=== PATIENT | female | born 2000 | race African-American/Black ===

== ENCOUNTER 2022-02-01 08:32 | Emergency (ER) | payer OTHER ==
--- OUTSIDE RECORDS SUMMARY | 2022-02-01 08:54 | XMS REPORT | Continuity of Care Document ---
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 09/02/21 at 1530, Until Discontinu ed, KENNY D5W 0.45% 2020-11 Yes 1000mL at 75 Unive rs NaCl 0-17 mL/hr, ity of (1/2NS) IV 20:30: 1,000 mL, [place] infusion 00 IV Medical 1,000 mL Infusion, Branch CONTINUOUS , Starting on 09/02/21 at 1530, Until Discontinu ed, KENNY magnesium 2020-11- No 2g/h 2 g/hr (50 U nivers sulfate in 0-17 10-18 mL/hr), at it y of 0.9 %NaCl 20:30: 08:29 50 mL/hr, [place] 10 gram/250 00 :00 IV Medical mL (40 Infusion, Branch mg/mL) IV CONTINUOUS SOLUTION , Starting on 09/02/21 at 1530, Until 09/03/21 at 0329, KENNY calcium 2020-11 Yes 1000mg 1,000 mg, Uni vers gluconate 0-17 Slow IV ity of 100 mg/mL 20:22: Push, PRN [place] (10%) 35 - SEE Medical injection INSTRUCTIO Bran ch 1,000 mg NS, Starting on 09/02/21 at 1522, Until Discontinu ed, Routine, magnesium toxicity magnesium 2020-11 Yes 4g 32.48 mEq Uni vers sulfate 4 0-17 (4 g), ity of mEq/mL (50 20:22: Slow [place] 35 [place], PRN Medical injection - SEE Branch 32.48 mEq INSTRUCTIO NS, Starting on 09/02/21 at 1522, Until Discontinu ed, Routine, For seizure activity (patient not on magnesium sulfate) magnesium 2020-11 Yes 2g 16.24 mEq Uni vers sulfate 4 0-17 (2 g), ity of mEq/mL (50 20:22: Slow [place] 35 Push, PRN Medical injection - SEE Branch 16.24 mEq INSTRUCTIO NS, 2 doses, Starting on 09/02/21 at 1522, Until Discontinu ed, Routine, For seizure activity (patient already on magnesium sulfate) calcium 2020-11 Yes 1000mg 1,000 mg, Uni vers gluconate 0-17 Slow IV ity of 100 mg/mL 20:22: Push, PRN [place] (10%) 35 - SEE Medical injection INSTRUCTIO Bran ch 1,000 mg NS, Starting on 09/02/21 at 1522, Until Discontinu ed, Routine, magnesium toxicity magnesium 2020-11 Yes 4g 32.48 mEq Uni vers sulfate 4 0-17 (4 g), ity of mEq/mL (50 20:22: Slow [place] 35 Push, PRN Medical injection - SEE Branch 32.48 mEq INSTRUCTIO NS, Starting on 09/02/21 at 1522, Until Discontinu ed, Routine, For seizure activity (patient not on magnesium sulfate) magnesium 2020-11 Yes 2g 16.24 mEq Uni vers sulfate 4 0-17 (2 g), ity of mEq/mL (50 20:22: Slow [place] 35 Push, PRN Medical injection - SEE Branch 16.24 mEq INSTRUCTIO NS, 2 doses, Starting on 09/02/21 at 1522, Until Discontinu ed, Routine, For seizure activity (patient already on magnesium sulfate) calcium 2020-11 Yes 1000mg 1,000 mg, Uni vers gluconate 0-17 Slow IV ity of 100 mg/mL 20:22: Push, PRN [place] (10%) 35 - SEE Medical injection INSTRUCTIO Bran ch 1,000 mg NS, Starting on 09/02/21 at 1522, Until Discontinu ed, Routine, magnesium toxicity magnesium 2020-11 Yes 4g 32.48 mEq Uni vers sulfate 4 0-17 (4 g), ity of mEq/mL (50 20:22: Slow [place] 35 Push, PRN Medical injection - SEE Branch 32.48 mEq INSTRUCTIO NS, Starting on 09/02/21 at 1522, Until Discontinu ed, Routine, For seizure activity (patient not on magnesium sulfate) magnesium 2020-11 Yes 2g 16.24 mEq Uni vers sulfate 4 0-17 (2 g), ity of mEq/mL (50 20:22: Slow [place] %) 35 Push, PRN Medical injection - [facility] 16.24 mEq INSTRUCTIO NS, 2 doses, Starting on [place] 09/02/21 at 1522, Until Discontinu ed, Routine, For seizure activity (patient already on magnesium sulfate) ibuprofen 2020-11- No 600mg 600 mg, Uni vers (IBU) 0-17 - Oral, ity of tablet 600 19:03: 14:45 Q6HPRN, [place] mg 00 :55 Starting Medical on Hemat[place] Branch 09/02/21 at 1403, Until 09/03/21 at 0945, Routine, Pain (scale 1-3) morpHINE 30 2020-11- No Unive rs mg/30 mL 0-17 10-18 ity of (fixed 18:30: 14:48 [place] dose) [employer]ACH[employer] 00 :05 Medical injection [place] bupivacaine 2020-11 Yes PRN, Univer s (preserv 0-17 Starting ity of free) 18:09: on [facility] (SENSORCAIN 00 09/02/21 Medi joanie E MPF) 0.25 at 1309, Bran ch % (2.5 Until mg/mL) Discontinu injection ed, Routine, Intra-op bupivacaine 2020-11 Yes PRN, Univer s (preserv 0-17 Starting ity of free) 18:09: on [facility] (SENSORCAIN 00 09/02/21 Medi joanie E MPF) 0.25 at 1309, Bran ch % (2.5 Until mg/mL) Discontinu injection ed, Routine, Intra-op bupivacaine 2020-11 Yes PRN, Univer s (preserv 0-17 Starting ity of free) 18:09: on [facility] (SENSORCAIN 00 09/02/21 Medi joanie E MPF) 0.25 at 1309, Bran ch % (2.5 Until mg/mL) Discontinu injection ed, Routine, Intra-op HYDROmorpho 2020-11 Yes .2mg 0.2 mg, Uni vers ne 0-17 Slow IV ity of (DILAUDID) 17:47: Push, [place] injection 42 Q5MIN PRN, Medi joanie 0.2 mg 10 doses, Branch Starting on 09/02/21 at 1247, Until Discontinu ed, Routine, Pain (scale 7-10), PACU
Us e approved by (Faculty): PACU USE -ANESTHESI A SERVICE-HY DROMORPHON E INJECTIONS FENTanyl PF 2020-11 Yes 25ug 25 mcg, Uni vers (SUBLIMAZE 0-17 Slow IV ity of (PF)) 17:47: Push, [place] injection 42 Q5MIN PRN, Medi joanie 25 mcg 4 doses, Branch Starting on 09/02/21 at 1247, Until Discontinu ed, Routine, Pain (scale 4-6), PACU ondansetron 2020-11 Yes 4mg 4 mg, Slow Univers (ZOFRAN 0-17 IV Push, ity of (PF)) 17:47: PRN, 1 [place] injection 4 42 dose, Medical mg Starting Branch on 09/02/21 at 1247, Until Discontinu ed, Routine, Nausea and Vomiting (N/V), PACU HYDROmorpho 2020-11 Yes .2mg 0.2 mg, Uni vers ne 0-17 Slow IV ity of (DILAUDID) 17:47: Push, [place] injection 42 Q5MIN PRN, Medi joanie 0.2 mg 10 doses, Branch Starting on 09/02/21 at 1247, Until Discontinu ed, Routine, Pain (scale 7-10), PACU
Us e approved by (Faculty): PACU USE -ANESTHESI A SERVICE-HY DROMORPHON E INJECTIONS FENTanyl PF 2020-11 Yes 25ug 25 mcg, Uni vers (SUBLIMAZE 0-17 Slow IV ity of (PF)) 17:47: Push, [place] injection 42 Q5MIN PRN, Medi joanie 25 mcg 4 doses, Branch Starting on 09/02/21 at 1247, Until Discontinu ed, Routine, Pain (scale 4-6), PACU ondansetron 2020-11 Yes 4mg 4 mg, Slow Univers (ZOFRAN 0-17 IV Push, ity of (PF)) 17:47: PRN, 1 [place] injection 4 42 dose, Medical mg Starting Branch on 09/02/21 at 1247, Until Discontinu ed, Routine, Nausea and Vomiting (N/V), PACU HYDROmorpho 2020-11 Yes .2mg 0.2 mg, Uni vers ne 0-17 Slow IV ity of (DILAUDID) 17:47: Push, [place] injection 42 Q5MIN PRN, Medi joanie 0.2 mg 10 doses, Branch Starting on 09/02/21 at 1247, Until Discontinu ed, Routine, Pain (scale 7-10), PACU
Us e approved by (Faculty): PACU USE -ANESTHESI A SERVICE-HY DROMORPHON E INJECTIONS FENTanyl PF 2020-11 Yes 25ug 25 mcg, Uni vers (SUBLIMAZE 0-17 Slow IV ity of (PF)) 17:47: Push, [place] injection 42 Q5MIN PRN, Medi joanie 25 mcg 4 doses, Branch Starting on 09/02/21 at 1247, Until Discontinu ed, Routine, Pain (scale 4-6), PACU ondansetron 2020-11 Yes 4mg 4 mg, Slow Univers (ZOFRAN 0-17 IV Push, ity of (PF)) 17:47: PRN, 1 [place] injection 4 42 dose, Medical mg Starting Branch on 09/02/21 at 1247, Until Discontinu ed, Routine, Nausea and Vomiting (N/V), PACU LORazepam 2020-11- No 1mg 1 mg, Slow U nivers (ATIVAN) 0-16 -16 IV Push, ity of injection 1 02:20: 02:25 ONCE NOW, [place] mg 00 :00 1 dose, On Medical Fri Branch 08/31/21 at 2130, KENNY nalbuphine 2020-11- No 10mg 10 mg, Univ ers (NUBAIN) 0-16 -16 Intravenou ity of injection 01:28: 02:25 s, ONCE, 1 [place] 10 mg 00 :00 dose, On Medical Fri Branch 08/31/21 at 2030, Routine proMETHazin 2020-11- No 25mg 25 mg, IV Univers e 0-16 -16 Piggyback, ity of (PHENERGAN) 01:28: 02:25 ONCE NOW, [place] 25 mg in 00 :00 1 dose, On Medic al NaCl 0.9% Fri Branch (NS) 50 mL 08/31/21 IV at 2030, piggyback KENNY nalbuphine 2020-11- No 10mg 10 mg, Univ ers (NUBAIN) 0-15 10-15 Intravenou ity of injection 17:00: 16:02 s, ONCE, 1 [place] 10 mg 00 :00 dose, On Medical Fri Branch 08/31/21 at 1200, Routine lactated 2020-11- No 500mL at 999 Unive rs ringers IV 0-15 10-15 mL/hr, 500 it y of infusion 04:15: 04:10 mL, IV [place] 500 mL 00 :00 Infusion, Medical ONCE, 1 Branch dose, On [place] 08/30/21 at 2315, Routine sodium 2020-11- No 30mL 30 mL, Univers citrate-cit 0-15 10-15 Oral, ity of demetrius acid 03:04: 04:15 PRE-PROCED [place] (BICITRA) 27 :00 URE ONCE, Medic al 500-334 1 dose, Branch mg/5 mL Starting solution 30 on [place] mL 08/30/21 at 2204, Until Discontinu ed, Routine, Surgery/Pr ocedure D5W-LR IV 2020-11- No 1000mL at 125 Uni vers infusion 0-15 10-18 mL/hr, IV ity o f 1,000 mL 02:15: 14:45 Infusion, [place] as 00 :39 CONTINUOUS Medical , Starting Branch on [place]laine 08/30/21 at 2115, Until 09/03/21 at 0945, Routine LR 1000 mL 2020-11- No 2mU/min at 6-120 Univers + oxytocin 0-15 10-18 mL/hr, IV ity of 20 units IV 02:07: 14:45 Infusion, [place] Solution 09 :39 TITRATE, Medical Starting Branch on [place] 08/30/21 at 2107, Until 09/03/21 at 0945, KENNY sulfamethox 2020- No [id number] 1{tbl} Take 1 Univers azole-trime 9-17 08-18 tablet by it y of thoprim 00:00: 04:59 mouth 2 [place] 800-160 mg 00 :00 (two) Medical per tablet times Branch daily for 14 days. sulfamethox 2020- No [id number] 1{tbl} Take 1 Univers azole-trime 08-03 10-02 tablet by it y of thoprim 00:00: 04:59 mouth 2 [place] 800-160 mg 00 :00 (two) Medical per tablet times Branch daily for 14 days. fluconazole 2020- No [id number] 150mg Take 1 Univers (DIFLUCAN) 08-03 tablet by ity of 150 mg 00:00: 04:59 mouth once [place] tablet 00 :00 now for 1 Medical dose. [place] fluconazole 2020- No [id number] 150mg Take 1 Univers (DIFLUCAN) 08-03 tablet by ity of 150 mg 00:00: 04:59 mouth once [place] tablet 00 :00 now for 1 Medical dose. [place] lactated Yes 1000mL at 125 Unive rs ringers IV 9-09 mL/hr, ity of infusion 22:15: 1,000 mL, [place] 1,000 mL 00 IV Medical Infusion, Branch CONTINUOUS , Starting [place] 07/26/21 at 1715, Until Discontinu ed, Routine clindamycin Yes 300mg 300 mg, Un aruna (CLEOCIN 07-26 Oral, Q6H, ity o f HCL) 21:15: First dose [place] capsule 300 00 on [place]laine Medica l mg 07/26/21 at Branch 1615, Until Discontinu ed, KENNY
Re ason for Anti-Infec tive: Documented Infection< br>Documen phyllis Infection Site: Urine
D uration of Therapy: 14 days
Re stricted use approved by: [employer]
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 tablet sulfamethox Yes [id number] 1{tbl} Take 1 Univers azole-trime -09 tablet by ity of thoprim 00:00: mouth 2 [place] (BACTRIM 00 (two) Medical DS) 800-160 times Branch mg per daily. tablet sulfamethox 2020-0 Yes [id number] 1{tbl} Take 1 Univers azole-trime 9-09 tablet by ity of thoprim 00:00: mouth 2 [place] (BACTRIM 00 (two) Medical DS) 800-160 times Branch mg per daily. tablet sulfamethox 0 Yes 1{tbl} Take 1 Univers azole-trime 9-09 tablet by ity of thoprim 00:00: mouth 2 [place] (BACTRIM 00 (two) Medical DS) 800-160 times Branch mg per daily. tablet sulfamethox 0 Yes 1{tbl} Take 1 Univers azole-trime 9-09 tablet by ity of thoprim 00:00: mouth 2 [place] (BACTRIM 00 (two) Medical DS) 800-160 times Branch mg per daily. tablet sulfamethox 0 Yes 1{tbl} Take 1 Univers azole-trime 9-09 tablet by ity of thoprim 00:00: mouth 2 [place] (BACTRIM 00 (two) Medical DS) 800-160 times Branch mg per daily. tablet sulfamethox 0 Yes 1{tbl} Take 1 Univers azole-trime 9-09 tablet by ity of thoprim 00:00: mouth 2 [place] (BACTRIM 00 (two) Medical DS) 800-160 times Branch mg per daily. tablet sulfamethox 0 Yes [id number] 1{tbl} Take 1 Univers azole-trime 9-09 tablet by ity of thoprim 00:00: mouth 2 [place] (BACTRIM 00 (two) Medical DS) 800-160 times Branch mg per daily. tablet sulfamethox 0 2020- No [id number] 1{tbl} Take 1 Univers azole-trime 9-09 10-19 tablet by it y of thoprim 00:00: 00:00 mouth 2 [place] (BACTRIM 00 :00 (two) Medical DS) 800-160 times Branch mg per daily. tablet metroNIDAZO 0 2020- No 500mg Take 1 Un aruna LE (FLAGYL) 8-25 07-19 tablet by it y of 500 mg 00:00: 04:59 mouth 2 [place] tablet 00 :00 (two) Medical times Branch daily for 7 days. metroNIDAZO 2020-2020- No 500mg Take 1 [facility] aruna LE (FLAGYL) 07-11- tablet by it y of 500 mg 00:00: 04:59 mouth 2 [place] tablet 00 :00 (two) Medical times Branch daily for 7 days. fluconazole 2020-2020- No 150mg Take 1 [place] 150 mg 07-11- tablet by ity of tablet 00:00: 04:59 mouth once [place] 00 :00 now for 1 Medical dose. Take Branch one tablet PO today, then repeat in 72 hours fluconazole 2020-2020- No 150mg Take 1 [place] 150 mg 07-11- tablet by ity of tablet 00:00: 04:59 mouth once [place] 00 :00 now for 1 Medical dose. Take Branch one tablet PO today, then repeat in 72 hours Nitrofurant 2020-2020- No [id number] 100mg Take 1 Univers oin&Nit. 8-30 capsule by ity of Macrocryst 00:00: 04:59 mouth 2 [place] 100 mg 00 :00 (two) Medical capsule times Branch daily for 5 days. Nitrofurant 2020- No [id number] 100mg Take 1 Univers oin&Nit. 8- 08-30 capsule by ity of Macrocryst 00:00: 04:59 mouth 2 [place] 100 mg 00 :00 (two) Medical capsule times Branch daily for 5 days. cephALEXin Yes 500mg 500 mg, Uni vers (KEFLEX) 6-08 Oral, Q6H, ity o f capsule 500 02:30: First dose [place] mg 00 on [facility] 04/23/21 at [place] 2130, Until Discontinu ed, KENNY
Re ason for Anti-Infec tive: Documented Infection< br>Documen phyllis Infection Site: Urine
D uration of Therapy: 7 days cephALEXin 2020- Yes [id number] 500mg Take 1 [facility] 500 mg 6-08 capsule by ity of capsule 00:00: mouth 4 [place] 00 (four) Medical times Branch daily. cephALEXin Yes [id number] 500mg Take 1 [facility] 500 mg 6-08 capsule by ity of capsule 00:00: mouth 4 [place] 00 (four) Medical times Branch daily. cephALEXin 2021-0 Yes [id number] 500mg Take 1 [facility] 500 mg 6-08 capsule by ity of capsule 00:00: mouth () Medical times Branch daily. cephALEXin 2021-0 Yes [id number] 500mg Take 1 Univers 500 mg 6-08 capsule by ity of capsule 00:00: mouth (four) Medical times Branch daily. cephALEXin 2021-0 Yes [id number] 500mg Take 1 Univers 500 mg 6-08 capsule by ity of capsule 00:00: mouth (four) Medical times Branch daily. cephALEXin 2021-0 Yes [id number] 500mg Take 1 [facility] 500 mg 6-08 capsule by ity of capsule 00:00: mouth () Medical times Branch daily. cephALEXin 2021-0 Yes [id number] 500mg Take 1 Univers 500 mg 6-08 capsule by ity of capsule 00:00: mouth ([facility]) Medical times Branch daily. cephALEXin 2021-0 Yes [id number] 500mg Take 1 Univers 500 mg 6-08 capsule by ity of capsule 00:00: mouth (four) Medical times Branch daily. cephALEXin 2021-0 Yes [id number] 500mg Take 1 Univers 500 mg 6-08 capsule by ity of capsule 00:00: mouth [place] ([facility]) Medical times Branch daily. cephALEXin 2021-0 Yes [id number] 500mg Take 1 Univers 500 mg 6-08 capsule by ity of capsule 00:00: mouth [place] () Medical times Branch daily. cephALEXin 2021-0 Yes [id number] 500mg Take 1 [facility] 500 mg 6-08 capsule by ity of capsule 00:00: mouth [place] (four) Medical times Branch daily. cephALEXin 2021-0 Yes [id number] 500mg Take 1 [facility] 500 mg 6-08 capsule by ity of capsule 00:00: mouth [place] ([facility]) Medical times Branch daily. cephALEXin 2021-0 Yes [id number] 500mg Take 1 Univers 500 mg 6-08 capsule by ity of capsule 00:00: mouth [address] [place] [address] (four) Medical times Branch daily. cephALEXin 2021-0 Yes [id number] 500mg Take 1 [facility] 500 mg 6-08 capsule by ity of capsule 00:00: mouth 4 [place] 00 (four) Medical times Branch daily. cephALEXin 2020-2020- No [id number] 500mg Take 1 Univers 500 mg 04-24 capsule by ity of capsule 00:00: 00:00 mouth 4 [place] 00 :00 (four) Medical times Branch daily. aspirin 81 2020-0 Yes [id number] 81mg Take 1 Univers mg EC 5-15 tablet by ity of tablet 00:00: mouth [place] 00 daily. Medical Branch aspirin 81 2020-0 Yes [id number] 81mg Take 1 Univers mg EC 5-15 tablet by ity of tablet 00:00: mouth [place] 00 daily. Medical Branch aspirin 81 2020-0 Yes [id number] 81mg Take 1 Univers mg EC 5-15 tablet by ity of tablet 00:00: mouth [place] 00 daily. Medical Branch aspirin 81 2020-0 Yes [id number] 81mg Take 1 Univers mg EC 5-15 tablet by ity of tablet 00:00: mouth [place] 00 daily. Medical Branch aspirin 81 2020-0 Yes [id number] 81mg Take 1 Univers mg EC 5-15 tablet by ity of tablet 00:00: mouth [place] 00 daily. Medical Branch aspirin 81 2020-0 Yes [id number] 81mg Take 1 Univers mg EC 5-15 tablet by ity of tablet 00:00: mouth [place] 00 daily. Medical Branch aspirin 81 2020-0 Yes [id number] 81mg Take 1 Univers mg EC 5-15 tablet by ity of tablet 00:00: mouth [place] 00 daily. Medical Branch aspirin 81 2020-0 Yes [id number] 81mg Take 1 Univers mg EC 5-15 tablet by ity of tablet 00:00: mouth [place] 00 daily. Medical Branch aspirin 81 2020-0 Yes [id number] 81mg Take 1 Univers mg EC 5-15 tablet by ity of tablet 00:00: mouth [place] 00 daily. Medical Branch aspirin 81 2020-0 Yes [id number] 81mg Take 1 Univers mg EC 5-15 tablet by ity of tablet 00:00: mouth [place] 00 daily. Medical Branch aspirin 81 2020-0 Yes [id number] 81mg Take 1 Univers mg EC 5-15 tablet by ity of tablet 00:00: mouth [place] 00 daily. Medical Branch aspirin 81 2020-0 Yes [id number] 81mg Take 1 Univers mg EC 5-15 tablet by ity of tablet 00:00: mouth [place] 00 daily. Medical Branch aspirin 81 Yes [id number] 81mg Take 1 Univers mg EC 5-15 tablet by ity of tablet 00:00: mouth [place] 00 daily. Medical Branch aspirin 81 Yes [id number] 81mg Take 1 Univers mg EC 5-15 tablet by ity of tablet 00:00: mouth [place] 00 daily. Medical Branch aspirin 81 Yes [id number] 81mg Take 1 Univers mg EC 5-15 tablet by ity of tablet 00:00: mouth [place] 00 daily. Medical Branch aspirin 81 Yes [id number] 81mg Take 1 Univers mg EC 5-15 tablet by ity of tablet 00:00: mouth [place] 00 daily. [facility] Branch aspirin 81 2020- No [id number] 81mg Take 1 Univers mg EC 5-15 10-19 tablet by ity of tablet 00:00: 00:00 mouth [place] 00 :00 daily. Medical Branch cephALEXin 2020- No [id number] 500mg Take 1 Univers (KEFLEX) 3-24 -04 capsule by ity of 500 mg 00:00: 04:59 mouth 4 [place] capsule 00 :00 (four) Medical times Branch daily for 10 days. cephALEXin 2020- No [id number] 500mg Take 1 Univers (KEFLEX) 3-24 -04 capsule by ity of 500 mg 00:00: 04:59 mouth 4 [place] capsule 00 :00 (four) Medical times Branch daily for 10 days. cephALEXin 2020- No [id number] 500mg Take 1 Univers (KEFLEX) 3-24 04-04 capsule by ity of 500 mg 00:00: 04:59 mouth 4 [place] capsule 00 :00 (four) Medical times Branch daily for 10 days. cephALEXin 2020- No [id number] 500mg Take 1 Univers (KEFLEX) 3-24 04-04 capsule by ity of 500 mg 00:00: 04:59 mouth 4 [place] capsule 00 :00 (four) Medical times Branch daily for 10 days. cephALEXin 2020- No [id number] 500mg Take 1 Univers (KEFLEX) 3-24 04-04 capsule by ity of 500 mg 00:00: 04:59 mouth 4 [place] capsule 00 :00 (four) Medical times Branch daily for 10 days. cephALEXin 2020- No [id number] 500mg Take 1 Univers (KEFLEX) 02-07 capsule by ity of 500 mg 00:00: 04:59 mouth 4 [place] capsule 00 :00 (four) Medical times [place] daily for 10 days. Iron Fum & 2020- No [id number] 1{capsu Take 1 Univers P-FA-Vit B 02-06-22 le} capsule by it y of & C No.9 00:00: 04:59 mouth [place] (INTEGRA 00 :00 daily for Medica l PLUS) 125 90 days. Branch mg iron- 1 mg Cap Iron Fum & 2020- No [id number] 1{capsu Take 1 Univers P-FA-Vit B 02-06-22 le} capsule by it y of & C No.9 00:00: 04:59 mouth [place] (INTEGRA 00 :00 daily for Medica l PLUS) 125 90 days. Branch mg iron- 1 mg Cap Iron Fum & 2020- No [id number] 1{capsu Take 1 Univers P-FA-Vit B 02-06-22 le} capsule by it y of & C No.9 00:00: 04:59 mouth [place] (INTEGRA 00 :00 daily for Medica l PLUS) 125 90 days. Branch mg iron- 1 mg Cap Iron Fum & 2020- No [id number] 1{capsu Take 1 Univers P-FA-Vit B 02-06-22 le} capsule by it y of & C No.9 00:00: 04:59 mouth [place] (INTEGRA 00 :00 daily for Medica l PLUS) 125 90 days. Branch mg iron- 1 mg Cap Iron Fum & 2020- No [id number] 1{capsu Take 1 Univers P-FA-Vit B 3-09 05-22 le} capsule by it y of & C No.9 00:00: 04:59 mouth [place] (INTEGRA 00 :00 daily for Medica l PLUS) 125 90 days. Branch mg iron- 1 mg Cap Iron Fum & 2020- No [id number] 1{capsu Take 1 Univers P-FA-Vit B 3-09 05-22 le} capsule by it y of & C No.9 00:00: 04:59 mouth [place] (INTEGRA 00 :00 daily for Medica l PLUS) 125 90 days. Branch mg iron- 1 mg Cap Iron Fum & 2020- No [id number] 1{capsu Take 1 Univers P-FA-Vit B 3- 06-22 le} capsule by it y of & C No.9 00:00: 04:59 mouth [place] (INTEGRA 00 :00 daily for Medica l PLUS) 125 90 days. Branch mg iron- 1 mg Cap Iron Fum & 2020- No [id number] 1{capsu Take 1 Univers P-FA-Vit B 3- 06-22 le} capsule by it y of & C No.9 00:00: 04:59 mouth [place] (INTEGRA 00 :00 daily for Medica l PLUS) 125 90 days. Branch mg iron- 1 mg Cap Iron Fum & 2020- No [id number] 1{capsu Take 1 Univers P-FA-Vit B 3-09 05-22 le} capsule by it y of & C No.9 00:00: 04:59 mouth [place] (INTEGRA 00 :00 daily for Medica l PLUS) 125 90 days. Branch mg iron- 1 mg Cap Iron Fum & 2020- No [id number] 1{capsu Take 1 Univers P-FA-Vit B 3- 06-22 le} capsule by it y of & C No.9 00:00: 04:59 mouth [place] (INTEGRA 00 :00 daily for Medica l PLUS) 125 90 days. Branch mg iron- 1 mg Cap Iron Fum & 2020- No [id number] 1{capsu Take 1 Univers P-FA-Vit B 3- 06-22 le} capsule by it y of & C No.9 00:00: 04:59 mouth [place] (INTEGRA 00 :00 daily for Medica l PLUS) 125 90 days. Branch mg iron- 1 mg Cap Iron Fum & 2020- No Anemia of 1{capsu Take 1 Univers P-FA-Vit B 3- 06-22 mother in le} capsule by ity of & C No.9 00:00: 04:59 , mouth [place] (INTEGRA 00 :00 antepartum daily for Medical PLUS) 125 90 days. Branch mg iron- 1 mg Cap Yes [id number] 1{packe Take 1 Univers vit 3-22 t} Packet by ity of 33-iron-fol 00:00: mouth [place] ic-dha 00 daily. Medical (SELECT-OB Branch + DHA) 29 mg iron-1 mg -250 mg combo pack Yes [id number] 1{packe Take 1 Univers vit 3-22 t} Packet by ity of 33-iron-fol 00:00: mouth [place] ic-dha 00 daily. Medical (SELECT-OB Branch + DHA) 29 mg iron-1 mg -250 mg combo pack Yes [id number] 1{packe Take 1 Univers vit 3-22 t} Packet by ity of 33-iron-fol 00:00: mouth [place] ic-dha 00 daily. Medical (SELECT-OB Branch + DHA) 29 mg iron-1 mg -250 mg combo pack Yes [id number] 1{packe Take 1 Univers vit 3-22 t} Packet by ity of 33-iron-fol 00:00: mouth [place] ic-dha 00 daily. Medical (SELECT-OB Branch + DHA) 29 mg iron-1 mg -250 mg combo pack Yes [id number] 1{packe Take 1 Univers vit 3-22 t} Packet by ity of 33-iron-fol 00:00: mouth [place] ic-dha 00 daily. Medical (SELECT-OB Branch + DHA) 29 mg iron-1 mg -250 mg combo pack Yes [id number] 1{packe Take 1 Univers vit 3-22 t} Packet by ity of 33-iron-fol 00:00: mouth [place] ic-dha 00 daily. Medical (SELECT-OB Branch + DHA) 29 mg iron-1 mg -250 mg combo pack Yes [id number] 1{packe Take 1 Univers vit 3-22 t} Packet by ity of 33-iron-fol 00:00: mouth [place] ic-dha 00 daily. Medical (SELECT-OB Branch + DHA) 29 mg iron-1 mg -250 mg combo pack Yes [id number] 1{packe Take 1 Univers vit 3-22 t} Packet by ity of 33-iron-fol 00:00: mouth [place] ic-dha 00 daily. Medical (SELECT-OB Branch + DHA) 29 mg iron-1 mg -250 mg combo pack Yes [id number] 1{packe Take 1 Univers vit 3-22 t} Packet by ity of 33-iron-fol 00:00: mouth [place] ic-dha 00 daily. Medical (SELECT-OB Branch + DHA) 29 mg iron-1 mg -250 mg combo pack Yes [id number] 1{packe Take 1 Univers vit 3-22 t} Packet by ity of 33-iron-fol 00:00: mouth [place] ic-dha 00 daily. Medical (SELECT-OB Branch + DHA) 29 mg iron-1 mg -250 mg combo pack Yes [id number] 1{packe Take 1 Univers vit 3-22 t} Packet by ity of 33-iron-fol 00:00: mouth [place] ic-dha 00 daily. Medical (SELECT-OB Branch + DHA) 29 mg iron-1 mg -250 mg combo pack Yes [id number] 1{packe Take 1 Univers vit 3-22 t} Packet by ity of 33-iron-fol 00:00: mouth [place] ic-dha 00 daily. Medical ([facility] Branch + DHA) 29 mg iron-1 mg -250 mg combo pack Yes [id number] 1{packe Take 1 [facility] vit 3-22 t} Packet by ity of 33-iron-fol 00:00: mouth [place] ic-dha 00 daily. Medical ([facility] + DHA) 29 mg iron-1 mg -250 mg combo pack Yes [id number] 1{packe Take 1 [facility] vit 3-22 t} Packet by ity of 33-iron-fol 00:00: mouth [place] ic-dha 00 daily. Medical ([facility] Branch + DHA) 29 mg iron-1 mg -250 mg combo pack Yes [id number] 1{packe Take 1 [facility] vit 3-22 t} Packet by ity of 33-iron-fol 00:00: mouth [place] ic-dha 00 daily. Medical ([facility] + DHA) 29 mg iron-1 mg -250 mg combo pack Yes [id number] 1{packe Take 1 [facility] vit 3-22 t} Packet by ity of 33-iron-fol 00:00: mouth [place] ic-dha 00 daily. Medical ([facility] + DHA) 29 mg iron-1 mg -250 mg combo pack Yes [id number] 1{packe Take 1 [facility] vit 3-22 t} Packet by ity of 33-iron-fol 00:00: mouth [place] ic-dha 00 daily. Medical ([facility] + DHA) 29 mg iron-1 mg -250 mg combo pack Yes [id number] 1{packe Take 1 [facility] vit 3-22 t} Packet by ity of 33-iron-fol 00:00: mouth [place] ic-dha 00 daily. Medical ([facility] + DHA) 29 mg iron-1 mg -250 mg combo pack Yes [id number] 1{packe Take 1 [facility] vit 3-22 t} Packet by ity of 33-iron-fol 00:00: mouth [place] ic-dha 00 daily. Medical ([facility] + DHA) 29 mg iron-1 mg -250 mg combo pack Yes [id number] 1{packe Take 1 [facility] vit 3-22 t} Packet by ity of 33-iron-fol 00:00: mouth [place] ic-dha 00 daily. Medical ([facility] + DHA) 29 mg iron-1 mg -250 mg combo pack Yes [id number] 1{packe Take 1 [facility] vit 3-22 t} Packet by ity of 33-iron-fol 00:00: mouth [place] ic-dha 00 daily. Medical ([facility] + DHA) 29 mg iron-1 mg -250 mg combo pack Yes [id number] 1{packe Take 1 [facility] vit 3-22 t} Packet by ity of 33-iron-fol 00:00: mouth [place] ic-dha 00 daily. Medical ([facility] + DHA) 29 mg iron-1 mg -250 mg combo pack Yes [id number] 1{packe Take 1 [facility] vit 3-22 t} Packet by ity of 33-iron-fol 00:00: mouth [place] ic-dha 00 daily. Medical ([facility] + DHA) 29 mg iron-1 mg -250 mg combo pack Yes [id number] 1{packe Take 1 [facility] vit 3-22 t} Packet by ity of 33-iron-fol 00:00: mouth [place] ic-dha 00 daily. Medical ([facility] + DHA) 29 mg iron-1 mg -250 mg combo pack Yes [id number] 1{packe Take 1 [facility] vit 3-22 t} Packet by ity of 33-iron-fol 00:00: mouth [place] ic-dha 00 daily. Medical ([facility] + DHA) 29 mg iron-1 mg -250 mg combo pack Yes High risk 1{packe Take 1 [facility] vit 3-22 teen t} Packet by ity of 33-iron-fol 00:00: mouth [place] ic-dha 00 in first daily. Medical (SELECT-OB trimester Bran ch + DHA) 29 mg iron-1 mg -250 mg combo pack 202- No [id number] 1{packe Take 1 [facility] vit 3-22 10-19 t} Packet by ity of 33-iron-fol 00:00: 00:00 [place] ic-dha 00 :00 daily. Medical ([facility] + DHA) 29 mg iron-1 mg -250 mg combo pack 2019-11 Yes [id number] 1{tbl} Take 1 [facility] vitamin 2-15 tablet by ity of w/FA tablet 00:00: mouth [place] 00 daily. Medical Branch docusate 2019-11 Yes [id number] 240mg Take 1 U nivers calcium 240 2-15 capsule by it y of mg capsule 00:00: mouth once [place] 00 daily as Medical needed for Branch Constipati on. ferrous 2019-11 Yes [id number] 325mg Take 1 [facility] sulfate 325 2-15 tablet by ity of mg (65 mg 00:00: mouth 2 [place] iron) 00 (two) Medical tablet times Branch daily. ibuprofen 2019-11 Yes [id number] 600mg Take 1 [facility] 600 mg 2-15 tablet by ity of tablet 00:00: mouth [place] 00 every 6 Medical (six) Branch hours as needed (Pain). Take with food or milk. 2019-11 Yes [id number] 1{tbl} Take 1 [facility] vitamin 2-15 tablet by ity of w/FA tablet 00:00: mouth [place] 00 daily. Medical Branch docusate 2019-11 Yes [id number] 240mg Take 1 U nivers calcium 240 2-15 capsule by it y of mg capsule 00:00: mouth once [place] 00 daily as Medical needed for Branch Constipati on. ferrous 2019-11 Yes [id number] 325mg Take 1 [facility] sulfate 325 2-15 tablet by ity of mg (65 mg 00:00: mouth 2 [place] iron) 00 (two) Medical tablet times Branch daily. ibuprofen 2019-11 Yes [id number] 600mg Take 1 [facility] 600 mg 2-15 tablet by ity of tablet 00:00: mouth [place] 00 every 6 Medical (six) Branch hours as needed (Pain). Take with food or milk. 2019-11 Yes [id number] 1{tbl} Take 1 [facility] vitamin 2-15 tablet by ity of w/FA tablet 00:00: mouth [place] 00 daily. Medical Branch docusate 2019-11 Yes [id number] 240mg Take 1 U nivers calcium 240 2-15 capsule by it y of mg capsule 00:00: mouth once [place] 00 daily as Medical needed for Branch Constipati on. ferrous 2019-11 Yes [id number] 325mg Take 1 [facility] sulfate 325 2-15 tablet by ity of mg (65 mg 00:00: mouth 2 [place] iron) 00 (two) Medical tablet times Branch daily. ibuprofen 2019-11 Yes [id number] 600mg Take 1 [facility] 600 mg 2-15 tablet by ity of tablet 00:00: mouth [place] 00 every 6 Medical (six) Branch hours as needed (Pain). Take with food or milk. 2019-11 Yes [id number] 1{tbl} Take 1 [facility] vitamin 2-15 tablet by ity of w/FA tablet 00:00: mouth [place] 00 daily. Medical Branch 2019-11 Yes [id number] 1{tbl} Take 1 [facility] vitamin 2-15 tablet by ity of w/FA tablet 00:00: mouth [place] 00 daily. Medical Branch 2019-11 Yes [id number] 1{tbl} Take 1 [facility] vitamin 2-15 tablet by ity of w/FA tablet 00:00: mouth [place] 00 daily. Medical Branch 2020- Yes [id number] 1{tbl} Take 1 [facility] vitamin 2-15 tablet by ity of w/FA tablet 00:00: mouth [place] 00 daily. Medical Branch 2020- Yes [id number] 1{tbl} Take 1 [facility] vitamin 2-15 tablet by ity of w/FA tablet 00:00: mouth [place] 00 daily. Medical Branch 2020 Yes [id number] 1{tbl} Take 1 [facility] vitamin 2-15 tablet by ity of w/FA tablet 00:00: mouth [place] 00 daily. Medical Branch 2020 Yes [id number] 1{tbl} Take 1 [facility] vitamin 2-15 tablet by ity of w/FA tablet 00:00: mouth [place] 00 daily. Medical Branch 2020 Yes [id number] 1{tbl} Take 1 [facility] vitamin 2-15 tablet by ity of w/FA tablet 00:00: mouth [place] 00 daily. Medical Branch 2020 Yes [id number] 1{tbl} Take 1 [facility] vitamin 2-15 tablet by ity of w/FA tablet 00:00: mouth [place] 00 daily. Medical Branch 2020 Yes [id number] 1{tbl} Take 1 [facility] vitamin 2-15 tablet by ity of w/FA tablet 00:00: mouth [place] 00 daily. Medical Branch 2020 Yes [id number] 1{tbl} Take 1 [facility] vitamin 2-15 tablet by ity of w/FA tablet 00:00: mouth [place] 00 daily. Medical Branch 2020- Yes [id number] 1{tbl} Take 1 [facility] vitamin 2-15 tablet by ity of w/FA tablet 00:00: mouth [place] 00 daily. Medical Branch 2020- Yes [id number] 1{tbl} Take 1 [facility] vitamin 2-15 tablet by ity of w/FA tablet 00:00: mouth [place] 00 daily. Medical Branch 2020- Yes [id number] 1{tbl} Take 1 [facility] vitamin 2-15 tablet by ity of w/FA tablet 00:00: mouth [place] 00 daily. Medical Branch 2020- Yes [id number] 1{tbl} Take 1 [facility] vitamin 2-15 tablet by ity of w/FA tablet 00:00: mouth [place] 00 daily. Medical Branch 2020- Yes [id number] 1{tbl} Take 1 [facility] vitamin 2-15 tablet by ity of w/FA tablet 00:00: mouth [place] 00 daily. Medical Branch 2020 Yes [id number] 1{tbl} Take 1 [facility] vitamin 2-15 tablet by ity of w/FA tablet 00:00: mouth [place] 00 daily. Medical Branch 2019-11 Yes [id number] 1{tbl} Take 1 [facility] vitamin 2-15 tablet by ity of w/FA tablet 00:00: mouth [place] 00 daily. Medical Branch 2020 Yes [id number] 1{tbl} Take 1 [facility] vitamin 2-15 tablet by ity of w/FA tablet 00:00: mouth [place] 00 daily. Medical Branch 2019-11 Yes [id number] 1{tbl} Take 1 [facility] vitamin 2-15 tablet by ity of w/FA tablet 00:00: mouth [place] 00 daily. Medical Branch 2019-11 Yes [id number] 1{tbl} Take 1 [facility] vitamin 2-15 tablet by ity of w/FA tablet 00:00: mouth [place] 00 daily. Medical Branch 2020 Yes [id number] 1{tbl} Take 1 [facility] vitamin 2-15 tablet by ity of w/FA tablet 00:00: mouth [place] 00 daily. Medical Branch 2019-11 Yes [id number] 1{tbl} Take 1 [facility] vitamin 2-15 tablet by ity of w/FA tablet 00:00: mouth [place] 00 daily. Medical Branch 2019-11 Yes [id number] 1{tbl} Take 1 [facility] vitamin 2-15 tablet by ity of w/FA tablet 00:00: mouth [place] 00 daily. Medical Branch 2020 Yes [id number] 1{tbl} Take 1 [facility] vitamin 2-15 tablet by ity of w/FA tablet 00:00: mouth [place] 00 daily. Medical Branch 2020 Yes 1{tbl} Take 1 Unive rs vitamin 2-15 (spontaneou tablet by ity of w/FA tablet 00:00: s vaginal mouth [place] 00 delivery) daily. Medical Branch 2019-2020- No [id number] 1{tbl} Take 1 [facility] vitamin 2-15 10-19 tablet by ity of w/FA tablet 00:00: 00:00 [place] 00 :00 daily. [facility] Branch docusate 20201- No [id number] 240mg Take 1 [facility] calcium 240 2-15 -22 capsule by i ty of mg capsule 00:00: 00:00 mouth once [place] 00 :00 daily as Medical needed for Branch Constipati on. ferrous 2019-11- No [id number] 325mg Take 1 U nivers sulfate 325 2-15 -22 tablet by it y of mg (65 mg 00:00: 00:00 mouth 2 [place] iron) 00 :00 (two) Medical tablet times Branch daily. ibuprofen 2019-11- No [id number] 600mg Take 1 [facility] 600 mg 2-15 -22 tablet by ity of tablet 00:00: 00:00 mouth [place] 00 :00 every 6 Medical (six) Branch hours as needed (Pain). Take with food or milk. 2019-11 Yes [id number] 1{tbl} Take 1 [facility] vitamin 2-14 tablet by ity of w/FA tablet 00:00: mouth [place] 00 daily. Medical Branch docusate 2019-11 Yes [id number] 240mg Take 1 U nivers calcium 240 2-14 capsule by it y of mg capsule 00:00: mouth once [place] 00 daily as Medical needed for Branch Constipati on. ferrous 2019-11 Yes [id number] 325mg Take 1 [facility] sulfate 325 2-14 tablet by ity of mg (65 mg 00:00: mouth 2 [place] iron) 00 (two) Medical tablet times Branch daily. ibuprofen 2019-11 Yes [id number] 600mg Take 1 [facility] 600 mg 2-14 tablet by ity of tablet 00:00: mouth [place] 00 every 6 Medical (six) Branch hours as needed (Pain). Take with food or milk. 2019-11 Yes [id number] 1{tbl} Take 1 [facility] vitamin 2-14 tablet by ity of w/FA tablet 00:00: mouth [place] 00 daily. Medical Branch docusate 2019-11 Yes [id number] 240mg Take 1 U nivers calcium 240 2-14 capsule by it y of mg capsule 00:00: mouth once [place] 00 daily as Medical needed for Branch Constipati on. ferrous 2019-11 Yes [id number] 325mg Take 1 [facility] sulfate 325 2-14 tablet by ity of mg (65 mg 00:00: mouth 2 [place] iron) 00 (two) Medical tablet times Branch daily. ibuprofen 2019-11 Yes [id number] 600mg Take 1 [facility] 600 mg 2-14 tablet by ity of tablet 00:00: mouth [place] 00 every 6 Medical (six) Branch hours as needed (Pain). Take with food or milk. morpHINE 2019-11 2020- No 4mg 4 mg, Slow [facility] injection 4 2-13 12-13 IV Push, ity of mg 19:30: 17:07 ONCE, 1 [place] 00 :00 dose, [place] Medical 10/29/20 Branch at 1330, Routine rho(D) 2019-11 Yes 300ug 300 mcg, Univer s immune 2-13 Intramuscu ity of globulin 19:26: lar, ONCE, [place] (RHOGAM) 42 For 1 Medical syringe 300 dose, Branch mcg Conditiona l, Routine ondansetron 2019-11 Yes 4mg 4 mg, Slow Univers (ZOFRAN 2-13 IV Push, ity of (PF)) 19:26: Q8HPRN, [place] injection 4 38 Starting Medi joanie mg Hematite Branch 10/29/20 at 1326, Until Discontinu ed, Routine, Nausea and Vomiting (N/V) simethicone 2019-11 Yes 160mg 160 mg, [facility] (GAS RELIEF 2-13 Oral, ity of (SIMETHICON 19:26: PC+HSPRN, [place] E)) 38 Starting Medical chewable [place] Branch tablet 160 10/29/20 mg at 1326, Until Discontinu ed, Routine, Gas magnesium 2019-11 Yes 30mL 30 mL, Univer s hydroxide 2-13 Oral, ity of (MILK OF 19:26: QDAILYPRN, [place] MAGNESIA) 38 Starting Medica l 400 mg/5 mL Sun Branch suspension 10/29/20 30 mL at 1326, Until Discontinu ed, Routine, Constipati on ibuprofen 2019-11 Yes 600mg 600 mg, Univ ers (IBU) 2-13 Oral, ity of tablet 600 19:26: Q6HPRN, [place] mg 37 Starting Medical Sun Branch 10/29/20 at 1326, Until Discontinu ed, Routine, Pain (scale 4-6) acetaminoph 2019-11 Yes 650mg 650 mg, [facility] en 2-13 Oral, ity of (TYLENOL) 19:26: Q6HPRN, [place] tablet 650 37 Starting Medic al mg [facility] 10/29/20 at 1326, Until Discontinu ed, Routine, Pain (scale 1-3) diphenhydrA 2019-11 Yes 25mg 25 mg, Univ ers MINE 2-13 Oral, ity of (BENADRYL) 19:26: Q6HPRN, [place] tablet 25 37 Starting Medica l mg [facility] 10/29/20 at 1326, Until Discontinu ed, Routine, Sleep, Itching diphenhydrA 2019-11 Yes 25mg 25 mg, IV U nivers MINE-0.9 % 2-13 Piggyback, ity of sod.chlr 19:26: Administer [place] (BENADRYL) 37 over 30 Medica l 25 mg/50 mL Minutes, Bran ch piggyback Q6HPRN, 25 mg Starting [place] 10/29/20 at 1326, Until Discontinu ed, Routine, Itching docusate 2019-11 Yes 240mg 240 mg, Unive rs calcium 2-13 Oral, ity of (SURFAK) 19:26: QDAILYPRN, [place] capsule 240 37 Starting Medi joanie mg [facility] 10/29/20 at 1326, Until Discontinu ed, Routine, Constipati on benzocaine- 2019-11 Yes Topical, [facility] menthol 2-13 PRN, ity of (DERMOPLAST 19:26: [place] ) 20-0.5 % 37 Hemat[place] Medical topical 10/29/20 Branch spray at 1326, Until Discontinu ed, Routine, Perineum discomfort LR 1000 mL 2019-11 2020- No at 125 Univ ers + oxytocin 2-13 12-13 mL/hr, IV ity of 20 units IV 17:15: 17:05 Infusion, [place] Solution 00 :00 ONCE, 1 Medical dose, [facility] 10/29/20 at 1115, Routine FENTanyl PF 2019-11 2020- No 50ug 50 mcg, Un aruna (SUBLIMAZE 2- 12-13 Slow IV ity o f (PF)) 17:15: 15:58 Push, [place] injection 00 :00 ONCE, 1 Medical 50 mcg dose, [facility] 10/29/20 at 1115, Routine acetaminoph 2019-11 2020- No 650mg 650 mg, U nivers en 2-13 12-13 Oral, ity of (TYLENOL) 17:11: 19:26 Q6HPRN, [place] tablet 650 32 :43 Starting Medic al mg Sun [place] 10/29/20 at 1111, Until Hematite 10/29/20 at 1326, Routine, Pain (scale 4-6) D5W-LR IV 2019-11 2020- No 1000mL at 125 Uni vers infusion 2 12-13 mL/hr, IV ity o f 1,000 mL 15:45: 19:26 Infusion, [place] 00 :43 CONTINUOUS Medical , Starting Branch Hematite 10/29/20 at 0945, Until Hematite 10/29/20 at 1326, Routine HYDROcodone 2019-11 2020- No 1{tbl} 1 tablet, Univers -acetaminop 12-24 Oral, ity of hen (NORCO) 03:09: 03:21 ONCE, 1 [place] 10-325 mg 00 :00 dose, Hematite Medic al tablet 1 10/22/20 at [facility] h tablet 211, Routine benzocaine- 2019-11 Yes 1{lozen 1 Lozenge, Univers menthoL 2 ge} Oral, ity of (CEPACOL 02:11: Q4HPRN, [place] SORE THROAT 57 Starting Medi joanie (NIDHI-MEN)) [facility] lozenge 1 10/22/20 at Lozenge 2010, Until Discontinu ed, KENNY, mouth pain chlorhexidi 2019-11 Yes 15mL 15 mL, Univ ers ne 12-24 Oral ity of (PERIDEX) 02:00: ([place] 0.12 % 00 Spit Out), Medical mouthwash BID, First Bran ch 15 mL dose on Hematite 10/22/20 at 2000, Until Discontinu ed, Routine cyclobenzap 2019-11 2020- No 10mg 10 mg, Uni vers rine 2- 12-07 Oral, ONCE ity of (FLEXERIL) 00:47: 05:59 NOW, 1 [place] tablet 10 00 :00 dose, Sun Medic al mg 10/22/20 at Branch 1900, Routine lidocaine 2019-11 Yes 15mL 15 mL, Univer s 2% viscous 2-07 Oral, ity of (LIDOCAINE 00:46: Q4HPRN, [place] VISCOUS) 2 27 Starting Medic al % solution [facility] 15 mL 10/22/20 at 1846, Until Discontinu ed, KENNY, Oral mucosal pain cephALEXin 2019-11 Yes [id number] 500mg Take 1 [facility] 500 mg 2-07 capsule by ity of capsule 00:00: mouth [place] 00 every Medical evening. Branch cephALEXin 2019-11 Yes [id number] 500mg Take 1 [facility] 500 mg 2-07 capsule by ity of capsule 00:00: mouth [place] 00 every Medical evening. Branch cephALEXin 2019-11 2020- No [id number] 500mg Take 1 [facility] 500 mg 2-07 12-20 capsule by ity of capsule 00:00: 05:59 mouth [place] 00 :00 every 6 Medical (six) Branch hours for 12 days. cephALEXin 2019-11 2020- No [id number] 500mg Take 1 [facility] 500 mg 2-07 12-20 capsule by ity of capsule 00:00: 05:59 mouth [place] 00 :00 every 6 Medical (six) Branch hours for 12 days. cephALEXin 2019- 2020- No [id number] 500mg Take 1 [facility] 500 mg 2-07 12-14 capsule by ity of capsule 00:00: 00:00 mouth [place] 00 :00 every 6 Medical (six) Branch hours for 12 days. cephALEXin 2019-11 2020- No [id number] 500mg Take 1 [facility] 500 mg 2-07 12-14 capsule by ity of capsule 00:00: 00:00 mouth [place] 00 :00 every Medical evening. Branch acetaminoph 2019-11- No 650mg 650 mg, U nivers en 2- 12-07 Oral, ity of (TYLENOL) 17:00: 00:14 ONCE, 1 [place] tablet 650 00 :00 dose, Sun Medi joanie mg 10/22/20 at Branch 1100, Routine proMETHazin 2019-11 Yes 25mg 25 mg, Univ ers e 2-06 Oral, ity of (PHENERGAN) 10:24: Q4HPRN, [place] tablet 25 00 Starting Medica l mg Sun Branch 10/22/20 at 0424, Until Discontinu ed, Routine, Nausea and Vomiting (N/V) 2019-11 Yes 1{tbl} 1 tablet, Un aruna vitamin 2-06 Oral, ity of w/FA 05:00: DAILY, [place] (PRENATABS 00 First dose Med ical RX) tablet on Sat Branch 1 tablet 10/21/20 at 2300, Until Discontinu ed, Routine alum-mag 2019-11 Yes 30mL 30 mL, Univers hydroxide-s 2-06 Oral, ity of imeth 04:46: Q6HPRN, [place] (MAALOX 39 Starting Medical PLUS / Sat Branch MAG-AL 10/21/20 at PLUS) 2246, 200-200-20 Until mg/5 mL Discontinu suspension ed, 30 mL Routine, Indigestio n docusate 2019-11 Yes 240mg 240 mg, Unive rs calcium 2-06 Oral, ity of (SURFAK) 04:46: [place], [place] capsule 240 39 Starting Medi joanie mg Sat Branch 10/21/20 at 2246, Until Discontinu ed, Routine, Constipati on magnesium 2019-11 Yes 30mL 30 mL, Univer s hydroxide 2-06 Oral, ity of (MILK OF 04:46: QDAILYPRN, [place] MAGNESIA) 39 Starting Medica l 400 mg/5 mL Sat [place] suspension 10/21/20 at 30 mL 2246, Until Discontinu ed, Routine, Constipati on cefTRIAXone 2019-11 Yes 2000mg 2,000 mg, Univers (ROCEPHIN) 2-06 IV ity of 2,000 mg in 04:09: [place], [place] NaCl 0.9% 00 Q24H ABX, Medic al (NS) 100 mL First dose Br anch MINI-BAG on 10/21/20 at 2215, Until Discontinu ed, 100 mL
Reas on for Anti-Infec tive: Empiric Therapy for Suspected Infection< br>Empiric Therapy Site: Urine
D uration of therapy: 72 hours fluconazole 2019-11- No 150mg 150 mg, U nivers (DIFLUCAN) 12-23 Oral, ONCE it y of tablet 150 02:03: 02:53 NOW, 1 [place] mg 00 :00 dose, [facility] Medical 10/21/20 at [place] 2014, KENNY
Re ason for Anti-Infec tive: Documented Infection< br>Documen phyllis Infection Site: Pelvic
Duration of Therapy: Other (see Comments) acetaminoph 2019-11- No 1000mg 1,000 mg, Univers en 12-23 12-05 Oral, ity of (TYLENOL) 00:00: 23:31 ONCE, 1 [place] tablet 00 :00 dose, Sat Medical 1,000 mg 10/21/20 at Branc h 1800, Routine D5W-LR IV 2019-11- No 1000mL at 125 Uni vers infusion - 12-06 mL/hr, IV ity o f 1,000 mL 21:30: 04:46 Infusion, [place] 00 :28 CONTINUOUS Medical , Starting Branch 10/21/20 at 1530, Until 10/21/20 at 2246, Routine lactated 2019-11- No 500mL at 999 Unive rs ringers IV 12-22 12-06 mL/hr, 500 it y of infusion 21:16: 04:46 mL, IV [place] 500 mL 43 :28 Infusion, Medical PRN - SEE Branch INSTRUCTIO NS, Starting 10/21/20 at 1516, Until 10/21/20 at 2246, Routine oxytocin Yes 40mU/mi 40 Univer s (PITOCIN) 2-09 n vero-unit ity of 40 Units in 01:15: s/min (60 [place] lactated 00 mL/hr), at Medic al ringers 60 mL/hr, Branch 1,000 mL IV IV infusion Infusion, CONTINUOUS , Starting 12/25/19 at 1915, Until Discontinu ed rho(D) 2019-0 Yes 300ug 300 mcg, Univer s immune 2-09 Intramuscu ity of globulin 00:25: lar, ONCE, [place] (RHOGAM) 31 For 1 Medical syringe 300 dose, Branch mcg Conditiona l, Routine HYDROcodone 0 Yes 1{tbl} 1 tablet, Univers -acetaminop 2- Oral, ity of hen (NORCO 00:25: Q6HPRN, [place] 5) 5-325 mg 27 Starting Medi joanie tablet 1 12/25/19 Bran h tablet at 1825, Until Discontinu ed, Routine, Pain (scale 7-10) human 2019-0 Yes .5mL 0.5 mL, Univers papillomav 2-09 Intramuscu ity of vac,9-oscar(P 00:25: lar, [place] F) 27 ONCE-PRIOR Medical (GARDASIL-9 TO Branch ) syringe DISCHARGE, 0.5 mL 1 dose, Starting 12/25/19 at 1825, Until Discontinu ed, Routine, Give vaccine prior to discharge ibuprofen 2020-0 Yes 600mg 600 mg, Univ ers (IBU) 2-09 Oral, ity of tablet 600 00:25: Q6HPRN, [place] mg 27 Starting Medical 12/25/19 Branch at 1825, Until Discontinu ed, Routine, Pain (scale 4-6) diphenhydrA 2020-0 Yes 25mg 25 mg, Univ ers MINE 2-09 Oral, ity of (BENADRYL) 00:25: Q6HPRN, [place] tablet 25 27 Starting Medica l mg 12/25/19 Branch at 1825, Until Discontinu ed, Routine, Sleep, Itching ondansetron 2020-0 Yes 4mg 4 mg, Slow Univers (ZOFRAN 2 IV Push, ity of (PF)) 00:25: Q8HPRN, [place] injection 4 27 Starting Medi joanie mg 12/25/19 Branch at 182, Until Discontinu ed, Routine, Nausea and Vomiting (N/V) simethicone 2020-0 Yes 160mg 160 mg, [facility] (GAS RELIEF 2- Oral, ity of (SIMETHICON 00:25: PC+HSPRN, [place] E)) 27 Starting Medical chewable 12/25/19 Branc h tablet 160 at 182, mg Until Discontinu ed, Routine, Gas docusate 2020-0 Yes 240mg 240 mg, Unive rs calcium 2- Oral, ity of (SURFAK) 00:25: QDAILYPRN, [place] capsule 240 27 Starting Medi joanie mg 12/25/19 Branch at 182, Until Discontinu ed, Routine, Constipati on magnesium 2020-0 Yes 30mL 30 mL, Univer s hydroxide 2-09 Oral, ity of (MILK OF 00:25: QDAILYPRN, [place] MAGNESIA) 27 Starting Medica l 400 mg/5 mL 12/25/19 Br anch suspension at 182, 30 mL Until Discontinu ed, Routine, Constipati on benzocaine- 2020-0 Yes Topical, [facility] menthol 2-09 PRN, ity of (DERMOPLAST 00:25: Starting [place] ) 20-0.5 % 27 12/25/19 Med ical topical at 1825, Branch spray Until Discontinu ed, Routine, Perineum discomfort acetaminoph 2020-0 Yes 650mg 650 mg, Un [facility] en 2-09 Oral, ity of (TYLENOL) 00:25: Q6HPRN, [place] tablet 650 26 Starting Medic al mg 12/25/19 Branch at 1825, Until Discontinu ed, Routine, Pain (scale 1-3) 2020-0 Yes [id number] 1{tbl} Take 1 [facility] vitamin 2-09 tablet by ity of w/FA tablet 00:00: mouth [place] 00 daily. Medical Branch docusate 2020-0 Yes [id number] 240mg Take 1 U nivers calcium 240 2-09 capsule by it y of mg capsule 00:00: mouth once [place] 00 daily as Medical needed for Branch Constipati on. ferrous 2020-0 Yes [id number] 325mg Take 1 [facility] sulfate 325 2-09 tablet by ity of mg (65 mg 00:00: mouth 3 [place] iron) 00 (three) Medical tablet times Branch daily with meals. ibuprofen 2020-0 Yes [id number] 600mg Take 1 [facility] 600 mg 2-09 tablet by ity of tablet 00:00: mouth [place] 00 every 6 Medical (six) Branch hours as needed (Pain). Take with food or milk. 2020-0 Yes [id number] 1{tbl} Take 1 [facility] vitamin 2-09 tablet by ity of w/FA tablet 00:00: mouth [place] 00 daily. Medical Branch docusate 2020-0 Yes [id number] 240mg Take 1 U nivers calcium 240 2-09 capsule by it y of mg capsule 00:00: mouth once [place] 00 daily as Medical needed for Branch Constipati on. ferrous 2020-0 Yes [id number] 325mg Take 1 [facility] sulfate 325 2-09 tablet by ity of mg (65 mg 00:00: mouth 3 [place] iron) 00 (three) Medical tablet times Branch daily with meals. ibuprofen 2020-0 Yes [id number] 600mg Take 1 [facility] 600 mg 2-09 tablet by ity of tablet 00:00: mouth [place] 00 every 6 Medical (six) Branch hours as needed (Pain). Take with food or milk. 2020-0 Yes [id number] 1{tbl} Take 1 [facility] vitamin 2-09 tablet by ity of w/FA tablet 00:00: mouth [place] 00 daily. Medical [place] docusate 2020-0 Yes [id number] 240mg Take 1 U nivers calcium 240 2-09 capsule by it y of mg capsule 00:00: mouth once [place] 00 daily as Medical needed for Branch Constipati on. ferrous 2020-0 Yes [id number] 325mg Take 1 [facility] sulfate 325 2-09 tablet by ity of mg (65 mg 00:00: mouth 3 [place] iron) 00 (three) Medical tablet times Branch daily with meals. ibuprofen 2020-0 Yes [id number] 600mg Take 1 [facility] 600 mg 2-09 tablet by ity of tablet 00:00: mouth [place] 00 every 6 Medical (six) Branch hours as needed (Pain). Take with food or milk. 2019-0 Yes [id number] 1{tbl} Take 1 [facility] vitamin 2-09 tablet by ity of w/FA tablet 00:00: mouth [place] 00 daily. Medical Branch docusate 0 Yes [id number] 240mg Take 1 U nivers calcium 240 2-09 capsule by it y of mg capsule 00:00: mouth once [place] 00 daily as Medical needed for Branch Constipati on. ferrous 2020-0 Yes [id number] 325mg Take 1 Un [facility] sulfate 325 2-09 tablet by ity of mg (65 mg 00:00: mouth 3 [place] iron) 00 (three) Medical tablet times Branch daily with meals. 2019-0 Yes [id number] 1{tbl} Take 1 [facility] vitamin 2-09 tablet by ity of w/FA tablet 00:00: mouth [place] 00 daily. Medical Branch docusate 2019-0 Yes [id number] 240mg Take 1 U nivers calcium 240 2-09 capsule by it y of mg capsule 00:00: mouth once [place] 00 daily as Medical needed for Branch Constipati on. ferrous 2020-0 Yes [id number] 325mg Take 1 Un aruna sulfate 325 2-09 tablet by ity of mg (65 mg 00:00: mouth 3 [place] iron) 00 (three) Medical tablet times Branch daily with meals. 0 2020- No [id number] 1{tbl} Take 1 [facility] vitamin 2-09 12-14 tablet by ity of w/FA tablet 00:00: [place] :[place] daily. [facility] docusate 0 2020- No [id number] 240mg Take 1 [facility] calcium 240 2-09 12-14 capsule by i ty of mg capsule 00:00: 00:00 mouth once [place] 00 :00 daily as Medical needed for Branch Constipati on. ferrous 2019- No [id number] 325mg Take 1 U nivers sulfate 325 12-26 tablet by it y of mg (65 mg 00:00: 00:00 [place] iron[place] 00 :00 (three) Medical tablet times Branch daily with meals. ibuprofen 2019- No [id number] 600mg Take 1 [facility] 600 mg 12-26 tablet by ity of tablet 00:00: 00:00 mouth [place] 00 :00 every 6 Medical (six) Branch hours as needed (Pain). Take with food or milk. ondansetron 2019- No 4mg 4 mg, Slow Univers (ZOFRAN 12-25 IV Push, ity of (PF)) 16:57: 17:01 ONCE, 1 [place] injection 4 00 :00 dose, Sat Med ical mg 12/25/19 at Branch 1100, Routine azithromyci 2019- No 1000mg 1,000 mg, Univers n 12-25 Oral, ity of (ZITHROMAX) 12:30: 12:39 ONCE, 1 [place] tablet 00 :00 dose, Sat Medical 1,000 mg 12/25/19 at Branch 0630, KENNY
Re ason for Anti-Infec tive: Documented Infection< br>Documen phyllis Infection Site: Pelvic
Duration of Therapy: Other (see Comments) LR 1000 mL 2019- No 2mU/min 2 Uni vers + oxytocin 12-25 vero-unit it y of 20 units IV 11:05: 02:29 s/min (6 [place] Solution 02 :23 mL/hr), at [facility] al 6 mL/hr, [place] IV Infusion, TITRATE, Starting 12/25/19 at 0505, Until 12/25/19 at 2029, KENNY, Oxytocin Induction / Augmentati on of Labor. nalbuphine 2019- No 10mg 10 mg, Univ ers (NUBAIN) 12-25 Intravenou ity of injection 02:30: 01:45 s, ONCE, 1 [place] 10 mg 00 :00 dose, Fri Medical 12/24/19 at Branch 2030, Routine azithromyci 2020-0 2020- No [id number] 1000mg Take 2 Univers n 500 mg 12-25-09 tablets by ity of tablet 00:00: 05:59 mouth [place] 00 :00 now for 1 Medical dose. [place] D5W-LR IV 2019-0 2019- No 1000mL at 125 Uni vers infusion 12-24- mL/hr, IV ity o f 1,000 mL 21:45: 02:29 Infusion, [place] 00 :23 CONTINUOUS Medical , Starting [place] Fri12/24/19 at 1545, Until 12/25/19 at 2028, Routine sodium 2019- 2020- No 30mL 30 mL, Univers citrate-cit 12-24- Oral, ity of demetrius acid 21:38: 15:41 PRE-PROCED [place] (BICITRA) 57 :00 URE ONCE, Medic al 500-334 1 dose, Branch mg/5 mL Starting solution 30 12/24/19 mL at 1538, Until Discontinu ed, Routine, Surgery/Pr ocedure lactated 2019-0 2020- No 500mL at 999 Unive rs ringers IV 12-24- mL/hr, 500 it y of infusion 21:38: 02:29 mL, IV [place] 500 mL 56 :23 Infusion, Medical PRN - SEE [place] INSTRUCTIO NS, Starting Fri12/24/19 at 1538, Until 12/25/19 at 2028, Routine fluconazole 2019- 2020- No [id number] 150mg Take 1 [facility] 150 mg -02 16-05 tablet by ity of tablet 00:00: 05:59 mouth [place] 00 :[place] now for 1 Medical dose. [place] fosfomycin 2019-0 2020- No [id number] 3g Take 3 g Univers 3 gram 2- 02-05 by mouth ity of packet 00:00: 05:59 once now [place] 00 :00 for 1 Medical dose. [place] azithromyci 2019-0 2020- No [id number] 1000mg Take 2 Univers n 500 mg 2- 02-05 tablets by ity of tablet 00:00: 05:59 mouth [place] 00 :[place] now for 1 Medical dose. [place] fosfomycin 2019-0 2020- No [id number] 3g Take 3 g [facility] 3 gram 12-14 by mouth ity of packet 00:00: 05:59 once now [place] 00 :00 for 1 Medical dose. Branch fluconazole 2019- No [id number] 150mg Take 1 [facility] 150 mg 12-14 tablet by ity of tablet 00:00: 05:59 mouth [place] 00 :00 now for 1 Medical dose. Branch fosfomycin 2019-2019- No [id number] 3g Take 3 g [facility] 3 gram 12-14 by mouth ity of packet 00:00: 05:59 once now [place] 00 :00 for 1 Medical dose. Branch fluconazole 2019-2019- No [id number] 150mg Take 1 [facility] 150 mg 12-14 tablet by ity of tablet 00:00: 05:59 mouth [place] 00 :00 now for 1 Medical dose. Branch azithromyci 2019-2019- No [id number] 1000mg Take 2 [facility] n 500 mg 12-10 tablets by ity of tablet 00:00: 05:59 mouth [place] 00 :00 now for 1 Medical dose. Branch azithromyci 2019- No [id number] 1000mg Take 2 [facility] n 500 mg 12-10 tablets by ity of tablet 00:00: 05:59 mouth [place] 00 :00 now for 1 Medical dose. Branch azithromyci 2019- No [id number] 1000mg Take 2 [facility] n 500 mg 12-10 tablets by ity of tablet 00:00: 05:59 mouth [place] 00 :00 now for 1 Medical dose. Branch PNV without 2018- Yes [id number] 1{tbl} Take 1 [facility] Ca-Iron 0-30 tablet by ity of PsCmplx-FA 00:00: mouth [place] (SELECT-OB, 00 daily. Medica l FOLIC Branch ACID,) 29 mg iron- 1 mg Chew PNV without 2018-11 Yes [id number] 1{tbl} Take 1 [facility] Ca-Iron 0-30 tablet by ity of PsCmplx-FA 00:00: mouth [place] (SELECT-OB, 00 daily. Medica l FOLIC Branch ACID,) 29 mg iron- 1 mg Chew PNV without 2018-11 Yes [id number] 1{tbl} Take 1 [facility] Ca-Iron 0-30 tablet by ity of PsCmplx-FA 00:00: mouth [place] (SELECT-OB, 00 daily. Medica l FOLIC Branch ACID,) 29 mg iron- 1 mg Chew PNV without 2019- Yes [id number] 1{tbl} Take 1 [facility] Ca-Iron 0-30 tablet by ity of PsCmplx-FA 00:00: mouth [place] (SELECT-OB, 00 daily. Medica l FOLIC Branch ACID,) 29 mg iron- 1 mg Chew PNV without 2019- Yes [id number] 1{tbl} Take 1 [facility] Ca-Iron 0-30 tablet by ity of PsCmplx-FA 00:00: mouth [place] (SELECT-OB, 00 daily. Medica l FOLIC Branch ACID,) 29 mg iron- 1 mg Chew PNV without 2019- Yes [id number] 1{tbl} Take 1 [facility] Ca-Iron 0-30 tablet by ity of PsCmplx-FA 00:00: mouth [place] (SELECT-OB, 00 daily. Medica l FOLIC Branch ACID,) 29 mg iron- 1 mg Chew PNV without 2019- Yes [id number] 1{tbl} Take 1 [facility] Ca-Iron 0-30 tablet by ity of PsCmplx-FA 00:00: mouth [place] (SELECT-OB, 00 daily. Medica l FOLIC Branch ACID,) 29 mg iron- 1 mg Chew PNV without 2019- Yes [id number] 1{tbl} Take 1 [facility] Ca-Iron 0-30 tablet by ity of PsCmplx-FA 00:00: mouth [place] (SELECT-OB, 00 daily. Medica l FOLIC Branch ACID,) 29 mg iron- 1 mg Chew PNV without 2019- Yes [id number] 1{tbl} Take 1 [facility] Ca-Iron 0-30 tablet by ity of PsCmplx-FA 00:00: mouth [place] (SELECT-OB, 00 daily. Medica l FOLIC Branch ACID,) 29 mg iron- 1 mg Chew PNV without 2019- Yes [id number] 1{tbl} Take 1 [facility] Ca-Iron 0-30 tablet by ity of PsCmplx-FA 00:00: mouth [place] (SELECT-OB, 00 daily. Medica l FOLIC Branch ACID,) 29 mg iron- 1 mg Chew PNV without 2019- Yes [id number] 1{tbl} Take 1 Univers Ca-Iron 0-30 tablet by ity of PsCmplx-FA 00:00: mouth [place] (SELECT-OB, 00 daily. Medica l FOLIC Branch ACID,) 29 mg iron- 1 mg Chew PNV without 2019- Yes [id number] 1{tbl} Take 1 [facility] Ca-Iron 0-30 tablet by ity of PsCmplx-FA 00:00: mouth [place] (SELECT-OB, 00 daily. Medica l FOLIC Branch ACID,) 29 mg iron- 1 mg Chew PNV without 2019- Yes [id number] 1{tbl} Take 1 Univers Ca-Iron 0-30 tablet by ity of PsCmplx-FA 00:00: mouth [place] (SELECT-OB, 00 daily. Medica l FOLIC Branch ACID,) 29 mg iron- 1 mg Chew PNV without 2018-11 2020- No [id number] 1{tbl} Take 1 Univers Ca-Iron 0-30 02-08 tablet by ity of PsCmplx-FA 00:00: 00:00 mouth [place] (SELECT-OB, 00 :00 daily. Medica l FOLIC Branch ACID,) 29 mg iron- 1 mg Chew azithromyci 2019-0 Yes [id number] 1000mg Take 2 Univers n 500 mg 9-20 tablets by ity o f tablet 00:00: mouth [place] 00 daily. Medical Branch azithromyci 2019- 2019- No [id number] 1000mg Take 2 Univers n 500 mg 9-20 09-21 tablets by ity of tablet 00:00: 04:59 mouth [place] 00 :00 now for 1 Medical dose. Branch PNV without 2019-0 Yes [id number] 1{tbl} Take 1 Univers Ca-Iron 8-29 tablet by ity of PsCmplx-FA 00:00: mouth [place] (SELECT-OB, 00 daily. Medica l FOLIC Branch ACID,) 29 mg iron- 1 mg Chew PNV without 2019-0 Yes [id number] 1{tbl} Take 1 Univers Ca-Iron 8-29 tablet by ity of PsCmplx-FA 00:00: mouth [place] (SELECT-OB, 00 daily. Medica l FOLIC Branch ACID,) 29 mg iron- 1 mg Chew PNV without 2019-0 Yes [id number] 1{tbl} Take 1 Univers Ca-Iron 8-29 tablet by ity of PsCmplx-FA 00:00: mouth [place] (SELECT-OB, 00 daily. Medica l FOLIC Branch ACID,) 29 mg iron- 1 mg Chew PNV without 2019-0 Yes [id number] 1{tbl} Take 1 Univers Ca-Iron 8-29 tablet by ity of PsCmplx-FA 00:00: mouth [place] (SELECT-OB, 00 daily. Medica l FOLIC Branch ACID,) 29 mg iron- 1 mg Chew PNV without 2019-0 Yes [id number] 1{tbl} Take 1 Univers Ca-Iron 8-29 tablet by ity of PsCmplx-FA 00:00: mouth [place] (SELECT-OB, 00 daily. Medica l FOLIC Branch ACID,) 29 mg iron- 1 mg Chew PNV without 2019-0 Yes [id number] 1{tbl} Take 1 Univers Ca-Iron 8-29 tablet by ity of PsCmplx-FA 00:00: mouth [place] (SELECT-OB, 00 daily. Medica l FOLIC Branch ACID,) 29 mg iron- 1 mg Chew PNV without 2019-0 Yes [id number] 1{tbl} Take 1 Univers Ca-Iron 8-29 tablet by ity of PsCmplx-FA 00:00: mouth [place] (SELECT-OB, 00 daily. Medica l FOLIC Branch ACID,) 29 mg iron- 1 mg Chew PNV without 2019-0 Yes [id number] 1{tbl} Take 1 Univers Ca-Iron 8-29 tablet by ity of PsCmplx-FA 00:00: mouth [place] (SELECT-OB, 00 daily. Medica l FOLIC Branch ACID,) 29 mg iron- 1 mg Chew PNV without 2019-0 Yes [id number] 1{tbl} Take 1 Univers Ca-Iron 8-29 tablet by ity of PsCmplx-FA 00:00: mouth [place] (SELECT-OB, 00 daily. Medica l FOLIC Branch ACID,) 29 mg iron- 1 mg Chew PNV without 2019-0 Yes [id number] 1{tbl} Take 1 Univers Ca-Iron 8-29 tablet by ity of PsCmplx-FA 00:00: mouth [place] (SELECT-OB, 00 daily. Medica l FOLIC Branch ACID,) 29 mg iron- 1 mg Chew PNV without 2019-0 Yes [id number] 1{tbl} Take 1 Univers Ca-Iron 8-29 tablet by ity of PsCmplx-FA 00:00: mouth [place] (SELECT-OB, 00 daily. Medica l FOLIC Branch ACID,) 29 mg iron- 1 mg Chew PNV without 2019-0 Yes [id number] 1{tbl} Take 1 Univers Ca-Iron 8-29 tablet by ity of PsCmplx-FA 00:00: mouth [place] (SELECT-OB, 00 daily. Medica l FOLIC Branch ACID,) 29 mg iron- 1 mg Chew PNV without 2019-0 Yes [id number] 1{tbl} Take 1 Univers Ca-Iron 8-29 tablet by ity of PsCmplx-FA 00:00: mouth [place] (SELECT-OB, 00 daily. Medica l FOLIC Branch ACID,) 29 mg iron- 1 mg Chew PNV without 2019-0 Yes [id number] 1{tbl} Take 1 Univers Ca-Iron 8-29 tablet by ity of PsCmplx-FA 00:00: mouth [place] (SELECT-OB, 00 daily. Medica l FOLIC Branch ACID,) 29 mg iron- 1 mg Chew PNV without 2019-0 Yes [id number] 1{tbl} Take 1 Univers Ca-Iron 8-29 tablet by ity of PsCmplx-FA 00:00: mouth [place] (SELECT-OB, 00 daily. Medica l FOLIC Branch ACID,) 29 mg iron- 1 mg Chew PNV without 2019-0 Yes [id number] 1{tbl} Take 1 [facility] Ca-Iron 8-29 tablet by ity of PsCmplx-FA 00:00: mouth [place] (SELECT-OB, 00 daily. Medica l FOLIC Branch ACID,) 29 mg iron- 1 mg Chew PNV without 2019-0 Yes [id number] 1{tbl} Take 1 Univers Ca-Iron 8-29 tablet by ity of PsCmplx-FA 00:00: mouth [place] (SELECT-OB, 00 daily. Medica l FOLIC Branch ACID,) 29 mg iron- 1 mg Chew PNV without 2019-0 2020- No [id number] 1{tbl} Take 1 [facility] Ca-Iron 07-15 tablet by ity of PsCmplx-FA 00:00: 00:00 mouth [place] (SELECT-OB, 00 :00 daily. Medica l FOLIC Branch ACID,) 29 mg iron- 1 mg Chew metroNIDAZO 2018- No [id number] 500mg Take 1 Univers LE 500 mg 07-15 tablet by ity of tablet 00:00: 04:59 mouth 2 [place] 00 :00 (two) Medical times Branch daily for 7 days. metroNIDAZO 2018- No [id number] 500mg Take 1 Univers LE 500 mg 07-15 tablet by ity of tablet 00:00: 04:59 mouth 2 [place] 00 :00 (two) Medical times Branch daily for 7 days. glucose 2018- No 50g Univers tolerance 07-14- ity of test 50 19:30: 07:29 [place] g/296 mL 00 :00 Medical (LIMEONDEX Branch 50) liquid 50 g glucose 2018- No 50g Univers tolerance 07-14- ity of test 50 19:30: 07:29 [place] g/296 mL 00 :00 Medical (LIMEONDEX Branch 50) liquid 50 g glucose 2019- No 50g Univers tolerance 07-14- ity of test 50 19:30: 07:29 [place] g/296 mL 00 :00 Medical (LIMEONDEX Branch 50) liquid 50 g glucose 2018- No 50g Univers tolerance 07-14- ity of test 50 19:30: 07:29 [place] g/296 mL 00 :00 Medical (LIMEONDEX Branch 50) liquid 50 g 2018- No [id number] 1{tbl} Take 1 Univers [id number]- 07-14- tablet by it y of folic acid 00:00: 00:00 mouth [place] 29 mg iron- 00 :00 daily. Medica l 1 mg per Branch tablet 2018- No [id number] 1{tbl} Take 1 Univers [id number]-bskx- 07-14- tablet by it y of folic acid 00:00: 00:00 mouth [place] 29 mg iron- 00 :00 daily. Medica l 1 mg per Branch tablet 2019- No [id number] 1{tbl} Take 1 Univers [id number]-yrug- 07-14 tablet by it y of folic acid 00:00: 00:00 mouth [place] 29 mg iron- 00 :00 daily. Medica l 1 mg per Branch tablet 2019- No [id number] 1{tbl} Take 1 Univers [id number]- 07-14 tablet by it y of folic acid 00:00: 00:00 mouth [place] 29 mg iron- 00 :00 daily. Medica l 1 mg per Branch tablet 2019- No [id number] 1{tbl} Take 1 Univers ynj64-hwvx- 07-14 tablet by it y of folic acid 00:00: 00:00 mouth [place] 29 mg iron- 00 :00 daily. Medica l 1 mg per Branch tablet iohexol 2019- No 100mL 100 mL, Unive rs (OMNIPAQUE 07-10 Intravenou it y of 350 20:30: 20:43 s, ONCE, 1 [place] BULK-150 00 :00 dose, Sat Medica l mL) 07/10/19 at Branch injection 1530, 100 mL Routine NaCl 0.9% 2018- No 1000mL at 999 Uni vers (NS) bolus 07-10 mL/hr, ity of infusion 20:30: 21:29 1,000 mL, [place] 1,000 mL 00 :00 IV Medical Infusion, Branch ONCE, 1 dose, 07/10/19 at 1530, STAT No known No Univers medications ity of [facility] Immunizations Ordered Immunization Filled Immunization Date Status Commen ts Source Name Name Influenza Virus 2019-12-10 Completed Universit y of Vaccine [place] .5 mL 00:00:00 [place] [facility] IM 6+ MO Branch Influenza Virus 2019-12-10 Completed Universit y of Vaccine [place] .5 mL 00:00:00 [place] [facility] IM 6+ MO Branch Influenza Virus 2019-12-10 Completed Universit y of Vaccine [place] .5 mL 00:00:00 [place] [facility] IM 6+ MO Branch Influenza Virus 2019-12-10 Completed Universit y of Vaccine [place] .5 mL 00:00:00 [place] [facility] IM 6+ MO [place] Influenza Virus 2019-12-10 Completed Universit y of Vaccine Quad .5 mL 00:00:00 [place] [facility] IM 6+ MO Branch Influenza Virus 2019-12-10 Completed Universit y of Vaccine [place] .5 mL 00:00:00 [place] [facility] IM 6+ MO Branch Influenza Virus 2019-12-10 Completed Universit y of Vaccine [place] .5 mL 00:00:00 [place] [facility] IM 6+ MO Branch Influenza Virus 2019-12-10 Completed Universit y of Vaccine [place] .5 mL 00:00:00 [place] [facility] IM 6+ MO Branch Influenza Virus 2019-12-10 Completed Universit y of Vaccine [place] .5 mL 00:00:00 [place] [facility] IM 6+ MO Branch Influenza Virus 2019-12-10 Completed Universit y of Vaccine [place] .5 mL 00:00:00 [place] [facility] IM 6+ MO Branch Influenza Virus 2019-12-10 Completed Universit y of Vaccine [place] .5 mL 00:00:00 [place] [facility] 6+ MO Branch Influenza Virus 2019-12-10 Completed Universit y of Vaccine [place] .5 mL 00:00:00 [place] [facility] 6+ MO Branch Influenza Virus 2019-12-10 Completed Universit y of Vaccine [place] .5 mL 00:00:00 [place] [facility] 6+ MO Branch Influenza Virus 2019-12-10 Completed Universit y of Vaccine [place] .5 mL 00:00:00 [place] [facility] 6+ MO Branch Influenza Virus 2019-12-10 Completed Universit y of Vaccine [place] .5 mL 00:00:00 [place] [facility] 6+ MO Branch Influenza Virus 2019-12-10 Completed Universit y of Vaccine [place] .5 mL 00:00:00 [place] [facility] 6+ MO Branch Influenza Virus 2019-12-10 Completed Universit y of Vaccine [place] .5 mL 00:00:00 [place] [facility] IM 6+ MO Branch Influenza Virus 2019-12-10 Completed Universit y of Vaccine [place] .5 mL 00:00:00 [place] [facility] IM 6+ MO Branch Influenza Virus 2019-12-10 Completed Universit y of Vaccine [place] .5 mL 00:00:00 [place] [facility] IM 6+ MO Branch Influenza Virus 2019-12-10 Completed Universit y of Vaccine [place] .5 mL 00:00:00 [place] [facility] 6+ MO Branch Influenza Virus 2019-12-10 Completed Universit y of Vaccine [place] .5 mL 00:00:00 [place] [facility] IM 6+ MO Branch Influenza Virus 2019-12-10 Completed Universit y of Vaccine [place] .5 mL 00:00:00 [place] [facility] 6+ MO Branch Influenza Virus 2019-12-10 Completed Universit y of Vaccine [place] .5 mL 00:00:00 [place] [facility] IM 6+ MO Branch Influenza Virus 2019-12-10 Completed Universit y of Vaccine Quad .5 mL 00:00:00 [place] [facility] IM 6+ MO Branch Influenza Virus 2019-12-10 Completed Universit y of Vaccine [place] .5 mL 00:00:00 [place] [facility] IM 6+ MO Branch Influenza Virus 2019-12-10 Completed Universit y of Vaccine [place] .5 mL 00:00:00 [place] [facility] IM 6+ MO Branch Influenza Virus 2019-12-10 Completed Universit y of Vaccine [place] .5 mL 00:00:00 [place] [facility] IM 6+ MO Branch Influenza Virus 2019-12-10 Completed Universit y of Vaccine Quad .5 mL 00:00:00 [place] [facility] IM 6+ MO Branch Influenza Virus 2019-12-10 Completed Universit y of Vaccine Quad .5 mL 00:00:00 [place] [facility] IM 6+ MO Branch Influenza Virus 2019-12-10 Completed Universit y of Vaccine Quad .5 mL 00:00:00 [place] [facility] IM 6+ MO Branch Influenza Virus 2019-12-10 Completed Universit y of Vaccine Quad .5 mL 00:00:00 [place] [facility] IM 6+ MO Branch Influenza Virus 2019-12-10 Completed Universit y of Vaccine [place] .5 mL 00:00:00 [place] [facility] IM 6+ MO Branch Influenza Virus 2019-12-10 Completed Universit y of Vaccine Quad .5 mL 00:00:00 [place] [facility] IM 6+ MO Branch Influenza Virus 2019-12-10 Completed Universit y of Vaccine Quad .5 mL 00:00:00 [place] [facility] IM 6+ MO Branch Influenza Virus 2019-12-10 Completed Universit y of Vaccine Quad .5 mL 00:00:00 [place] [facility] IM 6+ MO Branch Influenza Virus 2019-12-10 Completed Universit y of Vaccine Quad .5 mL 00:00:00 [place] [facility] IM 6+ MO Branch Influenza Virus 2019-12-10 Completed Universit y of Vaccine [place] .5 mL 00:00:00 [place] [facility] IM 6+ MO Branch Influenza Virus 2019-12-10 Completed Universit y of Vaccine Quad .5 mL 00:00:00 [place] [facility] IM 6+ MO Branch Influenza Virus 2019-12-10 Completed Universit y of Vaccine Quad .5 mL 00:00:00 [place] [facility] IM 6+ MO Branch Influenza Virus 2019-12-10 Completed Universit y of Vaccine Quad .5 mL 00:00:00 [place] [facility] IM 6+ MO Branch Influenza Virus 2019-12-10 Completed Universit y of Vaccine Quad .5 mL 00:00:00 [place] [facility] IM 6+ MO Branch Influenza Virus 2019-12-10 Completed Universit y of Vaccine Quad .5 mL 00:00:00 [place] [facility] IM 6+ MO Branch Influenza Virus 2019-12-10 Completed Universit y of Vaccine Quad .5 mL 00:00:00 [place] [facility] IM 6+ MO Branch Influenza Virus 2019-12-10 Completed Universit y of Vaccine Quad .5 mL 00:00:00 [place] [facility] IM 6+ MO Branch Influenza Virus 2019-12-10 Completed Universit y of Vaccine Quad .5 mL 00:00:00 [place] [facility] IM 6+ MO Branch Influenza Virus 2019-12-10 Completed Universit y of Vaccine Quad .5 mL 00:00:00 [place] [facility] IM 6+ MO Branch Influenza Virus 2019-12-10 Completed Universit y of Vaccine Quad .5 mL 00:00:00 [place] [facility] IM 6+ MO Branch Influenza Virus 2019-12-10 Completed Universit y of Vaccine Quad .5 mL 00:00:00 [place] [facility] IM 6+ MO Branch Influenza Virus 2019-12-10 Completed Universit y of Vaccine Quad .5 mL 00:00:00 [place] [facility] IM 6+ MO Branch Influenza Virus 2019-12-10 Completed Universit y of Vaccine Quad .5 mL 00:00:00 [place] [facility] IM 6+ MO Branch Influenza Virus 2019-12-10 Completed Universit y of Vaccine Quad .5 mL 00:00:00 [place] [facility] IM 6+ MO Branch HPV 2014-03-23 Completed University of 00:00:00 [place] [facility] HPV 2014-03-23 Completed University of 00:00:00 [facility] Branch HPV 2014-03-23 Completed University of 00:00:00 [place] [facility] HPV 2014-03-23 Completed University of 00:00:00 [place] [facility] HPV 2014-03-23 Completed University of 00:00:00 [place] [facility] HPV 2014-03-23 Completed University of 00:00:00 [place] [facility] HPV 2014-03-23 Completed University of 00:00:00 [place] [facility] HPV 2014-03-23 Completed University of 00:00:00 [facility] Branch HPV 2014-03-23 Completed University of 00:00:00 [facility] Branch HPV 2014-03-23 Completed University of 00:00:00 [place] [facility] HPV 2014-03-23 Completed University of 00:00:00 [place] [facility] HPV 2014-03-23 Completed University of 00:00:00 [place] [facility] HPV 2014-03-23 Completed University of 00:00:00 [place] [facility] HPV 2014-03-23 Completed University of 00:00:00 [place] [facility] HPV 2014-03-23 Completed University of 00:00:00 [place] [facility] HPV 2014-03-23 Completed University of 00:00:00 [place] [facility] HPV 2014-03-23 Completed University of 00:00:00 [place] [facility] HPV 2014-03-23 Completed University of 00:00:00 [place] [facility] HPV 2014-03-23 Completed University of 00:00:00 [place] [facility] HPV 2014-03-23 Completed University of 00:00:00 [place] [facility] HPV 2014-03-23 Completed University of 00:00:00 [place] [facility] HPV 2014-03-23 Completed University of 00:00:00 [place] [facility] HPV 2014-03-23 Completed University of 00:00:00 [place] [facility] HPV 2014-03-23 Completed University of 00:00:00 [place] [facility] HPV 2014-03-23 Completed University of 00:00:00 [place] [facility] HPV 2014-03-23 Completed University of 00:00:00 [place] [facility] HPV 2014-03-23 Completed University of 00:00:00 [place] [facility] HPV 2014-03-23 Completed University of 00:00:00 [place] [facility] HPV 2014-03-23 Completed University of 00:00:00 [place] [facility] HPV 2014-03-23 Completed University of 00:00:00 [place] [facility] HPV 2014-03-23 Completed University of 00:00:00 [place] [facility] HPV 2014-03-23 Completed University of 00:00:00 [place] [facility] HPV 2014-03-23 Completed University of 00:00:00 [place] [facility] HPV 2014-03-23 Completed University of 00:00:00 [place] [facility] HPV 2014-03-23 Completed University of 00:00:00 [place] [facility] HPV 2014-03-23 Completed University of 00:00:00 [place] [facility] HPV 2014-03-23 Completed University of 00:00:00 [place] [facility] HPV 2014-03-23 Completed University of 00:00:00 [place] [facility] HPV 2014-03-23 Completed University of 00:00:00 [place] [facility] HPV 2014-03-23 Completed University of 00:00:00 [place] [facility] HPV 2014-03-23 Completed University of 00:00:00 [place] [facility] HPV 2014-03-23 Completed University of 00:00:00 [place] [facility] HPV 2014-03-23 Completed University of 00:00:00 [place] [facility] HPV 2014-03-23 Completed University of 00:00:00 [place] [facility] HPV 2014-03-23 Completed University of 00:00:00 [place] [facility] HPV 2014-03-23 Completed University of 00:00:00 [place] [facility] HPV 2014-03-23 Completed University of 00:00:00 [place] [facility] HPV 2014-03-23 Completed University of 00:00:00 [place] [facility] HPV 2014-03-23 Completed University of 00:00:00 [place] [facility] HPV 2014-03-23 Completed University of 00:00:00 [place] [facility] HPV 2014-03-23 Completed University of 00:00:00 [place] [facility] HPV 2014-03-23 Completed University of 00:00:00 [place] [facility] HPV 2014-03-23 Completed University of 00:00:00 [place] [facility] HPV 2014-03-23 Completed University of 00:00:00 [place] [facility] HPV 2014-03-23 Completed University of 00:00:00 [place] [facility] HPV 2014-03-23 Completed University of 00:00:00 [place] [facility] HPV 2014-03-23 Completed University of 00:00:00 [place] [facility] HPV 2014-03-23 Completed University of 00:00:00 [place] [facility] HPV 2014-03-23 Completed University of 00:00:00 [place] [facility] HPV 2014-03-23 Completed University of 00:00:00 [place] [facility] HPV 2014-03-23 Completed University of 00:00:00 [place] [facility] HPV 2014-03-23 Completed University of 00:00:00 [place] [facility] HPV 2013-11-23 Completed University of 00:00:00 [place] [facility] HPV 2013-11-23 Completed University of 00:00:00 [place] [facility] HPV 2013-11-23 Completed University of 00:00:00 [place] [facility] HPV 2013-11-23 Completed University of 00:00:00 [place] [facility] HPV 2013-11-23 Completed University of 00:00:00 [place] [facility] HPV 2013-11-23 Completed University of 00:00:00 [place] [facility] HPV 2013-11-23 Completed University of 00:00:00 [place] [facility] HPV 2013-11-23 Completed University of 00:00:00 [place] [facility] HPV 2013-11-23 Completed University of 00:00:00 [place] [facility] HPV 2013-11-23 Completed University of 00:00:00 [place] [facility] HPV 2013-11-23 Completed University of 00:00:00 [place] [facility] HPV 2013-11-23 Completed University of 00:00:00 [place] [facility] HPV 2013-11-23 Completed University of 00:00:00 [place] [facility] HPV 2013-11-23 Completed University of 00:00:00 [place] [facility] HPV 2013-11-23 Completed [facility] 00:00:00 [facility] HPV 2013-11-23 Completed [facility] 00[facility]00:00 [facility] HPV 2013-11-23 Completed [facility] 00:00:00 [facility] HPV 2013-11-23 Completed [facility] 00:00:00 [facility] HPV 2013-11-23 Completed [facility] 00:00:00 [facility] HPV 2013-11-23 Completed [facility] 00:00:00 [facility] HPV 2013-11-23 Completed [facility] 00:00:00 [facility] HPV 2013-11-23 Completed [facility] 00:00:00 [facility] HPV 2013-11-23 Completed [facility] 00:00:00 [facility] HPV 2013-11-23 Completed [facility] 00:00:00 [facility] HPV 2013-11-23 Completed [facility] 00:00:00 [facility] HPV 2013-11-23 Completed [facility] 00:00:00 [facility] HPV 2013-11-23 Completed [facility] 00:00:00 [facility] HPV 2013-11-23 Completed [facility] 00:00:00 [facility] HPV 2013-11-23 Completed [facility] 00:00:00 [facility] HPV 2013-11-23 Completed [facility] 00:00:00 [facility] HPV 2013-11-23 Completed [facility] 00:00:00 [facility] HPV 2013-11-23 Completed [facility] 00:00:00 [facility] HPV 2013-11-23 Completed [facility] 00:00:00 [facility] HPV 2013-11-23 Completed [facility] 00:00:00 [facility] HPV 2013-11-23 Completed [facility] 00:00:00 [facility] HPV 2013-11-23 Completed [facility] 00:00:00 [facility] HPV 2013-11-23 Completed [facility] 00:00:00 [facility] HPV 2013-11-23 Completed [facility] 00:00:00 [facility] HPV 2013-11-23 Completed [facility] 00:00:00 [facility] HPV 2013-11-23 Completed [facility] 00:00:00 [facility] HPV 2013-11-23 Completed [facility] 00:00:00 [facility] HPV 2013-11-23 Completed [facility] 00:00:00 [facility] HPV 2013-11-23 Completed [facility] 00:00:00 [facility] HPV 2013-11-23 Completed [facility] 00:00:00 [facility] HPV 2013-11-23 Completed [facility] 00:00:00 [facility] HPV 2013-11-23 Completed [facility] 00:00:00 [facility] HPV 2013-11-23 Completed [facility] 00:00:00 [facility] HPV 2013-11-23 Completed [facility] 00:00:00 [facility] HPV 2013-11-23 Completed [facility] 00:00:00 [facility] HPV 2013-11-23 Completed [facility] 00:00:00 [facility] HPV 2013-11-23 Completed [facility] 00:00:00 [facility] HPV 2013-11-23 Completed [facility] 00:00:00 [facility] HPV 2013-11-23 Completed [facility] 00:00:00 [facility] HPV 2013-11-23 Completed [facility] 00:00:00 [facility] HPV 2013-11-23 Completed [facility] 00:00:00 [facility] HPV 2013-11-23 Completed [facility] 00:00:00 [facility] HPV 2013-11-23 Completed [facility] 00:00:00 [facility] HPV 2013-11-23 Completed [facility] 00:00:00 [facility] HPV 2013-11-23 Completed [facility] 00:00:00 [facility] HPV 2013-11-23 Completed [facility] 00:00:00 [facility] HPV 2013-11-23 Completed [facility] 00:00:00 [facility] HPV 2013-11-23 Completed [facility] 00:00:00 [facility] HPV 2013-09-21 Completed [facility] 00:00:00 [facility] Meningococcal 2013-09-21 Completed [facility] Vaccine 00:00:00 [facility] Td 2013-09-21 Completed [facility] 00:00:00 [facility] HPV 2013-09-21 Completed [facility] 00:00:00 [facility] Meningococcal 2013-09-21 Completed [facility] Vaccine 00:00:00 [facility] Td 2013-09-21 Completed [facility] 00:00:00 [facility] HPV 2013-09-21 Completed [facility] 00:00:00 [facility] Meningococcal 2013-09-21 Completed [facility] Vaccine 00:00:00 [facility] Td 2013-09-21 Completed [facility] 00:00:00 [facility] HPV 2013-09-21 Completed [facility] 00:00:00 [facility] Meningococcal 2013-09-21 Completed [facility] Vaccine 00:00:00 [facility] Td 2013-09-21 Completed [facility] 00:00:00 [facility] HPV 2013-09-21 Completed [facility] 00:00:00 [facility] Meningococcal 2013-09-21 Completed [facility] Vaccine 00:00:00 [facility] Td 2013-09-21 Completed [facility] 00:00:00 [facility] HPV 2013-09-21 Completed [facility] 00:00:00 [facility] Meningococcal 2013-09-21 Completed [facility] Vaccine 00:00:00 [facility] Td 2013-09-21 Completed [facility] 00:00:00 [facility] HPV 2013-09-21 Completed [facility] 00:00:00 [facility] Meningococcal 2013-09-21 Completed [facility] Vaccine 00:00:00 [facility] Td 2013-09-21 Completed [facility] 00:00:00 [facility] HPV 2013-09-21 Completed [facility] 00:00:00 [facility] Meningococcal 2013-09-21 Completed [facility] Vaccine 00:00:00 [facility] Td 2013-09-21 Completed [facility] 00:00:00 [facility] HPV 2013-09-21 Completed [facility] 00:00:00 [facility] Meningococcal 2013-09-21 Completed [facility] Vaccine 00:00:00 [facility] Td 2013-09-21 Completed [facility] 00:00:00 [facility] HPV 2013-09-21 Completed [facility] 00:00:00 [facility] Meningococcal 2013-09-21 Completed [facility] Vaccine 00:00:00 [facility] Td 2013-09-21 Completed [facility] 00:00:00 [facility] HPV 2013-09-21 Completed [facility] 00:00:00 [facility] Meningococcal 2013-09-21 Completed [facility] Vaccine 00:00:00 [facility] Td 2013-09-21 Completed [facility] 00:00:00 [facility] HPV 2013-09-21 Completed [facility] 00:00:00 [facility] Meningococcal 2013-09-21 Completed [facility] Vaccine 00:00:00 [facility] Td 2013-09-21 Completed [facility] 00:00:00 [facility] HPV 2013-09-21 Completed [facility] 00:00:00 [facility] Meningococcal 2013-09-21 Completed [facility] Vaccine 00:00:00 [facility] Td 2013-09-21 Completed [facility] 00:00:00 [facility] HPV 2013-09-21 Completed [facility] 00:00:00 [facility] Meningococcal 2013-09-21 Completed [facility] Vaccine 00:00:00 [facility] Td 2013-09-21 Completed [facility] 00:00:00 [facility] HPV 2013-09-21 Completed [facility] 00:00:00 [facility] Meningococcal 2013-09-21 Completed [facility] Vaccine 00:00:00 [facility] Td 2013-09-21 Completed [facility] 00:00:00 [facility] HPV 2013-09-21 Completed [facility] 00:00:00 [facility] HPV 2013-09-21 Completed [facility] 00:00:00 [facility] Meningococcal 2013-09-21 Completed [facility] Vaccine 00:00:00 [facility] Td 2013-09-21 Completed [facility] 00:00:00 [facility] HPV 2013-09-21 Completed [facility] 00:00:00 [facility] Meningococcal 2013-09-21 Completed [facility] Vaccine 00:00:00 [facility] Td 2013-09-21 Completed [facility] 00:00:00 [facility] Meningococcal 2013-09-21 Completed [facility] Vaccine 00:00:00 [facility] Td 2013-09-21 Completed [facility] 00:00:00 [facility] HPV 2013-09-21 Completed [facility] 00:00:00 [facility] Meningococcal 2013-09-21 Completed [facility] Vaccine 00:00:00 [facility] Td 2013-09-21 Completed [facility] 00:00:00 [facility] HPV 2013-09-21 Completed [facility] 00:00:00 [facility] Meningococcal 2013-09-21 Completed [facility] Vaccine 00:00:00 [facility] Td 2013-09-21 Completed [facility] 00:00:00 [facility] HPV 2013-09-21 Completed [facility] 00:00:00 [facility] Meningococcal 2013-09-21 Completed [facility] Vaccine 00:00:00 [facility] Td 2013-09-21 Completed [facility] 00:00:00 [facility] HPV 2013-09-21 Completed [facility] 00:00:00 [facility] Meningococcal 2013-09-21 Completed [facility] Vaccine 00:00:00 [facility] Td 2013-09-21 Completed [facility] 00:00:00 [facility] HPV 2013-09-21 Completed [facility] 00:00:00 [facility] Meningococcal 2013-09-21 Completed [facility] Vaccine 00:00:00 [facility] Td 2013-09-21 Completed [facility] 00:00:00 [facility] HPV 2013-09-21 Completed [facility] 00:00:00 [facility] Meningococcal 2013-09-21 Completed [facility] Vaccine 00:00:00 [facility] Td 2013-09-21 Completed [facility] 00:00:00 [facility] HPV 2013-09-21 Completed [facility] 00:00:00 [facility] Meningococcal 2013-09-21 Completed [facility] Vaccine 00:00:00 [facility] Td 2013-09-21 Completed [facility] 00:00:00 [facility] HPV 2013-09-21 Completed [facility] 00:00:00 [facility] Meningococcal 2013-09-21 Completed [facility] Vaccine 00:00:00 [facility] Td 2013-09-21 Completed [facility] 00:00:00 [facility] HPV 2013-09-21 Completed [facility] 00:00:00 [facility] Meningococcal 2013-09-21 Completed [facility] Vaccine 00:00:00 [facility] Td 2013-09-21 Completed [facility] 00:00:00 [facility] HPV 2013-09-21 Completed [facility] 00:00:00 [facility] Meningococcal 2013-09-21 Completed [facility] Vaccine 00:00:00 [facility] Td 2013-09-21 Completed [facility] 00:00:00 [facility] HPV 2013-09-21 Completed [facility] 00:00:00 [facility] Meningococcal 2013-09-21 Completed [facility] Vaccine 00:00:00 [facility] Td 2013-09-21 Completed [facility] 00:00:00 [facility] HPV 2013-09-21 Completed [facility] 00:00:00 [facility] Meningococcal 2013-09-21 Completed [facility] Vaccine 00:00:00 [facility] Td 2013-09-21 Completed [facility] 00:00:00 [facility] HPV 2013-09-21 Completed [facility] 00:00:00 [facility] Meningococcal 2013-09-21 Completed [facility] Vaccine 00:00:00 [facility] Td 2013-09-21 Completed [facility] 00:00:00 [facility] HPV 2013-09-21 Completed [facility] 00:00:00 [facility] HPV 2013-09-21 Completed [facility] 00:00:00 [facility] Meningococcal 2013-09-21 Completed [facility] Vaccine 00:00:00 [facility] Td 2013-09-21 Completed [facility] 00:00:00 [facility] Meningococcal 2013-09-21 Completed [facility] Vaccine 00:00:00 [facility] Td 2013-09-21 Completed [facility] 00:00:00 [facility] HPV 2013-09-21 Completed [facility] 00:00:00 [facility] Meningococcal 2013-09-21 Completed [facility] Vaccine 00:00:00 [facility] Td 2013-09-21 Completed [facility] 00:00:00 [facility] HPV 2013-09-21 Completed [facility] 00:00:00 [facility] Meningococcal 2013-09-21 Completed [facility] Vaccine 00:00:00 [facility] Td 2013-09-21 Completed [facility] 00:00:00 [facility] HPV 2013-09-21 Completed [facility] 00:00:00 [facility] Meningococcal 2013-09-21 Completed [facility] Vaccine 00:00:00 [facility] Td 2013-09-21 Completed [facility] 00:00:00 [facility] HPV 2013-09-21 Completed [facility] 00:00:00 [facility] Meningococcal 2013-09-21 Completed [facility] Vaccine 00:00:00 [facility] Td 2013-09-21 Completed [facility] 00:00:00 [facility] HPV 2013-09-21 Completed [facility] 00:00:00 [facility] Meningococcal 2013-09-21 Completed [facility] Vaccine 00:00:00 [facility] Td 2013-09-21 Completed [facility] 00:00:00 [facility] HPV 2013-09-21 Completed [facility] 00:00:00 [facility] Meningococcal 2013-09-21 Completed [facility] Vaccine 00:00:00 [facility] Td 2013-09-21 Completed [facility] 00:00:00 [facility] HPV 2013-09-21 Completed [facility] 00:00:00 [facility] Meningococcal 2013-09-21 Completed [facility] Vaccine 00:00:00 [facility] Td 2013-09-21 Completed [facility] 00:00:00 [facility] HPV 2013-09-21 Completed [facility] 00:00:00 [facility] HPV 2013-09-21 Completed [facility] 00:00:00 [facility] Meningococcal 2013-09-21 Completed [facility] Vaccine 00:00:00 [facility] Td 2013-09-21 Completed [facility] 00:00:00 [facility] Meningococcal 2013-09-21 Completed [facility] Vaccine 00:00:00 [facility] Td 2013-09-21 Completed [facility] 00:00:00 [facility] HPV 2013-09-21 Completed [facility] 00:00:00 [facility] Meningococcal 2013-09-21 Completed [facility] Vaccine 00:00:00 [facility] Td 2013-09-21 Completed [facility] 00:00:00 [facility] HPV 2013-09-21 Completed [facility] 00:00:00 [facility] Meningococcal 2013-09-21 Completed [facility] Vaccine 00:00:00 [facility] Td 2013-09-21 Completed [facility] 00:00:00 [facility] HPV 2013-09-21 Completed [facility] 00:00:00 [facility] Meningococcal 2013-09-21 Completed [facility] Vaccine 00:00:00 [facility] Td 2013-09-21 Completed [facility] 00:00:00 [facility] HPV 2013-09-21 Completed [facility] 00:00:00 [facility] Meningococcal 2013-09-21 Completed [facility] Vaccine 00:00:00 [facility] Td 2013-09-21 Completed [facility] 00:00:00 [facility] HPV 2013-09-21 Completed [facility] 00:00:00 [facility] Meningococcal 2013-09-21 Completed [facility] Vaccine 00:00:00 [facility] Td 2013-09-21 Completed [facility] 00:00:00 [facility] HPV 2013-09-21 Completed [facility] 00:00:00 [facility] Meningococcal 2013-09-21 Completed [facility] Vaccine 00:00:00 [facility] Td 2013-09-21 Completed [facility] 00:00:00 [facility] HPV 2013-09-21 Completed [facility] 00:00:00 [facility] Meningococcal 2013-09-21 Completed [facility] Vaccine 00:00:00 [facility] Td 2013-09-21 Completed [facility] 00:00:00 [facility] HPV 2013-09-21 Completed [facility] 00:00:00 [facility] Meningococcal 2013-09-21 Completed [facility] Vaccine 00:00:00 [facility] Td 2013-09-21 Completed [facility] 00:00:00 [facility] HPV 2013-09-21 Completed [facility] 00:00:00 [facility] Meningococcal 2013-09-21 Completed [facility] Vaccine 00:00:00 [facility] Td 2013-09-21 Completed [facility] 00:00:00 [facility] HPV 2013-09-21 Completed [facility] 00:00:00 [facility] Meningococcal 2013-09-21 Completed [facility] Vaccine 00:00:00 [facility] Td 2013-09-21 Completed [facility] 00:00:00 [facility] HPV 2013-09-21 Completed [facility] 00:00:00 [facility] Meningococcal 2013-09-21 Completed [facility] Vaccine 00:00:00 [facility] Td 2013-09-21 Completed [facility] 00:00:00 [facility] HPV 2013-09-21 Completed [facility] 00:00:00 [facility] Meningococcal 2013-09-21 Completed [facility] Vaccine 00:00:00 [facility] Td 2013-09-21 Completed [facility] 00:00:00 [facility] HPV 2013-09-21 Completed [facility] 00:00:00 [facility] Meningococcal 2013-09-21 Completed [facility] Vaccine 00:00:00 [facility] Td 2013-09-21 Completed [facility] 00:00:00 [facility] HPV 2013-09-21 Completed [facility] 00:00:00 [facility] Meningococcal 2013-09-21 Completed [facility] Vaccine 00:00:00 [facility] Td 2013-09-21 Completed [facility] 00:00:00 [facility] HPV 2013-09-21 Completed [facility] 00:00:00 [facility] Meningococcal 2013-09-21 Completed [facility] Vaccine 00:00:00 [facility] Td 2013-09-21 Completed [facility] 00:00:00 [facility] HPV 2013-09-21 Completed [facility] 00:00:00 [facility] Meningococcal 2013-09-21 Completed [facility] Vaccine 00:00:00 [facility] Td 2013-09-21 Completed [facility] 00:00:00 [facility] HPV 2013-09-21 Completed [facility] 00:00:00 [facility] Meningococcal 2013-09-21 Completed [facility] Vaccine 00:00:00 [facility] Td 2013-09-21 Completed [facility] 00:00:00 [facility] HPV 2013-09-21 Completed [facility] 00:00:00 [facility] Meningococcal 2013-09-21 Completed [facility] Vaccine 00:00:00 [facility] Td 2013-09-21 Completed [facility] 00:00:00 [facility] HPV 2013-09-21 Completed [facility] 00:00:00 [facility] Meningococcal 2013-09-21 Completed [facility] Vaccine 00:00:00 [facility] Td 2013-09-21 Completed [facility] 00:00:00 [facility] HPV 2013-09-21 Completed [facility] 00:00:00 [facility] Meningococcal 2013-09-21 Completed [facility] Vaccine 00:00:00 [facility] Td 2013-09-21 Completed [facility] 00:00:00 [facility] HEPATITIS A 2007-07-13 Completed [facility] 00:00:00 [facility] HIB 4 Dose Schedule 2007-07-13 Completed Unive rsity of 00:00:00 [facility] Varicella 2007-07-13 Completed [facility] of (varivax)(chicken 00:00:00 [facility] edical pox) [place] HEPATITIS A 2007-07-13 Completed [facility] 00:00:00 [facility] HIB 4 Dose Schedule 2007-07-13 Completed [facility]ive rs[facility] 00:00:00 [facility] Varicella 2007-07-13 Completed [facility] (varivax)(chicken 00:00:00 [place] [facility] HEPATITIS A 2007-07-13 Completed [facility] 00:00:00 [facility] HIB 4 Dose Schedule 2007-07-13 Completed [facility]ive rs[facility] 00:00:00 [facility] Varicella 2007-07-13 Completed [facility] (varivax)(chicken 00:00:00 [facility] edical pox) [place] HEPATITIS A 2007-07-13 Completed [facility] 00:00:00 [facility] HIB 4 Dose Schedule 2007-07-13 Completed [facility]ive rs[facility] 00:00:00 [facility] Varicella 2007-07-13 Completed [facility] (varivax)(chicken 00[facility]00:00 [place] [facility] HEPATITIS A 2007-07-13 Completed [facility] 00:00:00 [facility] HIB 4 Dose Schedule 2007-07-13 Completed [facility]ive rs[facility] 00:00:00 [facility] Varicella 2007-07-13 Completed [facility] (varivax)(chicken 00:00:00 [place] [facility] HEPATITIS A 2007-07-13 Completed [facility] 00:00:00 [facility] HIB 4 Dose Schedule 2007-07-13 Completed [facility] 00:00:00 [facility] Varicella 2007-07-13 Completed [facility] (varivax)(chicken 00:00:00 [place] [facility]ox[facility] HEPATITIS A 2007-07-13 Completed [facility] 00:00:00 [facility] HIB 4 Dose Schedule 2007-07-13 Completed Unive rs[facility] 00:00:00 [facility] Varicella 2007-07-13 Completed [facility] (varivax)(chicken 00:00:00 [place] [facility]ox[facility] HEPATITIS A 2007-07-13 Completed [facility] 00:00:00 [facility] HIB 4 Dose Schedule 2007-07-13 Completed [facility] 00:00:00 [facility] Varicella 2007-07-13 Completed [facility] (varivax)(chicken 00:00:00 [place] [facility]ox[facility] HEPATITIS A 2007-07-13 Completed [facility] 00:00:00 [facility] HIB 4 Dose Schedule 2007-07-13 Completed [facility] 00:00:00 [facility] Varicella 2007-07-13 Completed [facility] (varivax)(chicken 00:00:00 [place] [facility] HEPATITIS A 2007-07-13 Completed [facility] 00:00:00 [facility] HIB 4 Dose Schedule 2007-07-13 Completed [facility] rs[facility] 00:00:00 [facility] Varicella 2007-07-13 Completed [facility] (varivax)(chicken 00:00:00 [place] [facility]ox[facility] HEPATITIS A 2007-07-13 Completed [facility] 00:00:00 [facility] HIB 4 Dose Schedule 2007-07-13 Completed [facility] 00:00:00 [facility] Varicella 2007-07-13 Completed [facility] (varivax)(chicken 00:00:00 [place] [facility]ox[facility] HEPATITIS A 2007-07-13 Completed [facility] 00:00:00 [facility] HIB 4 Dose Schedule 2007-07-13 Completed [facility] 00:00:00 [facility] Varicella 2007-07-13 Completed [facility] (varivax)(chicken 00:00:00 [place] [facility]ox[facility] HEPATITIS A 2007-07-13 Completed [facility] 00:00:00 [facility] HIB 4 Dose Schedule 2007-07-13 Completed [facility] 00:00:00 [facility] Varicella 2007-07-13 Completed [facility] (varivax)(chicken 00:00:00 [place] [facility] HEPATITIS A 2007-07-13 Completed [facility] 00:00:00 [facility] HIB 4 Dose Schedule 2007-07-13 Completed [facility] 00:00:00 [facility] Varicella 2007-07-13 Completed [facility] (varivax)(chicken 00:00:00 [place] [facility] HEPATITIS A 2007-07-13 Completed [facility] 00:00:00 [facility] HIB 4 Dose Schedule 2007-07-13 Completed [facility] 00:00:00 [facility] Varicella 2007-07-13 Completed [facility] (varivax)(chicken 00:00:00 [place] [facility] HEPATITIS A 2007-07-13 Completed [facility] 00:00:00 [facility] HIB 4 Dose Schedule 2007-07-13 Completed [facility] 00:00:00 [facility] Varicella 2007-07-13 Completed [facility] (varivax)(chicken 00:00:00 [place] [facility] HEPATITIS A 2007-07-13 Completed [facility] 00:00:00 [facility] HIB 4 Dose Schedule 2007-07-13 Completed [facility] 00:00:00 [facility] HEPATITIS A 2007-07-13 Completed [facility] 00:00:00 [facility] HIB 4 Dose Schedule 2007-07-13 Completed [facility] 00:00:00 [facility] Varicella 2007-07-13 Completed [facility] (varivax)(chicken 00:00:00 [place] [facility] Varicella 2007-07-13 Completed [facility] (varivax)(chicken 00:00:00 [place] [facility] HEPATITIS A 2007-07-13 Completed [facility] 00:00:00 [facility] HIB 4 Dose Schedule 2007-07-13 Completed [facility] rs[facility] 00:00:00 [facility] Varicella 2007-07-13 Completed [facility] (varivax)(chicken 00:00:00 [place] [facility] HEPATITIS A 2007-07-13 Completed [facility] 00:00:00 [facility] HIB 4 Dose Schedule 2007-07-13 Completed [facility]ive rs[facility] 00:00:00 [facility] Varicella 2007-07-13 Completed University of (varivax)(chicken 00:00:00 [place] [facility] HEPATITIS A 2007-07-13 Completed [facility] 00:00:00 [facility] HIB 4 Dose Schedule 2007-07-13 Completed Unive rsity of 00:00:00 [facility] Varicella 2007-07-13 Completed [facility] (varivax)(chicken 00:00:00 [place] [facility] HEPATITIS A 2007-07-13 Completed [facility] 00:00:00 [facility] HIB 4 Dose Schedule 2007-07-13 Completed [facility] rs[facility] 00:00:00 [facility] Varicella 2007-07-13 Completed [facility] (varivax)(chicken 00:00:00 [place] [facility] HEPATITIS A 2007-07-13 Completed [facility] 00:00:00 [facility] HIB 4 Dose Schedule 2007-07-13 Completed [facility] rs[facility] 00:00:00 [facility] Varicella 2007-07-13 Completed [facility] (varivax)(chicken 00:00:00 [place] [facility] HEPATITIS A 2007-07-13 Completed [facility] 00:00:00 [facility] HIB 4 Dose Schedule 2007-07-13 Completed [facility]ive rs[facility] 00:00:00 [facility] Varicella 2007-07-13 Completed [facility] (varivax)(chicken 00:00:00 [place] [facility] HEPATITIS A 2007-07-13 Completed [facility] 00:00:00 [facility] HIB 4 Dose Schedule 2007-07-13 Completed [facility] rs[facility] 00:00:00 [facility] Varicella 2007-07-13 Completed [facility] (varivax)(chicken 00:00:00 [place] [facility] HEPATITIS A 2007-07-13 Completed [facility] 00:00:00 [facility] HIB 4 Dose Schedule 2007-07-13 Completed [facility]ive rs[facility] of 00:00:00 [facility] Varicella 2007-07-13 Completed [facility] (varivax)(chicken 00:00:00 [place] [facility] HEPATITIS A 2007-07-13 Completed [facility] 00:00:00 [facility] HIB 4 Dose Schedule 2007-07-13 Completed [facility]ive rs[facility] of 00:00:00 [facility] Varicella 2007-07-13 Completed [facility] (varivax)(chicken 00:00:00 [place] [facility] HEPATITIS A 2007-07-13 Completed [facility] 00:00:00 [facility] HIB 4 Dose Schedule 2007-07-13 Completed [facility]ive rs[facility] 00:00:00 [facility] Varicella 2007-07-13 Completed [facility] (varivax)(chicken 00:00:00 [place] [facility] HEPATITIS A 2007-07-13 Completed [facility] 00:00:00 [facility] HIB 4 Dose Schedule 2007-07-13 Completed [facility] rs[facility] of 00:00:00 [facility] Varicella 2007-07-13 Completed [facility] (varivax)(chicken 00:00:00 [place] [facility] HEPATITIS A 2007-07-13 Completed [facility] 00:00:00 [facility] HIB 4 Dose Schedule 2007-07-13 Completed [facility] rs[facility] of 00:00:00 [facility] Varicella 2007-07-13 Completed [facility] (varivax)(chicken 00:00:00 [place] [facility] HEPATITIS A 2007-07-13 Completed [facility] 00:00:00 [facility] HIB 4 Dose Schedule 2007-07-13 Completed [facility] rs[facility] 00:00:00 [facility] Varicella 2007-07-13 Completed [facility] (varivax)(chicken 00:00:00 [place] [facility] HEPATITIS A 2007-07-13 Completed [facility] 00:00:00 [facility] HEPATITIS A 2007-07-13 Completed [facility] 00:00:00 [facility] HIB 4 Dose Schedule 2007-07-13 Completed [facility]ive rs[facility] 00:00:00 [facility] Varicella 2007-07-13 Completed [facility] (varivax)(chicken 00:00:00 [place] [facility] HIB 4 Dose Schedule 2007-07-13 Completed [facility] 00:00:00 [facility] Varicella 2007-07-13 Completed [facility] (varivax)(chicken 00:00:00 [place] [facility] HEPATITIS A 2007-07-13 Completed [facility] 00:00:00 [facility] HIB 4 Dose Schedule 2007-07-13 Completed [facility] 00:00:00 [facility] Varicella 2007-07-13 Completed [facility] (varivax)(chicken 00:00:00 [place] [facility] HEPATITIS A 2007-07-13 Completed [facility] 00:00:00 [facility] HIB 4 Dose Schedule 2007-07-13 Completed [facility]ive rsity of 00:00:00 [facility] Varicella 2007-07-13 Completed [facility] (varivax)(chicken 00:00:00 [place] [facility] HEPATITIS A 2007-07-13 Completed [facility] 00:00:00 [facility] HIB 4 Dose Schedule 2007-07-13 Completed [facility]ive rs[facility] of 00:00:00 [facility] Varicella 2007-07-13 Completed [facility] (varivax)(chicken 00:00:00 [place] [facility] HEPATITIS A 2007-07-13 Completed [facility] 00:00:00 [facility] HIB 4 Dose Schedule 2007-07-13 Completed [facility] rs[facility] 00:00:00 [facility] Varicella 2007-07-13 Completed [facility] (varivax)(chicken 00:00:00 [place] [facility] HEPATITIS A 2007-07-13 Completed [facility] 00:00:00 [facility] HIB 4 Dose Schedule 2007-07-13 Completed [facility]ive rs[facility] of 00:00:00 [facility] Varicella 2007-07-13 Completed [facility] (varivax)(chicken 00:00:00 [place] [facility] HEPATITIS A 2007-07-13 Completed [facility] 00:00:00 [facility] HIB 4 Dose Schedule 2007-07-13 Completed [facility]ive rs[facility] of 00:00:00 [facility] Varicella 2007-07-13 Completed [facility] (varivax)(chicken 00:00:00 [place] [facility] HEPATITIS A 2007-07-13 Completed [facility] 00:00:00 [facility] HIB 4 Dose Schedule 2007-07-13 Completed [facility] 00:00:00 [facility] Varicella 2007-07-13 Completed [facility] (varivax)(chicken 00:00:00 [place] [facility] HEPATITIS A 2007-07-13 Completed [facility] 00:00:00 [facility] HIB 4 Dose Schedule 2007-07-13 Completed [facility]ive rsity of 00:00:00 [facility] HEPATITIS A 2007-07-13 Completed [facility] 00:00:00 [facility] HIB 4 Dose Schedule 2007-07-13 Completed [facility] of 00:00:00 [facility] Varicella 2007-07-13 Completed [facility] (varivax)(chicken 00:00:00 [place] [facility] Varicella 2007-07-13 Completed [facility] (varivax)(chicken 00:00:00 [place] [facility] HEPATITIS A 2007-07-13 Completed [facility] 00:00:00 [facility] HIB 4 Dose Schedule 2007-07-13 Completed [facility] rs[facility] of 00:00:00 [facility] Varicella 2007-07-13 Completed [facility] (varivax)(chicken 00:00:00 [place] [facility] HEPATITIS A 2007-07-13 Completed [facility] 00:00:00 [facility] HIB 4 Dose Schedule 2007-07-13 Completed [facility] 00:00:00 [facility] Varicella 2007-07-13 Completed [facility] (varivax)(chicken 00:00:00 [place] [facility] HEPATITIS A 2007-07-13 Completed [facility] 00:00:00 [facility] HIB 4 Dose Schedule 2007-07-13 Completed [facility] rs[facility] of 00:00:00 [facility] Varicella 2007-07-13 Completed [facility] (varivax)(chicken 00:00:00 [place] [facility] HEPATITIS A 2007-07-13 Completed [facility] 00:00:00 [facility] HIB 4 Dose Schedule 2007-07-13 Completed [facility] 00:00:00 [facility] Varicella 2007-07-13 Completed [facility] (varivax)(chicken 00:00:00 [place] [facility] HEPATITIS A 2007-07-13 Completed [facility] 00:00:00 [facility] HIB 4 Dose Schedule 2007-07-13 Completed [facility] 00:00:00 [facility] Varicella 2007-07-13 Completed [facility] (varivax)(chicken 00:00:00 [place] [facility] HEPATITIS A 2007-07-13 Completed [facility] 00:00:00 [facility] HIB 4 Dose Schedule 2007-07-13 Completed [facility] rs[facility] 00:00:00 [facility] Varicella 2007-07-13 Completed [facility] (varivax)(chicken 00:00:00 [place] [facility] HEPATITIS A 2007-07-13 Completed [facility] 00:00:00 [facility] HIB 4 Dose Schedule 2007-07-13 Completed [facility] rs[facility] 00:00:00 [facility] Varicella 2007-07-13 Completed [facility] (varivax)(chicken 00:00:00 [place] [facility] HEPATITIS A 2007-07-13 Completed [facility] 00:00:00 [facility] HIB 4 Dose Schedule 2007-07-13 Completed [facility] 00:00:00 [facility] Varicella 2007-07-13 Completed [facility] (varivax)(chicken 00:00:00 [place] [facility] HEPATITIS A 2007-07-13 Completed [facility] 00:00:00 [facility] HIB 4 Dose Schedule 2007-07-13 Completed [facility] 00:00:00 [facility] Varicella 2007-07-13 Completed [facility] (varivax)(chicken 00:00:00 [place] [facility] HEPATITIS A 2007-07-13 Completed [facility] 00:00:00 [facility] HIB 4 Dose Schedule 2007-07-13 Completed [facility] 00:00:00 [facility] Varicella 2007-07-13 Completed [facility] (varivax)(chicken 00:00:00 [place] [facility] HEPATITIS A 2007-07-13 Completed [facility] 00:00:00 [facility] HIB 4 Dose Schedule 2007-07-13 Completed [facility] 00:00:00 [facility] Varicella 2007-07-13 Completed [facility] (varivax)(chicken 00:00:00 [place] [facility] HEPATITIS A 2007-07-13 Completed [facility] 00:00:00 [facility] HIB 4 Dose Schedule 2007-07-13 Completed [facility] 00:00:00 [facility] Varicella 2007-07-13 Completed [facility] (varivax)(chicken 00:00:00 [place] [facility] HEPATITIS A 2007-07-13 Completed [facility] 00:00:00 [facility] HIB 4 Dose Schedule 2007-07-13 Completed [facility] 00:00:00 [facility] Varicella 2007-07-13 Completed [facility] (varivax)(chicken 00:00:00 [place] [facility] HEPATITIS A 2007-07-13 Completed [facility] 00:00:00 [facility] HIB 4 Dose Schedule 2007-07-13 Completed [facility] 00:00:00 [facility] Varicella 2007-07-13 Completed [facility] (varivax)(chicken 00:00:00 [place] [facility] HEPATITIS A 2007-07-13 Completed [facility] 00:00:00 [facility] HIB 4 Dose Schedule 2007-07-13 Completed [facility] 00:00:00 [facility] Varicella 2007-07-13 Completed [facility] (varivax)(chicken 00:00:00 [place] [facility] HEPATITIS A 2007-07-13 Completed [facility] 00:00:00 [facility] HIB 4 Dose Schedule 2007-07-13 Completed [facility] 00:00:00 [facility] Varicella 2007-07-13 Completed [facility] (varivax)(chicken 00:00:00 [place] [facility] HEPATITIS A 2007-07-13 Completed [facility] 00:00:00 [facility] HIB 4 Dose Schedule 2007-07-13 Completed [facility] 00:00:00 [facility] Varicella 2007-07-13 Completed [facility] (varivax)(chicken 00:00:00 [place] [facility] HEPATITIS A 2007-07-13 Completed [facility] 00:00:00 [facility] HIB 4 Dose Schedule 2007-07-13 Completed [facility] 00:00:00 [facility] Varicella 2007-07-13 Completed [facility] (varivax)(chicken 00:00:00 [place] [facility] HEPATITIS A 2007-07-13 Completed [facility] 00:00:00 [facility] HIB 4 Dose Schedule 2007-07-13 Completed [facility] 00:00:00 [facility] Varicella 2007-07-13 Completed [facility] (varivax)(chicken 00:00:00 [place] [facility] HEPATITIS A 2007-07-13 Completed [facility] 00:00:00 [facility] HIB 4 Dose Schedule 2007-07-13 Completed [facility] 00:00:00 [facility] Varicella 2007-07-13 Completed [facility] (varivax)(chicken 00:00:00 [facility] edical pox) Branch DTAP 2005-07-10 Completed [facility] 00:00:00 [facility] MMR 2005-07-10 Completed [facility] 00:00:00 [facility] Polio (IPV/OPV) 2005-07-10 Completed Universit y [facility] 00:00:00 [facility] DTAP 2005-07-10 Completed [facility] 00:00:00 [facility] MMR 2005-07-10 Completed [facility] 00:00:00 [facility] Polio (IPV/OPV) 2005-07-10 Completed [facility] 00:00:00 [facility] DTAP 2005-07-10 Completed [facility] 00:00:00 [facility] MMR 2005-07-10 Completed [facility] 00:00:00 [facility] Polio (IPV/OPV) 2005-07-10 Completed [facility] 00:00:00 [facility] DTAP 2005-07-10 Completed [facility] 00:00:00 [facility] MMR 2005-07-10 Completed [facility] 00:00:00 [facility] Polio (IPV/OPV) 2005-07-10 Completed [facility] 00:00:00 [facility] DTAP 2005-07-10 Completed [facility] 00:00:00 [facility] MMR 2005-07-10 Completed [facility] 00:00:00 [facility] Polio (IPV/OPV) 2005-07-10 Completed [facility] 00:00:00 [facility] DTAP 2005-07-10 Completed [facility] 00:00:00 [facility] MMR 2005-07-10 Completed [facility] 00:00:00 [facility] Polio (IPV/OPV) 2005-07-10 Completed [facility] 00:00:00 [facility] DTAP 2005-07-10 Completed [facility] 00:00:00 [facility] MMR 2005-07-10 Completed [facility] 00:00:00 [facility] Polio (IPV/OPV) 2005-07-10 Completed [facility] 00:00:00 [facility] DTAP 2005-07-10 Completed [facility] 00:00:00 [facility] MMR 2005-07-10 Completed [facility] 00:00:00 [facility] Polio (IPV/OPV) 2005-07-10 Completed [facility] 00:00:00 [facility] DTAP 2005-07-10 Completed [facility] 00:00:00 [facility] MMR 2005-07-10 Completed [facility] 00:00:00 [facility] Polio (IPV/OPV) 2005-07-10 Completed Univers[facility] y [facility] 00:00:00 [facility] DTAP 2005-07-10 Completed [facility] 00:00:00 [facility] MMR 2005-07-10 Completed [facility] 00:00:00 [facility] Polio (IPV/OPV) 2005-07-10 Completed [facility] 00:00:00 [facility] DTAP 2005-07-10 Completed [facility] 00:00:00 [facility] MMR 2005-07-10 Completed [facility] 00:00:00 [facility] Polio (IPV/OPV) 2005-07-10 Completed [facility] 00:00:00 [facility] DTAP 2005-07-10 Completed [facility] 00:00:00 [facility] MMR 2005-07-10 Completed [facility] 00:00:00 [facility] Polio (IPV/OPV) 2005-07-10 Completed [facility] 00:00:00 [facility] DTAP 2005-07-10 Completed [facility] 00:00:00 [facility] MMR 2005-07-10 Completed [facility] 00:00:00 [facility] Polio (IPV/OPV) 2005-07-10 Completed [facility] 00:00:00 [facility] DTAP 2005-07-10 Completed [facility] 00:00:00 [facility] MMR 2005-07-10 Completed [facility] 00:00:00 [facility] Polio (IPV/OPV) 2005-07-10 Completed [facility] 00:00:00 [facility] DTAP 2005-07-10 Completed [facility] 00:00:00 [facility] MMR 2005-07-10 Completed [facility] 00:00:00 [facility] Polio (IPV/OPV) 2005-07-10 Completed [facility] 00:00:00 [facility] DTAP 2005-07-10 Completed [facility] 00:00:00 [facility] MMR 2005-07-10 Completed [facility] 00:00:00 [facility] Polio (IPV/OPV) 2005-07-10 Completed [facility] 00:00:00 [facility] DTAP 2005-07-10 Completed [facility] 00:00:00 [facility] MMR 2005-07-10 Completed [facility] 00:00:00 [facility] Polio (IPV/OPV) 2005-07-10 Completed [facility] 00:00:00 [facility] DTAP 2005-07-10 Completed [facility] 00:00:00 [facility] MMR 2005-07-10 Completed [facility] 00:00:00 [facility] Polio (IPV/OPV) 2005-07-10 Completed [facility] 00:00:00 [facility] DTAP 2005-07-10 Completed [facility] 00:00:00 [facility] MMR 2005-07-10 Completed [facility] 00:00:00 [facility] Polio (IPV/OPV) 2005-07-10 Completed [facility] 00:00:00 [facility] DTAP 2005-07-10 Completed [facility] 00:00:00 [facility] MMR 2005-07-10 Completed [facility] 00:00:00 [facility] Polio (IPV/OPV) 2005-07-10 Completed [facility] 00:00:00 [facility] DTAP 2005-07-10 Completed [facility] 00:00:00 [facility] MMR 2005-07-10 Completed [facility] 00:00:00 [facility] Polio (IPV/OPV) 2005-07-10 Completed [facility] 00:00:00 [facility] DTAP 2005-07-10 Completed [facility] 00:00:00 [facility] MMR 2005-07-10 Completed [facility] 00:00:00 [facility] Polio (IPV/OPV) 2005-07-10 Completed [facility] 00:00:00 [facility] DTAP 2005-07-10 Completed [facility] 00:00:00 [facility] MMR 2005-07-10 Completed [facility] 00:00:00 [facility] Polio (IPV/OPV) 2005-07-10 Completed [facility] 00:00:00 [facility] DTAP 2005-07-10 Completed [facility] 00:00:00 [facility] MMR 2005-07-10 Completed [facility] 00:00:00 [facility] Polio (IPV/OPV) 2005-07-10 Completed [facility] 00:00:00 [facility] DTAP 2005-07-10 Completed [facility] 00:00:00 [facility] MMR 2005-07-10 Completed [facility] 00:00:00 [facility] Polio (IPV/OPV) 2005-07-10 Completed [facility] 00:00:00 [facility] DTAP 2005-07-10 Completed [facility] 00:00:00 [facility] MMR 2005-07-10 Completed [facility] 00:00:00 [facility] Polio (IPV/OPV) 2005-07-10 Completed [facility] 00:00:00 [facility] DTAP 2005-07-10 Completed [facility] 00:00:00 [facility] MMR 2005-07-10 Completed [facility] 00:00:00 [facility] Polio (IPV/OPV) 2005-07-10 Completed [facility] 00:00:00 [facility] DTAP 2005-07-10 Completed [facility] 00:00:00 [facility] MMR 2005-07-10 Completed [facility] 00:00:00 [facility] Polio (IPV/OPV) 2005-07-10 Completed [facility] 00:00:00 [facility] DTAP 2005-07-10 Completed [facility] 00:00:00 [facility] MMR 2005-07-10 Completed [facility] 00:00:00 [facility] Polio (IPV/OPV) 2005-07-10 Completed [facility] 00:00:00 [facility] DTAP 2005-07-10 Completed [facility] 00:00:00 [facility] MMR 2005-07-10 Completed [facility] 00:00:00 [facility] Polio (IPV/OPV) 2005-07-10 Completed [facility] 00:00:00 [facility] DTAP 2005-07-10 Completed [facility] 00:00:00 [facility] MMR 2005-07-10 Completed [facility] 00:00:00 [facility] DTAP 2005-07-10 Completed [facility] 00:00:00 [facility] MMR 2005-07-10 Completed [facility] 00:00:00 [facility] Polio (IPV/OPV) 2005-07-10 Completed [facility] 00:00:00 [facility] Polio (IPV/OPV) 2005-07-10 Completed [facility] 00:00:00 [facility] DTAP 2005-07-10 Completed [facility] 00:00:00 [facility] MMR 2005-07-10 Completed [facility] 00:00:00 [facility] Polio (IPV/OPV) 2005-07-10 Completed [facility] 00:00:00 [facility] DTAP 2005-07-10 Completed [facility] 00:00:00 [facility] MMR 2005-07-10 Completed [facility] 00:00:00 [facility] Polio (IPV/OPV) 2005-07-10 Completed [facility] 00:00:00 [facility] DTAP 2005-07-10 Completed [facility] 00:00:00 [facility] MMR 2005-07-10 Completed [facility] 00:00:00 [facility] Polio (IPV/OPV) 2005-07-10 Completed [facility] 00:00:00 [facility] DTAP 2005-07-10 Completed [facility] 00:00:00 [facility] MMR 2005-07-10 Completed [facility] 00:00:00 [facility] Polio (IPV/OPV) 2005-07-10 Completed [facility] 00:00:00 [facility] DTAP 2005-07-10 Completed [facility] 00:00:00 [facility] MMR 2005-07-10 Completed [facility] 00:00:00 [facility] Polio (IPV/OPV) 2005-07-10 Completed [facility] 00:00:00 [facility] DTAP 2005-07-10 Completed [facility] 00:00:00 [facility] MMR 2005-07-10 Completed [facility] 00:00:00 [facility] Polio (IPV/OPV) 2005-07-10 Completed [facility] 00:00:00 [facility] DTAP 2005-07-10 Completed [facility] 00:00:00 [facility] MMR 2005-07-10 Completed [facility] 00:00:00 [facility] Polio (IPV/OPV) 2005-07-10 Completed [facility] 00:00:00 [facility] DTAP 2005-07-10 Completed [facility] 00:00:00 [facility] MMR 2005-07-10 Completed [facility] 00:00:00 [facility] Polio (IPV/OPV) 2005-07-10 Completed [facility] 00:00:00 [facility] DTAP 2005-07-10 Completed [facility] 00:00:00 [facility] MMR 2005-07-10 Completed [facility] 00:00:00 [facility] Polio (IPV/OPV) 2005-07-10 Completed [facility] 00:00:00 [facility] DTAP 2005-07-10 Completed [facility] 00:00:00 [facility] MMR 2005-07-10 Completed [facility] 00:00:00 [facility] Polio (IPV/OPV) 2005-07-10 Completed [facility] 00:00:00 [facility] DTAP 2005-07-10 Completed [facility] 00:00:00 [facility] MMR 2005-07-10 Completed [facility] 00:00:00 [facility] Polio (IPV/OPV) 2005-07-10 Completed [facility] 00:00:00 [facility] DTAP 2005-07-10 Completed [facility] 00:00:00 [facility] MMR 2005-07-10 Completed [facility] 00:00:00 [facility] Polio (IPV/OPV) 2005-07-10 Completed [facility] 00:00:00 [facility] DTAP 2005-07-10 Completed [facility] 00:00:00 [facility] MMR 2005-07-10 Completed [facility] 00:00:00 [facility] Polio (IPV/OPV) 2005-07-10 Completed [facility] 00:00:00 [facility] DTAP 2005-07-10 Completed [facility] 00:00:00 [facility] MMR 2005-07-10 Completed [facility] 00:00:00 [facility] Polio (IPV/OPV) 2005-07-10 Completed [facility] 00:00:00 [facility] DTAP 2005-07-10 Completed [facility] 00:00:00 [facility] MMR 2005-07-10 Completed [facility] 00[facility]00:00 [facility] Polio (IPV/OPV) 2005-07-10 Completed [facility] 00:00:00 [facility] DTAP 2005-07-10 Completed [facility] 00:00:00 [facility] MMR 2005-07-10 Completed [facility] 00:00:00 [facility] Polio (IPV/OPV) 2005-07-10 Completed [facility] 00:00:00 [facility] DTAP 2005-07-10 Completed [facility] 00:00:00 [facility] MMR 2005-07-10 Completed [facility] 00:00:00 [facility] Polio (IPV/OPV) 2005-07-10 Completed [facility] 00:00:00 [facility] DTAP 2005-07-10 Completed [facility] 00:00:00 [facility] MMR 2005-07-10 Completed [facility] 00:00:00 [facility] Polio (IPV/OPV) 2005-07-10 Completed [facility] 00:00:00 [facility] DTAP 2005-07-10 Completed [facility] 00:00:00 [facility] MMR 2005-07-10 Completed [facility] 00:00:00 [facility] Polio (IPV/OPV) 2005-07-10 Completed [facility] 00:00:00 [facility] DTAP 2005-07-10 Completed [facility] 00:00:00 [facility] MMR 2005-07-10 Completed [facility] 00:00:00 [facility] Polio (IPV/OPV) 2005-07-10 Completed [facility] 00:00:00 [facility] DTAP 2005-07-10 Completed [facility] 00:00:00 [facility] MMR 2005-07-10 Completed [facility] 00:00:00 [facility] Polio (IPV/OPV) 2005-07-10 Completed [facility] 00:00:00 [facility] DTAP 2005-07-10 Completed [facility] 00:00:00 [facility] MMR 2005-07-10 Completed [facility] 00:00:00 [facility] Polio (IPV/OPV) 2005-07-10 Completed [facility] 00:00:00 [facility] DTAP 2005-07-10 Completed [facility] 00:00:00 [facility] MMR 2005-07-10 Completed [facility] 00:00:00 [facility] Polio (IPV/OPV) 2005-07-10 Completed [facility] 00:00:00 [facility] DTAP 2005-07-10 Completed [facility] 00:00:00 [facility] MMR 2005-07-10 Completed [facility] 00:00:00 [facility] Polio (IPV/OPV) 2005-07-10 Completed [facility] 00:00:00 [facility] DTAP 2005-07-10 Completed [facility] 00:00:00 [facility] MMR 2005-07-10 Completed [facility] 00:00:00 [facility] Polio (IPV/OPV) 2005-07-10 Completed [facility] 00:00:00 [facility] DTAP 2005-07-10 Completed [facility] 00:00:00 [facility] MMR 2005-07-10 Completed [facility] 00:00:00 [facility] Polio (IPV/OPV) 2005-07-10 Completed [facility] 00:00:00 [facility] DTAP 2005-07-10 Completed [facility] 00:00:00 [facility] MMR 2005-07-10 Completed [facility] 00:00:00 [facility] Polio (IPV/OPV) 2005-07-10 Completed [facility] 00:00:00 [facility] DTAP 2005-07-10 Completed [facility] 00:00:00 [facility] MMR 2005-07-10 Completed [facility] 00:00:00 [facility] Polio (IPV/OPV) 2005-07-10 Completed [facility] 00:00:00 [facility] DTAP 2005-07-10 Completed [facility] 00:00:00 [facility] MMR 2005-07-10 Completed [facility] 00:00:00 [facility] Polio (IPV/OPV) 2005-07-10 Completed [facility] 00:00:00 [facility] DTAP 2005-07-10 Completed [facility] 00:00:00 [facility] MMR 2005-07-10 Completed [facility] 00:00:00 [facility] Polio (IPV/OPV) 2005-07-10 Completed [facility] 00:00:00 [facility] DTAP 2003-11-28 Completed [facility] 00:00:00 [facility] HIB 4 Dose Schedule 2003-11-28 Completed [facility]ive rs[facility] 00:00:00 [facility] HEPATITIS A 2003-11-28 Completed [facility] 00:00:00 [facility] MMR 2003-11-28 Completed [facility] 00:00:00 [facility] Varicella 2003-11-28 Completed [facility] of (varivax)(chicken 00:00:00 [facility] edical pox) Branch DTAP 2003-11-28 Completed [facility] 00:00:00 [facility] HIB 4 Dose Schedule 2003-11-28 Completed [facility]ive rsity of 00:00:00 [facility] HEPATITIS A 2003-11-28 Completed [facility] 00:00:00 [facility] MMR 2003-11-28 Completed [facility] 00:00:00 [facility] Varicella 2003-11-28 Completed [facility] of (varivax)(chicken 00:00:00 [facility] edical pox) Branch DTAP 2003-11-28 Completed [facility] 00:00:00 [facility] HIB 4 Dose Schedule 2003-11-28 Completed [facility]ive rsity of 00:00:00 [facility] HEPATITIS A 2003-11-28 Completed [facility] 00:00:00 [facility] MMR 2003-11-28 Completed [facility] 00:00:00 [facility] Varicella 2003-11-28 Completed [facility] (varivax)(chicken 00:00:00 [place] [facility] DTAP 2003-11-28 Completed [facility] 00:00:00 [facility] HIB 4 Dose Schedule 2003-11-28 Completed [facility]ive rsity of 00:00:00 [facility] HEPATITIS A 2003-11-28 Completed [facility] 00:00:00 [facility] MMR 2003-11-28 Completed [facility] 00:00:00 [facility] Varicella 2003-11-28 Completed [facility] (varivax)(chicken 00:00:00 [place] [facility] DTAP 2003-11-28 Completed [facility] 00:00:00 [facility] HIB 4 Dose Schedule 2003-11-28 Completed [facility]ive rsity of 00:00:00 [facility] HEPATITIS A 2003-11-28 Completed [facility] 00:00:00 [facility] MMR 2003-11-28 Completed [facility] 00:00:00 [facility] Varicella 2003-11-28 Completed [facility] (varivax)(chicken 00:00:00 [place] [facility] pox) [facility] DTAP 2003-11-28 Completed [facility] 00:00:00 [facility] HIB 4 Dose Schedule 2003-11-28 Completed [facility]ive rsity of 00:00:00 [facility] HEPATITIS A 2003-11-28 Completed [facility] 00:00:00 [facility] MMR 2003-11-28 Completed [facility] 00:00:00 [facility] Varicella 2003-11-28 Completed [facility] (varivax)(chicken 00:00:00 [place] [facility] pox[facility] DTAP 2003-11-28 Completed [facility] 00:00:00 [facility] HIB 4 Dose Schedule 2003-11-28 Completed Unive rsity of 00:00:00 [facility] HEPATITIS A 2003-11-28 Completed [facility] 00:00:00 [facility] MMR 2003-11-28 Completed [facility] 00:00:00 [facility] Varicella 2003-11-28 Completed [facility] (varivax)(chicken 00:00:00 [place] [facility] pox[facility] DTAP 2003-11-28 Completed [facility] 00:00:00 [facility] HIB 4 Dose Schedule 2003-11-28 Completed Unive rsity of 00:00:00 [facility] HEPATITIS A 2003-11-28 Completed [facility] 00:00:00 [facility] MMR 2003-11-28 Completed [facility] 00:00:00 [facility] Varicella 2003-11-28 Completed [facility] (varivax)(chicken 00:00:00 [place] [facility] pox) [facility] DTAP 2003-11-28 Completed [facility] 00:00:00 [facility] HIB 4 Dose Schedule 2003-11-28 Completed Unive rsity of 00:00:00 [facility] HEPATITIS A 2003-11-28 Completed [facility] 00:00:00 [facility] MMR 2003-11-28 Completed [facility] 00:00:00 [facility] Varicella 2003-11-28 Completed [facility] (varivax)(chicken 00:00:00 [place] [facility] pox) [facility] DTAP 2003-11-28 Completed [facility] 00:00:00 [facility] HIB 4 Dose Schedule 2003-11-28 Completed Unive rsity of 00:00:00 [facility] HEPATITIS A 2003-11-28 Completed [facility] 00:00:00 [facility] MMR 2003-11-28 Completed [facility] 00:00:00 [facility] Varicella 2003-11-28 Completed [facility] (varivax)(chicken 00:00:00 [place] [facility] pox) [facility] DTAP 2003-11-28 Completed [facility] 00:00:00 [facility] HIB 4 Dose Schedule 2003-11-28 Completed Unive rsity of 00:00:00 [facility] HEPATITIS A 2003-11-28 Completed [facility] 00:00:00 [facility] MMR 2003-11-28 Completed [facility] 00:00:00 [facility] Varicella 2003-11-28 Completed [facility] (varivax)(chicken 00:00:00 [place] [facility]ox[facility] DTAP 2003-11-28 Completed [facility] 00:00:00 [facility] HIB 4 Dose Schedule 2003-11-28 Completed Unive rsity of 00:00:00 [facility] HEPATITIS A 2003-11-28 Completed [facility] 00:00:00 [facility] MMR 2003-11-28 Completed [facility] 00:00:00 [facility] Varicella 2003-11-28 Completed [facility] (varivax)(chicken 00:00:00 [place] [facility] pox) [facility] DTAP 2003-11-28 Completed [facility] 00:00:00 [facility] HIB 4 Dose Schedule 2003-11-28 Completed Unive rsity of 00:00:00 [facility] HEPATITIS A 2003-11-28 Completed [facility] 00:00:00 [facility] MMR 2003-11-28 Completed [facility] 00:00:00 [facility] Varicella 2003-11-28 Completed [facility] (varivax)(chicken 00:00:00 [place] [facility] pox[facility] DTAP 2003-11-28 Completed [facility] 00:00:00 [facility] HIB 4 Dose Schedule 2003-11-28 Completed Unive rsity of 00:00:00 [facility] HEPATITIS A 2003-11-28 Completed [facility] 00:00:00 [facility] MMR 2003-11-28 Completed [facility] 00:00:00 [facility] Varicella 2003-11-28 Completed [facility] (varivax)(chicken 00:00:00 [place] [facility] pox) [facility] DTAP 2003-11-28 Completed [facility] 00:00:00 [facility] HIB 4 Dose Schedule 2003-11-28 Completed Unive rsity of 00:00:00 [facility] HEPATITIS A 2003-11-28 Completed [facility] 00:00:00 [facility] DTAP 2003-11-28 Completed [facility] 00:00:00 [facility] HIB 4 Dose Schedule 2003-11-28 Completed Unive rsity of 00:00:00 [facility] HEPATITIS A 2003-11-28 Completed [facility] 00:00:00 [facility] MMR 2003-11-28 Completed [facility] 00:00:00 [facility] MMR 2003-11-28 Completed [facility] 00:00:00 [facility] Varicella 2003-11-28 Completed [facility] (varivax)(chicken 00:00:00 [place] [facility] Varicella 2003-11-28 Completed [facility] (varivax)(chicken 00:00:00 [place] [facility] pox) [facility] DTAP 2003-11-28 Completed [facility] 00:00:00 [facility] HIB 4 Dose Schedule 2003-11-28 Completed Unive rsity of 00:00:00 [facility] HEPATITIS A 2003-11-28 Completed [facility] 00:00:00 [facility] MMR 2003-11-28 Completed [facility] 00:00:00 [facility] Varicella 2003-11-28 Completed [facility] (varivax)(chicken 00:00:00 [place] [facility] pox) [facility] DTAP 2003-11-28 Completed [facility] 00:00:00 [facility] HIB 4 Dose Schedule 2003-11-28 Completed Unive rsity of 00:00:00 [facility] HEPATITIS A 2003-11-28 Completed [facility] 00:00:00 [facility] MMR 2003-11-28 Completed [facility] 00:00:00 [facility] Varicella 2003-11-28 Completed [facility] (varivax)(chicken 00:00:00 [place] [facility] pox) [facility] DTAP 2003-11-28 Completed [facility] 00:00:00 [facility] HIB 4 Dose Schedule 2003-11-28 Completed Unive rsity of 00:00:00 [facility] HEPATITIS A 2003-11-28 Completed [facility] 00:00:00 [facility] MMR 2003-11-28 Completed [facility] 00:00:00 [facility] Varicella 2003-11-28 Completed [facility] (varivax)(chicken 00:00:00 [place] [facility] pox[facility] DTAP 2003-11-28 Completed [facility] 00:00:00 [facility] HIB 4 Dose Schedule 2003-11-28 Completed Unive rsity of 00:00:00 [facility] HEPATITIS A 2003-11-28 Completed [facility] 00:00:00 [facility] MMR 2003-11-28 Completed [facility] 00:00:00 [facility] Varicella 2003-11-28 Completed [facility] (varivax)(chicken 00:00:00 [place] [facility] pox) [facility] DTAP 2003-11-28 Completed [facility] 00:00:00 [facility] HIB 4 Dose Schedule 2003-11-28 Completed Unive rsity of 00:00:00 [facility] HEPATITIS A 2003-11-28 Completed [facility] 00:00:00 [facility] MMR 2003-11-28 Completed [facility] 00:00:00 [facility] Varicella 2003-11-28 Completed [facility] (varivax)(chicken 00:00:00 [place] [facility]ox) [facility] DTAP 2003-11-28 Completed [facility] 00:00:00 [facility] HIB 4 Dose Schedule 2003-11-28 Completed Unive rsity of 00:00:00 [facility] HEPATITIS A 2003-11-28 Completed [facility] 00:00:00 [facility] MMR 2003-11-28 Completed [facility] 00:00:00 [facility] Varicella 2003-11-28 Completed [facility] (varivax)(chicken 00:00:00 [place] [facility]ox[facility] DTAP 2003-11-28 Completed [facility] 00:00:00 [facility] HIB 4 Dose Schedule 2003-11-28 Completed [facility] rsity of 00:00:00 [facility] HEPATITIS A 2003-11-28 Completed [facility] 00:00:00 [facility] MMR 2003-11-28 Completed [facility] 00:00:00 [facility] Varicella 2003-11-28 Completed [facility] (varivax)(chicken 00:00:00 [place] [facility]ox[facility] DTAP 2003-11-28 Completed [facility] 00:00:00 [facility] HIB 4 Dose Schedule 2003-11-28 Completed [facility] rsity of 00:00:00 [facility] HEPATITIS A 2003-11-28 Completed [facility] 00:00:00 [facility] MMR 2003-11-28 Completed [facility] 00:00:00 [facility] Varicella 2003-11-28 Completed [facility] (varivax)(chicken 00:00:00 [place] [facility] pox[facility] DTAP 2003-11-28 Completed [facility] 00:00:00 [facility] HIB 4 Dose Schedule 2003-11-28 Completed [facility] rsity of 00:00:00 [facility] HEPATITIS A 2003-11-28 Completed [facility] 00:00:00 [facility] MMR 2003-11-28 Completed [facility] 00:00:00 [facility] Varicella 2003-11-28 Completed [facility] (varivax)(chicken 00:00:00 [place] [facility] DTAP 2003-11-28 Completed [facility] 00:00:00 [facility] HIB 4 Dose Schedule 2003-11-28 Completed [facility] rsity [facility] 00:00:00 [facility] HEPATITIS A 2003-11-28 Completed [facility] 00:00:00 [facility] MMR 2003-11-28 Completed [facility] 00:00:00 [facility] Varicella 2003-11-28 Completed [facility] (varivax)(chicken 00:00:00 [place] [facility] pox) [facility] DTAP 2003-11-28 Completed [facility] 00:00:00 [facility] HIB 4 Dose Schedule 2003-11-28 Completed [facility] rsity [facility] 00:00:00 [facility] HEPATITIS A 2003-11-28 Completed [facility] 00:00:00 [facility] MMR 2003-11-28 Completed [facility] 00:00:00 [facility] Varicella 2003-11-28 Completed [facility] (varivax)(chicken 00:00:00 [place] [facility] DTAP 2003-11-28 Completed [facility] 00:00:00 [facility] HIB 4 Dose Schedule 2003-11-28 Completed Unive rsity of 00:00:00 [facility] HEPATITIS A 2003-11-28 Completed [facility] 00:00:00 [facility] MMR 2003-11-28 Completed [facility] 00:00:00 [facility] Varicella 2003-11-28 Completed [facility] (varivax)(chicken 00:00:00 [place] [facility] pox) [facility] DTAP 2003-11-28 Completed [facility] 00:00:00 [facility] HIB 4 Dose Schedule 2003-11-28 Completed [facility] rsity [facility] 00:00:00 [facility] HEPATITIS A 2003-11-28 Completed [facility] 00:00:00 [facility] MMR 2003-11-28 Completed [facility] 00:00:00 [facility] Varicella 2003-11-28 Completed [facility] (varivax)(chicken 00:00:00 [place] [facility] DTAP 2003-11-28 Completed [facility] 00:00:00 [facility] HIB 4 Dose Schedule 2003-11-28 Completed [facility] rs[facility] 00:00:00 [facility] DTAP 2003-11-28 Completed [facility] 00:00:00 [facility] HIB 4 Dose Schedule 2003-11-28 Completed [facility] rs[facility] 00:00:00 [facility] HEPATITIS A 2003-11-28 Completed [facility] 00:00:00 [facility] MMR 2003-11-28 Completed [facility] 00:00:00 [facility] Varicella 2003-11-28 Completed [facility] (varivax)(chicken 00:00:00 [place] [facility] HEPATITIS A 2003-11-28 Completed [facility] 00:00:00 [facility] MMR 2003-11-28 Completed [facility] 00:00:00 [facility] Varicella 2003-11-28 Completed [facility] (varivax)(chicken 00:00:00 [place] [facility] DTAP 2003-11-28 Completed [facility] 00:00:00 [facility] HIB 4 Dose Schedule 2003-11-28 Completed Unive rsity [facility] 00:00:00 [facility] HEPATITIS A 2003-11-28 Completed [facility] 00:00:00 [facility] MMR 2003-11-28 Completed [facility] 00:00:00 [facility] Varicella 2003-11-28 Completed [facility] (varivax)(chicken 00:00:00 [place] [facility] pox) [facility] DTAP 2003-11-28 Completed [facility] 00:00:00 [facility] HIB 4 Dose Schedule 2003-11-28 Completed Un[facility] rsity [facility] 00:00:00 [facility] HEPATITIS A 2003-11-28 Completed [facility] 00:00:00 [facility] MMR 2003-11-28 Completed [facility] 00:00:00 [facility] Varicella 2003-11-28 Completed [facility] (varivax)(chicken 00:00:00 [place] [facility]ox[facility] DTAP 2003-11-28 Completed [facility] 00:00:00 [facility] HIB 4 Dose Schedule 2003-11-28 Completed Unive rsity of 00:00:00 [facility] HEPATITIS A 2003-11-28 Completed [facility] 00:00:00 [facility] MMR 2003-11-28 Completed [facility] 00:00:00 [facility] Varicella 2003-11-28 Completed [facility] (varivax)(chicken 00:00:00 [place] [facility] pox[facility] DTAP 2003-11-28 Completed [facility] 00:00:00 [facility] HIB 4 Dose Schedule 2003-11-28 Completed [facility] rs[facility] 00:00:00 [facility] HEPATITIS A 2003-11-28 Completed [facility] 00:00:00 [facility] MMR 2003-11-28 Completed [facility] 00:00:00 [facility] Varicella 2003-11-28 Completed [facility] (varivax)(chicken 00:00:00 [place] [facility] DTAP 2003-11-28 Completed [facility] 00:00:00 [facility] HIB 4 Dose Schedule 2003-11-28 Completed [facility] rs[facility] 00:00:00 [facility] HEPATITIS A 2003-11-28 Completed [facility] 00:00:00 [facility] MMR 2003-11-28 Completed [facility] 00:00:00 [facility] Varicella 2003-11-28 Completed [facility] (varivax)(chicken 00:00:00 [place] [facility] DTAP 2003-11-28 Completed [facility] 00:00:00 [facility] HIB 4 Dose Schedule 2003-11-28 Completed [facility] rs[facility] 00:00:00 [facility] HEPATITIS A 2003-11-28 Completed [facility] 00:00:00 [facility] MMR 2003-11-28 Completed [facility] 00:00:00 [facility] Varicella 2003-11-28 Completed [facility] (varivax)(chicken 00:00:00 [place] [facility] DTAP 2003-11-28 Completed [facility] 00:00:00 [facility] HIB 4 Dose Schedule 2003-11-28 Completed Unive rsity of 00:00:00 [facility] HEPATITIS A 2003-11-28 Completed [facility] 00:00:00 [facility] MMR 2003-11-28 Completed [facility] 00:00:00 [facility] Varicella 2003-11-28 Completed [facility] (varivax)(chicken 00:00:00 [place] [facility] DTAP 2003-11-28 Completed [facility] 00:00:00 [facility] HIB 4 Dose Schedule 2003-11-28 Completed [facility] rsity [facility] 00:00:00 [facility] HEPATITIS A 2003-11-28 Completed [facility] 00:00:00 [facility] MMR 2003-11-28 Completed [facility] 00:00:00 [facility] Varicella 2003-11-28 Completed [facility] (varivax)(chicken 00:00:00 [place] [facility] DTAP 2003-11-28 Completed [facility] 00:00:00 [facility] HIB 4 Dose Schedule 2003-11-28 Completed Unive rsity of 00:00:00 [facility] HEPATITIS A 2003-11-28 Completed [facility] 00:00:00 [facility] MMR 2003-11-28 Completed [facility] 00:00:00 [facility] Varicella 2003-11-28 Completed [facility] (varivax)(chicken 00:00:00 [place] [facility] DTAP 2003-11-28 Completed [facility] 00:00:00 [facility] HIB 4 Dose Schedule 2003-11-28 Completed Unive rsity of 00:00:00 [facility] HEPATITIS A 2003-11-28 Completed [facility] 00:00:00 [facility] MMR 2003-11-28 Completed [facility] 00:00:00 [facility] Varicella 2003-11-28 Completed [facility] (varivax)(chicken 00:00:00 [place] [facility] DTAP 2003-11-28 Completed [facility] 00:00:00 [facility] HIB 4 Dose Schedule 2003-11-28 Completed Unive rsity of 00:00:00 [facility] HEPATITIS A 2003-11-28 Completed [facility] 00:00:00 [facility] MMR 2003-11-28 Completed [facility] 00:00:00 [facility] Varicella 2003-11-28 Completed [facility] (varivax)(chicken 00:00:00 [place] [facility] DTAP 2003-11-28 Completed [facility] 00:00:00 [facility] HIB 4 Dose Schedule 2003-11-28 Completed [facility] rs[facility] 00:00:00 [facility] HEPATITIS A 2003-11-28 Completed [facility] 00:00:00 [facility] MMR 2003-11-28 Completed [facility] 00:00:00 [facility] Varicella 2003-11-28 Completed [facility] (varivax)(chicken 00:00:00 [place] [facility] DTAP 2003-11-28 Completed [facility] 00:00:00 [facility] HIB 4 Dose Schedule 2003-11-28 Completed Unive rsity [facility] 00:00:00 [facility] HEPATITIS A 2003-11-28 Completed University of 00:00:00 [facility] MMR 2003-11-28 Completed [facility] of 00:00:00 [facility] Varicella 2003-11-28 Completed University of (varivax)(chicken 00:00:00 [place] [facility] pox) [facility] DTAP 2003-11-28 Completed [facility] of 00:00:00 [facility] HIB 4 Dose Schedule 2003-11-28 Completed Unive rsity of 00:00:00 [facility] HEPATITIS A 2003-11-28 Completed University of 00:00:00 [facility] MMR 2003-11-28 Completed University of 00:00:00 [facility] Varicella 2003-11-28 Completed [facility] of (varivax)(chicken 00:00:00 [place] [facility] pox) [facility] DTAP 2003-11-28 Completed [facility] of 00:00:00 [facility] HIB 4 Dose Schedule 2003-11-28 Completed Unive rsity of 00:00:00 [facility] HEPATITIS A 2003-11-28 Completed University of 00:00:00 [facility] MMR 2003-11-28 Completed [facility] of 00:00:00 [facility] Varicella 2003-11-28 Completed [facility] of (varivax)(chicken 00:00:00 [place] [facility] pox) [facility] DTAP 2003-11-28 Completed [facility] of 00:00:00 [facility] HIB 4 Dose Schedule 2003-11-28 Completed Unive rsity of 00:00:00 [facility] HEPATITIS A 2003-11-28 Completed [facility] of 00:00:00 [facility] MMR 2003-11-28 Completed [facility] of 00:00:00 [facility] Varicella 2003-11-28 Completed [facility] (varivax)(chicken 00:00:00 [place] [facility] pox) [facility] DTAP 2003-11-28 Completed [facility] of 00:00:00 [facility] HIB 4 Dose Schedule 2003-11-28 Completed Unive rsity of 00:00:00 [facility] HEPATITIS A 2003-11-28 Completed [facility] of 00:00:00 [facility] MMR 2003-11-28 Completed [facility] of 00:00:00 [facility] Varicella 2003-11-28 Completed [facility] of (varivax)(chicken 00:00:00 [place] [facility] pox) [facility] DTAP 2003-11-28 Completed [facility] of 00:00:00 [facility] HIB 4 Dose Schedule 2003-11-28 Completed Unive rsity of 00:00:00 [facility] HEPATITIS A 2003-11-28 Completed [facility] of 00:00:00 [facility] MMR 2003-11-28 Completed [facility] of 00:00:00 [facility] Varicella 2003-11-28 Completed [facility] (varivax)(chicken 00:00:00 [place] [facility] pox) [facility] DTAP 2003-11-28 Completed [facility] of 00:00:00 [facility] HIB 4 Dose Schedule 2003-11-28 Completed Unive rsity of 00:00:00 [facility] HEPATITIS A 2003-11-28 Completed [facility] of 00:00:00 [facility] MMR 2003-11-28 Completed [facility] of 00:00:00 [facility] Varicella 2003-11-28 Completed [facility] (varivax)(chicken 00:00:00 [place] [facility] pox) [facility] DTAP 2003-11-28 Completed [facility] of 00:00:00 [facility] HIB 4 Dose Schedule 2003-11-28 Completed Unive rsity of 00:00:00 [facility] HEPATITIS A 2003-11-28 Completed University of 00:00:00 [facility] MMR 2003-11-28 Completed [facility] of 00:00:00 [facility] Varicella 2003-11-28 Completed [facility] (varivax)(chicken 00:00:00 [place] [facility] pox) [facility] DTAP 2003-11-28 Completed [facility] of 00:00:00 [facility] HIB 4 Dose Schedule 2003-11-28 Completed Unive rsity of 00:00:00 [facility] HEPATITIS A 2003-11-28 Completed [facility] of 00:00:00 [facility] MMR 2003-11-28 Completed [facility] of 00:00:00 [facility] Varicella 2003-11-28 Completed [facility] (varivax)(chicken 00:00:00 [place] [facility] pox) [facility] DTAP 2003-11-28 Completed [facility] of 00:00:00 [facility] HIB 4 Dose Schedule 2003-11-28 Completed Unive rsity of 00:00:00 [facility] HEPATITIS A 2003-11-28 Completed [facility] of 00:00:00 [facility] MMR 2003-11-28 Completed [facility] of 00:00:00 [facility] Varicella 2003-11-28 Completed [facility] (varivax)(chicken 00:00:00 [place] [facility] pox) [facility] DTAP 2003-11-28 Completed [facility] of 00:00:00 [facility] HIB 4 Dose Schedule 2003-11-28 Completed Unive rsity of 00:00:00 [facility] HEPATITIS A 2003-11-28 Completed [facility] of 00:00:00 [facility] MMR 2003-11-28 Completed [facility] of 00:00:00 [facility] Varicella 2003-11-28 Completed [facility] (varivax)(chicken 00:00:00 [place] [facility] pox) [facility] DTAP 2003-11-28 Completed [facility] of 00:00:00 [facility] HIB 4 Dose Schedule 2003-11-28 Completed Unive rsity of 00:00:00 [facility] HEPATITIS A 2003-11-28 Completed University of 00:00:00 [facility] MMR 2003-11-28 Completed [facility] of 00:00:00 [facility] Varicella 2003-11-28 Completed [facility] of (varivax)(chicken 00:00:00 [place] [facility] pox) [facility] DTAP 2003-11-28 Completed [facility] of 00:00:00 [facility] HIB 4 Dose Schedule 2003-11-28 Completed Unive rsity of 00:00:00 [facility] HEPATITIS A 2003-11-28 Completed [facility] of 00:00:00 [facility] MMR 2003-11-28 Completed [facility] of 00:00:00 [facility] Varicella 2003-11-28 Completed [facility] (varivax)(chicken 00:00:00 [place] [facility] pox) [facility] DTAP 2003-11-28 Completed [facility] of 00:00:00 [facility] HIB 4 Dose Schedule 2003-11-28 Completed Unive rsity of 00:00:00 [facility] HEPATITIS A 2003-11-28 Completed [facility] of 00:00:00 [facility] MMR 2003-11-28 Completed [facility] of 00:00:00 [facility] Varicella 2003-11-28 Completed [facility] (varivax)(chicken 00:00:00 [place] [facility] pox) [facility] DTAP 2003-11-28 Completed [facility] of 00:00:00 [facility] HIB 4 Dose Schedule 2003-11-28 Completed Unive rsity of 00:00:00 [facility] HEPATITIS A 2003-11-28 Completed [facility] of 00:00:00 [facility] MMR 2003-11-28 Completed [facility] of 00:00:00 [facility] Varicella 2003-11-28 Completed [facility] (varivax)(chicken 00:00:00 [place] [facility] pox) [facility] DTAP 2003-11-28 Completed [facility] of 00:00:00 [facility] HIB 4 Dose Schedule 2003-11-28 Completed Unive rsity of 00:00:00 [facility] HEPATITIS A 2003-11-28 Completed [facility] of 00:00:00 [facility] MMR 2003-11-28 Completed [facility] of 00:00:00 [facility] Varicella 2003-11-28 Completed [facility] (varivax)(chicken 00:00:00 [place] [facility] pox) [facility] DTAP 2003-11-28 Completed [facility] of 00:00:00 [facility] HIB 4 Dose Schedule 2003-11-28 Completed Unive rsity of 00:00:00 [facility] HEPATITIS A 2003-11-28 Completed [facility] of 00:00:00 [facility] MMR 2003-11-28 Completed [facility] of 00:00:00 [facility] Varicella 2003-11-28 Completed [facility] (varivax)(chicken 00:00:00 [place] [facility] pox) [facility] DTAP 2003-11-28 Completed [facility] of 00:00:00 [facility] HIB 4 Dose Schedule 2003-11-28 Completed Unive rsity of 00:00:00 [facility] HEPATITIS A 2003-11-28 Completed University of 00:00:00 [facility] MMR 2003-11-28 Completed [facility] of 00:00:00 [facility] Varicella 2003-11-28 Completed [facility] (varivax)(chicken 00:00:00 [place] [facility] pox) [facility] DTAP 2003-11-28 Completed [facility] of 00:00:00 [facility] HIB 4 Dose Schedule 2003-11-28 Completed Unive rsity of 00:00:00 [facility] HEPATITIS A 2003-11-28 Completed [facility] of 00:00:00 [facility] MMR 2003-11-28 Completed [facility] of 00:00:00 [facility] Varicella 2003-11-28 Completed [facility] (varivax)(chicken 00:00:00 [place] [facility] pox[facility] Polio (IPV/OPV) 2002-04-07 Completed Universit y of 00:00:00 [facility] Polio (IPV/OPV) 2002-04-07 Completed Universit y of 00:00:00 [facility] Polio (IPV/OPV) 2002-04-07 Completed Universit y of 00:00:00 [facility] Polio (IPV/OPV) 2002-04-07 Completed [facility]it y of 00:00:00 [facility] Polio (IPV/OPV) 2002-04-07 Completed Universit y of 00:00:00 [facility] Polio (IPV/OPV) 2002-04-07 Completed [facility]it y of 00:00:00 [facility] Polio (IPV/OPV) 2002-04-07 Completed [facility]it y of 00:00:00 [facility] Polio (IPV/OPV) 2002-04-07 Completed [facility]it y of 00:00:00 [facility] Polio (IPV/OPV) 2002-04-07 Completed [facility]it y of 00:00:00 [facility] Polio (IPV/OPV) 2002-04-07 Completed [facility] 00:00:00 [facility] Polio (IPV/OPV) 2002-04-07 Completed [facility]it y of 00:00:00 [facility] Polio (IPV/OPV) 2002-04-07 Completed [facility]it y of 00:00:00 [facility] Polio (IPV/OPV) 2002-04-07 Completed [facility]it y of 00:00:00 [facility] Polio (IPV/OPV) 2002-04-07 Completed [facility] of 00:00:00 [facility] Polio (IPV/OPV) 2002-04-07 Completed [facility]it [facility] of 00:00:00 [facility] Polio (IPV/OPV) 2002-04-07 Completed [facility] of 00:00:00 [facility] Polio (IPV/OPV) 2002-04-07 Completed [facility] y of 00:00:00 [facility] Polio (IPV/OPV) 2002-04-07 Completed [facility]it y of 00:00:00 [facility] Polio (IPV/OPV) 2002-04-07 Completed [facility] of 00:00:00 [facility] Polio (IPV/OPV) 2002-04-07 Completed [facility] of 00:00:00 [facility] Polio (IPV/OPV) 2002-04-07 Completed [facility] of 00:00:00 [facility] Polio (IPV/OPV) 2002-04-07 Completed [facility] of 00:00:00 [facility] Polio (IPV/OPV) 2002-04-07 Completed [facility] of 00:00:00 [facility] Polio (IPV/OPV) 2002-04-07 Completed [facility]it [facility] of 00:00:00 [facility] Polio (IPV/OPV) 2002-04-07 Completed [facility] of 00:00:00 [facility] Polio (IPV/OPV) 2002-04-07 Completed [facility] of 00:00:00 [facility] Polio (IPV/OPV) 2002-04-07 Completed [facility] of 00:00:00 [facility] Polio (IPV/OPV) 2002-04-07 Completed [facility] of 00:00:00 [facility] Polio (IPV/OPV) 2002-04-07 Completed [facility] of 00:00:00 [facility] Polio (IPV/OPV) 2002-04-07 Completed [facility] of 00:00:00 [facility] Polio (IPV/OPV) 2002-04-07 Completed [facility] of 00:00:00 [facility] Polio (IPV/OPV) 2002-04-07 Completed [facility] of 00:00:00 [facility] Polio (IPV/OPV) 2002-04-07 Completed [facility] of 00:00:00 [facility] Polio (IPV/OPV) 2002-04-07 Completed [facility] 00:00:00 [facility] Polio (IPV/OPV) 2002-04-07 Completed [facility] of 00:00:00 [facility] Polio (IPV/OPV) 2002-04-07 Completed [facility] of 00:00:00 [facility] Polio (IPV/OPV) 2002-04-07 Completed [facility] of 00:00:00 [facility] Polio (IPV/OPV) 2002-04-07 Completed [facility] of 00:00:00 [facility] Polio (IPV/OPV) 2002-04-07 Completed [facility]it [facility] of 00:00:00 [facility] Polio (IPV/OPV) 2002-04-07 Completed Univers[facility] of 00:00:00 [facility] Polio (IPV/OPV) 2002-04-07 Completed [facility] of 00:00:00 [facility] Polio (IPV/OPV) 2002-04-07 Completed [facility]it [facility] of 00:00:00 [facility] Polio (IPV/OPV) 2002-04-07 Completed [facility] of 00:00:00 [facility] Polio (IPV/OPV) 2002-04-07 Completed [facility] of 00:00:00 [facility] Polio (IPV/OPV) 2002-04-07 Completed [facility] of 00:00:00 [facility] Polio (IPV/OPV) 2002-04-07 Completed [facility] of 00:00:00 [facility] Polio (IPV/OPV) 2002-04-07 Completed [facility] of 00:00:00 [facility] Polio (IPV/OPV) 2002-04-07 Completed [facility] of 00:00:00 [facility] Polio (IPV/OPV) 2002-04-07 Completed [facility] of 00:00:00 [facility] Polio (IPV/OPV) 2002-04-07 Completed Universit y of 00:00:00 [facility] Polio (IPV/OPV) 2002-04-07 Completed [facility]it y of 00:00:00 [facility] Polio (IPV/OPV) 2002-04-07 Completed [facility] of 00:00:00 [facility] Polio (IPV/OPV) 2002-04-07 Completed [facility] of 00:00:00 [facility] Polio (IPV/OPV) 2002-04-07 Completed [facility] of 00:00:00 [facility] Polio (IPV/OPV) 2002-04-07 Completed [facility] of 00:00:00 [facility] Polio (IPV/OPV) 2002-04-07 Completed [facility] of 00:00:00 [facility] Polio (IPV/OPV) 2002-04-07 Completed [facility] of 00:00:00 [facility] Polio (IPV/OPV) 2002-04-07 Completed [facility] of 00:00:00 [facility] Polio (IPV/OPV) 2002-04-07 Completed [facility] of 00:00:00 [facility] Polio (IPV/OPV) 2002-04-07 Completed [facility] of 00:00:00 [facility] Polio (IPV/OPV) 2002-04-07 Completed [facility] of 00:00:00 [facility] Polio (IPV/OPV) 2002-04-07 Completed [facility] of 00:00:00 [facility] DTAP 2002-01-14 Completed [facility] of 00:00:00 [facility] HIB 4 Dose Schedule 2002-01-14 Completed Unive rsity of 00:00:00 [facility] Hep B, Adol or Pedi 2002-01-14 Completed Unive rsity of Dosage 00:00:00 [facility] Pneumococcal 7 2002-01-14 Completed University of Conjugate, PCV7 00:00:00 [place] [facility] (Prevnar7) [facility] DTAP 2002-01-14 Completed [facility] of 00:00:00 [facility] HIB 4 Dose Schedule 2002-01-14 Completed Unive rsity of 00:00:00 [facility] Hep B, Adol or Pedi 2002-01-14 Completed Unive rsity of Dosage 00:00:00 [facility] Pneumococcal 7 2002-01-14 Completed University of Conjugate, PCV7 00:00:00 [place] [facility] (Prevnar7) [facility] DTAP 2002-01-14 Completed [facility] of 00:00:00 [facility] HIB 4 Dose Schedule 2002-01-14 Completed Unive rsity of 00:00:00 [facility] Hep B, Adol or Pedi 2002-01-14 Completed Unive rsity of Dosage 00:00:00 [facility] Pneumococcal 7 2002-01-14 Completed [facility] of Conjugate, PCV7 00:00:00 [place] [facility] (Prevnar7) [facility] DTAP 2002-01-14 Completed [facility] of 00:00:00 [facility] HIB 4 Dose Schedule 2002-01-14 Completed Unive rsity of 00:00:00 [facility] Hep B, Adol or Pedi 2002-01-14 Completed Unive rsity of Dosage 00:00:00 [facility] Pneumococcal 7 2002-01-14 Completed University of Conjugate, PCV7 00:00:00 [place] [facility] (Prevnar7) [facility] DTAP 2002-01-14 Completed [facility] of 00:00:00 [facility] HIB 4 Dose Schedule 2002-01-14 Completed Unive rsity of 00:00:00 [facility] Hep B, Adol or Pedi 2002-01-14 Completed Unive rsity of Dosage 00:00:00 [facility] Pneumococcal 7 2002-01-14 Completed [facility] of Conjugate, PCV7 00:00:00 [place] [facility] (Prevnar7) [facility] DTAP 2002-01-14 Completed [facility] of 00:00:00 [facility] HIB 4 Dose Schedule 2002-01-14 Completed Unive rsity of 00:00:00 [facility] Hep B, Adol or Pedi 2002-01-14 Completed Unive rsity of Dosage 00:00:00 [facility] Pneumococcal 7 2002-01-14 Completed University of Conjugate, PCV7 00:00:00 [place] [facility] (Prevnar7) [facility] DTAP 2002-01-14 Completed [facility] of 00:00:00 [facility] HIB 4 Dose Schedule 2002-01-14 Completed Unive rsity of 00:00:00 [facility] Hep B, Adol or Pedi 2002-01-14 Completed Unive rsity of Dosage 00:00:00 [facility] Pneumococcal 7 2002-01-14 Completed [facility] of Conjugate, PCV7 00:00:00 [place] [facility] (Prevnar7) [facility] DTAP 2002-01-14 Completed [facility] of 00:00:00 [facility] HIB 4 Dose Schedule 2002-01-14 Completed Unive rsity of 00:00:00 [facility] Hep B, Adol or Pedi 2002-01-14 Completed Unive rsity of Dosage 00:00:00 [facility] Pneumococcal 7 2002-01-14 Completed [facility] of Conjugate, PCV7 00:00:00 [place] [facility] (Prevnar7) [facility] DTAP 2002-01-14 Completed [facility] of 00:00:00 [facility] HIB 4 Dose Schedule 2002-01-14 Completed Unive rsity of 00:00:00 [facility] Hep B, Adol or Pedi 2002-01-14 Completed Unive rsity of Dosage 00:00:00 [facility] Pneumococcal 7 2002-01-14 Completed [facility] of Conjugate, PCV7 00:00:00 [place] [facility] (Prevnar7) [facility] DTAP 2002-01-14 Completed [facility] of 00:00:00 [facility] HIB 4 Dose Schedule 2002-01-14 Completed Unive rsity of 00:00:00 [facility] Hep B, Adol or Pedi 2002-01-14 Completed Unive rsity of Dosage 00:00:00 [facility] Pneumococcal 7 2002-01-14 Completed University of Conjugate, PCV7 00:00:00 [place] [facility] (Prevnar7) [facility] DTAP 2002-01-14 Completed [facility] of 00:00:00 [facility] HIB 4 Dose Schedule 2002-01-14 Completed Unive rsity of 00:00:00 [facility] Hep B, Adol or Pedi 2002-01-14 Completed Unive rsity of Dosage 00:00:00 [facility] Pneumococcal 7 2002-01-14 Completed [facility] of Conjugate, PCV7 00:00:00 [place] [facility] (Prevnar7) [facility] DTAP 2002-01-14 Completed [facility] of 00:00:00 [facility] HIB 4 Dose Schedule 2002-01-14 Completed Unive rsity of 00:00:00 [facility] Hep B, Adol or Pedi 2002-01-14 Completed Unive rsity of Dosage 00:00:00 [facility] Pneumococcal 7 2002-01-14 Completed [facility] Conjugate, PCV7 00:00:00 [place] [facility] (Prevnar7) [facility] DTAP 2002-01-14 Completed [facility] of 00:00:00 [facility] HIB 4 Dose Schedule 2002-01-14 Completed Unive rsity of 00:00:00 [facility] Hep B, Adol or Pedi 2002-01-14 Completed Unive rsity of Dosage 00:00:00 [facility] Pneumococcal 7 2002-01-14 Completed [facility] of Conjugate, PCV7 00:00:00 [place] [facility] (Prevnar7) [facility] DTAP 2002-01-14 Completed [facility] of 00:00:00 [facility] HIB 4 Dose Schedule 2002-01-14 Completed Unive rsity of 00:00:00 [facility] Hep B, Adol or Pedi 2002-01-14 Completed Unive rsity of Dosage 00:00:00 [facility] Pneumococcal 7 2002-01-14 Completed University of Conjugate, PCV7 00:00:00 [place] [facility] (Prevnar7) [facility] DTAP 2002-01-14 Completed [facility] of 00:00:00 [facility] HIB 4 Dose Schedule 2002-01-14 Completed Unive rsity of 00:00:00 [facility] Hep B, Adol or Pedi 2002-01-14 Completed Unive rsity of Dosage 00:00:00 [facility] Pneumococcal 7 2002-01-14 Completed [facility] of Conjugate, PCV7 00:00:00 [place] [facility] (Prevnar7) [facility] DTAP 2002-01-14 Completed [facility] of 00:00:00 [facility] HIB 4 Dose Schedule 2002-01-14 Completed Unive rsity of 00:00:00 [facility] Hep B, Adol or Pedi 2002-01-14 Completed Unive rsity of Dosage 00:00:00 [facility] Pneumococcal 7 2002-01-14 Completed [facility] Conjugate, PCV7 00:00:00 [place] [facility] (Prevnar7) [facility] DTAP 2002-01-14 Completed [facility] of 00:00:00 [facility] HIB 4 Dose Schedule 2002-01-14 Completed Unive rsity of 00:00:00 [facility] Hep B, Adol or Pedi 2002-01-14 Completed Unive rsity of Dosage 00:00:00 [facility] Pneumococcal 7 2002-01-14 Completed University of Conjugate, PCV7 00:00:00 [place] [facility] (Prevnar7) [facility] DTAP 2002-01-14 Completed [facility] of 00:00:00 [facility] HIB 4 Dose Schedule 2002-01-14 Completed Unive rsity of 00:00:00 [facility] Hep B, Adol or Pedi 2002-01-14 Completed Unive rsity of Dosage 00:00:00 [facility] Pneumococcal 7 2002-01-14 Completed [facility] of Conjugate, PCV7 00:00:00 [place] [facility] (Prevnar7) [facility] DTAP 2002-01-14 Completed [facility] of 00:00:00 [facility] HIB 4 Dose Schedule 2002-01-14 Completed Unive rsity of 00:00:00 [facility] Hep B, Adol or Pedi 2002-01-14 Completed Unive rsity of Dosage 00:00:00 [facility] Pneumococcal 7 2002-01-14 Completed [facility] of Conjugate, PCV7 00:00:00 [place] [facility] (Prevnar7) [facility] DTAP 2002-01-14 Completed [facility] of 00:00:00 [facility] HIB 4 Dose Schedule 2002-01-14 Completed Unive rsity of 00:00:00 [facility] Hep B, Adol or Pedi 2002-01-14 Completed Unive rsity of Dosage 00:00:00 [facility] Pneumococcal 7 2002-01-14 Completed [facility] of Conjugate, PCV7 00:00:00 [place] [facility] (Prevnar7) [facility] DTAP 2002-01-14 Completed [facility] of 00:00:00 [facility] HIB 4 Dose Schedule 2002-01-14 Completed Unive rsity of 00:00:00 [facility] Hep B, Adol or Pedi 2002-01-14 Completed Unive rsity of Dosage 00:00:00 [facility] Pneumococcal 7 2002-01-14 Completed [facility] of Conjugate, PCV7 00:00:00 [place] [facility] (Prevnar7) [facility] DTAP 2002-01-14 Completed [facility] of 00:00:00 [facility] HIB 4 Dose Schedule 2002-01-14 Completed Unive rsity of 00:00:00 [facility] Hep B, Adol or Pedi 2002-01-14 Completed Unive rsity of Dosage 00:00:00 [facility] Pneumococcal 7 2002-01-14 Completed [facility] of Conjugate, PCV7 00:00:00 [place] [facility] (Prevnar7) [facility] DTAP 2002-01-14 Completed [facility] of 00:00:00 [facility] HIB 4 Dose Schedule 2002-01-14 Completed [facility]ity of 00:00:00 [facility] Hep B, Adol or Pedi 2002-01-14 Completed [facility]ive [facility] of Dosage 00:00:00 [facility] Pneumococcal 7 2002-01-14 Completed [facility] Conjugate, PCV7 00:00:00 [place] [facility] (Prevnar7) [facility] DTAP 2002-01-14 Completed [facility] of 00:00:00 [facility] HIB 4 Dose Schedule 2002-01-14 Completed Unive rsity of 00:00:00 [facility] Hep B, Adol or Pedi 2002-01-14 Completed [facility]ive [facility]ity of Dosage 00:00:00 [facility] Pneumococcal 7 2002-01-14 Completed [facility] Conjugate, PCV7 00:00:00 [place] [facility] (Prevnar7) [facility] DTAP 2002-01-14 Completed [facility] of 00:00:00 [facility] HIB 4 Dose Schedule 2002-01-14 Completed [facility] of 00:00:00 [facility] Hep B, Adol or Pedi 2002-01-14 Completed [facility]ive [facility] of Dosage 00:00:00 [facility] Pneumococcal 7 2002-01-14 Completed [facility] Conjugate, PCV7 00:00:00 [place] [facility] (Prevnar7) [facility] DTAP 2002-01-14 Completed [facility] 00:00:00 [facility] HIB 4 Dose Schedule 2002-01-14 Completed [facility] 00:00:00 [facility] Hep B, Adol or Pedi 2002-01-14 Completed [facility] Dosage 00:00:00 [facility] Pneumococcal 7 2002-01-14 Completed [facility] Conjugate, PCV7 00:00:00 [facility] DTAP 2002-01-14 Completed [facility] 00:00:00 [facility] HIB 4 Dose Schedule 2002-01-14 Completed [facility] 00:00:00 [facility] Hep B, Adol or Pedi 2002-01-14 Completed [facility] Dosage 00:00:00 [facility] Pneumococcal 7 2002-01-14 Completed [facility] Conjugate, PCV7 00:00:00 [facility] (Pre[facility]ar[facility] DTAP 2002-01-14 Completed [facility] 00:00:00 [facility] HIB 4 Dose Schedule 2002-01-14 Completed [facility] 00:00:00 [facility] Hep B, Adol or Pedi 2002-01-14 Completed [facility] Dosage 00:00:00 [facility] Pneumococcal 7 2002-01-14 Completed [facility] Conjugate, PCV7 00:00:00 [facility] (Prevnar[facility] DTAP 2002-01-14 Completed [facility] 00:00:00 [facility] HIB 4 Dose Schedule 2002-01-14 Completed [facility] 00:00:00 [facility] DTAP 2002-01-14 Completed [facility] 00:00:00 [facility] HIB 4 Dose Schedule 2002-01-14 Completed [facility] 00:00:00 [facility] Hep B, Adol or Pedi 2002-01-14 Completed [facility] Dosage 00:00:00 [facility] Pneumococcal 7 2002-01-14 Completed [facility] Conjugate, PCV7 00:00:00 [facility] ([facility]ar[facility] Hep B, Adol or Pedi 2002-01-14 Completed [facility] Dosage 00:00:00 [facility] Pneumococcal 7 2002-01-14 Completed [facility] Conjugate, PCV7 00:00:00 [facility] (Prevnar7[facility] DTAP 2002-01-14 Completed [facility] 00:00:00 [facility] HIB 4 Dose Schedule 2002-01-14 Completed [facility] 00:00:00 [facility] Hep B, Adol or Pedi 2002-01-14 Completed [facility] Dosage 00:00:00 [facility] Pneumococcal 7 2002-01-14 Completed [facility] Conjugate, PCV7 00:00:00 [facility] (Prevnar7[facility] DTAP 2002-01-14 Completed [facility] 00:00:00 [facility] HIB 4 Dose Schedule 2002-01-14 Completed [facility] 00:00:00 [facility] Hep B, Adol or Pedi 2002-01-14 Completed [facility] Dosage 00:00:00 [facility] Pneumococcal 7 2002-01-14 Completed [facility] Conjugate, PCV7 00:00:00 [facility] (Prevnar7[facility] DTAP 2002-01-14 Completed [facility] 00:00:00 [facility] HIB 4 Dose Schedule 2002-01-14 Completed [facility] 00:00:00 [facility] Hep B, Adol or Pedi 2002-01-14 Completed [facility] Dosage 00:00:00 [facility] Pneumococcal 7 2002-01-14 Completed [facility] Conjugate, PCV7 00:00:00 [facility] (Prevnar7[facility] DTAP 2002-01-14 Completed [facility] 00:00:00 [facility] HIB 4 Dose Schedule 2002-01-14 Completed [facility] 00:00:00 [facility] Hep B, Adol or Pedi 2002-01-14 Completed [facility] Dosage 00:00:00 [facility] Pneumococcal 7 2002-01-14 Completed [facility] Conjugate, PCV7 00:00:00 [facility] (Prevnar7[facility] DTAP 2002-01-14 Completed [facility] 00:00:00 [facility] HIB 4 Dose Schedule 2002-01-14 Completed [facility] 00:00:00 [facility] Hep B, Adol or Pedi 2002-01-14 Completed [facility] Dosage 00:00:00 [facility] Pneumococcal 7 2002-01-14 Completed [facility] Conjugate, PCV7 00:00:00 [facility] (Prevnar7[facility] DTAP 2002-01-14 Completed [facility] 00:00:00 [facility] HIB 4 Dose Schedule 2002-01-14 Completed [facility] 00:00:00 [facility] Hep B, Adol or Pedi 2002-01-14 Completed [facility] Dosage 00:00:00 [facility] Pneumococcal 7 2002-01-14 Completed [facility] Conjugate, PCV7 00:00:00 [facility] (Prevnar7[facility] DTAP 2002-01-14 Completed [facility] 00:00:00 [facility] HIB 4 Dose Schedule 2002-01-14 Completed [facility] 00:00:00 [facility] Hep B, Adol or Pedi 2002-01-14 Completed [facility] Dosage 00:00:00 [facility] Pneumococcal 7 2002-01-14 Completed [facility] Conjugate, PCV7 00:00:00 [facility] (Prevnar7[facility] DTAP 2002-01-14 Completed [facility] 00:00:00 [facility] HIB 4 Dose Schedule 2002-01-14 Completed [facility] 00:00:00 [facility] Hep B, Adol or Pedi 2002-01-14 Completed [facility] Dosage 00:00:00 [facility] Pneumococcal 7 2002-01-14 Completed [facility] Conjugate, PCV7 00:00:00 [facility] (Prevnar7[facility] DTAP 2002-01-14 Completed [facility] 00:00:00 [facility] HIB 4 Dose Schedule 2002-01-14 Completed [facility] 00:00:00 [facility] Hep B, Adol or Pedi 2002-01-14 Completed [facility] Dosage 00:00:00 [facility] Pneumococcal 7 2002-01-14 Completed [facility] Conjugate, PCV7 00:00:00 [facility] (Prevnar7[facility] DTAP 2002-01-14 Completed [facility] 00:00:00 [facility] HIB 4 Dose Schedule 2002-01-14 Completed [facility] 00:00:00 [facility] DTAP 2002-01-14 Completed [facility] of 00:00:00 [facility] HIB 4 Dose Schedule 2002-01-14 Completed [facility] 00:00:00 [facility] Hep B, Adol or Pedi 2002-01-14 Completed [facility] Dosage 00:00:00 [facility] Hep B, Adol or Pedi 2002-01-14 Completed [facility] Dosage 00:00:00 [facility] Pneumococcal 7 2002-01-14 Completed [facility] Conjugate, PCV7 00:00:00 [facility]ar[facility] Pneumococcal 7 2002-01-14 Completed [facility] Conjugate, PCV7 00:00:00 [facility] (Prevnar7[facility] DTAP 2002-01-14 Completed [facility] 00:00:00 [facility] HIB 4 Dose Schedule 2002-01-14 Completed [facility] 00:00:00 [facility] Hep B, Adol or Pedi 2002-01-14 Completed [facility] Dosage 00:00:00 [facility] Pneumococcal 7 2002-01-14 Completed [facility] Conjugate, PCV7 00:00:00 [facility] (Prevnar7[facility] DTAP 2002-01-14 Completed [facility] 00:00:00 [facility] HIB 4 Dose Schedule 2002-01-14 Completed [facility] 00:00:00 [facility] Hep B, Adol or Pedi 2002-01-14 Completed [facility] Dosage 00:00:00 [facility] Pneumococcal 7 2002-01-14 Completed [facility] Conjugate, PCV7 00:00:00 [facility] (Prevnar7[facility] DTAP 2002-01-14 Completed [facility] 00:00:00 [facility] HIB 4 Dose Schedule 2002-01-14 Completed [facility] 00:00:00 [facility] Hep B, Adol or Pedi 2002-01-14 Completed [facility] Dosage 00:00:00 [facility] Pneumococcal 7 2002-01-14 Completed [facility] Conjugate, PCV7 00:00:00 [facility] (Prevnar7[facility] DTAP 2002-01-14 Completed [facility] 00:00:00 [facility] HIB 4 Dose Schedule 2002-01-14 Completed [facility] 00:00:00 [facility] Hep B, Adol or Pedi 2002-01-14 Completed [facility] Dosage 00:00:00 [facility] Pneumococcal 7 2002-01-14 Completed [facility] Conjugate, PCV7 00:00:00 [facility] (Prevnar7[facility] DTAP 2002-01-14 Completed [facility] 00:00:00 [facility] HIB 4 Dose Schedule 2002-01-14 Completed [facility] 00:00:00 [facility] Hep B, Adol or Pedi 2002-01-14 Completed [facility] Dosage 00:00:00 [facility] DTAP 2002-01-14 Completed [facility] 00:00:00 [facility] HIB 4 Dose Schedule 2002-01-14 Completed [facility] 00:00:00 [facility] Hep B, Adol or Pedi 2002-01-14 Completed [facility] Dosage 00:00:00 [facility] Pneumococcal 7 2002-01-14 Completed [facility] Conjugate, PCV7 00:00:00 [place] [facility] Pneumococcal 7 2002-01-14 Completed [facility] Conjugate, PCV7 00:00:00 [facility] (Prevnar7[facility] DTAP 2002-01-14 Completed [facility] 00:00:00 [facility] HIB 4 Dose Schedule 2002-01-14 Completed [facility] 00:00:00 [facility] Hep B, Adol or Pedi 2002-01-14 Completed [facility] Dosage 00:00:00 [facility] Pneumococcal 7 2002-01-14 Completed [facility] Conjugate, PCV7 00:00:00 [facility] (Prevnar7) [facility] DTAP 2002-01-14 Completed [facility] 00:00:00 [facility] HIB 4 Dose Schedule 2002-01-14 Completed [facility] 00:00:00 [facility] Hep B, Adol or Pedi 2002-01-14 Completed [facility] Dosage 00:00:00 [facility] Pneumococcal 7 2002-01-14 Completed [facility] Conjugate, PCV7 00:00:00 [place] [facility] (Prevnar7[facility] DTAP 2002-01-14 Completed [facility] 00:00:00 [facility] HIB 4 Dose Schedule 2002-01-14 Completed [facility] 00:00:00 [facility] Hep B, Adol or Pedi 2002-01-14 Completed [facility] Dosage 00:00:00 [facility] Pneumococcal 7 2002-01-14 Completed [facility] Conjugate, PCV7 00:00:00 [place] [facility] (Prevnar7) [facility] DTAP 2002-01-14 Completed [facility] 00:00:00 [facility] HIB 4 Dose Schedule 2002-01-14 Completed [facility] 00:00:00 [facility] Hep B, Adol or Pedi 2002-01-14 Completed [facility] Dosage 00:00:00 [facility] Pneumococcal 7 2002-01-14 Completed [facility] Conjugate, PCV7 00:00:00 [place] [facility] (Pre[facility]ar[facility] DTAP 2002-01-14 Completed [facility] 00:00:00 [facility] HIB 4 Dose Schedule 2002-01-14 Completed [facility] 00:00:00 [facility] Hep B, Adol or Pedi 2002-01-14 Completed [facility] Dosage 00:00:00 [facility] Pneumococcal 7 2002-01-14 Completed [facility] Conjugate, PCV7 00:00:00 [facility] (Prevnar7[facility] DTAP 2002-01-14 Completed [facility] 00:00:00 [facility] HIB 4 Dose Schedule 2002-01-14 Completed [facility] 00:00:00 [facility] Hep B, Adol or Pedi 2002-01-14 Completed [facility] Dosage 00:00:00 [facility] Pneumococcal 7 2002-01-14 Completed [facility] Conjugate, PCV7 00:00:00 [facility] (Prevnar7[facility] DTAP 2002-01-14 Completed [facility] 00:00:00 [facility] HIB 4 Dose Schedule 2002-01-14 Completed [facility] 00:00:00 [facility] Hep B, Adol or Pedi 2002-01-14 Completed [facility] Dosage 00:00:00 [facility] Pneumococcal 7 2002-01-14 Completed [facility] Conjugate, PCV7 00:00:00 [place] [facility] (Prevnar7[facility] DTAP 2002-01-14 Completed [facility] 00:00:00 [facility] HIB 4 Dose Schedule 2002-01-14 Completed [facility] 00:00:00 [facility] Hep B, Adol or Pedi 2002-01-14 Completed [facility] Dosage 00:00:00 [facility] Pneumococcal 7 2002-01-14 Completed [facility] Conjugate, PCV7 00:00:00 [facility] (Prevnar7[facility] DTAP 2002-01-14 Completed [facility] 00:00:00 [facility] HIB 4 Dose Schedule 2002-01-14 Completed [facility] 00:00:00 [facility] Hep B, Adol or Pedi 2002-01-14 Completed [facility] Dosage 00:00:00 [facility] Pneumococcal 7 2002-01-14 Completed [facility] Conjugate, PCV7 00:00:00 [facility] (Prevnar7[facility] DTAP 2002-01-14 Completed [facility] 00:00:00 [facility] HIB 4 Dose Schedule 2002-01-14 Completed [facility] 00:00:00 [facility] Hep B, Adol or Pedi 2002-01-14 Completed [facility] Dosage 00:00:00 [facility] Pneumococcal 7 2002-01-14 Completed [facility] Conjugate, PCV7 00:00:00 [place] [facility] (Prevnar7) [facility] DTAP 2002-01-14 Completed [facility] 00:00:00 [facility] HIB 4 Dose Schedule 2002-01-14 Completed [facility] 00:00:00 [facility] Hep B, Adol or Pedi 2002-01-14 Completed [facility] Dosage 00:00:00 [facility] Pneumococcal 7 2002-01-14 Completed [facility] Conjugate, PCV7 00:00:00 [place] [facility] (Prevnar7) [facility] DTAP 2002-01-14 Completed [facility] 00:00:00 [facility] HIB 4 Dose Schedule 2002-01-14 Completed [facility] 00:00:00 [facility] Hep B, Adol or Pedi 2002-01-14 Completed [facility] Dosage 00:00:00 [facility] Pneumococcal 7 2002-01-14 Completed [facility] Conjugate, PCV7 00:00:00 [place] [facility] (Prevnar7) [facility] DTAP 2002-01-14 Completed [facility] 00:00:00 [facility] HIB 4 Dose Schedule 2002-01-14 Completed [facility] 00:00:00 [facility] Hep B, Adol or Pedi 2002-01-14 Completed [facility] Dosage 00:00:00 [facility] Pneumococcal 7 2002-01-14 Completed [facility] Conjugate, PCV7 00:00:00 [place] [facility] (Prevnar7) [facility] DTAP 2002-01-14 Completed [facility] 00:00:00 [facility] HIB 4 Dose Schedule 2002-01-14 Completed [facility] 00:00:00 [facility] Hep B, Adol or Pedi 2002-01-14 Completed [facility] Dosage 00:00:00 [facility] Pneumococcal 7 2002-01-14 Completed [facility] Conjugate, PCV7 00:00:00 [place] [facility] (Prevnar7) [facility] DTAP 2002-01-14 Completed [facility] 00:00:00 [facility] HIB 4 Dose Schedule 2002-01-14 Completed [facility] 00:00:00 [facility] Hep B, Adol or Pedi 2002-01-14 Completed [facility] Dosage 00:00:00 [facility] Pneumococcal 7 2002-01-14 Completed [facility] Conjugate, PCV7 00:00:00 [place] [facility] (Pre[facility]ar[facility] Polio (IPV/OPV) 2001 Completed [facility] 00:00:00 [facility] Pneumococcal 7 2001 Completed [facility] Conjugate, PCV7 00:00:00 [place] [facility] (Prevnar7) [facility] DTAP 2001 Completed [facility] 00:00:00 [facility] HIB 4 Dose Schedule 2001 Completed [facility] 00:00:00 [facility] Polio (IPV/OPV) 2001 Completed [facility] 00:00:00 [facility] Pneumococcal 7 2001 Completed [facility] Conjugate, PCV7 00:00:00 [place] [facility] (Prevnar7) [facility] DTAP 2001 Completed [facility] 00:00:00 [facility] HIB 4 Dose Schedule 2001 Completed [facility] 00:00:00 [facility] Polio (IPV/OPV) 2001 Completed [facility] 00:00:00 [facility] Pneumococcal 7 2001 Completed [facility] Conjugate, PCV7 00:00:00 [place] [facility] (Prevnar7) [facility] DTAP 2001 Completed [facility] 00:00:00 [facility] HIB 4 Dose Schedule 2001 Completed [facility] 00:00:00 [facility] Polio (IPV/OPV) 2001 Completed [facility] 00:00:00 [facility] Pneumococcal 7 2001 Completed [facility] Conjugate, PCV7 00:00:00 [place] [facility] (Prevnar7) [facility] DTAP 2001 Completed [facility] 00:00:00 [facility] HIB 4 Dose Schedule 2001 Completed [facility] 00:00:00 [facility] Polio (IPV/OPV) 2001 Completed [facility] 00:00:00 [facility] Pneumococcal 7 2001 Completed [facility] Conjugate, PCV7 00:00:00 [place] [facility] (Prevnar7[facility] DTAP 2001 Completed [facility] 00:00:00 [facility] HIB 4 Dose Schedule 2001 Completed [facility] 00:00:00 [facility] Polio (IPV/OPV) 2001 Completed [facility] 00:00:00 [facility] Pneumococcal 7 2001 Completed [facility] Conjugate, PCV7 00:00:00 [place] [facility] (Prevnar7) [facility] DTAP 2001 Completed [facility] 00:00:00 [facility] HIB 4 Dose Schedule 2001 Completed [facility] 00:00:00 [facility] Polio (IPV/OPV) 2001 Completed [facility] 00:00:00 [facility] Pneumococcal 7 2001 Completed [facility] Conjugate, PCV7 00:00:00 [place] [facility] (Prevnar7[facility] DTAP 2001 Completed [facility] 00:00:00 [facility] HIB 4 Dose Schedule 2001 Completed [facility] 00:00:00 [facility] Polio (IPV/OPV) 2001 Completed [facility] 00:00:00 [facility] Pneumococcal 7 2001 Completed [facility] Conjugate, PCV7 00:00:00 [place] [facility] (Prevnar7[facility] DTAP 2001 Completed [facility] 00:00:00 [facility] HIB 4 Dose Schedule 2001 Completed [facility] 00:00:00 [facility] Polio (IPV/OPV) 2001 Completed [facility] 00:00:00 [facility] Pneumococcal 7 2001 Completed [facility] Conjugate, PCV7 00:00:00 [place] [facility] (Prevnar7) [facility] DTAP 2001 Completed [facility] 00:00:00 [facility] HIB 4 Dose Schedule 2001 Completed [facility] 00:00:00 [facility] Polio (IPV/OPV) 2001 Completed [facility] 00:00:00 [facility] Pneumococcal 7 2001 Completed [facility] Conjugate, PCV7 00:00:00 [place] [facility] (Prevnar7[facility] DTAP 2001 Completed [facility] 00:00:00 [facility] HIB 4 Dose Schedule 2001 Completed [facility] 00:00:00 [facility] Polio (IPV/OPV) 2001 Completed [facility] 00:00:00 [facility] Pneumococcal 7 2001 Completed [facility] Conjugate, PCV7 00:00:00 [place] [facility] (Prevnar7) [facility] DTAP 2001 Completed [facility] 00:00:00 [facility] HIB 4 Dose Schedule 2001 Completed [facility] 00:00:00 [facility] Polio (IPV/OPV) 2001 Completed [facility] 00:00:00 [facility] Pneumococcal 7 2001 Completed [facility] Conjugate, PCV7 00:00:00 [place] [facility] (Prevnar7[facility] DTAP 2001 Completed [facility] 00:00:00 [facility] HIB 4 Dose Schedule 2001 Completed [facility] 00:00:00 [facility] Pneumococcal 7 2001 Completed [facility] Conjugate, PCV7 00:00:00 [place] [facility] (Prevnar7) [facility] DTAP 2001 Completed [facility] 00:00:00 [facility] HIB 4 Dose Schedule 2001 Completed [facility] 00:00:00 [facility] Polio (IPV/OPV) 2001 Completed [facility] 00:00:00 [facility] Polio (IPV/OPV) 2001 Completed [facility] 00:00:00 [facility] Pneumococcal 7 2001 Completed [facility] Conjugate, PCV7 00:00:00 [place] [facility] (Prevnar7[facility] DTAP 2001 Completed [facility] 00:00:00 [facility] HIB 4 Dose Schedule 2001 Completed [facility] 00:00:00 [facility] Polio (IPV/OPV) 2001 Completed [facility] 00:00:00 [facility] Pneumococcal 7 2001 Completed [facility] Conjugate, PCV7 00:00:00 [place] [facility] (Prevnar7[facility] DTAP 2001 Completed [facility] 00:00:00 [facility] HIB 4 Dose Schedule 2001 Completed [facility] 00:00:00 [facility] Polio (IPV/OPV) 2001 Completed [facility] 00:00:00 [facility] Pneumococcal 7 2001 Completed [facility] Conjugate, PCV7 00:00:00 [place] [facility] (Prevnar7[facility] DTAP 2001 Completed [facility] 00:00:00 [facility] HIB 4 Dose Schedule 2001 Completed [facility] 00:00:00 [facility] Polio (IPV/OPV) 2001 Completed [facility] 00:00:00 [facility] Pneumococcal 7 2001 Completed [facility] Conjugate, PCV7 00:00:00 [place] [facility] (Prevnar7[facility] DTAP 2001 Completed [facility] 00:00:00 [facility] HIB 4 Dose Schedule 2001 Completed [facility] 00:00:00 [facility] Polio (IPV/OPV) 2001 Completed [facility] 00:00:00 [facility] Pneumococcal 7 2001 Completed [facility] Conjugate, PCV7 00:00:00 [place] [facility] (Prevnar7[facility] DTAP 2001 Completed [facility] 00:00:00 [facility] HIB 4 Dose Schedule 2001 Completed [facility] 00:00:00 [facility] Polio (IPV/OPV) 2001 Completed [facility] 00:00:00 [facility] Pneumococcal 7 2001 Completed [facility] Conjugate, PCV7 00:00:00 [place] [facility] (Prevnar7[facility] DTAP 2001 Completed [facility] 00:00:00 [facility] HIB 4 Dose Schedule 2001 Completed [facility] 00:00:00 [facility] Polio (IPV/OPV) 2001 Completed [facility] 00:00:00 [facility] Pneumococcal 7 2001 Completed [facility] Conjugate, PCV7 00:00:00 [place] [facility] (Prevnar7[facility] DT 2001 Completed [facility] 00:00:00 [facility] HIB 4 Dose Schedule 2001 Completed [facility] 00:00:00 [facility] Polio (IPV/OPV) 2001 Completed [facility] 00:00:00 [facility] Pneumococcal 7 2001 Completed [facility] Conjugate, PCV7 00:00:00 [place] [facility] (Prevnar7[facility] DTAP 2001 Completed [facility] 00:00:00 [facility] HIB 4 Dose Schedule 2001 Completed [facility] 00:00:00 [facility] Polio (IPV/OPV) 2001 Completed [facility] 00:00:00 [facility] Pneumococcal 7 2001 Completed [facility] Conjugate, PCV7 00:00:00 [place] [facility] (Prevnar7[facility] DTAP 2001 Completed [facility] 00:00:00 [facility] HIB 4 Dose Schedule 2001 Completed [facility] 00:00:00 [facility] Polio (IPV/OPV) 2001 Completed [facility] 00:00:00 [facility] Pneumococcal 7 2001 Completed [facility] Conjugate, PCV7 00:00:00 [place] [facility] (Prevnar7[facility] DTAP 2001 Completed [facility] 00:00:00 [facility] HIB 4 Dose Schedule 2001 Completed [facility] 00:00:00 [facility] Polio (IPV/OPV) 2001 Completed [facility] 00:00:00 [facility] Pneumococcal 7 2001 Completed [facility] Conjugate, PCV7 00:00:00 [place] [facility] (Prevnar7[facility] DTAP 2001 Completed [facility] 00:00:00 [facility] HIB 4 Dose Schedule 2001 Completed [facility] 00:00:00 [facility] Polio (IPV/OPV) 2001 Completed [facility] 00:00:00 [facility] Pneumococcal 7 2001 Completed [facility] Conjugate, PCV7 00:00:00 [place] [facility] (Prevnar7[facility] DTAP 2001 Completed [facility] 00:00:00 [facility] HIB 4 Dose Schedule 2001 Completed [facility] 00:00:00 [facility] Polio (IPV/OPV) 2001 Completed [facility] 00:00:00 [facility] Pneumococcal 7 2001 Completed [facility] Conjugate, PCV7 00:00:00 [place] [facility] ([facility] DTAP 2001 Completed [facility] 00:00:00 [facility] HIB 4 Dose Schedule 2001 Completed [facility] 00:00:00 [facility] Polio (IPV/OPV) 2001 Completed [facility] 00:00:00 [facility] Pneumococcal 7 2001 Completed [facility] Conjugate, PCV7 00:00:00 [facility] (Prevnar7[facility] DTAP 2001 Completed [facility] 00:00:00 [facility] HIB 4 Dose Schedule 2001 Completed [facility] 00:00:00 [facility] Pneumococcal 7 2001 Completed [facility] Conjugate, PCV7 00:00:00 [facility] (Pre[facility] DTAP 2001 Completed [facility] 00:00:00 [facility] HIB 4 Dose Schedule 2001 Completed [facility] 00:00:00 [facility] Polio (IPV/OPV) 2001 Completed [facility] 00:00:00 [facility] Polio (IPV/OPV) 2001 Completed [facility] 00:00:00 [facility] Pneumococcal 7 2001 Completed [facility] Conjugate, PCV7 00:00:00 [facility] (Prevnar[facility] DTAP 2001 Completed [facility] 00:00:00 [facility] HIB 4 Dose Schedule 2001 Completed [facility] 00:00:00 [facility] Polio (IPV/OPV) 2001 Completed [facility] 00:00:00 [facility] Pneumococcal 7 2001 Completed [facility] Conjugate, PCV7 00:00:00 [facility] (Prevnar7[facility] DTAP 2001 Completed [facility] 00:00:00 [facility] HIB 4 Dose Schedule 2001 Completed [facility] 00:00:00 [facility] Polio (IPV/OPV) 2001 Completed [facility] 00:00:00 [facility] Pneumococcal 7 2001 Completed [facility] Conjugate, PCV7 00:00:00 [facility] (Pre[facility]ar[facility] DTAP 2001 Completed [facility] 00:00:00 [facility] HIB 4 Dose Schedule 2001 Completed [facility] 00:00:00 [facility] Polio (IPV/OPV) 2001 Completed [facility] 00:00:00 [facility] Pneumococcal 7 2001 Completed [facility] Conjugate, PCV7 00:00:00 [facility] (Prevnar7) [facility] DTAP 2001 Completed [facility] 00:00:00 [facility] HIB 4 Dose Schedule 2001 Completed [facility] 00:00:00 [facility] Polio (IPV/OPV) 2001 Completed [facility] 00:00:00 [facility] Pneumococcal 7 2001 Completed [facility] Conjugate, PCV7 00:00:00 [facility] (Prevnar7[facility] DTAP 2001 Completed [facility] 00:00:00 [facility] HIB 4 Dose Schedule 2001 Completed [facility] 00:00:00 [facility] Polio (IPV/OPV) 2001 Completed [facility] 00:00:00 [facility] Pneumococcal 7 2001 Completed [facility] Conjugate, PCV7 00:00:00 [facility] (Prevnar7[facility] DTAP 2001 Completed [facility] 00:00:00 [facility] HIB 4 Dose Schedule 2001 Completed [facility] 00:00:00 [facility] Polio (IPV/OPV) 2001 Completed [facility] 00:00:00 [facility] Pneumococcal 7 2001 Completed [facility] Conjugate, PCV7 00:00:00 [facility] (Prevnar7[facility] DTAP 2001 Completed [facility] 00:00:00 [facility] HIB 4 Dose Schedule 2001 Completed [facility] 00:00:00 [facility] Polio (IPV/OPV) 2001 Completed [facility] 00:00:00 [facility] Pneumococcal 7 2001 Completed [facility] Conjugate, PCV7 00:00:00 [facility] (Prevnar[facility] DTAP 2001 Completed [facility] 00:00:00 [facility] HIB 4 Dose Schedule 2001 Completed [facility] 00:00:00 [facility] Polio (IPV/OPV) 2001 Completed [facility] 00:00:00 [facility] Pneumococcal 7 2001 Completed [facility] Conjugate, PCV7 00:00:00 [facility] (Prevnar7[facility] DTAP 2001 Completed [facility] 00:00:00 [facility] HIB 4 Dose Schedule 2001 Completed [facility] 00:00:00 [facility] Polio (IPV/OPV) 2001 Completed [facility] 00:00:00 [facility] Pneumococcal 7 2001 Completed [facility] Conjugate, PCV7 00:00:00 [place] [facility] (Prevnar[facility] DTAP 2001 Completed [facility] 00:00:00 [facility] HIB 4 Dose Schedule 2001 Completed [facility] 00:00:00 [facility] Polio (IPV/OPV) 2001 Completed [facility] 00:00:00 [facility] Pneumococcal 7 2001 Completed [facility] Conjugate, PCV7 00:00:00 [facility] (Prevnar7[facility] DTAP 2001 Completed [facility] 00:00:00 [facility] HIB 4 Dose Schedule 2001 Completed [facility] 00:00:00 [facility] Polio (IPV/OPV) 2001 Completed [facility] 00:00:00 [facility] Pneumococcal 7 2001 Completed [facility] Conjugate, PCV7 00:00:00 [facility] (Prevnar7[facility] DTAP 2001 Completed [facility] 00:00:00 [facility] HIB 4 Dose Schedule 2001 Completed [facility] 00:00:00 [facility] Polio (IPV/OPV) 2001 Completed [facility] 00:00:00 [facility] Pneumococcal 7 2001 Completed [facility] Conjugate, PCV7 00:00:00 [facility] (Prevnar7[facility] DTAP 2001 Completed [facility] 00:00:00 [facility] HIB 4 Dose Schedule 2001 Completed [facility] 00:00:00 [facility] Polio (IPV/OPV) 2001 Completed [facility] 00:00:00 [facility] Pneumococcal 7 2001 Completed [facility] Conjugate, PCV7 00:00:00 [place] [facility] (Prevnar[facility] DTAP 2001 Completed [facility] 00:00:00 [facility] HIB 4 Dose Schedule 2001 Completed [facility] 00:00:00 [facility] Polio (IPV/OPV) 2001 Completed [facility] 00:00:00 [facility] Pneumococcal 7 2001 Completed [facility] Conjugate, PCV7 00:00:00 [place] [facility] (Prevnar7[facility] DTAP 2001 Completed [facility] 00:00:00 [facility] Pneumococcal 7 2001 Completed [facility] Conjugate, PCV7 00:00:00 [facility] (Prevnar7[facility] DTAP 2001 Completed [facility] 00:00:00 [facility] HIB 4 Dose Schedule 2001 Completed [facility] 00:00:00 [facility] Polio (IPV/OPV) 2001 Completed [facility] 00:00:00 [facility] HIB 4 Dose Schedule 2001 Completed [facility] 00:00:00 [facility] Pneumococcal 7 2001 Completed [facility] Conjugate, PCV7 00:00:00 [facility] (Prevnar7[facility] DTAP 2001 Completed [facility] 00:00:00 [facility] HIB 4 Dose Schedule 2001 Completed [facility] 00:00:00 [facility] Polio (IPV/OPV) 2001 Completed [facility] 00:00:00 [facility] Polio (IPV/OPV) 2001 Completed [facility] 00:00:00 [facility] Pneumococcal 7 2001 Completed [facility] Conjugate, PCV7 00:00:00 [facility] (Prevnar7[facility] DTAP 2001 Completed [facility] 00:00:00 [facility] HIB 4 Dose Schedule 2001 Completed [facility] 00:00:00 [facility] Polio (IPV/OPV) 2001 Completed [facility] 00:00:00 [facility] Pneumococcal 7 2001 Completed [facility] Conjugate, PCV7 00:00:00 [place] [facility] (Prevnar[facility] DTAP 2001 Completed [facility] 00:00:00 [facility] HIB 4 Dose Schedule 2001 Completed [facility] 00:00:00 [facility] Polio (IPV/OPV) 2001 Completed [facility] 00:00:00 [facility] Pneumococcal 7 2001 Completed [facility] Conjugate, PCV7 00:00:00 [facility] (Prevnar7[facility] DTAP 2001 Completed [facility] 00:00:00 [facility] HIB 4 Dose Schedule 2001 Completed [facility] 00:00:00 [facility] Polio (IPV/OPV) 2001 Completed [facility] 00:00:00 [facility] Pneumococcal 7 2001 Completed [facility] Conjugate, PCV7 00:00:00 [place] [facility] (Prevnar7[facility] DTAP 2001 Completed [facility] 00:00:00 [facility] HIB 4 Dose Schedule 2001 Completed [facility] 00:00:00 [facility] Polio (IPV/OPV) 2001 Completed [facility] 00:00:00 [facility] Pneumococcal 7 2001 Completed [facility] Conjugate, PCV7 00:00:00 [facility] (Prevnar7) [facility] DTAP 2001 Completed [facility] 00:00:00 [facility] HIB 4 Dose Schedule 2001 Completed [facility] 00:00:00 [facility] Polio (IPV/OPV) 2001 Completed [facility] 00:00:00 [facility] Pneumococcal 7 2001 Completed [facility] Conjugate, PCV7 00:00:00 [facility] (Prevnar7[facility] DTAP 2001 Completed [facility] 00:00:00 [facility] HIB 4 Dose Schedule 2001 Completed [facility] 00:00:00 [facility] Polio (IPV/OPV) 2001 Completed [facility] 00:00:00 [facility] Pneumococcal 7 2001 Completed [facility] Conjugate, PCV7 00:00:00 [facility] (Prevnar7) [facility] DTAP 2001 Completed [facility] 00:00:00 [facility] HIB 4 Dose Schedule 2001 Completed [facility] 00:00:00 [facility] Polio (IPV/OPV) 2001 Completed [facility] 00:00:00 [facility] Pneumococcal 7 2001 Completed [facility] Conjugate, PCV7 00:00:00 [place] [facility] (Prevnar7[facility] DTAP 2001 Completed [facility] 00:00:00 [facility] HIB 4 Dose Schedule 2001 Completed [facility] 00:00:00 [facility] Polio (IPV/OPV) 2001 Completed [facility] 00:00:00 [facility] Pneumococcal 7 2001 Completed [facility] Conjugate, PCV7 00:00:00 [place] [facility] (Prevnar7) [facility] DTAP 2001 Completed [facility] 00:00:00 [facility] HIB 4 Dose Schedule 2001 Completed [facility] 00:00:00 [facility] Polio (IPV/OPV) 2001 Completed [facility] 00:00:00 [facility] Pneumococcal 7 2001 Completed [facility] Conjugate, PCV7 00:00:00 [facility] (Prevnar7) [facility] DTAP 2001 Completed [facility] 00:00:00 [facility] HIB 4 Dose Schedule 2001 Completed [facility] 00:00:00 [facility] Polio (IPV/OPV) 2001 Completed [facility] 00:00:00 [facility] Pneumococcal 7 2001 Completed [facility] Conjugate, PCV7 00:00:00 [facility] (Prevnar7) [facility] DTAP 2001 Completed [facility] 00:00:00 [facility] HIB 4 Dose Schedule 2001 Completed [facility] 00:00:00 [facility] Polio (IPV/OPV) 2001 Completed [facility] 00:00:00 [facility] Pneumococcal 7 2001 Completed [facility] Conjugate, PCV7 00:00:00 [place] [facility] (Prevnar7[facility] DTAP 2001 Completed [facility] 00:00:00 [facility] HIB 4 Dose Schedule 2001 Completed [facility] 00:00:00 [facility] Polio (IPV/OPV) 2001 Completed [facility] 00:00:00 [facility] Pneumococcal 7 2001 Completed [facility] Conjugate, PCV7 00:00:00 [place] [facility] (Prevnar7[facility] DTAP 2001 Completed [facility] 00:00:00 [facility] HIB 4 Dose Schedule 2001 Completed [facility] 00:00:00 [facility] Polio (IPV/OPV) 2001 Completed [facility] 00:00:00 [facility] Pneumococcal 7 2001 Completed [facility] Conjugate, PCV7 00:00:00 [facility] (Prevnar7) [facility] DTAP 2001 Completed [facility] 00:00:00 [facility] HIB 4 Dose Schedule 2001 Completed [facility] 00:00:00 [facility] Polio (IPV/OPV) 2001 Completed [facility] 00:00:00 [facility] Pneumococcal 7 2001 Completed [facility] Conjugate, PCV7 00:00:00 [place] [facility] (Prevnar7) [facility] DTAP 2001 Completed [facility] 00:00:00 [facility] HIB 4 Dose Schedule 2001 Completed [facility] 00:00:00 [facility] Polio (IPV/OPV) 2001 Completed [facility] 00:00:00 [facility] Pneumococcal 7 2001 Completed [facility] Conjugate, PCV7 00:00:00 [facility] (Prevnar7) [facility] DTAP 2001 Completed [facility] 00:00:00 [facility] HIB 4 Dose Schedule 2001 Completed [facility] 00:00:00 [facility] Pneumococcal 7 2001 Completed [facility] Conjugate, PCV7 00:00:00 [facility] (Prevnar7) [facility] DTAP 2001 Completed [facility] 00:00:00 [facility] HIB 4 Dose Schedule 2001 Completed [facility] 00:00:00 [facility] Polio (IPV/OPV) 2001 Completed [facility] 00:00:00 [facility] Polio (IPV/OPV) 2001 Completed [facility] 00:00:00 [facility] Hep B, Adol or Pedi 2001 Completed [facility] Dosage 00:00:00 [facility] Pneumococcal 7 2001 Completed [facility] Conjugate, PCV7 00:00:00 [facility] (Prevnar7) [facility] DTAP 2001 Completed [facility] 00:00:00 [facility] HIB 4 Dose Schedule 2001 Completed [facility] 00:00:00 [facility] Polio (IPV/OPV) 2001 Completed [facility] 00:00:00 [facility] Hep B, Adol or Pedi 2001 Completed [facility] Dosage 00:00:00 [facility] Pneumococcal 7 2001 Completed [facility] Conjugate, PCV7 00:00:00 [place] [facility] (Prevnar7[facility] DTAP 2001 Completed [facility] 00:00:00 [facility] HIB 4 Dose Schedule 2001 Completed [facility] 00:00:00 [facility] Polio (IPV/OPV) 2001 Completed [facility] 00:00:00 [facility] Hep B, Adol or Pedi 2001 Completed [facility] Dosage 00:00:00 [facility] Pneumococcal 7 2001 Completed [facility] Conjugate, PCV7 00:00:00 [facility] (Prevnar7) [facility] DTAP 2001 Completed [facility] 00:00:00 [facility] HIB 4 Dose Schedule 2001 Completed [facility] 00:00:00 [facility] Polio (IPV/OPV) 2001 Completed [facility] 00:00:00 [facility] Hep B, Adol or Pedi 2001 Completed [facility] Dosage 00:00:00 [facility] Pneumococcal 7 2001 Completed [facility] Conjugate, PCV7 00:00:00 [facility] (Prevnar7) [facility] DTAP 2001 Completed [facility] 00:00:00 [facility] HIB 4 Dose Schedule 2001 Completed [facility] 00:00:00 [facility] Polio (IPV/OPV) 2001 Completed [facility] 00:00:00 [facility] Hep B, Adol or Pedi 2001 Completed [facility] Dosage 00:00:00 [facility] Pneumococcal 7 2001 Completed [facility] Conjugate, PCV7 00:00:00 [place] [facility] (Prevnar7) [facility] DTAP 2001 Completed [facility] 00:00:00 [facility] HIB 4 Dose Schedule 2001 Completed [facility] 00:00:00 [facility] Polio (IPV/OPV) 2001 Completed [facility] 00:00:00 [facility] Hep B, Adol or Pedi 2001 Completed [facility] Dosage 00:00:00 [facility] Pneumococcal 7 2001 Completed [facility] Conjugate, PCV7 00:00:00 [place] [facility] (Prevnar7) [facility] DTAP 2001 Completed [facility] 00:00:00 [facility] HIB 4 Dose Schedule 2001 Completed [facility] 00:00:00 [facility] Polio (IPV/OPV) 2001 Completed [facility] 00:00:00 [facility] Hep B, Adol or Pedi 2001 Completed [facility] Dosage 00:00:00 [facility] Pneumococcal 7 2001 Completed [facility] Conjugate, PCV7 00:00:00 [place] [facility] (Prevnar7) [facility] DTAP 2001 Completed [facility] 00:00:00 [facility] HIB 4 Dose Schedule 2001 Completed [facility] 00:00:00 [facility] Polio (IPV/OPV) 2001 Completed [facility] 00:00:00 [facility] Hep B, Adol or Pedi 2001 Completed [facility] Dosage 00:00:00 [facility] Pneumococcal 7 2001 Completed [facility] Conjugate, PCV7 00:00:00 [place] [facility] (Prevnar7) [facility] DTAP 2001 Completed [facility] 00:00:00 [facility] HIB 4 Dose Schedule 2001 Completed [facility] 00:00:00 [facility] Polio (IPV/OPV) 2001 Completed [facility] 00:00:00 [facility] Hep B, Adol or Pedi 2001 Completed [facility] Dosage 00:00:00 [facility] Pneumococcal 7 2001 Completed [facility] Conjugate, PCV7 00:00:00 [place] [facility] (Prevnar7) [facility] DTAP 2001 Completed [facility] 00:00:00 [facility] HIB 4 Dose Schedule 2001 Completed [facility] 00:00:00 [facility] Polio (IPV/OPV) 2001 Completed [facility] 00:00:00 [facility] Hep B, Adol or Pedi 2001 Completed [facility] Dosage 00:00:00 [facility] Pneumococcal 7 2001 Completed [facility] Conjugate, PCV7 00:00:00 [place] [facility] (Prevnar7[facility] DTAP 2001 Completed [facility] 00:00:00 [facility] HIB 4 Dose Schedule 2001 Completed [facility] 00:00:00 [facility] Polio (IPV/OPV) 2001 Completed [facility] 00:00:00 [facility] Hep B, Adol or Pedi 2001 Completed [facility] Dosage 00:00:00 [facility] Pneumococcal 7 2001 Completed [facility] Conjugate, PCV7 00:00:00 [place] [facility] (Prevnar7) [facility] DTAP 2001 Completed [facility] 00:00:00 [facility] HIB 4 Dose Schedule 2001 Completed [facility] 00:00:00 [facility] Polio (IPV/OPV) 2001 Completed [facility] 00:00:00 [facility] Hep B, Adol or Pedi 2001 Completed [facility] Dosage 00:00:00 [facility] Pneumococcal 7 2001 Completed [facility] Conjugate, PCV7 00:00:00 [place] [facility] (Prevnar7) [facility] DTAP 2001 Completed [facility] 00:00:00 [facility] HIB 4 Dose Schedule 2001 Completed [facility] 00:00:00 [facility] Hep B, Adol or Pedi 2001 Completed [facility] Dosage 00:00:00 [facility] Pneumococcal 7 2001 Completed [facility] Conjugate, PCV7 00:00:00 [place] [facility] (Prevnar7[facility] DTAP 2001 Completed [facility] 00:00:00 [facility] HIB 4 Dose Schedule 2001 Completed [facility] 00:00:00 [facility] Polio (IPV/OPV) 2001 Completed [facility] 00:00:00 [facility] Polio (IPV/OPV) 2001 Completed [facility] 00:00:00 [facility] Hep B, Adol or Pedi 2001 Completed [facility] Dosage 00:00:00 [facility] Pneumococcal 7 2001 Completed [facility] Conjugate, PCV7 00:00:00 [place] [facility] (Prevnar7[facility] DTAP 2001 Completed [facility] 00:00:00 [facility] HIB 4 Dose Schedule 2001 Completed [facility] 00:00:00 [facility] Polio (IPV/OPV) 2001 Completed [facility] 00:00:00 [facility] Hep B, Adol or Pedi 2001 Completed [facility] Dosage 00:00:00 [facility] Pneumococcal 7 2001 Completed [facility] Conjugate, PCV7 00:00:00 [place] [facility] (Prevnar7[facility] DTAP 2001 Completed [facility] 00:00:00 [facility] HIB 4 Dose Schedule 2001 Completed [facility] 00:00:00 [facility] Polio (IPV/OPV) 2001 Completed [facility] 00:00:00 [facility] Hep B, Adol or Pedi 2001 Completed [facility] Dosage 00:00:00 [facility] Pneumococcal 7 2001 Completed [facility] Conjugate, PCV7 00:00:00 [facility] (Prevnar7[facility] DTAP 2001 Completed [facility] 00:00:00 [facility] HIB 4 Dose Schedule 2001 Completed [facility] 00:00:00 [facility] Polio (IPV/OPV) 2001 Completed [facility] 00:00:00 [facility] Hep B, Adol or Pedi 2001 Completed [facility] Dosage 00:00:00 [facility] Pneumococcal 7 2001 Completed [facility] Conjugate, PCV7 00:00:00 [facility] (Prevnar7[facility] DTAP 2001 Completed [facility] 00:00:00 [facility] HIB 4 Dose Schedule 2001 Completed [facility] 00:00:00 [facility] Polio (IPV/OPV) 2001 Completed [facility] 00:00:00 [facility] Hep B, Adol or Pedi 2001 Completed [facility] Dosage 00:00:00 [facility] Pneumococcal 7 2001 Completed [facility] Conjugate, PCV7 00:00:00 [facility] (Prevnar7[facility] DTAP 2001 Completed [facility] 00:00:00 [facility] HIB 4 Dose Schedule 2001 Completed [facility] 00:00:00 [facility] Polio (IPV/OPV) 2001 Completed [facility] 00:00:00 [facility] Hep B, Adol or Pedi 2001 Completed [facility] Dosage 00:00:00 [facility] Pneumococcal 7 2001 Completed [facility] Conjugate, PCV7 00:00:00 [facility] (Prevnar7[facility] DTAP 2001 Completed [facility] 00:00:00 [facility] HIB 4 Dose Schedule 2001 Completed [facility] 00:00:00 [facility] Polio (IPV/OPV) 2001 Completed [facility] 00:00:00 [facility] Hep B, Adol or Pedi 2001 Completed [facility] Dosage 00:00:00 [facility] Pneumococcal 7 2001 Completed [facility] Conjugate, PCV7 00:00:00 [facility] (Prevnar7[facility] DTAP 2001 Completed [facility] 00:00:00 [facility] HIB 4 Dose Schedule 2001 Completed [facility] 00:00:00 [facility] Polio (IPV/OPV) 2001 Completed [facility] 00:00:00 [facility] Hep B, Adol or Pedi 2001 Completed [facility] Dosage 00:00:00 [facility] Pneumococcal 7 2001 Completed [facility] Conjugate, PCV7 00:00:00 [facility] (Prevnar7[facility] DTAP 2001 Completed [facility] 00:00:00 [facility] HIB 4 Dose Schedule 2001 Completed [facility] 00:00:00 [facility] Polio (IPV/OPV) 2001 Completed [facility] 00:00:00 [facility] Hep B, Adol or Pedi 2001 Completed [facility] Dosage 00:00:00 [facility] Pneumococcal 7 2001 Completed [facility] Conjugate, PCV7 00:00:00 [facility] (Prevnar7[facility] DTAP 2001 Completed [facility] 00:00:00 [facility] HIB 4 Dose Schedule 2001 Completed [facility] 00:00:00 [facility] Polio (IPV/OPV) 2001 Completed [facility] 00:00:00 [facility] Hep B, Adol or Pedi 2001 Completed [facility] Dosage 00:00:00 [facility] Pneumococcal 7 2001 Completed [facility] Conjugate, PCV7 00:00:00 [facility] (Prevnar7[facility] DTAP 2001 Completed [facility] 00:00:00 [facility] HIB 4 Dose Schedule 2001 Completed [facility] 00:00:00 [facility] Polio (IPV/OPV) 2001 Completed [facility]00 [facility] Hep B, Adol or Pedi 2001 Completed [facility] Dosage 00:00:00 [facility] Pneumococcal 7 2001 Completed [facility] Conjugate, PCV7 00:00:00 [facility] DTAP 2001 Completed [facility] 00:00:00 [facility] HIB 4 Dose Schedule 2001 Completed [facility] 00:00:00 [facility] Polio (IPV/OPV) 2001 Completed [facility] 00:00:00 [facility] Hep B, Adol or Pedi 2001 Completed [facility] Dosage 00:00:00 [facility] Pneumococcal 7 2001 Completed [facility] Conjugate, PCV7 00:00:00 [facility] DTAP 2001 Completed [facility] 00:00:00 [facility] HIB 4 Dose Schedule 2001 Completed [facility] 00:00:00 [facility] Polio (IPV/OPV) 2001 Completed [facility] 00:00:00 [facility] Hep B, Adol or Pedi 2001 Completed [facility] Dosage 00:00:00 [facility] Hep B, Adol or Pedi 2001 Completed [facility] Dosage 00:00:00 [facility] Pneumococcal 7 2001 Completed [facility] Conjugate, PCV7 00:00:00 [facility] DTAP 2001 Completed [facility] 00:00:00 [facility] HIB 4 Dose Schedule 2001 Completed [facility] 00:00:00 [facility] Pneumococcal 7 2001 Completed [facility] Conjugate, PCV7 00:00:00 [facility] Polio (IPV/OPV) 2001 Completed [facility] 00:00:00 [facility] DTAP 2001 Completed [facility] 00:00:00 [facility] HIB 4 Dose Schedule 2001 Completed [facility] 00:00:00 [facility] Hep B, Adol or Pedi 2001 Completed [facility] Dosage 00:00:00 [facility] Pneumococcal 7 2001 Completed [facility] Conjugate, PCV7 00:00:00 [facility] DTAP 2001 Completed [facility] 00:00:00 [facility] HIB 4 Dose Schedule 2001 Completed [facility] 00:00:00 [facility] Polio (IPV/OPV) 2001 Completed [facility] 00:00:00 [facility] Polio (IPV/OPV) 2001 Completed [facility] 00:00:00 [facility] Hep B, Adol or Pedi 2001 Completed [facility] Dosage 00:00:00 [facility] Pneumococcal 7 2001 Completed [facility] Conjugate, PCV7 00:00:00 [facility] DTAP 2001 Completed [facility] 00:00:00 [facility] HIB 4 Dose Schedule 2001 Completed [facility] 00:00:00 [facility] Polio (IPV/OPV) 2001 Completed [facility] 00:00:00 [facility] Hep B, Adol or Pedi 2001 Completed [facility] Dosage 00:00:00 [facility] Pneumococcal 7 2001 Completed [facility] Conjugate, PCV7 00:00:00 [facility] DTAP 2001 Completed [facility] 00:00:00 [facility] HIB 4 Dose Schedule 2001 Completed [facility] 00:00:00 [facility] Polio (IPV/OPV) 2001 Completed [facility] 00:00:00 [facility] Hep B, Adol or Pedi 2001 Completed [facility] Dosage 00:00:00 [facility] Pneumococcal 7 2001 Completed [facility] Conjugate, PCV7 00:00:00 [facility]ar[facility] DTAP 2001 Completed [facility] 00:00:00 [facility] HIB 4 Dose Schedule 2001 Completed [facility] 00:00:00 [facility] Polio (IPV/OPV) 2001 Completed [facility] 00:00:00 [facility] Hep B, Adol or Pedi 2001 Completed [facility] Dosage 00:00:00 [facility] Pneumococcal 7 2001 Completed [facility] Conjugate, PCV7 00:00:00 [facility] DTAP 2001 Completed [facility] 00:00:00 [facility] HIB 4 Dose Schedule 2001 Completed [facility] 00:00:00 [facility] Polio (IPV/OPV) 2001 Completed [facility] 00:00:00 [facility] Hep B, Adol or Pedi 2001 Completed [facility] Dosage 00:00:00 [facility] Pneumococcal 7 2001 Completed [facility] Conjugate, PCV7 00:00:00 [facility]ar[facility] DTAP 2001 Completed [facility] 00:00:00 [facility] HIB 4 Dose Schedule 2001 Completed [facility] 00:00:00 [facility] Polio (IPV/OPV) 2001 Completed [facility] 00:00:00 [facility] Hep B, Adol or Pedi 2001 Completed [facility] Dosage 00:00:00 [facility] Pneumococcal 7 2001 Completed [facility] Conjugate, PCV7 00:00:00 [facility]ar[facility] DTAP 2001 Completed [facility] 00:00:00 [facility] HIB 4 Dose Schedule 2001 Completed [facility] 00:00:00 [facility] Polio (IPV/OPV) 2001 Completed [facility] 00:00:00 [facility] Hep B, Adol or Pedi 2001 Completed [facility] Dosage 00:00:00 [facility] Pneumococcal 7 2001 Completed [facility] Conjugate, PCV7 00:00:00 [facility]vnar[facility] DTAP 2001 Completed [facility] 00:00:00 [facility] HIB 4 Dose Schedule 2001 Completed [facility] 00:00:00 [facility] Polio (IPV/OPV) 2001 Completed [facility] 00:00:00 [facility] Hep B, Adol or Pedi 2001 Completed [facility] Dosage 00:00:00 [facility] Pneumococcal 7 2001 Completed [facility] Conjugate, PCV7 00:00:00 [facility]ar[facility] DTAP 2001 Completed [facility] 00:00:00 [facility] HIB 4 Dose Schedule 2001 Completed [facility] 00:00:00 [facility] Polio (IPV/OPV) 2001 Completed [facility] 00:00:00 [facility] Hep B, Adol or Pedi 2001 Completed [facility] Dosage 00:00:00 [facility] Pneumococcal 7 2001 Completed [facility] Conjugate, PCV7 00:00:00 [facility]Prevnar[facility] DTAP 2001 Completed [facility] 00:00:00 [facility] HIB 4 Dose Schedule 2001 Completed [facility] 00:00:00 [facility] Polio (IPV/OPV) 2001 Completed [facility] 00:00:00 [facility] Hep B, Adol or Pedi 2001 Completed [facility] Dosage 00:00:00 [facility] Hep B, Adol or Pedi 2001 Completed [facility] Dosage 00:00:00 [facility] Pneumococcal 7 2001 Completed [facility] Conjugate, PCV7 00:00:00 [facility]ar[facility] DTAP 2001 Completed [facility] 00:00:00 [facility] HIB 4 Dose Schedule 2001 Completed [facility] 00:00:00 [facility] Pneumococcal 7 2001 Completed [facility] Conjugate, PCV7 00:00:00 [facility]ar[facility] Polio (IPV/OPV) 2001 Completed [facility] 00:00:00 [facility] DTAP 2001 Completed [facility] 00:00:00 [facility] HIB 4 Dose Schedule 2001 Completed [facility] 00:00:00 [facility] Polio (IPV/OPV) 2001 Completed [facility] 00:00:00 [facility] Hep B, Adol or Pedi 2001 Completed [facility] Dosage 00:00:00 [facility] Pneumococcal 7 2001 Completed [facility] Conjugate, PCV7 00:00:00 [facility]Pre[facility]ar[facility] DTAP 2001 Completed [facility] 00:00:00 [facility] HIB 4 Dose Schedule 2001 Completed [facility] 00:00:00 [facility] Polio (IPV/OPV) 2001 Completed [facility] 00:00:00 [facility] Hep B, Adol or Pedi 2001 Completed [facility] Dosage 00:00:00 [facility] Pneumococcal 7 2001 Completed [facility] Conjugate, PCV7 00:00:00 [facility]Pre[facility]ar[facility] DTAP 2001 Completed [facility] 00:00:00 [facility] HIB 4 Dose Schedule 2001 Completed [facility] 00:00:00 [facility] Polio (IPV/OPV) 2001 Completed [facility] 00:00:00 [facility] Hep B, Adol or Pedi 2001 Completed [facility] Dosage 00:00:00 [facility] Pneumococcal 7 2001 Completed [facility] Conjugate, PCV7 00:00:00 [facility]Pre[facility] DTAP 2001 Completed [facility] 00:00:00 [facility] HIB 4 Dose Schedule 2001 Completed [facility] 00:00:00 [facility] Polio (IPV/OPV) 2001 Completed [facility] 00:00:00 [facility] Hep B, Adol or Pedi 2001 Completed [facility] Dosage 00:00:00 [facility] Pneumococcal 7 2001 Completed [facility] Conjugate, PCV7 00:00:00 [facility]Prevnar[facility] DTAP 2001 Completed [facility] 00:00:00 [facility] Hep B, Adol or Pedi 2001 Completed [facility] Dosage 00:00:00 [facility] Pneumococcal 7 2001 Completed [facility] Conjugate, PCV7 00:00:00 [facility]Prevnar[facility] DTAP 2001 Completed [facility] 00:00:00 [facility] HIB 4 Dose Schedule 2001 Completed [facility] 00:00:00 [facility] Polio (IPV/OPV) 2001 Completed [facility] 00:00:00 [facility] HIB 4 Dose Schedule 2001 Completed [facility] 00:00:00 [facility] Polio (IPV/OPV) 2001 Completed [facility] 00:00:00 [facility] Hep B, Adol or Pedi 2001 Completed [facility] Dosage 00:00:00 [facility] Pneumococcal 7 2001 Completed [facility] Conjugate, PCV7 00:00:00 [facility] DTAP 2001 Completed [facility] 00:00:00 [facility] HIB 4 Dose Schedule 2001 Completed [facility] 00:00:00 [facility] Polio (IPV/OPV) 2001 Completed [facility] 00:00:00 [facility] Hep B, Adol or Pedi 2001 Completed [facility] Dosage 00:00:00 [facility] Pneumococcal 7 2001 Completed [facility] Conjugate, PCV7 00:00:00 [facility]Pre[facility]ar[facility] DTAP 2001 Completed [facility] 00:00:00 [facility] HIB 4 Dose Schedule 2001 Completed [facility] 00:00:00 [facility] Polio (IPV/OPV) 2001 Completed [facility] 00:00:00 [facility] Hep B, Adol or Pedi 2001 Completed [facility] Dosage 00:00:00 [facility] Pneumococcal 7 2001 Completed [facility] Conjugate, PCV7 00:00:00 [facility]Prevnar[facility] DTAP 2001 Completed [facility] 00:00:00 [facility] HIB 4 Dose Schedule 2001 Completed [facility] 00:00:00 [facility] Polio (IPV/OPV) 2001 Completed [facility] 00:00:00 [facility] Hep B, Adol or Pedi 2001 Completed [facility] Dosage 00:00:00 [facility] Pneumococcal 7 2001 Completed [facility] Conjugate, PCV7 00:00:00 [facility]Prevnar[facility] DTAP 2001 Completed [facility] 00:00:00 [facility] HIB 4 Dose Schedule 2001 Completed [facility] 00:00:00 [facility] Polio (IPV/OPV) 2001 Completed [facility] 00:00:00 [facility] Hep B, Adol or Pedi 2001 Completed [facility] Dosage 00:00:00 [facility] Pneumococcal 7 2001 Completed [facility] Conjugate, PCV7 00:00:00 [facility]Prevnar[facility] DTAP 2001 Completed [facility] 00:00:00 [facility] HIB 4 Dose Schedule 2001 Completed [facility] 00:00:00 [facility] Polio (IPV/OPV) 2001 Completed [facility] 00:00:00 [facility] Hep B, Adol or Pedi 2001 Completed [facility] Dosage 00:00:00 [facility] Pneumococcal 7 2001 Completed [facility] Conjugate, PCV7 00:00:00 [facility]Prevnar[facility] DTAP 2001 Completed [facility] 00:00:00 [facility] HIB 4 Dose Schedule 2001 Completed [facility] 00:00:00 [facility] Polio (IPV/OPV) 2001 Completed [facility] 00:00:00 [facility] Hep B, Adol or Pedi 2001 Completed [facility] Dosage 00:00:00 [facility] Pneumococcal 7 2001 Completed [facility] Conjugate, PCV7 00:00:00 [facility] (Prevnar[facility] DTAP 2001 Completed [facility] 00:00:00 [facility] HIB 4 Dose Schedule 2001 Completed [facility] 00:00:00 [facility] Polio (IPV/OPV) 2001 Completed [facility] 00:00:00 [facility] Hep B, Adol or Pedi 2001 Completed [facility] Dosage 00:00:00 [facility] Pneumococcal 7 2001 Completed [facility] Conjugate, PCV7 00:00:00 [facility] (Prevnar[facility] DTAP 2001 Completed [facility] 00:00:00 [facility] HIB 4 Dose Schedule 2001 Completed [facility] 00:00:00 [facility] Polio (IPV/OPV) 2001 Completed [facility] 00:00:00 [facility] Hep B, Adol or Pedi 2001 Completed [facility] Dosage 00:00:00 [facility] Pneumococcal 7 2001 Completed [facility] Conjugate, PCV7 00:00:00 [facility] (Prevnar[facility] DTAP 2001 Completed [facility] 00:00:00 [facility] HIB 4 Dose Schedule 2001 Completed [facility] 00:00:00 [facility] Polio (IPV/OPV) 2001 Completed [facility] 00:00:00 [facility] Hep B, Adol or Pedi 2001 Completed [facility] Dosage 00:00:00 [facility] Pneumococcal 7 2001 Completed [facility] Conjugate, PCV7 00:00:00 [facility] (Prevnar[facility] DTAP 2001 Completed [facility] 00:00:00 [facility] HIB 4 Dose Schedule 2001 Completed [facility] 00:00:00 [facility] Polio (IPV/OPV) 2001 Completed [facility] 00:00:00 [facility] Hep B, Adol or Pedi 2001 Completed [facility] Dosage 00:00:00 [facility] Pneumococcal 7 2001 Completed [facility] Conjugate, PCV7 00:00:00 [facility] (Prevnar[facility] DTAP 2001 Completed [facility] 00:00:00 [facility] HIB 4 Dose Schedule 2001 Completed [facility] 00:00:00 [facility] Polio (IPV/OPV) 2001 Completed [facility] 00:00:00 [facility] Hep B, Adol or Pedi 2001 Completed [facility] Dosage 00:00:00 [facility] Pneumococcal 7 2001 Completed [facility] Conjugate, PCV7 00:00:00 [facility] (Prevnar[facility] DTAP 2001 Completed [facility] 00:00:00 [facility] HIB 4 Dose Schedule 2001 Completed [facility] 00:00:00 [facility] Polio (IPV/OPV) 2001 Completed [facility] 00:00:00 [facility] Hep B, Adol or Pedi 2001 Completed [facility] Dosage 00:00:00 [facility] Pneumococcal 7 2001 Completed [facility] Conjugate, PCV7 00:00:00 [facility] (Prevnar7[facility] DTAP 2001 Completed [facility] 00:00:00 [facility] HIB 4 Dose Schedule 2001 Completed [facility] 00:00:00 [facility] Polio (IPV/OPV) 2001 Completed [facility] 00:00:00 [facility] Hep B, Adol or Pedi 2001 Completed [facility] Dosage 00:00:00 [facility] Pneumococcal 7 2001 Completed [facility] Conjugate, PCV7 00:00:00 [facility] (Prevnar[facility] DTAP 2001 Completed [facility] 00:00:00 [facility] HIB 4 Dose Schedule 2001 Completed [facility] 00:00:00 [facility] Polio (IPV/OPV) 2001 Completed [facility] 00:00:00 [facility] Hep B, Adol or Pedi 2001 Completed [facility] Dosage 00:00:00 [facility] Pneumococcal 7 2001 Completed [facility] Conjugate, PCV7 00:00:00 [facility] (Prevnar[facility] DTAP 2001 Completed [facility] 00:00:00 [facility] HIB 4 Dose Schedule 2001 Completed [facility] 00:00:00 [facility] Polio (IPV/OPV) 2001 Completed [facility] 00:00:00 [facility] Hep B, Adol or Pedi 2001 Completed [facility] Dosage 00:00:00 [facility] Pneumococcal 7 2001 Completed [facility] Conjugate, PCV7 00:00:00 [facility] (Prevnar[facility] DTAP 2001 Completed [facility] 00:00:00 [facility] HIB 4 Dose Schedule 2001 Completed [facility] 00:00:00 [facility] Polio (IPV/OPV) 2001 Completed [facility] 00:00:00 [facility] Hep B, Adol or Pedi 2001 Completed [facility] Dosage 00:00:00 [facility] Pneumococcal 7 2001 Completed [facility] Conjugate, PCV7 00:00:00 [facility] (Prevnar[facility] DTAP 2001 Completed [facility] 00:00:00 [facility] HIB 4 Dose Schedule 2001 Completed [facility] 00:00:00 [facility] Hep B, Adol or Pedi 2001 Completed [facility] Dosage 00:00:00 [facility] Pneumococcal 7 2001 Completed [facility] Conjugate, PCV7 00:00:00 [facility] DTAP 2001 Completed [facility] 00:00:00 [facility] HIB 4 Dose Schedule 2001 Completed [facility] 00:00:00 [facility] Polio (IPV/OPV) 2001 Completed [facility] 00:00:00 [facility] PPD (TB) 2001 Completed [facility] 00:00:00 [facility] PPD (TB) 2001 Completed [facility] 00:00:00 [facility] PPD (TB) 2001 Completed [facility] 00:00:00 [facility] PPD (TB) 2001 Completed [facility] 00:00:00 [facility] PPD (TB) 2001 Completed [facility] 00:00:00 [facility] PPD (TB) 2001 Completed [facility] 00:00:00 [facility] PPD (TB) 2001 Completed [facility] 00:00:00 [facility] PPD (TB) 2001 Completed [facility] 00:00:00 [facility] PPD (TB) 2001 Completed [facility] 00:00:00 [facility] PPD (TB) 2001 Completed [facility] 00:00:00 [facility] PPD (TB) 2001 Completed [facility] 00:00:00 [facility] PPD (TB) 2001 Completed [facility] 00:00:00 [facility] PPD (TB) 2001 Completed [facility] 00:00:00 [facility] PPD (TB) 2001 Completed [facility] 00:00:00 [facility] PPD (TB) 2001 Completed [facility] 00:00:00 [facility] PPD (TB) 2001 Completed [facility] 00:00:00 [facility] PPD (TB) 2001 Completed [facility] 00:00:00 [facility] PPD (TB) 2001 Completed [facility] 00:00:00 [facility] PPD (TB) 2001 Completed [facility] 00:00:00 [facility] PPD (TB) 2001 Completed [facility] 00[facility]00:00 [facility] PPD (TB) 2001 Completed [facility] 00[facility]00:00 [facility] PPD (TB) 2001 Completed [facility] 00:00:00 [facility] PPD (TB) 2001 Completed [facility] 00:00:00 [facility] PPD (TB) 2001 Completed [facility] 00:00:00 [facility] PPD (TB) 2001 Completed [facility] 00:00:00 [facility] PPD (TB) 2001 Completed [facility] 00:00:00 [facility] PPD (TB) 2001 Completed [facility] 00:00:00 [facility] PPD (TB) 2001 Completed [facility] 00:00:00 [facility] PPD (TB) 2001 Completed [facility] 00:00:00 [facility] PPD (TB) 2001 Completed [facility] 00:00:00 [facility] PPD (TB) 2001 Completed [facility] 00:00:00 [facility] PPD (TB) 2001 Completed [facility] 00:00:00 [facility] PPD (TB) 2001 Completed [facility] 00:00:00 [facility] PPD (TB) 2001 Completed [facility] 00:00:00 [facility] PPD (TB) 2001 Completed [facility] 00:00:00 [facility] PPD (TB) 2001 Completed [facility] 00:00:00 [facility] PPD (TB) 2001 Completed [facility] 00:00:00 [facility] PPD (TB) 2001 Completed [facility] 00:00:00 [facility] PPD (TB) 2001 Completed [facility] 00:00:00 [facility] PPD (TB) 2001 Completed [facility] 00:00:00 [facility] PPD (TB) 2001 Completed [facility] 00:00:00 [facility] PPD (TB) 2001 Completed [facility] 00:00:00 [facility] PPD (TB) 2001 Completed [facility] 00:00:00 [facility] PPD (TB) 2001 Completed [facility] 00:00:00 [facility] PPD (TB) 2001 Completed [facility] 00:00:00 [facility] PPD (TB) 2001 Completed [facility] 00:00:00 [facility] PPD (TB) 2001 Completed [facility] 00:00:00 [facility] PPD (TB) 2001 Completed [facility] 00:00:00 [facility] PPD (TB) 2001 Completed [facility] 00:00:00 [facility] PPD (TB) 2001 Completed [facility] 00:00:00 [facility] PPD (TB) 2001 Completed [facility] 00:00:00 [facility] PPD (TB) 2001 Completed [facility] 00:00:00 [facility] PPD (TB) 2001 Completed [facility] 00:00:00 [facility] PPD (TB) 2001 Completed [facility] 00:00:00 [facility] PPD (TB) 2001 Completed [facility] 00:00:00 [facility] PPD (TB) 2001 Completed [facility] 00:00:00 [facility] PPD (TB) 2001 Completed [facility] 00:00:00 [facility] PPD (TB) 2001 Completed [facility] 00:00:00 [facility] PPD (TB) 2001 Completed [facility] 00:00:00 [facility] PPD (TB) 2001 Completed [facility] 00:00:00 [facility] PPD (TB) 2001 Completed [facility] 00:00:00 [facility] PPD (TB) 2001 Completed [facility] 00:00:00 [facility] Hep B, Adol or Pedi 2001 Completed [facility] Dosage 00:00:00 [facility] Hep B, Adol or Pedi 2001 Completed [facility] Dosage 00:00:00 [facility] Hep B, Adol or Pedi 2001 Completed [facility] Dosage 00:00:00 [facility] Hep B, Adol or Pedi 2001 Completed [facility] Dosage 00:00:00 [facility] Hep B, Adol or Pedi 2001 Completed [facility] Dosage 00:00:00 [facility] Hep B, Adol or Pedi 2001 Completed [facility] Dosage 00:00:00 [facility] Hep B, Adol or Pedi 2001 Completed [facility] Dosage 00:00:00 [facility] Hep B, Adol or Pedi 2001 Completed [facility] Dosage 00:00:00 [facility] Hep B, Adol or Pedi 2001 Completed [facility] Dosage 00:00:00 [facility] Hep B, Adol or Pedi 2001 Completed [facility] Dosage 00:00:00 [facility] Hep B, Adol or Pedi 2001 Completed [facility] Dosage 00:00:00 [facility] Hep B, Adol or Pedi 2001 Completed [facility] Dosage 00:00:00 [facility] Hep B, Adol or Pedi 2001 Completed [facility] Dosage 00:00:00 [facility] Hep B, Adol or Pedi 2001 Completed [facility] Dosage 00:00:00 [facility] Hep B, Adol or Pedi 2001 Completed [facility] Dosage 00:00:00 [facility] Hep B, Adol or Pedi 2001 Completed [facility] Dosage 00:00:00 [facility] Hep B, Adol or Pedi 2001 Completed [facility] Dosage 00:00:00 [facility] Hep B, Adol or Pedi 2001 Completed [facility] Dosage 00:00:00 [facility] Hep B, Adol or Pedi 2001 Completed [facility] Dosage 00:00:00 [facility] Hep B, Adol or Pedi 2001 Completed [facility] Dosage 00:00:00 [facility] Hep B, Adol or Pedi 2001 Completed [facility] Dosage 00:00:00 [facility] Hep B, Adol or Pedi 2001 Completed [facility] Dosage 00:00:00 [facility] Hep B, Adol or Pedi 2001 Completed [facility] Dosage 00:00:00 [facility] Hep B, Adol or Pedi 2001 Completed [facility] Dosage 00:00:00 [facility] Hep B, Adol or Pedi 2001 Completed [facility] Dosage 00:00:00 [facility] Hep B, Adol or Pedi 2001 Completed [facility] Dosage 00:00:00 [facility] Hep B, Adol or Pedi 2001 Completed [facility] Dosage 00:00:00 [facility] Hep B, Adol or Pedi 2001 Completed [facility] Dosage 00:00:00 [facility] Hep B, Adol or Pedi 2001 Completed [facility] Dosage 00:00:00 [facility] Hep B, Adol or Pedi 2001 Completed [facility] Dosage 00:00:00 [facility] Hep B, Adol or Pedi 2001 Completed [facility] Dosage 00:00:00 [facility] Hep B, Adol or Pedi 2001 Completed [facility] Dosage 00:00:00 [facility] Hep B, Adol or Pedi 2001 Completed [facility] Dosage 00:00:00 [facility] Hep B, Adol or Pedi 2001 Completed [facility] Dosage 00:00:00 [facility] Hep B, Adol or Pedi 2001 Completed [facility] Dosage 00:00:00 [facility] Hep B, Adol or Pedi 2001 Completed [facility] Dosage 00:00:00 [facility] Hep B, Adol or Pedi 2001 Completed [facility] Dosage 00:00:00 [facility] Hep B, Adol or Pedi 2001 Completed [facility] Dosage 00:00:00 [facility] Hep B, Adol or Pedi 2001 Completed [facility] Dosage 00:00:00 [facility] Hep B, Adol or Pedi 2001 Completed [facility] Dosage 00:00:00 [facility] Hep B, Adol or Pedi 2001 Completed [facility] Dosage 00:00:00 [facility] Hep B, Adol or Pedi 2001 Completed [facility] Dosage 00:00:00 [facility] Hep B, Adol or Pedi 2001 Completed [facility] Dosage 00:00:00 [facility] Hep B, Adol or Pedi 2001 Completed [facility] Dosage 00:00:00 [facility] Hep B, Adol or Pedi 2001 Completed [facility] Dosage 00:00:00 [facility] Hep B, Adol or Pedi 2001 Completed [facility] Dosage 00:00:00 [facility] Hep B, Adol or Pedi 2001 Completed [facility] Dosage 00:00:00 [facility] Hep B, Adol or Pedi 2001 Completed [facility] Dosage 00:00:00 [facility] Hep B, Adol or Pedi 2001 Completed [facility] Dosage 00:00:00 [facility] Hep B, Adol or Pedi 2001 Completed [facility] Dosage 00:00:00 [facility] Hep B, Adol or Pedi 2001 Completed [facility] Dosage 00:00:00 [facility] Hep B, Adol or Pedi 2001 Completed [facility] Dosage 00:00:00 [facility] Hep B, Adol or Pedi 2001 Completed [facility] Dosage 00:00:00 [facility] Hep B, Adol or Pedi 2001 Completed [facility] Dosage 00:00:00 [facility] Hep B, Adol or Pedi 2001 Completed [facility] Dosage 00:00:00 [facility] Hep B, Adol or Pedi 2001 Completed [facility] Dosage 00:00:00 [facility] Hep B, Adol or Pedi 2001 Completed [facility] Dosage 00:00:00 [facility] Hep B, Adol or Pedi 2001 Completed [facility] Dosage 00:00:00 [facility] Hep B, Adol or Pedi 2001 Completed [facility] Dosage 00:00:00 [facility] Hep B, Adol or Pedi 2001 Completed [facility] Dosage 00:00:00 [facility] Hep B, Adol or Pedi 2001 Completed [facility] Dosage 00:00:00 [facility] Hep B, Adol or Pedi 2001 Completed [facility] Dosage 00:00:00 [facility] Vital Signs Vital Name Observation Time Observation Value Comments Source Systolic blood 2021-09-04 17:55:00 139 mm[Hg] [facility] pressure [facility] Diastolic blood 2021-09-04 17:55:00 87 mm[Hg] [facility] pressure [facility] Heart rate 2021-09-04 17:55:00 116 /min [facility] Respiratory rate 2021-09-04 17:55:00 18 /min [facility] Oxygen saturation in 2021-09-04 17:55:00 98 /min [facility] Arterial blood by [facility] Pulse oximetry Branch Body temperature 2021-09-04 17:45:00 36.78 Raquel [facility] Heart rate 2021-09-02 14:30:00 73 /min [facility] Oxygen saturation in 2021-09-02 14:30:00 100 /min [facility] Arterial blood by [facility] Pulse oximetry Branch Systolic blood 2021-09-02 07:00:00 143 mm[Hg] [facility] pressure [facility] Diastolic blood 2021-09-02 07:00:00 62 mm[Hg] [facility] pressure [facility] Respiratory rate 2021-09-02 04:00:00 17 /min [facility] Body temperature 2021-09-02 00:00:00 37.06 Raquel [facility] Heart rate 2021-09-01 09:50:00 94 /min [facility] Oxygen saturation in 2021-09-01 09:50:00 98 /min [facility] Arterial blood by [facility] Pulse oximetry Branch Systolic blood 2021-09-01 06:00:00 151 mm[Hg] [facility] of pressure [facility] Diastolic blood 2021-09-01 06:00:00 84 mm[Hg] [facility] pressure [facility] Respiratory rate 2021-09-01 06:00:00 17 /min [facility] Body temperature 2021-09-01 05:30:00 36.56 Raquel [facility] Systolic blood 2021-08-30 20:51:00 177 mm[Hg] [facility] of pressure [facility] Diastolic blood 2021-08-30 20:51:00 104 mm[Hg] [facility] pressure [facility] Heart rate 2021-08-30 20:51:00 128 /min [facility] Body temperature 2021-08-30 20:47:00 36.44 Raquel [facility] Respiratory rate 2021-08-30 20:47:00 18 /min [facility] Body height 2021-08-30 20:47:00 167.6 cm [facility] Body weight 2021-08-30 20:47:00 174.726 kg [facility] BMI 2021-08-30 20:47:00 62.17 kg/m2 [facility] Body weight 2021-08-19 21:26:00 164.656 kg [facility] Heart rate 2021-08-19 20:24:00 138 /min [facility] Oxygen saturation in 2021-08-19 20:24:00 100 /min [facility] blood by [facility] Pulse oximetry Branch Heart rate 2021-07-26 19:34:00 106 /min [facility] Oxygen saturation in 2021-07-26 19:34:00 100 /min [facility] blood by [facility] Pulse oximetry Branch Systolic blood 2021-07-26 19:05:00 123 mm[Hg] [facility] pressure [facility] Diastolic blood 2021-07-26 19:05:00 79 mm[Hg] [facility] pressure [facility] Respiratory rate 2021-07-26 19:05:00 22 /min [facility] Body temperature 2021-07-26 18:33:00 36.11 Raquel [facility] Body weight 2021-07-26 18:33:00 164.656 kg [facility] Body weight 2021-07-02 10:45:00 165.155 kg [facility] Systolic blood 2021-07-02 10:15:00 114 mm[Hg] [facility] pressure [facility] Diastolic blood 2021-07-02 10:15:00 57 mm[Hg] [facility] pressure [facility] Heart rate 2021-07-02 10:15:00 98 /min [facility] Respiratory rate 2021-07-02 10:15:00 18 /min [facility] Oxygen saturation in 2021-07-02 10:15:00 99 /min [facility] blood by [facility] joanie Pulse oximetry Branch Body temperature 2021-07-02 09:45:00 36.67 Raquel [facility] Systolic blood 2021-04-24 03:00:00 113 mm[Hg] [facility] pressure [facility] Diastolic blood 2021-04-24 03:00:00 70 mm[Hg] [facility] pressure [facility] Heart rate 2021-04-24 03:00:00 93 /min [facility] Respiratory rate 2021-04-24 03:00:00 20 /min [facility] Oxygen saturation in 2021-04-24 03:00:00 100 /min [facility] blood by [facility] joanie Pulse oximetry Branch Body temperature 2021-04-24 02:13:00 37 Raquel [facility] Body weight 2021-04-24 01:36:00 122.471 kg [facility] Systolic blood 2021-04-01 03:44:14 123 mm[Hg] [facility] pressure [facility] Diastolic blood 2021-04-01 03:44:14 88 mm[Hg] [facility] pressure [facility] Heart rate 2021-04-01 03:44:14 102 /min [facility] Respiratory rate 2021-04-01 03:44:14 18 /min [facility] Oxygen saturation in 2021-04-01 03:44:14 99 /min [facility] blood by [facility] joanie Pulse oximetry Branch Body temperature 2021-04-01 03:09:00 36.83 Raquel [facility] Body weight 2021-04-01 03:09:00 122.018 kg [facility] Systolic blood 2021-02-05 19:22:00 130 mm[Hg] [facility] pressure [facility] Diastolic blood 2021-02-05 19:22:00 72 mm[Hg] [facility] [place] Heart rate 2021-02-05 19:22:00 80 /min [facility] Body temperature 2021-02-05 19:22:00 36.89 Raquel [facility] of [facility] Respiratory rate 2021-02-05 19:22:00 21 /min [facility] Body height 2021-02-05 19:22:00 167.6 cm [facility] of [facility] Body weight 2021-02-05 19:22:00 158.033 kg [facility] BMI 2021-02-05 19:22:00 56.23 kg/m2 [facility] Systolic blood 2020-10-30 15:26:00 121 mm[Hg] [facility]ity of pressure [facility] Diastolic blood 2020-10-30 15:26:00 89 mm[Hg] [facility]ive rsity of pressure [facility] Heart rate 2020-10-30 15:26:00 95 /min [facility] of [facility] Body temperature 2020-10-30 15:26:00 36.44 Raquel [facility] Respiratory rate 2020-10-30 15:26:00 18 /min [facility] ersity of [facility] Oxygen saturation in 2020-10-30 15:26:00 96 /min [facility] Arterial blood by [facility] Pulse oximetry Branch Body weight 2020-10-29 15:00:00 131.5 kg [facility] of [facility] Systolic blood 2020-10-23 14:00:00 109 mm[Hg] [facility] of pressure [facility] Diastolic blood 2020-10-23 14:00:00 63 mm[Hg] [facility] of pressure [facility] Heart rate 2020-10-23 14:00:00 78 /min [facility] of [facility] Body temperature 2020-10-23 14:00:00 36.39 Raquel [facility] of [facility] Respiratory rate 2020-10-23 14:00:00 18 /min [facility] ers[facility] of [facility] Oxygen saturation in 2020-10-23 14:00:00 100 /min [facility] Arterial blood by [facility] joanie Pulse oximetry Branch Body height 2020-10-21 21:00:00 167.6 cm [facility] Body weight 2020-10-21 21:00:00 131.543 kg [facility] BMI 2020-10-21 21:00:00 46.81 kg/m2 [facility] Systolic blood 2019-12-27 22:00:00 120 mm[Hg] [facility] of pressure [facility] Diastolic blood 2019-12-27 22:00:00 64 mm[Hg] [facility] rs[facility] of pressure [facility] Heart rate 2019-12-27 22:00:00 82 /min [facility] Body temperature 2019-12-27 22:00:00 36.72 Raquel [facility] Respiratory rate 2019-12-27 22:00:00 18 /min [facility] Oxygen saturation in 2019-12-27 22:00:00 99 /min [facility] Arterial blood by [facility] Pulse oximetry Branch Body height 2019-12-24 21:00:00 165.1 cm [facility] Body weight 2019-12-24 21:00:00 153.769 kg [facility] BMI 2019-12-24 21:00:00 56.41 kg/m2 [facility] Systolic blood 2019-12-10 17:02:00 133 mm[Hg] [facility] of pressure [facility] Diastolic blood 2019-12-10 17:02:00 98 mm[Hg] [facility] of pressure [facility] Heart rate 2019-12-10 17:00:00 118 /min [facility] Body temperature 2019-12-10 17:00:00 36.72 Raquel [facility] Respiratory rate 2019-12-10 17:00:00 18 /min [facility] Body height 2019-12-10 17:00:00 165.1 cm [facility] Body weight 2019-12-10 17:00:00 154.087 kg [facility] BMI 2019-12-10 17:00:00 56.53 kg/m2 [facility] Systolic blood 2019-12-08 22:26:00 149 mm[Hg] Univer [facility] of pressure [facility] Diastolic blood 2019-12-08 22:26:00 108 mm[Hg] [facility] of pressure [facility] Heart rate 2019-12-08 22:26:00 111 /min [facility] Body temperature 2019-12-08 22:26:00 37.17 Raquel [facility] Respiratory rate 2019-12-08 22:26:00 18 /min [facility] Body height 2019-12-08 22:26:00 165.1 cm [facility] Body weight 2019-12-08 22:26:00 153.452 kg [facility] BMI 2019-12-08 22:26:00 56.30 kg/m2 [facility] Oxygen saturation in 2019-12-08 22:26:00 99 /min [facility] Arterial blood by [facility] Pulse oximetry Branch Systolic blood 2019-07-14 19:40:00 128 mm[Hg] Univer [facility]ity of pressure [facility] Diastolic blood 2019-07-14 19:40:00 82 mm[Hg] [facility] of pressure [facility] Heart rate 2019-07-14 18:29:00 94 /min [facility] Body temperature 2019-07-14 18:29:00 36.11 Raquel [facility] Respiratory rate 2019-07-14 18:29:00 18 /min [facility] Body weight 2019-07-14 18:29:00 128.595 kg [facility] Systolic blood 2019-07-14 19:40:00 128 mm[Hg] Univer [facility]ity of pressure [facility] Diastolic blood 2019-07-14 19:40:00 82 mm[Hg] [facility] rs[facility] of pressure [facility] Heart rate 2019-07-14 18:29:00 94 /min [facility] Body temperature 2019-07-14 18:29:00 36.11 Raquel [facility] Respiratory rate 2019-07-14 18:29:00 18 /min [facility] Body weight 2019-07-14 18:29:00 128.595 kg [facility] Systolic blood 2019-07-10 21:26:03 139 mm[Hg] Univer sity of pressure [facility] Diastolic blood 2019-07-10 21:26:03 86 mm[Hg] Unive rsity of pressure [facility] Heart rate 2019-07-10 21:26:03 86 /min [facility] Body temperature 2019-07-10 21:26:03 37.22 Raquel [facility] 2019-07-10 21:26:03 18 /min [facility] Oxygen saturation in 2019-07-10 21:26:03 99 /min [facility] Arterial blood by [facility] Pulse oximetry [place] Body weight 2019-07-10 19:07:00 114.306 kg [facility] Procedures Procedure Date / Time Performing Clinician Source Performed CBC WITH DIFF 2021-09-04 06:01:00 Jose C [facility] SGOT (ASPARTATE AMINO 2021-09-02 23:00:00 Jose C Dulce Maria [facility]) Medical Branch CREATININE 2021-09-02 23:00:00 Jose C [facility] ALANINE AMINO 2021-09-02 23:00:00 Jose C [facility] TRANSFERASE([facility] Medical [place] URIC ACID 2021-09-02 23:00:00 Jose C [facility] CBC WITH DIFF 2021-09-02 23:00:00 Jose C [facility] URINALYSIS 2021-09-02 23:00:00 JoseC [facility] SGOT (ASPARTATE AMINO 2021-09-02 23:00:00 Jose C Dulce Maria [facility]) [facility] [place] CREATININE 2021-09-02 23:00:00 Jose C [facility] ALANINE AMINO 2021-09-02 23:00:00 Jose C [facility] TRANSFERASE([facility] [place] URIC ACID 2021-09-02 23:00:00 Jose C [facility] CBC WITH DIFF 2021-09-02 23:00:00 Jose C [facility] URINALYSIS 2021-09-02 23:00:00 Jose C [facility] SGOT (ASPARTATE AMINO 2021-09-02 23:00:00 Dulce Maria Woodall [facility]) Medical Branch CREATININE 2021-09-02 23:00:00 Jose C [facility] ALANINE AMINO 2021-09-02 23:00:00 Jose C [facility] TRANSFERASE(SGPT Medical Branch URIC ACID 2021-09-02 23:00:00 Jose C [facility] CBC WITH DIFF 2021-09-02 23:00:00 Jose C [facility] URINALYSIS 2021-09-02 23:00:00 Jose C [facility] LACTATE DEHYDROGENASE 2021-09-02 22:59:00 Jose C [facility] LACTATE DEHYDROGENASE 2021-09-02 22:59:00 Jose C [facility] LACTATE DEHYDROGENASE 2021-09-02 22:59:00 Jose C [facility] TRANSFUSE PACKED RBC 2021-09-02 17:35:00 Omar Wakefield [facility] TRANSFUSE PACKED RBC 2021-09-02 17:35[facility] 2021-09-02 17:35:00 Twyla [facility] TRANSFUSE PACKED RBC 2021-09-02 17:15:00 Omar Wakefield [facility] TRANSFUSE PACKED RBC 2021-09-02 17:15:[facility] 2021-09-02 17:15:00 Omar Wakefield [facility] VENOUS CORD GAS 2021-09-02 17:13[facility] 2021-09-02 17:13:00 Twyla [facility] VENOUS CORD GAS 2021-09-02 17:13:00 Kmiberleyteressa [facility] SECTION 2021-09-02 16:34:00 Abel [facility] SECTION 2021-09-02 16:34:00 Tania Palacios [facility] PREPARE PACKED RBC 2021-09-02 16:28:48 [facility] 2021-09-02 16:28:48 [facility] RBC 2021-09-02 16:28:48 Omar Wakefield [facility] EXAM UNDER ANESTHESIA 2021-09-01 09:04:00 Milton Gustafson [facility] EXAM UNDER ANESTHESIA 2021-09-01 09:04:00 Milton Gustafson [facility] URINALYSIS 2021-08-31 07:00:00 [facility] CREAT RATIO 2021-08-31 07:00:00 Omar Wakefield [facility] URINE RANDOM Medical Branch URINALYSIS 2021-08-31 07:00:00 [facility] 2021-08-31 07:00[facility] URINALYSIS 2021-08-31 07:00:00 [facility]OTE[facility]AT [facility]ATIO 2021-08-31 07:00:00 [facility]INE RANDOM [facility] URINE CULTURE 2021-08-31 06:59:00 Omar Wakefield [facility] URINE CULTURE 2021-08-31 06:59:00 [facility] 2021-08-31 06:59:00 [facility] C[facility]AL NEURAXIAL BLOCK 2021-08-31 04:50:37 Maik Cassidy [facility] SGOT (ASPARTATE AMINO 2021-08-31 04:09:00 Omar Wakefield [facility]) Medical Branch CREATININE 2021-08-31 04:09:00 [facility] ALANINE [facility] 2021-08-31 04:09:00 [facility] Medical Branch LACTATE DEHYDROGENASE 2021-08-31 04:09:00 Omar Wakefield [facility] URIC ACID 2021-08-31 04:09:00 [facility] WITH DIFF 2021-08-31 04:09[facility]00 [facility] SURFACE 2021-08-31 04:09:00 [facility] ANTIGEN [facility] [place] HIV 1/2 AG-AB WITH 2021-08-31 04:09:00 Omar Wakefield [facility] REFLEX [facility] [place] GALV ONLY - SYPHILIS 2021-08-31 04:09:00 Omar Wakefield [facility] IGG/IGM Medical Branch SGOT (ASPARTATE AMINO 2021-08-31 04:09:00 [facility] Branch CREATININE 2021-08-31 04:09:00 [facility] AL[facility]INE [facility] 2021-08-31 04:09:00 Twyla [facility] TRANSFERASE(SGPT Medical Branch LACTATE DEHYDROGENASE 2021-08-31 04:09:00 [facility] 2021-08-31 04:09[facility]00 [facility] CBC WITH DIFF 2021-08-31 04:09:00 [facility] HEPAT[facility] B SURFACE 2021-08-31 04:09:00 Omra Wakefield [facility] ANTIGEN [facility] Er HIV 1/2 AG-AB WITH 2021-08-31 04:09:00 Omar Wakefield [facility] REFLEX [facility] [place] GALV ONLY - SYPHILIS 2021-08-31 04:09:00 Omar Wakefield [facility] IGG/IGM Medical Branch SGOT (ASPARTATE AMINO 2021-08-31 04:09:00 [facility] Medical Branch CREATININE 2021-08-31 04:09:00 [facility] ALANINE AM[facility] 2021-08-31 04:09:00 Twyla [facility] TRANSFERASE(SGPT Medical Branch LACTATE DEHYDROGENASE 2021-08-31 04:09:00 Omar Wakefield [facility] URIC ACID 2021-08-31 04:09:00 [facility] CBC WITH DIFF 2021-08-31 04:09:00 [facility] HEPAT[facility] B SURFACE 2021-08-31 04:09:00 Omar Wakefield [facility] ANTIGEN [facility] HIV 1/2 AG-AB WITH 2021-08-31 04:09:00 Omar Wakefield [facility] REFLEX [facility] GALV ONLY - SYPHILIS 2021-08-31 04:09:00 Omar Wakefield [facility] IGG/IGM Medical Branch HB ABO GROUPING 2021-08-31 03:11:00 [facility] 2021-08-31 03:11:00 Twyla [facility] HB ABO GROUPING 2021-08-31 03:11:00 Kimberleyteressa [facility] RHO (D) IMMUNE GLOBULIN 2021-08-31 03:11:00 Dulce Maria Woodall [facility] [place] COVID-19 (ID NOW RAPID 2021-08-31 01:42[facility] 2021-08-31 [facility] COVID-19 (ID NOW RAPID 2021-08-31 01:42[facility] LAB ONLY COVID 2021-08-31 [facility]42[facility] (ID NOW RAPID 2021-08-31 01:42[facility] LAB ONLY COVID 2021-08-31 01:42[facility] 2021-08-30 05:01:00 Doctor Unassigned, No [facility] [place] Name [facility] COVID-19 (ID NOW RAPID 2021-08-19 20:26:00 Flory Hester [facility] TESTING) Medical Branch CONSENT/REFUSAL FOR 2021-08-19 05:01:00 Doctor Unassigned, No [facility] Name Medical Branch URINALYSIS 2021-07-26 21:25:00 Diane Reyes [facility] COVID-19 (ID NOW RAPID 2021-07-26 19:09:00 Lubna Boston [facility] TESTING) Medical Branch URINALYSIS 2021-07-02 09:39:00 Luz Marina [facility] HOSPITAL ADMISSION 2021-07-02 05:01:00 Doctor Unassigned, No [facility] SECOND AND THIRD 2021-04-24 18:59:00 Ash Painter [facility] TRIMESTER ULTRASOUND [facility] URINALYSIS 2021-04-24 02:15:00 Justine Chavarria [place] [facility] COVID-19 (ID NOW RAPID 2021-04-24 02:07:00 Ash Painter [facility] TESTING) [facility] CONSENT/REFUSAL FOR 2021-04-24 01:50:56 Doctor Unassigned, No [facility] Medical [place] L&D VISIT 2021-04-23 05:01:00 Doctor Unassigned, No [facility] (NON-DELIVERED) [facility] GLUCOSE 1 HOUR POST 2021-02-05 20:34:00 Jesusita Carrasco [facility] PRANDIAL Medical [place] CBC WITH DIFF 2021-02-05 20:34:00 Jesusita Carrasco [facility] GLYCOSYLATED HEMOGLOBIN 2021-02-05 20:34:00 Jesusita Carrasco [facility] (A1C) [facility] Er HEPATITIS B SURFACE 2021-02-05 20:34:00 Jesusita Carrasco [facility] ANTIGEN [facility] HIV 1/2 AG-AB WITH 2021-02-05 20:34:00 Jesusita Carrasco [facility] REFLEX [facility] GALV ONLY - SYPHILIS 2021-02-05 20:34:00 Jesusita Carrasco [facility] IGG/IGM [facility] HB ABO GROUPING 2021-02-05 20:20:00 Dominguez Carrascorielle [facility] ASSIGNMENT OF BENEFITS 2021-02-05 18:47:45 Doctor Unassigned, No [facility] Name [facility] VENOUS CORD GAS 2020-10-29 17:15:00 Jhony Dejesus [facility] VZV ANTIBODY SCREEN 2020-10-29 15:58:00 Aga Rosas February U [facility] GALV ONLY - SYPHILIS 2020-10-29 15:58:00 Jhony Dejesus [facility] IGG/IGM [facility] CBC WITH DIFF 2020-10-29 15:48:00 Jhony Dejesus [facility] HEPATITIS B SURFACE 2020-10-29 15:48:00 Jhony Dejesus [facility] ANTIGEN [facility] HB ABO GROUPING 2020-10-29 15:39:00 Oleg Jhony [facility] RHO (D) IMMUNE GLOBULIN 2020-10-29 15:39:00 Oleg [facility] COVID-19 (ID NOW RAPID 2020-10-29 14:28:00 Ananda Batista [facility] TESTING) [facility] NON-STRESS TEST 2020-10-22 20:14:24 Bird Millan [facility] Michelle [facility] URINE CULTURE 2020-10-22 00:49:00 [facility] GALV/CLC ONLY - URINE 2020-10-21 23:31:00 Aracelis Pal[facility] DRUG (IMMUNOASSAY) - Medical [facility] COMPREHENSIVE DRUG SCREEN URINALYSIS 2020-10-21 23:31:00 Diane Reyes [facility] GALV ONLY - INFLUENZA A 2020-10-21 21:57:00 Diane Reyes [facility] B RSV PCR Medical Branch COVID-19 (MOLECULAR 2020-10-21 21:57:00 Tania Palacios [facility] TESTING [facility] NUCLEIC ACID AMPLIFICATION) HB ABO GROUPING 2020-10-21 21:38:00 Aracelis Palencia [facility] AMYLASE 2020-10-21 21:34:00 Eric [facility] LIPASE 2020-10-21 21:34:00 Eric [facility] COMP. METABOLIC PANEL 2020-10-21 21:34:00 Eric [facility] ([id number]) Medical Branch CBC WITH DIFF 2020-10-21 21:34:00 Aracelis Palencia [facility] RUBELLA SCREEN IGG 2020-10-21 21:34:00 Aracelis Palencia [facility] HEPATITIS B SURFACE 2020-10-21 21:34:00 Aracelis Palencia [facility] ANTIGEN [facility] HIV 1/2 AG-AB WITH 2020-10-21 21:34:00 Aracelis Palencia [facility] REFLEX [facility] GALV ONLY - SYPHILIS 2020-10-21 21:34:00 Aracelis Palencia [facility] IGG/IGM [facility] COVID-19 (ID NOW RAPID 2020-10-21 21:00:00 Tania Palacios [facility] TESTING) [facility] CBC WITH DIFFERENTIAL 2019-12-26 09:40:00 Jojo Joseph [facility] VENOUS CORD GAS 2019-12-25 23:50:[facility] (ASPARTATE AMINO 2019-12-25 17:28:00 Jojo Joseph [facility] TRANSFER) Medical Branch CREATININE 2019-12-25 17:28:00 Jojo Joseph [facility] ALANINE AMINO 2019-12-25 17:28:00 Jojo Joseph [facility] TRANSFERASE(SGPT Medical Branch LACTATE DEHYDROGENASE 2019-12-25 17:28:00 Jojo Joseph [facility] URIC ACID 2019-12-25 17:28:00 Jojo Joseph [facility] CBC WITH DIFFERENTIAL 2019-12-25 17:28:00 Jojo Joseph [facility] URINALYSIS 2019-12-25 17:22:00 Jojo Joseph [facility] PROTEIN CREAT RATIO 2019-12-25 17:22:00 Jojo Joseph [facility] URINE RANDOM [facility] GC & CHLAMYDIA AMPLIFIED 2019-12-24 23:09:00 Moni Wilson [facility] ASSAY [facility] CBC WITH DIFFERENTIAL 2019-12-24 23:06:00 Benja [facility] HEPATITIS B SURFACE 2019-12-24 23:06:00 Benja [facility] ANTIGEN [facility] HIV 1/2 AG-AB WITH 2019-12-24 23:06:00 [facility] GALV ONLY - SYPHILIS 2019-12-24 23:06[facility] I[facility]IGM [facility] HB ABO GROUPING 2019-12-24 23:02:00 [facility] RHO (D) IMMUNE GLOBULIN 2019-12-24 23:02:00 Jojo Joseph [facility] FLU VACC ([id number]), 6+ 2019-12-10 17:46:41 Francis Harvey [facility] MONTHS, IM, QUAD Nonyelum [facility] POCT URINALYSIS 2019-12-10 00:00:00 Francis Harvey [place] [facility] CBC WITH DIFFERENTIAL 2019-07-14 20:06:00 Buddy Albert [facility] GALV ONLY - VAGINAL 2019-07-14 20:06:00 Buddy Albert [facility] PATHOGENS BY DNA PROBE Medical B ranch GALV ONLY - [place]IL[place] 2019-07-14 20:06:00 Buddy Albert [facility] IGG/IGM Medical Branch GC & CHLAMYDIA AMPLIFIED 2019-07-14 20:06:00 Buddy Albert [facility] ASSAY [facility] GLUCOSE 1 HOUR POST 2019-07-14 20:05:00 Buddy Albert [facility] PRANDIAL [facility] RUBELLA SCREEN IGG 2019-07-14 20:05:00 Buddy Albert [facility] VZV ANTIBODY SCREEN 2019-07-14 20:05:00 Buddy Albert [facility] HEPATITIS B SURFACE 2019-07-14 20:05:00 Buddy Albert [facility] ANTIGEN [facility] HIV 1/2 AG-AB WITH 2019-07-14 20:05:00 Jon Albertemy [facility] REFLEX [facility] WORKUP, BLOOD 2019-07-14 19:36:00 Buddy Albert [facility] BANK [facility] POCT URINALYSIS 2019-07-14 00:00:00 Buddy Albert [facility] CT CHEST PULMONARY 2019-07-10 20:43:08 Lobito Trujillo [facility] ANGIOGRAM [facility] TROPONIN I 2019-07-10 19:37:00 Ronnie [facility] THYROID STIMULATING 2019-07-10 19:37:00 [facility] HORMONE [facility] BASIC METABOLIC PANEL 2019-07-10 19:37:00 Ronnie[facility] (NA, K, CL, CO2, Medical Branch GLUCOSE, BUN, CREATININE, CA) TOTAL BETA HCG ASSAY 2019-07-10 19:37:00 Ronnie [facility] CBC WITH DIFFERENTIAL 2019-07-10 19:37:00 [facility]-TERMINAL PRO-BNP 2019-07-10 19:37:00 [facility] Plan of Care Planned Activity Planned Date Details Comments Source Future Scheduled 2022-02-05 Screening for [facility] Test 00:00:00 Chlamydia trachomatis Medica l Branch (procedure) [code = 694973848] Future Scheduled 2021-07-18 INFLUENZA VACCINE [facility] [place] Test 00:00:00 (Season Ended) [code = Medic al Branch INFLUENZA VACCINE (Season Ended)] Future Scheduled 2019 Hepatitis C screening [facility] [place] Test 00:00:00 (procedure) [code = Medical Branch [id number]] Future Scheduled 2017 SARS-CoV-2 (COVID-19) [facility] [place] Test 00:00:00 Vaccine (1) [code = Medical Branch SARS-CoV-2 (COVID-19) Vaccine (1)] Future Scheduled 2013 Depression screening [facility] [place] Test 00:00:00 (procedure) [code = Medical Branch [id number]] Future Scheduled 2013 Well child visit [facility] [place] Test 00:00:00 (procedure) [code = Medical Branch [id number]] Future Scheduled 2012 DTaP,Tdap,and Td [facility] [place] Test 00:00:00 Vaccines (6 - Tdap) Medical Branch [code = DTaP,Tdap,and Td Vaccines (6 - Tdap)] Future Scheduled 2011 MENINGOCOCCAL B [facility] [place] Test 00:00:00 VACCINES (1 of 2 - Medical B ranch Risk Bexsero 2-dose series) [code = MENINGOCOCCAL B VACCINES (1 of 2 - Risk Bexsero 2-dose series)] Encounters Start End Encounter Admission Attending Care Care Encounter Source Date/Time Date/Time Type Type Clinicians Facility Department ID 2021-09-18 Outpatient P [facility] KAMARI [id number] Univers 03:26:03 ity [facility] 2021-09-17 [id number] Univers 21:33:14 ity of [facility] 2021-09-17 Outpatient P [facility] KAMARI [id number] Univers 17:34:53 ity of [facility] 2021-09-17 Outpatient [facility] [id number] Univers 17:33:49 ity of [facility] 2021-09-17 Outpatient P [facility] KAMARI [id number] Univers 15:41:15 ity of [facility] 2021-09-16 Outpatient P [facility] KAMARI [id number] Univers 23:43:43 ity of [facility] 2021-09-16 Emergency [facility] [id number] Univers 23:43:25 ity of [facility] 2021-09-16 Emergency [facility] [id number] Univers 19:18:55 ity of [facility] 2021-09-15 Outpatient P [facility] KAMARI [id number] Univers 09:35:13 ity of [facility] 2021-09-15 Emergency [facility] [id number] Univers 09:26:59 ity [facility] 2021-10-24 2021-10-24 Laboratory Only, Gal Adult Uc Test [facility] [id number] Univers 10:30:16 10:45:16 Only Yuniel Perea H TABATHA 350.1.13.10 ity of [place] [id number] [address] 2021-10-24 2021-10-24 Outpatient R [facility] [id number] Univers 10:30:00 10:30:00 [id number] ity [facility] 2021-10-24 2021-10-24 Outpatient R BRIT [facility] [id number] Univers 10:30:00 10:30:00 YUNIEL ity [facility] 2021-10-24 2021-10-24 Letter Care, [facility] [id number] Univers 00:00:00 00:00:00 (Out) Adult [place] 350.1.13.10 it y of Urgent PEDIATRIC [place] [id number] [address] 2021-10-24 2021-10-24 Telephone KAYLEIGH Means [id number] [id number] Univers 00:00:00 00:00:00 Riana KUHN 350.1.13.10 ity of HOSPITAL 4.2.7.2.686 Ricky as [phone] [address] 2021-08-30 2021-09-04 Hospital KAYLEIGH Levin 1.2.840.114 [id number] Univers 20:00:00 16:12:00 Encounter Edgar KUHN 350.1.13.10 ity of HOSPITAL 4.2.7.2.[address] [place] [phone] [facility] 133 Branch 2021-09-02 2021-09-02 Surgery KAYLEIGH Palacios 1.2.840.114 [id number] Univers 09:45:00 11:34:00 Chasey HATTIE 350.1.13.10 it y of [facility] [place]7.2.[place] [id number] [facility] 013 Branch 2021-09-01 2021-09-01 Surgery Milton Gustafson 1.2.231.606 [id number] Univers 05:24:00 06:42:00 HATTIE 350.1.13.10 it y of [facility] 4.2.7.2.[address] [place] as [id number] [facility] 013 Branch 2021-08-30 2021-08-30 Anesthesia Serge Scott 1.2.840 .114 [id number] Univers 23:20:00 23:40:00 Event Richi Chandrikakailey Moreno HATTIE 350.1. 13.10 ity of [facility] 4.2.7.2.[address] Ricky as [phone] [facility] 132 Branch 2021-08-30 2021-08-30 Routine Alyssa Vasquez [facility] 1.2.840.114 [id number] Univers 15:11:41 16:09:52 Y HEALTH 350.1.13.10 it[place] [id number] [facility] 113 Branch 2021-08-30 2021-08-30 Outpatient R ALYSSA VASQUEZ [facility] [id number] Univers 15:15:00 15:15:00 [id number] ity of [facility] 2021-08-30 2021-08-30 Outpatient R ALYSSA VASQUEZ [facility] [id number] Univers 15:15:00 15:15:00 ity [facility] 2021-08-30 2021-08-30 Josselyn VICTOR 1.2.840.114 [id number] Univers 00:00:00 00:00:00 Only Unassigned, HATTIE 350.1.13.10 ity of [place] [facility] 4.2.7.2.[address] Ricky [phone] [facility] 009 Branch 2021-08-29 2021-08-29 Outpatient R ERNESTO [facility] [id number] Univers 13:15:00 13:15:00 SHANNAN [id number] ity of [facility] 2021-08-27 2021-08-27 Telephone RUBY Carrasco 1.2.840.114 [id number] Univers 00:00:00 00:00:00 Jesusita Y HEALTH 350.1.13.10 it[place] [id number] [facility] 113 Branch 2021-08-19 2021-08-19 [facility] KAYLEIGH Hester 1.2.840.114 [id number] Univers 14:59:00 17:31:00 Encounter Flory SEALY 350.1.13.10 ity of [facility] 4.2.7.2.686 Ricky as [phone] [facility] 140 [place] 2021-08-03 2021-08-03 Telephone RUBY [place] 1.2.840.114 [id number] Univers 00:00:00 00:00:00 Moni Y HEALTH 350.1.13.10 i ty of CL[place]ICS [place] [id number] [facility] 113 Branch 2021-07-26 2021-07-26 [facility] KAYLEIGH [place] 1.2.245.954 [id number] Univers 13:42:00 17:15:00 Encounter Lubna KUHN 350.1.13.10 ity of [facility] 4.2.7.2.[address] [place] [id number] [facility] 140 [place] 2021-07-11 2021-07-11 Telephone [facility] 1.2.840.114 [id number] Univers 00:00:00 00:00:00 Crystal [facility] 350.1.13.10 ity of [place] [id number] [place] [address] Branch Office Building 2021-07-02 2021-07-02 [facility] 1.2.871.413 [id number] Univers 04:08:00 06:55:00 Encounter Crystal [facility] 350.1.13.10 it[place] [id number] [facility] 119 Branch (CLC) 2021-07-02 2021-07-02 Orders Doctor KAYLEIGH 1.2.840.114 [id number] Univers 00:00:00 00:00:00 Only Unassigned, HATTIE 350.1.13.10 ity of [place] [facility] 4.2.7.2.[id number] [facility] 009 Branch 2021-04-30 2021-04-30 Outpatient HUNTERVASYL, [facility] [id number] Univers 11:00:00 11:00:00 JESUSITA [id number] ity [facility] 2021-04-30 2021-04-30 Outpatient R ALEXANDRIA [facility] [id number] Univers 11:00:00 11:00:00 [facility] 2021-04-24 2021-04-24 Rate Manager 1, [facility] Room UNIVERSIT 1 .2.840.114 [id number] Univers 13:32:17 14:15:30 Visit Ananda Batista Y HEALTH 350.1.13. 10 ity of [place] [id number] [facility] 104 Branch 2021-04-24 2021-04-24 Outpatient R [facility] [id number] Univers 13:00:00 13:00:00 [id number] ity [facility] 2021-04-24 2021-04-24 Outpatient P [facility] [id number] Univers 13:00:00 13:00:00 ity of [facility] 2021-04-23 2021-04-23 Hospital Ash VICTOR 1.2.840.114 [id number] Univers 20:53:00 22:39:00 Encounter Hunter DUMONTY 350.1.13.10 ity of s, [place] [place] [id number] [facility] 070 Branch 2021-04-09 2021-04-09 [facility] [id number] Univers 14:30:00 14:30:00 SHLOMO [id number] ity [facility] 2021-04-09 2021-04-09 Outpatient Brigido RANKIN [facility] [id number] Univers 14:30:00 14:30:00 SHLOMO ity [facility] 2021-04-02 2021-04-02 Outpatient Brigido CARRASCO [facility] [id number] Univers 15:45:00 15:45:00 JESUSITA [id number] ity [facility] 2021-04-02 2021-04-02 Outpatient Brigido CARRASCO [facility] [id number] Univers 15:45:00 15:45:00 JESUSITA [facility] 2021-03-31 2021-04-01 Emergency Faulconer, TRAUMA 1.2.840.114 [id number] Univers 22:18:00 00:00:00 [facility] 350.1.13.10 it [place] [id number] [place] [address] Branch 2021-03-29 2021-03-29 Outpatient Brigido CARRASCO [facility] [id number] Univers 13:15:00 13:15:00 JESUSITA [id number] ity [facility] 2021-03-29 2021-03-29 Outpatient Brigido CARRASCO [facility] [id number] Univers 13:15:00 13:15:00 [facility] 2021-03-26 2021-03-26 Outpatient Brigido CARRASCO [facility] [id number] Univers 14:45:00 14:45:00 JESUSITA [id number] ity [facility] 2021-03-26 2021-03-26 Outpatient Brigido CARRASCO [facility] [id number] Univers 14:45:00 14:45:00 [facility] 2021-03-21 2021-03-21 Telephone [place], UNIVERSIT 1.2.840.114 [id number] Univers 00:00:00 00:00:00 Jesusita [facility] 350.1.13.10 ity of CL[place] [id number] [place] [address] Branch 2021-03-12 2021-03-12 Outpatient R ALEXANDRIA [facility] [id number] Univers 13:15:00 13:15:00 JESUSITA [id number] ity [facility] 2021-03-12 2021-03-12 Outpatient R ALEXANDRIA [facility] [id number] Univers 13:15:00 13:15:00 [facility] 2021-03-05 2021-03-05 Outpatient R ALEXANDRIA [facility] [id number] Univers 14:00:00 14:00:00 [facility]ESUSITA [id number] [facility] 2021-03-05 2021-03-05 Outpatient R ALEXANDRIA [facility] [id number] Univers 14:00:00 14:00:00 JESUSITA [facility] 2021-02-13 2021-02-13 Outpatient MASSIEL, [facility] [id number] Univers 09:30:00 09:30:00 SHLOMO [id number] [facility] 2021-02-13 2021-02-13 Outpatient R MASSIEL [facility] [id number] Univers 09:30:00 09:30:00 SHLOMO [facility] 2021-02-08 2021-02-08 Rate Manager 1, [facility] Us Room UNIVERSIT 1 .2.840.114 [id number] Univers 13:14:54 14:03:44 Visit Ananda Batista Y HEALTH 350.1.13. 10 ity [place] [id number] [facility] 104 Branch 2021-02-08 2021-02-08 Outpatient R [facility] [id number] Univers 13:00:00 13:00:00 [id number] [facility] 2021-02-08 2021-02-08 Outpatient P [facility] [id number] Univers 13:00:00 13:00:00 [facility] 2021-02-08 2021-02-08 Abstract [place], UNIVERSIT 1.2.840.114 [id number] Univers 00:00:00 00:00:00 Jesusita Y HEALTH 350.1.13.10 ity [place] [id number] [address] 2021-02-07 2021-02-07 Jem [place] 1.2.749.229 [id number] Univers 00:00:00 00:00:00 Management Jesusita Y HEALTH 350.1.13.10 ity of [place] [id number] [address] 2021-02-07 2021-02-07 Telephone Huntervasyl [facility] 1.2.840.114 [id number] Univers 00:00:00 00:00:00 Jesusita Y HEALTH 350.1.13.10 ity of [place] [id number] [address] 2021-02-07 2021-02-07 Telephone Ernesto [facility] 1.2.840.114 [id number] Univers 00:00:00 00:00:00 Shannan Y HEALTH 350.1.13.10 i ty of CL[place] [id number] [address] 2021-02-07 2021-02-07 Telephone [place] [facility] 1.2.840.114 [id number] Univers 00:00:00 00:00:00 Jesusita Y HEALTH 350.1.13.10 ity of CL[place] [id number] [address] 2021-02-06 2021-02-06 Jem Carrasco [facility] 1.2.701.826 [id number] Univers 00:00:00 00:00:00 Management Jesusita Y HEALTH 350.1.13.10 ity of [place] [id number] [address] 2021-02-05 2021-02-05 [facility] [place] [facility] 1.2.951.519 [id number] Univers 13:58:27 15:35:29 Jesusita Y HEALTH 350.1.13.10 ity of Visit CLINICS [place] [id number] [facility] 113 Branch 2021-02-05 2021-02-05 Outpatient ALEXANDRIA [facility] [id number] Univers 14:15:00 14:15:00 JESUSITA [id number] [facility] 2021-02-05 2021-02-05 Outpatient R ALEXANDRIA [facility] [id number] Univers 13:45:00 13:45:00 JESUSITA [facility] 2021-02-05 2021-02-05 Orders Doctor KAYLEIGH 1.2.840.114 [id number] Univers 00:00:00 00:00:00 Only Unassigned, HATTIE 350.1.13.10 ity of [place] [facility] 4.2.7.2.[address] Ricky [id number] [facility] 009 Branch 2021-01-31 2021-01-31 Outpatient R ALEXANDRIA [facility] [id number] Univers 14:15:00 14:15:00 JESUSITA [facility] 2021-01-31 2021-01-31 Outpatient R [facility] [id number] Univers 13:45:00 13:45:00 [id number] [facility] 2020-11-21 2020-11-21 Outpatient R LEONCIO [facility] [id number] Univers 15:00:00 15:00:00 FLORENCE [id number] [facility] 2020-11-21 2020-11-21 Outpatient Brigido HARRISON [facility] [id number] Univers 15:00:00 15:00:00 FLORENCE [facility] 2020-11-21 2020-11-21 Telephone Leoncio [facility] ..840.114 [id number] Univers 00:00:00 00:00:00 Florence Lozano [employer] 350.1.13.[address] [facility] 4.2.7.2.686 Ricky as MATERNAL [phone] [facility] ical & CHILD [address] [place] [address] 2020-11-20 2020-11-20 Telephone Oralia TXFAITH 1..840.114 [id number] Univers 00:00:00 00:00:00 Dania Landin [employer] 350.1.13.10 ity [facility] 4.2.7.2.686 Ricky as MATERNAL [id number] Med ical & CHILD [address] [place] [address] 2020-11-02 2020-11-02 Outpatient R [facility] [id number] Univers 11:00:00 11:00:00 [id number] ity [facility] 2020-11-02 2020-11-02 Outpatient P [facility] [id number] Univers 11:00:00 11:00:00 ity [facility] 2020-10-29 2020-10-30 [facility] [id number] [id number] Univers 08:18:00 15:00:00 Encounter Ananda KUHN 350.1.13.[address] [facility] 4.2.7.2.686 Ricky as [id number] [facility] 063 [place] 2020-10-25 2020-10-25 Telephone KAYLEIGH Barlow 1.2.840.114 [id number] Univers 00:00:00 00:00:00 Janneth DUMONTY 350.1.13.10 it y of [facility] 4.2.7.2.686 Ricky as [id number] [facility] [facility] [address] [place] 2020-10-21 2020-10-23 [facility] KAYLEIGH Palacios 1.2.840.114 [id number] Univers 14:18:00 10:01:00 Encounter Tania KUHN 350.1.13.10 ity [facility] 4.2.7.2.686 [place] [phone] [facility] [address] [place] 2020-09-05 2020-09-05 Outpatient R [facility] [id number] Univers 13:00:00 13:00:00 [id number] ity [facility] 2020-06-13 2020-06-13 Outpatient R [facility] [id number] -[id number] Univers 12:30:00 12:30:00 [id number] ity [facility] 2020-01-31 2020-01-31 Outpatient R [facility] [id number] -[id number] Univers 10:00:00 10:00:00 [id number] ity [facility] 2020-01-21 2020-01-21 Telephone Fleeks, [facility] 1.2.019.676 [id number] Univers 00:00:00 00:00:00 Buddy HEALTH 350.1.13.10 it y [place] [phone] Med [address] 2020-01-17 2020-01-17 [facility] 1.2.840.114 [id number] Univers 00:00:00 00:00:00 Kate [employer] 350.1.13.10 it y of REGIONAL 4.2.7.2.686 Ricky as MATERNAL [phone] [facility] & CHILD [address] [place] [address] 2019-12-24 2019-12-27 [facility] Batista KAYLEIGH 1.2.450.866 [id number] Univers 13:43:00 17:24:00 [facility] Ananda KUHN 350.1.13.10 ity of [facility] 4.2.7.2.686 Ricky as [phone] [address] 2019-12-24 2019-12-24 Telephone [facility] 1.2.840.114 [id number] Univers 00:00:00 00:00:00 Kate [employer] 350.1.13.10 it y of REGIONAL 4.2.7.2.686 Ricky as MATERNAL [id number] [address] 2019-12-23 2019-12-23 [facility] 1.2.840.114 [id number] Univers 00:00:00 00:00:00 Kate [employer] 350.1.13.10 it y of REGIONAL 4.2.7.2.686 Ricky as MATERNAL [id number] [facility] CHILD [address] [place] [address] 2019-12-20 2019-12-20 Telephone [facility] 1.2.634.966 [id number] Univers 00:00:00 00:00:00 Buddy HEALTH 350.1.13.10 it [place] [phone] Med ical RON [address] [place] [address] 2019-12-16 2019-12-16 Rate Manager 1, Dic-Mfm Room [facility] 1.2. 840.114 [id number] Univers 14:28:18 15:17:19 Visit Roro Graham [employer] 350.1.13.10 ity of REGIONAL 4.2.7.2.686 Ricky as MATERNAL [phone] [facility] & CHILD [address] [place] [address] 2019-12-14 2019-12-14 [facility] 1.2.840.114 [id number] Univers 00:00:00 00:00:00 [facility] HEALTH 350.1.13.10 it y of [place] FAMILY 4.2.7.2.686 Ricky as MEDICINE [phone] [address] 2019-12-14 2019-12-14 [facility] 1.2.840.114 [id number] Univers 00:00:00 00:00:00 [facility] 350.1.13.10 it y of [place] FAMILY 4.2.7.2.686 Ricky as MEDICINE [id number] [address] 2019-12-14 2019-12-14 [facility] 1.2.840.114 [id number] Univers 00:00:00 00:00:00 [facility] HEALTH 350.1.13.10 it y of [place] FAMILY 4.2.7.2.686 Ricky as MEDICINE [phone] [address] 2019-12-13 2019-12-13 [facility]phone [facility] 1.2.800.456 [id number] Univers 00:00:00 00:00:00 Buddy HEALTH 350.1.13.10 it [place] [phone] [address] 2019-12-10 2019-12-11 Routine Francis Harvey [place] [facility] 1 .2.840.114 [id number] Univers 10:33:57 09:53:36 Ibidapo-Obe, [place] HEALTH 350.1 .13.10 ity of Visit [place] [phone] [address] 2019-12-09 2019-12-09 Patient Noah [facility] 1.2.840.114 [id number] Univers 00:00:00 00:00:00 Outreach ach, HEALTH 350.1.13.10 i ty of [place].2.[place] [id number] [address] 2019-12-08 2019-12-08 Routine Buddy Albert [facility] 1.2.840.114 [id number] [facility] 16:06:37 17:10:12 Herminia, Mu S HEALTH 350.1.13.10 ity of Visit [place] [id number] [address] 2019-08-06 2019-08-06 Telephone Sandy Albert 1.2.940.719 [id number] 00:00:00 00:00:00 Buddy Kuhn 350.1.13.10 Hospital 4.2.7.2.686 [phone] [facility] 2019-08-06 2019-08-06 Telephone Sandy Albert 1.2.862.594 [id number] [facility] 00:00:00 00:00:00 Buddy Kuhn 350.1.13.10 it y of Hospital 4.2.7.2.686 Ricky as [phone] [address] 2019-07-14 2019-07-30 Initial Buddy Albert [facility] 1.2.840.114 [id number] [facility] 13:23:04 09:02:07 [facility] HEALTH 350.1.13 .10 ity of Visit [place] [id number] [address] 2019-07-14 2019-07-30 Initial Roosevelt [facility] 1.2.840.114 [id number] 13:23:04 09:02:07 Buddy HEALTH 350.1.13.10 Visit FAMILY 4.2.7.2.686 MEDICINE [id number] [address] 2019-07-16 2019-07-16 Jem Albert [facility] 1.2.840.114 [id number] Univers 00:00:00 00:00:00 Management Buddy HEALTH 350.1.13.10 ity of [place] [id number] Med ical RON [address] [place] [address] 2019-07-15 2019-07-15 Telephone Roosevelt [facility] 1.2.444.636 [id number] Univers 00:00:00 00:00:00 Buddy HEALTH 350.1.13.10 it y [place] [phone] Med ical RON [address] [facility] 2019-07-15 2019-07-15 Jem Albert [facility] 1.2.840.114 [id number] Univers 00:00:00 00:00:00 Management Buddy HEALTH 350.1.13.10 ity of [place] [phone] Med ical RON 0[address] [facility] 2019-07-10 2019-07-10 Emergency [facility] 1.2.484.847 [id number] Univers 14:11:41 16:29:00 [facility] 350.1.13.10 it [place]2.[place] [phone] [address] ([facility]) Results Test Description Test Time Test Comments Results Result Comments Source RHO (D) IMMUNE GLOBULIN 2021-09-04 12:19:29 Test Item Value Reference Range Interpretation Comme nts RHIG CANDIDATE? (test code = No- see comment Patient is not a candidate for RhIg- 5055) Patient is Rh P ositive.Performed at [facility] Laboratory Services - [facility] Blood [address] [place] [address]Ioto Free: [phone] A No. [id number] [facility] with Yklwkdjxftxj1921-27-60 06:42:57 Test Item Value Reference Range Interpretation Comments WBC (test code = See_Comment H [Automated 6690-2) message] The sy stem which generated this result transmitted reference range : 4.30 - 11.10 10*3/?L. The reference range was not used to interpret this result as normal/abnormal . RBC (test code = See_Comment L [Automated 789-8) message] The sy stem which generated this result transmitted reference range : 3.93 - 5.25 10*6/?L. The reference range was not used to interpret this result as normal/abnormal . HGB (test code = 6.8 g/dL 11.6-15.0 L 718-7) HCT (test code = 24.8 % 35.7-45.2 L 4544-3) MCV (test code = 68.9 fL 80.6-95.5 L 787-2) MCH (test code = 18.9 pg 25.9-32.8 L 785-6) MCHC (test code = 27.4 g/dL 31.6-35.1 L 786-4) RDW-SD (test code = 60.6 fL 39.0-49.9 H 89036-5) RDW-CV (test code = 25.6 % 12.0-15.5 H 788-0) PLT (test code = See_Comment [Automated 777-3) message] The sy stem which generated this result transmitted reference range : 166 - 358 10*3/ ?L. The reference r bladimir was not used to interpret this result as normal/abnormal . MPV (test code = Not Measure d 51959-5) IPF % (test code = 9.2 % 1.3-7.7 H Platelet count 6559198500) measured by fluorescence method. NRBC/100 WBC (test See_Comment [Automat ed code = 5136009126) message] The system which generated this result transmitted reference range : 0.0 - 10.0 /100 WBCs. The refer ence range was not u sed to interpret th is result as normal/abnormal . NRBC x10^3 (test code See_Comment [Auto mated = 3703132914) message] The s ystem which generated this result transmitted reference range : 10*3/?L. The reference range was not used to interpret this result as normal/abnormal . GRAN MAT (NEUT) % 58.6 % (test code = 770-8) IMM GRAN % (test code 0.50 % = 5295818445) LYMPH % (test code = 32.1 % 736-9) MONO % (test code = 7.6 % 5905-5) EOS % (test code = 1.0 % 713-8) BASO % (test code = 0.2 % 706-2) GRAN MAT x10^3(ANC) 6.76 10*3/uL 1.88-7.09 (test code = 6207319984) IMM GRAN x10^3 (test 0.06 10*3/uL 0.00-0.06 code = 4830610083) LYMPH x10^3 (test code 3.71 10*3/uL 1.32-3.29 H = 731-0) MONO x10^3 (test code 0.88 10*3/uL 0.33-0.92 = 742-7) EOS x10^3 (test code = 0.11 10*3/uL 0.03-0.39 711-2) BASO x10^3 (test code <0.03 0.01-0.07 = 704-7) Lab Interpretation Abnormal (test code = 70141-6) [facility] Nmuih5054[facility]78[facility]99 23:59:13 Test Item Value Reference Range Interpretation Comments URIC ACID (test code = 7562425594) 4.1 mg/dL 2.9-6.0 Lab Interpretation (test code = Normal 67936-8) [facility] (Asparate Amino Transfer)2021-09-02 23:59:13 Test Item Value Reference Range Interpretation Comments AST(SGOT) (test code = 4471244486) 25 U/L 13-40 Lab Interpretation (test code = Normal 72598-8) [facility] Yiisk7867-31-80 23:59:13 Test Item Value Reference Range Interpretation Comments URIC ACID (test code = 5624972284) 4.1 mg/dL 2.9-6.0 Lab Interpretation (test code = Normal 37294-4) [facility] (Asparate Amino Transfer)2021-09-02 23:59:13 Test Item Value Reference Range Interpretation Comments AST(SGOT) (test code = 7116696444) 25 U/L 13-40 Lab Interpretation (test code = Normal 51948-1) [facility] Ggmxr5021-08-45 23:59:13 Test Item Value Reference Range Interpretation Comments URIC ACID (test code = 2598968272) 4.1 mg/dL 2.9-6.0 Lab Interpretation (test code = Normal 11854-1) [facility]Asparate Amino [facility]2021-09-02 23:59:13 Test Item Value Reference Range Interpretation Comments AST(SGOT) (test code = 9419008067) 25 U/L 13-40 Lab Interpretation (test code = Normal 10904-7) [facility] Vcfau4483-25-83 23:59:12 Test Item Value Reference Range Interpretation Comments CREATININE (test code 0.54 mg/dL 0.50-1.04 = 9178809660) eGFR (test code = mL/min/1.73m2 9520425717) SHADI (test code = SHADI) Association of Glomerular Filtration Rate (GFR) and Staging of Kidney Disease* + + +- +| GFR (mL/min/1.73 m2) ?| With Kidney Damage ?| ?Without Kidney Damage+ ------+ ----+ ------+| ?>90 ?| ?Stage one ?| ? Normal ?+ -+ + -+| ?60-89 ?| ?Stage two ?| ? Decreased GFR ? + + +- +| ?30-59 ?| ?Stage three ?| ? Stage three ? + + +- +| ?15-29 ?| ?Stage four ? | ? Stage four ?+ -+ + -+| ?<15 (or dialysis) ? ?| ?Stage five ? | ? Stage five ?+ -+ + -+ *Each stage assumes the associated GFR level has been in effect for at least three months. ?Stages 1 to 5, with or without kidney disease, indicate chronic kidney disease. Notes: Determination of stages one and two (with eGFR >59mL/min/1.73 m2) requires estimation of kidney damage for at least three months as defined by structural or functional abnormalities of the kidney, manifested by either:Pathological abnormalities or Markers of kidney damage (including abnormalities in the composition of the blood or urine or abnormalities in imaging tests). [facility] Amino Transferase (SGPT)2021-09-02 23:59:12 Test Item Value Reference Range Interpretation Comments ALTv (test code = 1742-6) 14 U/L 5-35 Lab Interpretation (test code = Normal 55851-2) [facility] Khdth9125-02-46 23:59:12 Test Item Value Reference Range Interpretation Comments CREATININE (test code 0.54 mg/dL 0.50-1.04 = 6488315721) eGFR (test code = mL/min/1.73m2 9388884077) SHADI (test code = SHADI) Association of Glomerular Filtration Rate (GFR) and Staging of Kidney Disease* + + +- +| GFR (mL/min/1.73 m2) ?| With Kidney Damage ?| ?Without Kidney Damage+ ------+ ----+ ------+| ?>90 ?| ?Stage one ?| ? Normal ?+ -+ + -+| ?60-89 ?| ?Stage two ?| ? Decreased GFR ? + + +- +| ?30-59 ?| ?Stage three ?| ? Stage three ? + + +- +| ?15-29 ?| ?Stage four ? | ? Stage four ?+ -+ + -+| ?<15 (or dialysis) ? ?| ?Stage five ? | ? Stage five ?+ -+ + -+ *Each stage assumes the associated GFR level has been in effect for at least three months. ?Stages 1 to 5, with or without kidney disease, indicate chronic kidney disease. Notes: Determination of stages one and two (with eGFR >59mL/min/1.73 m2) requires estimation of kidney damage for at least three months as defined by structural or functional abnormalities of the kidney, manifested by either:Pathological abnormalities or Markers of kidney damage (including abnormalities in the composition of the blood or urine or abnormalities in imaging tests). [facility] (SGPT)2021-09-02 23:59:12 Test Item Value Reference Range Interpretation Comments ALTv (test code = 1742-6) 14 U/L 5-35 Lab Interpretation (test code = Normal 34126-5) [facility] Qgdyl7956-78-87 23:59:12 Test Item Value Reference Range Interpretation Comments CREATININE (test code 0.54 mg/dL 0.50-1.04 = 7576171637) eGFR (test code = mL/min/1.73m2 3934378549) SHADI (test code = SHADI) Association of Glomerular Filtration Rate (GFR) and Staging of Kidney Disease* + + +- +| GFR (mL/min/1.73 m2) ?| With Kidney Damage ?| ?Without Kidney Damage+ ------+ ----+ ------+| ?>90 ?| ?Stage one ?| ? Normal ?+ -+ + -+| ?60-89 ?| ?Stage two ?| ? Decreased GFR ? + + +- +| ?30-59 ?| ?Stage three ?| ? Stage three ? + + +- +| ?15-29 ?| ?Stage four ? | ? Stage four ?+ -+ + -+| ?<15 (or dialysis) ? ?| ?Stage five ? | ? Stage five ?+ -+ + -+ *Each stage assumes the associated GFR level has been in effect for at least three months. ?Stages 1 to 5, with or without kidney disease, indicate chronic kidney disease. Notes: Determination of stages one and two (with eGFR >59mL/min/1.73 m2) requires estimation of kidney damage for at least three months as defined by structural or functional abnormalities of the kidney, manifested by either:Pathological abnormalities or Markers of kidney damage (including abnormalities in the composition of the blood or urine or abnormalities in imaging tests). [facility] (SGPT)2021-09-02 23:59:12 Test Item Value Reference Range Interpretation Comments ALTv (test code = 1742-6) 14 U/L 5-35 Lab Interpretation (test code = Normal 73484-7) [facility] (LDH)2021-09-02 23:58:31 Test Item Value Reference Range Interpretation Comments LDH (test code = 9992895501) 837 U/L 300-600 H Lab Interpretation (test code = Abnormal 65938-2) [facility]LDH)2021-09-02 23:58:31 Test Item Value Reference Range Interpretation Comments LDH (test code = 1490143888) 837 U/L 300-600 H Lab Interpretation (test code = Abnormal 67818-4) [facility] 23:58:31 Test Item Value Reference Range Interpretation Comments LDH (test code = 8006586584) 837 U/L 300-600 H Lab Interpretation (test code = Abnormal 06876-8) [facility] with Bgsvhfosmadb2700-28-89 23:53:50 Test Item Value Reference Range Interpretation Comments WBC (test code = See_Comment H [Automated 6690-2) message] The sy stem which generated this result transmitted reference range : 4.30 - 11.10 10*3/?L. The reference range was not used to interpret this result as normal/abnormal . RBC (test code = See_Comment L [Automated 789-8) message] The sy stem which generated this result transmitted reference range : 3.93 - 5.25 10*6/?L. The reference range was not used to interpret this result as normal/abnormal . HGB (test code = 7.1 g/dL 11.6-15.0 L 718-7) HCT (test code = 25.4 % 35.7-45.2 L 4544-3) MCV (test code = 67.7 fL 80.6-95.5 L 787-2) MCH (test code = 18.9 pg 25.9-32.8 L 785-6) MCHC (test code = 28.0 g/dL 31.6-35.1 L 786-4) RDW-SD (test code = 60.8 fL 39.0-49.9 H 58791-1) RDW-CV (test code = 25.6 % 12.0-15.5 H 788-0) PLT (test code = See_Comment [Automated 777-3) message] The sy stem which generated this result transmitted reference range : 166 - 358 10*3/ ?L. The reference r bladimir was not used to interpret this result as normal/abnormal . MPV (test code = Not Measure d 41175-2) IPF % (test code = 8.2 % 1.3-7.7 H Platelet count 5624469126) measured by fluorescence method. NRBC/100 WBC (test See_Comment [Automat ed code = 9889901213) message] The system which generated this result transmitted reference range : 0.0 - 10.0 /100 WBCs. The refer ence range was not u sed to interpret th is result as normal/abnormal . NRBC x10^3 (test code See_Comment [Auto mated = 9152322325) message] The s ystem which generated this result transmitted reference range : 10*3/?L. The reference range was not used to interpret this result as normal/abnormal . GRAN MAT (NEUT) % 88.7 % (test code = 770-8) IMM GRAN % (test code 0.60 % = 2709575951) LYMPH % (test code = 8.1 % 736-9) MONO % (test code = 2.5 % 5905-5) EOS % (test code = 0.0 % 713-8) BASO % (test code = 0.1 % 706-2) GRAN MAT x10^3(ANC) 11.89 10*3/uL 1.88-7.09 H (test code = 4896224882) IMM GRAN x10^3 (test 0.08 10*3/uL 0.00-0.06 H code = 3757231106) LYMPH x10^3 (test 1.09 10*3/uL 1.32-3.29 L code = 731-0) MONO x10^3 (test code 0.34 10*3/uL 0.33-0.92 = 742-7) EOS x10^3 (test code <0.03 0.03-0.39 L = 711-2) BASO x10^3 (test code <0.03 0.01-0.07 = 704-7) Lab Interpretation Abnormal (test code = 87711-2) [facility] with Watweyfoizqz6033-52-72 23:53:50 Test Item Value Reference Range Interpretation Comments WBC (test code = See_Comment H [Automated 6690-2) message] The sy stem which generated this result transmitted reference range : 4.30 - 11.10 10*3/?L. The reference range was not used to interpret this result as normal/abnormal . RBC (test code = See_Comment L [Automated 789-8) message] The sy stem which generated this result transmitted reference range : 3.93 - 5.25 10*6/?L. The reference range was not used to interpret this result as normal/abnormal . HGB (test code = 7.1 g/dL 11.6-15.0 L 718-7) HCT (test code = 25.4 % 35.7-45.2 L 4544-3) MCV (test code = 67.7 fL 80.6-95.5 L 787-2) MCH (test code = 18.9 pg 25.9-32.8 L 785-6) MCHC (test code = 28.0 g/dL 31.6-35.1 L 786-4) RDW-SD (test code = 60.8 fL 39.0-49.9 H 96267-0) RDW-CV (test code = 25.6 % 12.0-15.5 H 788-0) PLT (test code = See_Comment [Automated 777-3) message] The sy stem which generated this result transmitted reference range : 166 - 358 10*3/ ?L. The reference r bladimir was not used to interpret this result as normal/abnormal . MPV (test code = Not Measure d 04573-6) IPF % (test code = 8.2 % 1.3-7.7 H Platelet count 0819253283) measured by fluorescence method. NRBC/100 WBC (test See_Comment [Automat ed code = 2183945961) message] The system which generated this result transmitted reference range : 0.0 - 10.0 /100 WBCs. The refer ence range was not u sed to interpret th is result as normal/abnormal . NRBC x10^3 (test code See_Comment [Auto mated = 5776988460) message] The s ystem which generated this result transmitted reference range : 10*3/?L. The reference range was not used to interpret this result as normal/abnormal . GRAN MAT (NEUT) % 88.7 % (test code = 770-8) IMM GRAN % (test code 0.60 % = 7543452504) LYMPH % (test code = 8.1 % 736-9) MONO % (test code = 2.5 % 5905-5) EOS % (test code = 0.0 % 713-8) BASO % (test code = 0.1 % 706-2) GRAN MAT x10^3(ANC) 11.89 10*3/uL 1.88-7.09 H (test code = 5803173377) IMM GRAN x10^3 (test 0.08 10*3/uL 0.00-0.06 H code = 1395873757) LYMPH x10^3 (test 1.09 10*3/uL 1.32-3.29 L code = 731-0) MONO x10^3 (test code 0.34 10*3/uL 0.33-0.92 = 742-7) EOS x10^3 (test code <0.03 0.03-0.39 L = 711-2) BASO x10^3 (test code <0.03 0.01-0.07 = 704-7) Lab Interpretation Abnormal (test code = 65413-0) [facility] with Pnyoivvqgcoj7828-84-36 23:53:50 Test Item Value Reference Range Interpretation Comments WBC (test code = See_Comment H [Automated 6690-2) message] The sy stem which generated this result transmitted reference range : 4.30 - 11.10 10*3/?L. The reference range was not used to interpret this result as normal/abnormal . RBC (test code = See_Comment L [Automated 789-8) message] The sy stem which generated this result transmitted reference range : 3.93 - 5.25 10*6/?L. The reference range was not used to interpret this result as normal/abnormal . HGB (test code = 7.1 g/dL 11.6-15.0 L 718-7) HCT (test code = 25.4 % 35.7-45.2 L 4544-3) MCV (test code = 67.7 fL 80.6-95.5 L 787-2) MCH (test code = 18.9 pg 25.9-32.8 L 785-6) MCHC (test code = 28.0 g/dL 31.6-35.1 L 786-4) RDW-SD (test code = 60.8 fL 39.0-49.9 H 74075-0) RDW-CV (test code = 25.6 % 12.0-15.5 H 788-0) PLT (test code = See_Comment [Automated 777-3) message] The sy stem which generated this result transmitted reference range : 166 - 358 10*3/ ?L. The reference r bladimir was not used to interpret this result as normal/abnormal . MPV (test code = Not Measure d 00203-4) IPF % (test code = 8.2 % 1.3-7.7 H Platelet count 4137299522) measured by fluorescence method. NRBC/100 WBC (test See_Comment [Automat ed code = 5480989633) message] The system which generated this result transmitted reference range : 0.0 - 10.0 /100 WBCs. The refer ence range was not u sed to interpret th is result as normal/abnormal . NRBC x10^3 (test code See_Comment [Auto mated = 3173608639) message] The s ystem which generated this result transmitted reference range : 10*3/?L. The reference range was not used to interpret this result as normal/abnormal . GRAN MAT (NEUT) % 88.7 % (test code = 770-8) IMM GRAN % (test code 0.60 % = 3377150006) LYMPH % (test code = 8.1 % 736-9) MONO % (test code = 2.5 % 5905-5) EOS % (test code = 0.0 % 713-8) BASO % (test code = 0.1 % 706-2) GRAN MAT x10^3(ANC) 11.89 10*3/uL 1.88-7.09 H (test code = 8201955987) IMM GRAN x10^3 (test 0.08 10*3/uL 0.00-0.06 H code = 7202715602) LYMPH x10^3 (test 1.09 10*3/uL 1.32-3.29 L code = 731-0) MONO x10^3 (test code 0.34 10*3/uL 0.33-0.92 = 742-7) EOS x10^3 (test code <0.03 0.03-0.39 L = 711-2) BASO x10^3 (test code <0.03 0.01-0.07 = 704-7) Lab Interpretation Abnormal (test code = 77086-0) [facility] CORD [id number] 17:36:43 Test Item Value Reference Range Interpretation Comments VENOUS BASE EXCESS, CORD mEq/L (test code = 2064435397) VENOUS PH, CORD (test 7.25-7.45 code = 8859017376) VENOUS PC02, CORD (test See_Comment H [Au tomated message] code = 0581873501) The syste m which generated this result transmitted ref erence range: 27 - 49 mmHg. The reference r bladimir was not used to interpret this result as normal/abnor mal. VENOUS PO2, CORD (test See_Comment [Aut omated message] code = 1505714024) The syste m which generated this result transmitted ref erence range: 17 - 41 mmHg. The reference r bladimir was not used to interpret this result as normal/abnor mal. VENOUS BICARBONATE, CORD See_Comment [A utomated message] (test code = 1901207351) The system which generated this result transmitted ref erence range: 12 - 29 mEq/L. The reference r bladimir was not used to interpret this result as normal/abnor mal. Lab Interpretation (test Abnormal code = 66763-2) [facility] CORD [id number] 17:36:43 Test Item Value Reference Range Interpretation Comments VENOUS BASE EXCESS, CORD mEq/L (test code = 8444744872) VENOUS PH, CORD (test 7.25-7.45 code = [id number]) VENOUS PC02, CORD (test See_Comment H [Au tomated message] code = [id number]) The syste m which generated this result transmitted ref erence range: 27 - 49 mmHg. The reference r bladimir was not used to interpret this result as normal/abnor mal. VENOUS PO2, CORD (test See_Comment [Aut omated message] code = [id number]) The syste m which generated this result transmitted ref erence range: 17 - 41 mmHg. The reference r bladimir was not used to interpret this result as normal/abnor mal. VENOUS BICARBONATE, CORD See_Comment [A utomated message] (test code = 9392935572) The system which generated this result transmitted ref erence range: 12 - 29 mEq/L. The reference r bladimir was not used to interpret this result as normal/abnor mal. Lab Interpretation (test Abnormal code = 96718-7) [facility] [id number] 17:36:43 Test Item Value Reference Range Interpretation Comments VENOUS BASE EXCESS, CORD mEq/L (test code = 1101571648) VENOUS PH, CORD (test 7.25-7.45 code = 6951675139) VENOUS PC02, CORD (test See_Comment H [Au tomated message] code = 1066928647) The syste m which generated this result transmitted ref erence range: 27 - 49 mmHg. The reference r bladimir was not used to interpret this result as normal/abnor mal. VENOUS PO2, CORD (test See_Comment [Aut omated message] code = 1889934581) The syste m which generated this result transmitted ref erence range: 17 - 41 mmHg. The reference r bladimir was not used to interpret this result as normal/abnor mal. VENOUS BICARBONATE, CORD See_Comment [A utomated message] (test code = 5724468816) The system which generated this result transmitted ref erence range: 12 - 29 mEq/L. The reference r bladimir was not used to interpret this result as normal/abnor mal. Lab Interpretation (test Abnormal code = 64273-2) [id number] 17:34:02 Test Item Value Reference Range Interpretation Comments BASE EXCESS, CORD mEq/L (test code = 3603024128) AC PH, CORD (BEAKER) 7.18-7.38 (test code = 1171546061) PC02, CORD (test code See_Comment [Auto mated message] The = 8346710483) system which g enerated this result transmit phyllis reference range : 32 - 66 mmHg. The refer ence range was not used to interpret this result as normal/abnormal . PO2, CORD (test code See_Comment [Autom ated message] The = 4401416352) system which g enerated this result transmit phyllis reference range : 10 - 30 mmHg. The refer ence range was not used to interpret this result as normal/abnormal . BICARBONATE, CORD See_Comment [Automate d message] The (test code = system which ge nerated this 3132273220) result transmit phyllis reference range : 17 - 27 mEq/L. The refe rence range was not used to interpret this result as normal/abnormal . [facility] CORD [id number] 17:34:02 Test Item Value Reference Range Interpretation Comments BASE EXCESS, CORD mEq/L (test code = 3385976509) AC PH, CORD (BEAKER) 7.18-7.38 (test code = 8423401058) PC02, CORD (test code See_Comment [Auto mated message] The = 9436488184) system which g enerated this result transmit phyllis reference range : 32 - 66 mmHg. The refer ence range was not used to interpret this result as normal/abnormal . PO2, CORD (test code See_Comment [Autom ated message] The = 3957391119) system which g enerated this result transmit phyllis reference range : 10 - 30 mmHg. The refer ence range was not used to interpret this result as normal/abnormal . BICARBONATE, CORD See_Comment [Automate d message] The (test code = system which ge nerated this 0559874823) result transmit phyllis reference range : 17 - 27 mEq/L. The refe rence range was not used to interpret this result as normal/abnormal . [facility] CORD [id number] 17:34:02 Test Item Value Reference Range Interpretation Comments BASE EXCESS, CORD mEq/L (test code = 4381859100) AC PH, CORD (BEAKER) 7.18-7.38 (test code = 4351244618) PC02, CORD (test code See_Comment [Auto mated message] The = 0412454746) system which g enerated this result transmit phyllis reference range : 32 - 66 mmHg. The refer ence range was not used to interpret this result as normal/abnormal . PO2, CORD (test code See_Comment [Autom ated message] The = 4416714836) system which g enerated this result transmit phyllis reference range : 10 - 30 mmHg. The refer ence range was not used to interpret this result as normal/abnormal . BICARBONATE, CORD See_Comment [Automate d message] The (test code = system which ge nerated this 1271911882) result transmit phyllis reference range : 17 - 27 mEq/L. The refe rence range was not used to interpret this result as normal/abnormal . [facility] (in units), 2 Units 2021-09-02 16:28:48 Test Item Value Reference Range Interpretation Comments Cross Match Result Compatible (test code = 4409) ISBT Blood Type Code (test code = 535498) Unit Blood Type (test B Pos code = 4410) Unit Number (test [id number] code = 4411) Blood Expiration Date & Time (test code = 131364) Status Information Issued (test code = 4412) Product Red Blood Cells Identification (test code = 4413) Product Code (test [id number] Performed at [facility] code = 4414) Laboratory Services [facility] Blood [address] [address]Zuds Free: [phone] A No. [id number] [facility] ([facility]), 2 Units 2021-09-02 16:28:48 Test Item Value Reference Range Interpretation Comments Cross Match Result Compatible (test code = 4409) ISBT Blood Type Code (test code = 308041) Unit Blood Type (test B Pos code = 4410) Unit Number (test [id number] code = 4411) Blood Expiration Date & Time (test code = 243509) Status Information Issued (test code = 4412) Product Red Blood Cells Identification (test code = 4413) Product Code (test [id number] Performed at [facility] code = 4414) Laboratory Services - [facility] Blood [address] s [address]Xsem Free: [phone] A No. [id number] [facility] Packed RBC (in units), 2 Units 2021-09-02 16:28:48 Test Item Value Reference Range Interpretation Comments Cross Match Result Compatible (test code = 4409) ISBT Blood Type Code (test code = 158728) Unit Blood Type (test B Pos code = 4410) Unit Number (test [id number] code = 4411) Blood Expiration Date & Time (test code = 400680) Status Information Issued (test code = 4412) Product Red Blood Cells Identification (test code = 4413) Product Code (test [id number] Performed at [facility] code = 4414) Laboratory Services - [facility] Blood [address] [address]Kmqh Free: [phone] A No. [id number] [facility] ONLY - SYPHILIS [id number] 14:54:37 Test Item Value Reference Range Interpretation Comments Syphilis IgG/IgM (test Non-reactive Non-reactive code = 13568-3) SHADI (test code = SHADI) Non-reactive - No serologic evidence of T. pallidum infection. Cannot exclude incubating or early syphilis. Submit a second specimen in 2-4 weeks if syphilis is clinically suspected. Equivocal - Further testing to follow. Reactive - Further testing to follow. Lab Interpretation (test Normal code = 51330-0) [facility] ONLY - [place] [id number] 14:54:37 Test Item Value Reference Range Interpretation Comments Syphilis IgG/IgM (test Non-reactive Non-reactive code = 93672-6) SHADI (test code = SHDAI) Non-reactive - No serologic evidence of T. pallidum infection. Cannot exclude incubating or early syphilis. Submit a second specimen in 2-4 weeks if syphilis is clinically suspected. Equivocal - Further testing to follow. Reactive - Further testing to follow. Lab Interpretation (test Normal code = 96434-5) [facility] ONLY - [place] IGG/[id number] 14:54:37 Test Item Value Reference Range Interpretation Comments Syphilis IgG/IgM (test Non-reactive Non-reactive code = 23569-0) SHADI (test code = SHADI) Non-reactive - No serologic evidence of T. pallidum infection. Cannot exclude incubating or early syphilis. Submit a second specimen in 2-4 weeks if syphilis is clinically suspected. Equivocal - Further testing to follow. Reactive - Further testing to follow. Lab Interpretation (test Normal code = 13291-8) [facility] /2 AG-AB WITH [id number] 07:02:49 Test Item Value Reference Range Interpretation Comments HIV Negative Negative Semi-quantitative (test code = 90834-3) SHADI (test code = Non-reactive for HIV-1 SHADI) antigen and HIV-1/HIV-2 antibodies. ?No laboratory evidence of HIV infection. ?Repeat in 2-4 weeks if acute HIV infection is suspected. [facility] WITH [id number] 07:02:49 Test Item Value Reference Range Interpretation Comments HIV Negative Negative Semi-quantitative (test code = 51285-8) SHADI (test code = Non-reactive for HIV-1 SHADI) antigen and HIV-1/HIV-2 antibodies. ?No laboratory evidence of HIV infection. ?Repeat in 2-4 weeks if acute HIV infection is suspected. [facility] WITH [id number] 07:02:49 Test Item Value Reference Range Interpretation Comments HIV Negative Negative Semi-quantitative (test code = 25491-7) SHADI (test code = Non-reactive for HIV-1 SHADI) antigen and HIV-1/HIV-2 antibodies. ?No laboratory evidence of HIV infection. ?Repeat in 2-4 weeks if acute HIV infection is suspected. [facility] Surface [id number] 05:56:23 Test Item Value Reference Range Interpretation Comments HBsAg Semi-Quantitative (test code = Negative Negative 5195-3) [facility] [id number] 05:56:23 Test Item Value Reference Range Interpretation Comments HBsAg Semi-Quantitative (test code = Negative Negative 5195-3) [facility] Gpcpwbo1085-10-06 05:56:23 Test Item Value Reference Range Interpretation Comments HBsAg Semi-Quantitative (test code = Negative Negative 5195-3) [facility] Center[facility]act[facility] Kqabsahgzycig7179-60-10 05:19:21 Test Item Value Reference Range Interpretation Comments LDH (test code = 4433770528) 687 U/L 300-600 H Lab Interpretation (test code = Abnormal 74183-0) [facility] Bvzabewhmeiuj2595-59-09 05:19:21 Test Item Value Reference Range Interpretation Comments LDH (test code = 2788291782) 687 U/L 300-600 H Lab Interpretation (test code = Abnormal 06813-6) [facility] Wseehkxzpelze9221-63-31 05:19:21 Test Item Value Reference Range Interpretation Comments LDH (test code = 7930727651) 687 U/L 300-600 H Lab Interpretation (test code = Abnormal 09852-2) [facility] (Aspartate Amino Transfer ; SGOT) 2021-08-31 05:17:25 Test Item Value Reference Range Interpretation Comments AST(SGOT) (test code = 1882486395) 25 U/L 13-40 Lab Interpretation (test code = Normal 59659-8) [facility] [id number] 05:17:25 Test Item Value Reference Range Interpretation Comments URIC ACID (test code = 6206543305) 3.7 mg/dL 2.9-6.0 Lab Interpretation (test code = Normal 66898-7) [facility] (Aspartate Amino Transfer ; SGOT) 2021-08-31 05:17:25 Test Item Value Reference Range Interpretation Comments AST(SGOT) (test code = 8081413788) 25 U/L 13-40 Lab Interpretation (test code = Normal 48807-9) [facility] Center[facility] [id number] 05:17:25 Test Item Value Reference Range Interpretation Comments URIC ACID (test code = 1525498789) 3.7 mg/dL 2.9-6.0 Lab Interpretation (test code = Normal 68858-8) [facility] (Aspartate Amino Transfer ; SGOT) 2021-08-31 05:17:25 Test Item Value Reference Range Interpretation Comments AST(SGOT) (test code = 7926670485) 25 U/L 13-40 Lab Interpretation (test code = Normal 23172-4) [facility] Center[facility] Acid [id number] 05:17:25 Test Item Value Reference Range Interpretation Comments URIC ACID (test code = 6850120719) 3.7 mg/dL 2.9-6.0 Lab Interpretation (test code = Normal 78142-5) [facility] (Alanine Amino Transferase ; SGPT) 2021-08-31 05:17:24 Test Item Value Reference Range Interpretation Comments ALTv (test code = 1742-6) 14 U/L 5-35 Lab Interpretation (test code = Normal 77556-6) [facility] Center[facility]inine [id number] 05:17:24 Test Item Value Reference Range Interpretation Comments CREATININE (test code 0.59 mg/dL 0.50-1.04 = 7037428830) eGFR (test code = mL/min/1.73m2 6899757284) SHADI (test code = SHADI) Association of Glomerular Filtration Rate (GFR) and Staging of Kidney Disease* + + +- +| GFR (mL/min/1.73 m2) ?| With Kidney Damage ?| ?Without Kidney Damage+ ------+ ----+ ------+| ?>90 ?| ?Stage one ?| ? Normal ?+ -+ + -+| ?60-89 ?| ?Stage two ?| ? Decreased GFR ? + + +- +| ?30-59 ?| ?Stage three ?| ? Stage three ? + + +- +| ?15-29 ?| ?Stage four ? | ? Stage four ?+ -+ + -+| ?<15 (or dialysis) ? ?| ?Stage five ? | ? Stage five ?+ -+ + -+ *Each stage assumes the associated GFR level has been in effect for at least three months. ?Stages 1 to 5, with or without kidney disease, indicate chronic kidney disease. Notes: Determination of stages one and two (with eGFR >59mL/min/1.73 m2) requires estimation of kidney damage for at least three months as defined by structural or functional abnormalities of the kidney, manifested by either:Pathological abnormalities or Markers of kidney damage (including abnormalities in the composition of the blood or urine or abnormalities in imaging tests). [facility] (Alanine Amino Transferase ; SGPT) 2021-08-31 05:17:24 Test Item Value Reference Range Interpretation Comments ALTv (test code = 1742-6) 14 U/L 5-35 Lab Interpretation (test code = Normal 33836-2) [facility] Center[facility]inine [id number] 05:17:24 Test Item Value Reference Range Interpretation Comments CREATININE (test code 0.59 mg/dL 0.50-1.04 = 9630635257) eGFR (test code = mL/min/1.73m2 1385173968) SHADI (test code = SAHDI) Association of Glomerular Filtration Rate (GFR) and Staging of Kidney Disease* + + +- +| GFR (mL/min/1.73 m2) ?| With Kidney Damage ?| ?Without Kidney Damage+ ------+ ----+ ------+| ?>90 ?| ?Stage one ?| ? Normal ?+ -+ + -+| ?60-89 ?| ?Stage two ?| ? Decreased GFR ? + + +- +| ?30-59 ?| ?Stage three ?| ? Stage three ? + + +- +| ?15-29 ?| ?Stage four ? | ? Stage four ?+ -+ + -+| ?<15 (or dialysis) ? ?| ?Stage five ? | ? Stage five ?+ -+ + -+ *Each stage assumes the associated GFR level has been in effect for at least three months. ?Stages 1 to 5, with or without kidney disease, indicate chronic kidney disease. Notes: Determination of stages one and two (with eGFR >59mL/min/1.73 m2) requires estimation of kidney damage for at least three months as defined by structural or functional abnormalities of the kidney, manifested by either:Pathological abnormalities or Markers of kidney damage (including abnormalities in the composition of the blood or urine or abnormalities in imaging tests). [facility] (Alanine Amino Transferase ; SGPT) 2021-08-31 05:17:24 Test Item Value Reference Range Interpretation Comments ALTv (test code = 1742-6) 14 U/L 5-35 Lab Interpretation (test code = Normal 39951-6) [facility]Cre[facility]ine Equqr9513-31-28 05:17:24 Test Item Value Reference Range Interpretation Comments CREATININE (test code 0.59 mg/dL 0.50-1.04 = 6173677213) eGFR (test code = mL/min/1.73m2 7627930949) SHADI (test code = SHADI) Association of Glomerular Filtration Rate (GFR) and Staging of Kidney Disease* + + +- +| GFR (mL/min/1.73 m2) ?| With Kidney Damage ?| ?Without Kidney Damage+ ------+ ----+ ------+| ?>90 ?| ?Stage one ?| ? Normal ?+ -+ + -+| ?60-89 ?| ?Stage two ?| ? Decreased GFR ? + + +- +| ?30-59 ?| ?Stage three ?| ? Stage three ? + + +- +| ?15-29 ?| ?Stage four ? | ? Stage four ?+ -+ + -+| ?<15 (or dialysis) ? ?| ?Stage five ? | ? Stage five ?+ -+ + -+ *Each stage assumes the associated GFR level has been in effect for at least three months. ?Stages 1 to 5, with or without kidney disease, indicate chronic kidney disease. Notes: Determination of stages one and two (with eGFR >59mL/min/1.73 m2) requires estimation of kidney damage for at least three months as defined by structural or functional abnormalities of the kidney, manifested by either:Pathological abnormalities or Markers of kidney damage (including abnormalities in the composition of the blood or urine or abnormalities in imaging tests). [facility] with Enmkgmnrwvux0309-29-35 05:10:42 Test Item Value Reference Range Interpretation Comments WBC (test code = See_Comment [Automated 7990-2) message] The sy stem which generated this result transmitted reference range : 4.30 - 11.10 10*3/?L. The reference range was not used to interpret this result as normal/abnormal . RBC (test code = See_Comment [Automated 709-8) message] The sy stem which generated this result transmitted reference range : 3.93 - 5.25 10*6/?L. The reference range was not used to interpret this result as normal/abnormal . HGB (test code = 6.8 g/dL 11.6-15.0 L 718-7) HCT (test code = 25.8 % 35.7-45.2 L 4544-3) MCV (test code = 64.3 fL 80.6-95.5 L 787-2) MCH (test code = 17.0 pg 25.9-32.8 L 785-6) MCHC (test code = 26.4 g/dL 31.6-35.1 L 786-4) RDW-SD (test code = 45.3 fL 39.0-49.9 25830-7) RDW-CV (test code = 20.6 % 12.0-15.5 H 788-0) PLT (test code = See_Comment [Automated 777-3) message] The sy stem which generated this result transmitted reference range : 166 - 358 10*3/ ?L. The reference r bladimir was not used to interpret this result as normal/abnormal . MPV (test code = Not Measure d 07383-4) IPF % (test code = 10.9 % 1.3-7.7 H Platelet count [id number]) measured by fluorescence method. NRBC/100 WBC (test See_Comment [Automat ed code = 1913151864) message] The system which generated this result transmitted reference range : 0.0 - 10.0 /100 WBCs. The refer ence range was not u sed to interpret th is result as normal/abnormal . NRBC x10^3 (test code See_Comment [Auto mated = 0195816515) message] The s ystem which generated this result transmitted reference range : 10*3/?L. The reference range was not used to interpret this result as normal/abnormal . GRAN MAT (NEUT) % 62.9 % (test code = 770-8) IMM GRAN % (test code 0.40 % = 4425947198) LYMPH % (test code = 28.5 % 736-9) MONO % (test code = 7.4 % 5905-5) EOS % (test code = 0.7 % 713-8) BASO % (test code = 0.1 % 706-2) GRAN MAT x10^3(ANC) 6.57 10*3/uL 1.88-7.09 (test code = 6562407129) IMM GRAN x10^3 (test 0.04 10*3/uL 0.00-0.06 code = 5518647855) LYMPH x10^3 (test code 2.97 10*3/uL 1.32-3.29 = 731-0) MONO x10^3 (test code 0.77 10*3/uL 0.33-0.92 = 742-7) EOS x10^3 (test code = 0.07 10*3/uL 0.03-0.39 711-2) BASO x10^3 (test code <0.03 0.01-0.07 = 704-7) GIANT PLATELETS (test Present See_Comment A [Auto mated code = 5908-9) message] The system which generated this result transmitted reference range : (none). The reference range was not used to interpret this result as normal/abnormal . Lab Interpretation Abnormal (test code = 24662-4) [facility] with Vomgqkwvhqkf8100-00-66 05:10:42 Test Item Value Reference Range Interpretation Comments WBC (test code = See_Comment [Automated 6690-2) message] The sy stem which generated this result transmitted reference range : 4.30 - 11.10 10*3/?L. The reference range was not used to interpret this result as normal/abnormal . RBC (test code = See_Comment [Automated 789-8) message] The sy stem which generated this result transmitted reference range : 3.93 - 5.25 10*6/?L. The reference range was not used to interpret this result as normal/abnormal . HGB (test code = 6.8 g/dL 11.6-15.0 L 718-7) HCT (test code = 25.8 % 35.7-45.2 L 4544-3) MCV (test code = 64.3 fL 80.6-95.5 L 787-2) MCH (test code = 17.0 pg 25.9-32.8 L 785-6) MCHC (test code = 26.4 g/dL 31.6-35.1 L 786-4) RDW-SD (test code = 45.3 fL 39.0-49.9 67511-1) RDW-CV (test code = 20.6 % 12.0-15.5 H 788-0) PLT (test code = See_Comment [Automated 777-3) message] The sy stem which generated this result transmitted reference range : 166 - 358 10*3/ ?L. The reference r bladimir was not used to interpret this result as normal/abnormal . MPV (test code = Not Measure d 39486-3) IPF % (test code = 10.9 % 1.3-7.7 H Platelet count [id number]) measured by fluorescence method. NRBC/100 WBC (test See_Comment [Automat ed code = 3420662207) message] The system which generated this result transmitted reference range : 0.0 - 10.0 /100 WBCs. The refer ence range was not u sed to interpret th is result as normal/abnormal . NRBC x10^3 (test code See_Comment [Auto mated = 9954746102) message] The s ystem which generated this result transmitted reference range : 10*3/?L. The reference range was not used to interpret this result as normal/abnormal . GRAN MAT (NEUT) % 62.9 % (test code = 770-8) IMM GRAN % (test code 0.40 % = 6278639355) LYMPH % (test code = 28.5 % 736-9) MONO % (test code = 7.4 % 5905-5) EOS % (test code = 0.7 % 713-8) BASO % (test code = 0.1 % 706-2) GRAN MAT x10^3(ANC) 6.57 10*3/uL 1.88-7.09 (test code = 0486268321) IMM GRAN x10^3 (test 0.04 10*3/uL 0.00-0.06 code = 1001226689) LYMPH x10^3 (test code 2.97 10*3/uL 1.32-3.29 = 731-0) MONO x10^3 (test code 0.77 10*3/uL 0.33-0.92 = 742-7) EOS x10^3 (test code = 0.07 10*3/uL 0.03-0.39 711-2) BASO x10^3 (test code <0.03 0.01-0.07 = 704-7) GIANT PLATELETS (test Present See_Comment A [Auto mated code = 5908-9) message] The system which generated this result transmitted reference range : (none). The reference range was not used to interpret this result as normal/abnormal . Lab Interpretation Abnormal (test code = 39970-6) [facility] with Blpgnuabogfh1104-84-24 05:10:42 Test Item Value Reference Range Interpretation Comments WBC (test code = See_Comment [Automated 6690-2) message] The sy stem which generated this result transmitted reference range : 4.30 - 11.10 10*3/?L. The reference range was not used to interpret this result as normal/abnormal . RBC (test code = See_Comment [Automated 789-8) message] The sy stem which generated this result transmitted reference range : 3.93 - 5.25 10*6/?L. The reference range was not used to interpret this result as normal/abnormal . HGB (test code = 6.8 g/dL 11.6-15.0 L 718-7) HCT (test code = 25.8 % 35.7-45.2 L 4544-3) MCV (test code = 64.3 fL 80.6-95.5 L 787-2) MCH (test code = 17.0 pg 25.9-32.8 L 785-6) MCHC (test code = 26.4 g/dL 31.6-35.1 L 786-4) RDW-SD (test code = 45.3 fL 39.0-49.9 93970-1) RDW-CV (test code = 20.6 % 12.0-15.5 H 788-0) PLT (test code = See_Comment [Automated 777-3) message] The sy stem which generated this result transmitted reference range : 166 - 358 10*3/ ?L. The reference r bladimir was not used to interpret this result as normal/abnormal . MPV (test code = Not Measure d 10475-5) IPF % (test code = 10.9 % 1.3-7.7 H Platelet count [id number]) measured by fluorescence method. NRBC/100 WBC (test See_Comment [Automat ed code = 5285733106) message] The system which generated this result transmitted reference range : 0.0 - 10.0 /100 WBCs. The refer ence range was not u sed to interpret th is result as normal/abnormal . NRBC x10^3 (test code See_Comment [Auto mated = 7022493289) message] The s ystem which generated this result transmitted reference range : 10*3/?L. The reference range was not used to interpret this result as normal/abnormal . GRAN MAT (NEUT) % 62.9 % (test code = 770-8) IMM GRAN % (test code 0.40 % = 7284676576) LYMPH % (test code = 28.5 % 736-9) MONO % (test code = 7.4 % 5905-5) EOS % (test code = 0.7 % 713-8) BASO % (test code = 0.1 % 706-2) GRAN MAT x10^3(ANC) 6.57 10*3/uL 1.88-7.09 (test code = 0587343502) IMM GRAN x10^3 (test 0.04 10*3/uL 0.00-0.06 code = 4449240352) LYMPH x10^3 (test code 2.97 10*3/uL 1.32-3.29 = 731-0) MONO x10^3 (test code 0.77 10*3/uL 0.33-0.92 = 742-7) EOS x10^3 (test code = 0.07 10*3/uL 0.03-0.39 711-2) BASO x10^3 (test code <0.03 0.01-0.07 = 704-7) GIANT PLATELETS (test Present See_Comment A [Auto mated code = 5908-9) message] The system which generated this result transmitted reference range : (none). The reference range was not used to interpret this result as normal/abnormal . Lab Interpretation Abnormal (test code = 14411-8) [facility] ONCE [id number] 05:05:31 Test Item Value Reference Range Interpretation Comments ABO & RH (test code B POSITIVE Performe d at [facility] = 20) Laboratory Serv [facility] [place] [address] s [address]Zofh Free: [phone] A No. [id number] IAT (test code = Negative Performed a t [facility] 1185) Laboratory [facility] Blood Bank[address] [place] [address] s [address]Untz Free: [phone] A No. [id number] [facility]Type [facility] Screen - ONCE [id number] 05:05:31 Test Item Value Reference Range Interpretation Comments ABO & RH (test code B POSITIVE Performe d at [facility] = 20) Laboratory [facility] Blood Bank3 [address] [place] [address]Ljus Free: [phone] A No. [id number] IAT (test code = Negative Performed a t [facility] 1185) Laboratory [facility] Blood [address] [address]Dfxx Free: [phone] A No. [id number] [facility]Type [facility] Screen - ONCE [id number] 05:05:31 Test Item Value Reference Range Interpretation Comments ABO & RH (test code B POSITIVE Performe d at [facility] = 20) Laboratory [facility] Blood [address] [address]Wsjb Free: [phone] A No. [id number] IAT (test code = Negative Performed a t [facility] 1185) Laboratory [facility] Blood [address] [address]Gkhf Free: [phone] A No. [id number] [facility] CenterURINALYSIS2021-09-09 22:27:55 Test Item Value Reference Range Interpretation Comments APPEARANCE (test code = Hazy Clear A 7240889051) COLOR (test code = Emerita Yellow A 6823247509) PH (test code = 4.8-8.0 6400183870) SP GRAVITY (test code = 1.003-1.030 2591405738) GLU U QUAL (test code = Normal Normal 1611167308) BLOOD (test code = Negative Negative Interfere nce from 3251564405) ascorbic acid m ay cause false neg ative results. KETONES (test code = 5 mg/dL Negative A 3391157609) PROTEIN (test code = 100 mg/dL Negative A 2887-8) UROBILIN (test code = 4.0 mg/dL Normal A 3057594174) BILIRUBIN (test code = Negative Negative 9352637986) NITRITE (test code = Negative Negative 8908273041) LEUK ABELARDO (test code = 500/uL Negative A 5386808619) RBC/HPF (test code = See_Comment [Autom ated message] 1584619613) The system 9You generated this result transmitted ref erence range: 0 - 3 HP F. The reference range was not used to int erpret this result as normal/abnormal . WBC/HPF (test code = See_Comment H [Autom ated message] 0867204044) The system 9You generated this result transmitted ref erence range: 0 - 5 HP F. The reference range was not used to int erpret this result as normal/abnormal . BACTERIA (test code = Few Negative A 3803467041) MUCOUS (test code = Moderate Negative LPF A 4952543940) SQ EPITH (test code = See_Comment H [Auto mated message] 1191714301) The system 9You generated this result transmitted ref erence range: <=2 HPF. The reference range was not used to int erpret this result as normal/abnormal . Lab Interpretation Abnormal (test code = 36400-5) [facility] CenterCOVID-19 (ID NOW RAPID TESTING)2021-07-26 20:13:13 Test Item Value Reference Range Interpretation Comments SARS-CoV-2 Rapid ID NOW Not Detected Not Detected (test code = 53087-5) SHADI (test code = SHADI) ID NOW COVID-19 Assay is an isothermal nucleic acid amplification test intended for the qualitative detection of nucleic acid from SARS-CoV-2 viral RNA in nasopharyngeal (CERTIFIED MASTER SAFECRACKER) specimens. It is used under Emergency Use Authorization (EUA) by FDA. The limit of detection (LOD) of the assay is 125 Genome Equivalents/mL. A positive result is indicative of the presence of SARS-CoV-2 RNA. ?Clinical correlation with patient history and other diagnostic information is necessary to determine patient infection status. A negative (Not Detected) result does not preclude SARS-CoV-2 infection. In patients with a high suspicion of SARS-CoV-2 infection, negative results should be treated as presumptive negative and a new specimen should be tested with alternative nucleic acid amplification molecular test. Invalid: Please collect a new specimen for repeat patient testing if clinically indicated. Lab Interpretation Normal (test code = 23733-2) [facility] CenterURINALYSIS2021-08-16 11:32:26 Test Item Value Reference Range Interpretation Comments APPEARANCE (test code = Cloudy Clear A 4146255718) COLOR (test code = Emerita Yellow A 9152928993) PH (test code = 4.8-8.0 6927276831) SP GRAVITY (test code = 1.003-1.030 H 8970798013) GLU U QUAL (test code = Normal Normal 3292476820) BLOOD (test code = Negative Negative 9699614431) KETONES (test code = Negative Negative 3544628263) PROTEIN (test code = 100 mg/dL Negative A 2887-8) UROBILIN (test code = 4.0 mg/dL Normal A 8469045402) BILIRUBIN (test code = Negative Negative 3031750639) NITRITE (test code = Negative Negative 0631840576) LEUK ABELARDO (test code = 250/uL Negative A 0536373280) RBC/HPF (test code = <1 See_Comment [Autom ated message] 2701854459) The system 9You generated this result transmit phyllis reference range : 0 - 3 HPF. The refe rence range was not u sed to interpret th is result as normal/abnormal . WBC/HPF (test code = See_Comment H [Autom ated message] 1747256524) The system 9You generated this result transmit phyllis reference range : 0 - 5 HPF. The refe rence range was not u sed to interpret th is result as normal/abnormal . BACTERIA (test code = Moderate Negative A 7244240577) MUCOUS (test code = Moderate Negative LPF A 5194908593) SQ EPITH (test code = See_Comment H [Auto mated message] 0298519218) The system 9You generated this result transmit phyllis reference range : <=2 HPF. The refere nce range was not u sed to interpret th is result as normal/abnormal . CA OXALATE (test code = See_Comment H [Au tomated message] 0465169752) The system 9You generated this result transmit phyllis reference range : <=1 HPF. The refere nce range was not u sed to interpret th is result as normal/abnormal . YEAST BUD (test code = See_Comment [Aut omated message] 2124035937) The system 9You generated this result transmit phyllis reference range : <=1 HPF. The refere nce range was not u sed to interpret th is result as normal/abnormal . Ictotest (test code = Negative 8782366799) Lab Interpretation (test Abnormal code = 67503-4) [facility] CenterURINALYSIS2021-06-08 02:53:45 Test Item Value Reference Range Interpretation Comments APPEARANCE (test code = Cloudy Clear A 1674569919) COLOR (test code = Yellow Yellow 2153936510) PH (test code = 4.8-8.0 1802140904) SP GRAVITY (test code = 1.003-1.030 H 3750193755) GLU U QUAL (test code = Normal Normal 9815478535) BLOOD (test code = Negative Negative 7656639873) KETONES (test code = Negative Negative 9535917582) PROTEIN (test code = 100 mg/dL Negative A 2887-8) UROBILIN (test code = 2.0 mg/dL Normal A 3515743307) BILIRUBIN (test code = Negative Negative 8770479023) NITRITE (test code = Negative Negative 2620624469) LEUK ABELARDO (test code = 500/uL Negative A 1836755545) RBC/HPF (test code = See_Comment H [Autom ated message] 9094870241) The system 9You generated this result transmit phyllis reference range : 0 - 3 HPF. The refe rence range was not u sed to interpret th is result as normal/abnormal . WBC/HPF (test code = See_Comment H [Autom ated message] 3921928830) The system 9You generated this result transmit phyllis reference range : 0 - 5 HPF. The refe rence range was not u sed to interpret th is result as normal/abnormal . BACTERIA (test code = Many Negative A 9764798057) MUCOUS (test code = Moderate Negative LPF A 4160994193) SQ EPITH (test code = See_Comment H [Auto mated message] 0779494293) The system 9You generated this result transmit phyllis reference range : <=2 HPF. The refere nce range was not u sed to interpret th is result as normal/abnormal . Lab Interpretation (test Abnormal code = 68356-0) [facility]COVID[facility] (ID NOW RAPID TESTING)2021-04-24 02:37:56 Test Item Value Reference Range Interpretation Comments SARS-CoV-2 Rapid ID NOW Not Detected Not Detected (test code = 81711-8) SHADI (test code = SHADI) ID NOW COVID-19 Assay is an isothermal nucleic acid amplification test intended for the qualitative detection of nucleic acid from SARS-CoV-2 viral RNA in nasopharyngeal (CERTIFIED MASTER SAFECRACKER) specimens. It is used under Emergency Use Authorization (EUA) by FDA. The limit of detection (LOD) of the assay is 125 Genome Equivalents/mL. A positive result is indicative of the presence of SARS-CoV-2 RNA. ?Clinical correlation with patient history and other diagnostic information is necessary to determine patient infection status. A negative (Not Detected) result does not preclude SARS-CoV-2 infection. In patients with clinical symptoms and other tests that are consistent with SARS-CoV-2 infection, negative results should be treated as presumptive negative and a new specimen should be tested with alternative PCR molecular test. Invalid: Please collect a new specimen for repeat patient testing if clinically indicated. Lab Interpretation Normal (test code = 58803-1) [facility] CenterGAL ONLY - SYPHILIS [id number] 17:11:52 Test Item Value Reference Range Interpretation Comments Syphilis IgG/IgM (test Non-reactive Non-reactive code = 60538-3) SHADI (test code = SHADI) Non-reactive - No serologic evidence of T. pallidum infection. Cannot exclude incubating or early syphilis. Submit a second specimen in 2-4 weeks if syphilis is clinically suspected. Equivocal - Further testing to follow. Reactive - Further testing to follow. Lab Interpretation (test Normal code = 53922-1) [facility] CenterGlycosylated Hemoglobin (A1C)2021-02-06 02:45:40 Test Item Value Reference Range Interpretation Comments HGB A1C (test code = 4548-4) 5.3 % 4.0-6.0 Lab Interpretation (test code = Normal 38792-8) [facility] CenterHI 1/2 AG-AB WITH [id number] 02:01:41 Test Item Value Reference Range Interpretation Comments HIV Negative Negative Semi-quantitative (test code = 26663-3) SHADI (test code = Non-reactive for HIV-1 SHADI) antigen and HIV-1/HIV-2 antibodies. ?No laboratory evidence of HIV infection. ?Repeat in 2-4 weeks if acute HIV infection is suspected. [facility] CenterHEPATITIS B SURFACE [id number] 01:10:15 Test Item Value Reference Range Interpretation Comments HBsAg Semi-Quantitative (test code = Negative Negative 5195-3) [facility] WITH [id number] 01:04:49 Test Item Value Reference Range Interpretation Comments WBC (test code = See_Comment [Automated 6690-2) message] The sy stem which generated this result transmitted reference range : 4.30 - 11.10 10*3/?L. The reference range was not used to interpret this result as normal/abnormal . RBC (test code = See_Comment [Automated 789-8) message] The sy stem which generated this result transmitted reference range : 3.93 - 5.25 10*6/?L. The reference range was not used to interpret this result as normal/abnormal . HGB (test code = 8.3 g/dL 11.6-15.0 L 718-7) HCT (test code = 30.6 % 35.7-45.2 L 4544-3) MCV (test code = 68.2 fL 80.6-95.5 L 787-2) MCH (test code = 18.5 pg 25.9-32.8 L 785-6) MCHC (test code = 27.1 g/dL 31.6-35.1 L 786-4) RDW-SD (test code = 44.2 fL 39.0-49.9 14645-9) RDW-CV (test code = 18.2 % 12.0-15.5 H 788-0) PLT (test code = See_Comment [Automated 777-3) message] The sy stem which generated this result transmitted reference range : 166 - 358 10*3/ ?L. The reference r bladimir was not used to interpret this result as normal/abnormal . MPV (test code = 11.1 fL 9.5-12.9 82054-3) IPF % (test code = 4.7 % 1.3-7.7 Platelet count 0825144202) measured by fluorescence method. NRBC/100 WBC (test See_Comment [Automat ed code = 1946647407) message] The system which generated this result transmitted reference range : 0.0 - 10.0 /100 WBCs. The refer ence range was not u sed to interpret th is result as normal/abnormal . NRBC x10^3 (test code <0.01 See_Comment [Auto mated = 4882012344) message] The s Buzzooletem which generated this result transmitted reference range : 10*3/?L. The reference range was not used to interpret this result as normal/abnormal . GRAN MAT (NEUT) % 59.1 % (test code = 770-8) IMM GRAN % (test code 0.30 % = 7549005001) LYMPH % (test code = 32.1 % 736-9) MONO % (test code = 6.7 % 5905-5) EOS % (test code = 1.5 % 713-8) BASO % (test code = 0.3 % 706-2) GRAN MAT x10^3(ANC) 4.33 10*3/uL 1.88-7.09 (test code = 2432196239) IMM GRAN x10^3 (test <0.03 0.00-0.06 code = 1917434428) LYMPH x10^3 (test code 2.35 10*3/uL 1.32-3.29 = 731-0) MONO x10^3 (test code 0.49 10*3/uL 0.33-0.92 = 742-7) EOS x10^3 (test code = 0.11 10*3/uL 0.03-0.39 711-2) BASO x10^3 (test code <0.03 0.01-0.07 = 704-7) SCHISTOCYTES (test 1+ A code = 800-3) Lab Interpretation Abnormal (test code = 68029-1) [facility] CenterPRENATAL WORKUP, BLOOD [id number] 01:03:41 Test Item Value Reference Range Interpretation Comments ABO & RH (test code B POSITIVE Performe d at [facility] = 20) Laboratory [facility] Blood Bank3 [facility] s [address]Dchc Free: [phone] A No. [id number] IAT (test code = Negative Performed a t [facility] 1185) Laboratory [facility] Blood Bank3 [facility] s [address]Fayy Free: [phone] A No. [id number] [facility] CenterGlucose 1 Hour Post [id number] 00:41:48 Test Item Value Reference Range Interpretation Comments GLUC 1 HR (test code = 3554654876) 108 mg/dL 120-170 L Lab Interpretation (test code = Abnormal 95390-5) [facility] [id number] 16:07:00 Test Item Value Reference Range Interpretation Comments VZV IgG antibody Negative Negative (test code = 38664-3) SHADI (test code = SHADI) Positive - Indicates the patient was exposed to VZV through infection or vaccination.Negative - Indicates the patient could be susceptible to VZV infection.Equivocal - A second specimen should be sent for testing. [facility] ONLY - SYPHILIS [id number] 16:06:00 Test Item Value Reference Range Interpretation Comments Syphilis IgG/IgM (test Non-reactive Non-reactive code = 68788-3) SHADI (test code = SHADI) Non-reactive - No serologic evidence of T. pallidum infection. Cannot exclude incubating or early syphilis. Submit a second specimen in 2-4 weeks if syphilis is clinically suspected. Equivocal - Further testing to follow. Reactive - Further testing to follow. Lab Interpretation (test Normal code = 38573-7) [facility] CenterRHO (D) IMMUNE [id number] 19:47:17 Test Item Value Reference Range Interpretation Comments RHIG CANDIDATE? No- see comment Patient i s not a (test code = candidate for R hIg- 5055) Patient is Rh Positive.Perfor med at [facility] Laboratory Services - [facility] Blood [address] [address]Ffno Free: [phone] A No. [id number] [facility] CenterARTERIAL CORD [id number] 17:32:00 Test Item Value Reference Range Interpretation Comments BASE EXCESS, CORD (test mEq/L QUES code = 5562235640) AC PH, CORD (BEAKER) 7.18-7.38 (test code = 5886556833) PC02, CORD (test code = See_Comment [Au tomated message] 2125202137) The system 9You generated this result transmitted ref erence range: 32 - 66 mmHg. The reference r bladimir was not used to interpret this result as normal/abnor mal. PO2, CORD (test code = See_Comment H [Aut omated message] 7009425391) The system whic h generated this result transmitted ref erence range: 10 - 30 mmHg. The reference r bladimir was not used to interpret this result as normal/abnor mal. BICARBONATE, CORD (test See_Comment [Au tomated message] code = 1047749321) The syste m which generated this result transmitted ref erence range: 17 - 27 mEq/L. The reference r bladimir was not used to interpret this result as normal/abnor mal. Lab Interpretation (test Abnormal code = 71531-5) [facility] CenterVENOUS CORD [id number] 17:30:00 Test Item Value Reference Range Interpretation Comments VENOUS BASE EXCESS, mEq/L CORD (test code = 3690295688) VENOUS PH, CORD (test 7.25-7.45 code = 3944241011) VENOUS PC02, CORD See_Comment [Automate d message] The (test code = system which ge nerated 8404812216) this result tra nsmitted reference range : 27 - 49 mmHg. The refer ence range was not used to interpret this result as normal/abnormal . VENOUS PO2, CORD (test See_Comment [Aut omated message] The code = 1763555987) system wh ich generated this result tra nsmitted reference range : 17 - 41 mmHg. The refer ence range was not used to interpret this result as normal/abnormal . VENOUS BICARBONATE, See_Comment QUES [Au tomated message] CORD (test code = The system which generated 7974151345) this result tra nsmitted reference range : 12 - 29 mEq/L. The refe rence range was not used to interpret this result as normal/abnormal . [facility] CenterHepatitis B Surface [id number] 17:23:00 Test Item Value Reference Range Interpretation Comments HBsAg Semi-Quantitative (test code = Negative Negative 5195-3) [facility] CenterType and Screen - ONCE [id number] 16:34:20 Test Item Value Reference Range Interpretation Comments ABO & RH (test code B POSITIVE Performe d at [facility] = 20) Laboratory [facility] Blood Bank3 [address] [facility] [address]Pvde Free: [phone] A No. [id number] IAT (test code = Negative Performed a t [facility] 1185) Laboratory [facility] Blood [address] [place], [place] [address]Cassie joaquin [address]Zceo Free: [phone] A No. [id number] [facility] with [id number] 16:03:00 Test Item Value Reference Range Interpretation Comments WBC (test code = See_Comment H [Automated 6690-2) message] The sy stem which generated this result transmitted reference range : 4.30 - 11.10 10*3/?L. The reference range was not used to interpret this result as normal/abnormal . RBC (test code = See_Comment [Automated 789-8) message] The sy stem which generated this result transmitted reference range : 3.93 - 5.25 10*6/?L. The reference range was not used to interpret this result as normal/abnormal . HGB (test code = 8.5 g/dL 11.6-15 L 718-7) HCT (test code = 30.0 % 35.7-45.2 L 4544-3) MCV (test code = 67.0 fL 80.6-95.5 L 787-2) MCH (test code = 19.0 pg 25.9-32.8 L 785-6) MCHC (test code = 28.3 g/dL 31.6-35.1 L 786-4) RDW-SD (test code = 41.0 fL 39-49.9 68040-0) RDW-CV (test code = 17.3 % 12-15.5 H 788-0) PLT (test code = See_Comment [Automated 777-3) message] The sy stem which generated this result transmitted reference range : 166 - 358 10*3/ ?L. The reference r bladimir was not used to interpret this result as normal/abnormal . MPV (test code = 11.3 fL 9.5-12.9 13349-2) NRBC/100 WBC (test See_Comment [Automat ed code = 7626375599) message] The system which generated this result transmitted reference range : 0.0 - 10.0 /100 WBCs. The refer ence range was not u sed to interpret th is result as normal/abnormal . NRBC x10^3 (test code See_Comment [Auto mated = 1543413455) message] The s ystem which generated this result transmitted reference range : 10*3/?L. The reference range was not used to interpret this result as normal/abnormal . GRAN MAT (NEUT) % 68.5 % (test code = 770-8) IMM GRAN % (test code 0.50 % = 3042926107) LYMPH % (test code = 24.3 % 736-9) MONO % (test code = 6.2 % 5905-5) EOS % (test code = 0.4 % 713-8) BASO % (test code = 0.1 % 706-2) GRAN MAT x10^3(ANC) 7.76 10*3/uL 1.88-7.09 H (test code = 1193984167) IMM GRAN x10^3 (test 0.06 10*3/uL 0-0.06 code = 1347399714) LYMPH x10^3 (test code 2.75 10*3/uL 1.32-3.29 = 731-0) MONO x10^3 (test code 0.70 10*3/uL 0.33-0.92 = 742-7) EOS x10^3 (test code = 0.04 10*3/uL 0.03-0.39 711-2) BASO x10^3 (test code <0.03 0.01-0.07 = 704-7) Lab Interpretation Abnormal (test code = 57902-9) [facility] CenterCOVID[facility] (ID NOW RAPID TESTING)2020-10-29 15:02:00 Test Item Value Reference Range Interpretation Comments SARS-CoV-2 Rapid ID NOW Not Detected Not Detected (test code = 68954-1) SHADI (test code = SHADI) ID NOW COVID-19 Assay is an isothermal nucleic acid amplification test intended for the qualitative detection of nucleic acid from SARS-CoV-2 viral RNA in nasopharyngeal (CERTIFIED MASTER SAFECRACKER) specimens. It is used under Emergency Use Authorization (EUA) by FDA. The limit of detection (LOD) of the assay is 125 Genome Equivalents/mL. A positive result is indicative of the presence of SARS-CoV-2 RNA. ?Clinical correlation with patient history and other diagnostic information is necessary to determine patient infection status. A negative (Not Detected) result does not preclude SARS-CoV-2 infection. In patients with clinical symptoms and other tests that are consistent with SARS-CoV-2 infection, negative results should be treated as presumptive negative and a new specimen should be tested with alternative PCR molecular test. Invalid: Please collect a new specimen for repeat patient testing if clinically indicated. Lab Interpretation Normal (test code = 59171-7) [facility] CenterFETAL NON-STRESS [id number] 12:51:51 BaselineModerate variabilityAccelerations presentIntermittent variable decelerationsToco with mild uterine irritability Overall AGA NST Michelle Romero MDUnMethodist Children's HospitalRubella Screen (TONY) IgG 2020-10-22 15:45:00 Test Item Value Reference Range Interpretation Comments Rubella screen IgG Positive Negative (test code = 9966222633) SHADI (test code = SHADI) Positive - Indicates the patient was exposed to Rubella through infection or vaccination.Negative - Indicates the patient could be susceptible to Rubella infection.Equivocal - A second specimen should be sent. [facility] ONLY - SYPHILIS [id number] 15:39:00 Test Item Value Reference Range Interpretation Comments Syphilis IgG/IgM (test Non-reactive Non-reactive code = 94758-9) SHADI (test code = SHADI) Non-reactive - No serologic evidence of T. pallidum infection. Cannot exclude incubating or early syphilis. Submit a second specimen in 2-4 weeks if syphilis is clinically suspected. Equivocal - Further testing to follow. Reactive - Further testing to follow. Lab Interpretation (test Normal code = 32696-7) [facility] ONLY - INFLUENZA A B RSV [id number] 07:28:00 Test Item Value Reference Range Interpretation Comments Influenza A virus by PCR (test code Negative Negative = 43286-0) Influenza B virus by PCR (test code Negative Negative = 37789-0) RSV by PCR (test code = 11719-5) Negative Negative Lab Interpretation (test code = Normal 43136-8) [facility] CenterCORONAVIRUS COVID-19 [id number] 03:09:00 Test Item Value Reference Range Interpretation Comments SARS-CoV-2 NAAT (test Not Detected Not Detected code = 09434-5) SHADI (test code = SHADI) [employer] SARS-CoV-2 Assay is a real-time RT-PCR test intended for the qualitative detection of RNA from SARS-CoV-2 from nasopharyngeal (CERTIFIED MASTER SAFECRACKER) specimens. It is used under Emergency Use Authorization (EUA) by FDA. A positive result is indicative of the presence of SARS-CoV-2 RNA. ?Clinical correlation with patient history and other diagnostic information is necessary to determine patient infection status. A negative (Not Detected) result does not preclude SARS-CoV-2 infection. Clinical correlation with patient history and other diagnostic information should be used in patient management decisions. Invalid: Please collect a new specimen for repeat patient testing if clinically indicated. Lab Interpretation Normal (test code = 00563-7) [facility] CenterURINALYSIS2020-12-06 00:58:00 Test Item Value Reference Range Interpretation Comments APPEARANCE (test code = Clear Clear 1132669314) COLOR (test code = Yellow Yellow 4503628962) PH (test code = 4.8-8.0 0210222267) SP GRAVITY (test code = 1.003-1.030 8027284494) GLU U QUAL (test code = Normal Normal 2593440393) BLOOD (test code = 1+ Negative A 1371620378) KETONES (test code = 80 mg/dL Negative A 9804440650) PROTEIN (test code = Negative Negative 2887-8) UROBILIN (test code = 4.0 mg/dL Normal A 9085173440) BILIRUBIN (test code = Negative Negative 8468278185) NITRITE (test code = Negative Negative 5041575977) LEUK ABELARDO (test code = 500/uL Negative A 0809547991) RBC/HPF (test code = See_Comment H [Autom ated message] 2486671248) The system 9You generated this result transmit phyllis reference range : 0 - 3 HPF. The refe rence range was not u sed to interpret th is result as normal/abnormal . WBC/HPF (test code = See_Comment H [Autom ated message] 3251049286) The system 9You generated this result transmit phyllis reference range : 0 - 5 HPF. The refe rence range was not u sed to interpret th is result as normal/abnormal . BACTERIA (test code = Moderate Negative A 6738121874) MUCOUS (test code = Slight Negative LPF A 4576318388) SQ EPITH (test code = See_Comment H [Auto mated message] 5263375396) The system 9You generated this result transmit phyllis reference range : <=2 HPF. The refere nce range was not u sed to interpret th is result as normal/abnormal . Lab Interpretation (test Abnormal code = 26748-6) [facility]:57:00 Test Item Value Reference Range Interpretation Comments SRIDEVI (test code = 6559080607) 73 U/L 35-110 Lab Interpretation (test code = Normal 52125-6) [facility]LIPASE2020-[facility] 00:57:00 Test Item Value Reference Range Interpretation Comments LIPASE (test code = 6367623220) 20 U/L 0-220 Lab Interpretation (test code = Normal 08134-0) [facility] CenterCOM. METABOLIC PANEL (34542)2020-10-22 00:57:00 Test Item Value Reference Range Interpretation Comments NA (test code = 135 mmol/L 135-145 0725579287) K (test code = 4.0 mmol/L 3.5-5 0337459255) CL (test code = 103 mmol/L 98-108 0816669782) CO2 TOTAL (test code = 23 mmol/L 23-31 2054437134) AGAP (test code = 2-16 7451642768) BUN (test code = 7 mg/dL 7-23 0305936698) GLUCOSE (test code = 75 mg/dL 70-110 3281514069) CREATININE (test code = 0.65 mg/dL 0.5-1.04 3933249297) TOTAL BILI (test code = 0.4 mg/dL 0.1-1.1 0483793248) CALCIUM (test code = 8.8 mg/dL 8.6-10.6 6587116400) T PROTEIN (test code = 6.8 g/dL 6.3-8.2 0819755305) ALBUMIN (test code = 3.4 g/dL 3.5-5 L 1240463294) ALK PHOS (test code = 145 U/L 34-122 H 8159136226) ALTv (test code = 33 U/L 5-35 1742-6) AST(SGOT) (test code = 35 U/L 13-40 6094860413) eGFR Calculation mL/min/1.73m2 (Non-) (test code = 6881219719) eGFR Calculation mL/min/1.73m2 () (test code = 3144098699) SHADI (test code = SHADI) Association of Glomerular Filtration Rate (GFR) and Staging of Kidney Disease* + --+ --+ ------+| GFR (mL/min/1.73 m2) ?| With Kidney Damage ?| ?Without Kidney Damage+ --------+ --------+ +| ?>90 ?| ?Stage one ?| ? Normal ?+ ---+ ---+ -------+| ?60-89 ?| ?Stage two ?| ? Decreased GFR ? + --+ --+ ------+| ?30-59 ?| ?Stage three ?| ? Stage three ? + --+ --+ ------+| ?15-29 ?| ?Stage four ? | ? Stage four ?+ ---+ ---+ -------+| ?<15 (or dialysis) ? ?| ?Stage five ? | ? Stage five ?+ ---+ ---+ -------+ *Each stage assumes the associated GFR level has been in effect for at least three months. ?Stages 1 to 5, with or without kidney disease, indicate chronic kidney disease. Notes: Determination of stages one and two (with eGFR >59mL/min/1.73 m2) requires estimation of kidney damage for at least three months as defined by structural or functional abnormalities of the kidney, manifested by either:Pathological abnormalities or Markers of kidney damage (including abnormalities in the composition of the blood or urine or abnormalities in imaging tests). Lab Interpretation Abnormal (test code = 62845-8) [facility]GALV[facility]CLC ONLY - URINE DRUG (IMMUNOASSAY) - COMPREHENSIVE DRUG [id number] 00:43:00 Test Item Value Reference Range Interpretation Comments AMPHET (test code = Negative Negative 3116506407) OSCAR U (test code = Negative Negative 8056657290) BENZO U (test code = Negative Negative 1978329349) Cocaine Metabolite (test Negative Negative code = 3764950404) METHADONE (test code = Negative Negative 8256728289) OPIATES (test code = Negative Negative 0188783195) PCP (test code = Negative Negative 7445550962) THC (test code = Presumptive Positive Negative A 1527077842) SHADI (test code = SHADI) Urine Drug Cutoff Ranges Cocaine: ? 150 ng/mLBenzodiazepines: ? ? 200 ng/mLMethadone: ? 300 ng/mLAmphetamine: ? 1,000 ng/mLOpiates: ? 300 ng/mLCannabinoids: ?50 ng/mLPhencyclidine: ? ? ? 25 ng/mLBarbiturates: ?200 ng/mL The results are to be used only for medical (i.e., treatment) purposes. Unconfirmed screening results must not be used for non-medical purposes (e.g., employment testing, legal testing). Lab Interpretation (test Abnormal code = 97460-9) [facility] CenterDrug Panel 5 Labor and [id number] 23:58:00 Test Item Value Reference Range Interpretation Comments Cocaine Metabolite (test Negative Negative code = 0661506185) OPIATES (test code = Negative Negative 0609719777) THC (test code = Presumptive Positive Negative A 7716678968) SHADI (test code = SHADI) Urine Drug Cutoff Ranges Cocaine: ? 150 ng/mLOpiates: ? 300 ng/mLCannabinoids: ?50 ng/mL The results are to be used only for medical (i.e., treatment) purposes. Unconfirmed screening results must not be used for non-medical purposes (e.g., employment testing, legal testing). Lab Interpretation (test Abnormal code = 23257-2) [facility] CenterHIV 1/2 AG-AB WITH [id number] 23:10:00 Test Item Value Reference Range Interpretation Comments HIV Negative Negative Semi-quantitative (test code = 97039-5) SHADI (test code = Non-reactive for HIV-1 SHADI) antigen and HIV-1/HIV-2 antibodies. ?No laboratory evidence of HIV infection. ?Repeat in 2-4 weeks if acute HIV infection is suspected. [facility] CenterHepatitis B Surface [id number] 23:01:00 Test Item Value Reference Range Interpretation Comments HBsAg Semi-Quantitative (test code = Negative Negative 5195-3) [facility] CenterCBC with Ilbdawoeyalk1858-71-03 22:20:00 Test Item Value Reference Range Interpretation Comments WBC (test code = See_Comment H [Automated 6690-2) message] The sy stem which generated this result transmitted reference range : 4.30 - 11.10 10*3/?L. The reference range was not used to interpret this result as normal/abnormal . RBC (test code = See_Comment [Automated 789-8) message] The sy stem which generated this result transmitted reference range : 3.93 - 5.25 10*6/?L. The reference range was not used to interpret this result as normal/abnormal . HGB (test code = 8.2 g/dL 11.6-15 L 718-7) HCT (test code = 28.6 % 35.7-45.2 L 4544-3) MCV (test code = 67.5 fL 80.6-95.5 L 787-2) MCH (test code = 19.3 pg 25.9-32.8 L 785-6) MCHC (test code = 28.7 g/dL 31.6-35.1 L 786-4) RDW-SD (test code = 40.7 fL 39-49.9 96065-1) RDW-CV (test code = 17.2 % 12-15.5 H 788-0) PLT (test code = See_Comment [Automated 777-3) message] The sy stem which generated this result transmitted reference range : 166 - 358 10*3/ ?L. The reference r bladimir was not used to interpret this result as normal/abnormal . MPV (test code = 12.0 fL 9.5-12.9 51839-4) IPF % (test code = 7.2 % 1.3-7.7 Platelet count 1488020459) measured by fluorescence method. NRBC/100 WBC (test See_Comment [Automat ed code = 8000727153) message] The system which generated this result transmitted reference range : 0.0 - 10.0 /100 WBCs. The refer ence range was not u sed to interpret th is result as normal/abnormal . NRBC x10^3 (test code <0.01 See_Comment [Auto mated = 3641979867) message] The s ystem which generated this result transmitted reference range : 10*3/?L. The reference range was not used to interpret this result as normal/abnormal . GRAN MAT (NEUT) % 80.3 % (test code = 770-8) IMM GRAN % (test code 0.20 % = 9085052196) LYMPH % (test code = 10.9 % 736-9) MONO % (test code = 8.4 % 5905-5) EOS % (test code = 0.1 % 713-8) BASO % (test code = 0.1 % 706-2) GRAN MAT x10^3(ANC) 10.62 10*3/uL 1.88-7.09 H (test code = 7809273883) IMM GRAN x10^3 (test 0.03 10*3/uL 0-0.06 code = 5839513720) LYMPH x10^3 (test 1.44 10*3/uL 1.32-3.29 code = 731-0) MONO x10^3 (test code 1.11 10*3/uL 0.33-0.92 H = 742-7) EOS x10^3 (test code <0.03 0.03-0.39 L = 711-2) BASO x10^3 (test code <0.03 0.01-0.07 = 704-7) Lab Interpretation Abnormal (test code = 12912-8) [facility] CenterType and Screen - ONCE [id number] 22:18:04 Test Item Value Reference Range Interpretation Comments ABO & RH (test code B POSITIVE Performe d at [facility] = 20) [facility]3 [address] [facility] s [address]a Free: [phone] A No. [id number] IAT (test code = Negative Performed a t [facility] 1185) [facility] Blood [facility] [address] [facility] s [address]Ddmy Free: [phone] A No. [id number] [facility] CenterCOVID-19 (ID NOW RAPID TESTING)2020-10-21 21:26:00 Test Item Value Reference Range Interpretation Comments SARS-CoV-2 Rapid ID NOW Not Detected Not Detected (test code = 24177-8) SHADI (test code = SHADI) ID NOW COVID-19 Assay is an isothermal nucleic acid amplification test intended for the qualitative detection of nucleic acid from SARS-CoV-2 viral RNA in nasopharyngeal (CERT[employer]IED MA[employer]AF[employer]ER) specimens. It is used under Emergency Use Authorization (EUA) by FDA. The limit of detection (LOD) of the assay is 125 Genome Equivalents/mL. A positive result is indicative of the presence of SARS-CoV-2 RNA. ?Clinical correlation with patient history and other diagnostic information is necessary to determine patient infection status. A negative (Not Detected) result does not preclude SARS-CoV-2 infection. In patients with clinical symptoms and other tests that are consistent with SARS-CoV-2 infection, negative results should be treated as presumptive negative and a new specimen should be tested with alternative PCR molecular test. Invalid: Please collect a new specimen for repeat patient testing if clinically indicated. Lab Interpretation Normal (test code = 66756-5) [facility] CenterGC & CHLAMYDIA AMPLIFIED [id number] 16:50:00 Test Item Value Reference Range Interpretation Comments C. trachomatis Nucleic Acid (test Negative Negative code = 36995-5) N. gonorrhoeae Nucleic Acid (test Negative Negative code = 69715-6) Lab Interpretation (test code = Normal 35878-9) [facility] CenterCBC WITH [id number] 10:32:00 Test Item Value Reference Range Interpretation Comments WBC (test code = See_Comment H [Automated 6890-2) message] The system which generated this result transmit phyllis reference range : 4.50 - 13.50 10*3/?L. The reference range was not used to interpret this result as normal/abnormal . RBC (test code = See_Comment L [Automated 949-8) message] The system which generated this result transmit phyllis reference range : 4.10 - 5.10 10*6/?L. The reference range was not used to interpret this result as normal/abnormal . HGB (test code = 8.2 g/dL 12-16 L 718-7) HCT (test code = 28.1 % 36-45 L 4544-3) MCV (test code = 75.7 fL 78-95 L 787-2) MCH (test code = 22.1 pg 26-32 L 785-6) MCHC (test code = 29.2 g/dL 32-36 L 786-4) RDW-SD (test code = 42.9 fL 38.5-49 61111-3) RDW-CV (test code = 15.7 % 11.5-14 H 788-0) PLT (test code = See_Comment [Automated 777-3) message] The system which generated this result transmit phyllis reference range : 135 - 361 10*3/ ?L. The reference range was not u sed to interpret th is result as normal/abnormal . MPV (test code = 11.9 fL 9.4-13.3 03762-6) NRBC/100 WBC (test See_Comment [Automat ed code = 0722325413) message] The system which generated this result transmit phyllis reference range : 0.0 - 10.0 /100 WBCs. The reference range was not used to interpret this result as normal/abnormal . NRBC x10^3 (test code <0.01 See_Comment [Auto mated = 8372530557) message] The system which generated this result transmit phyllis reference range : 10*3/?L. The reference range was not used to interpret this result as normal/abnormal . GRAN MAT (NEUT) % 76.2 % (test code = 770-8) IMM GRAN % (test code 0.50 % = 2065091672) LYMPH % (test code = 13.8 % 736-9) MONO % (test code = 9.1 % 5905-5) EOS % (test code = 0.3 % 713-8) BASO % (test code = 0.1 % 706-2) GRAN MAT x10^3(ANC) 11.79 10*3/uL 1.5-10.3 H (test code = 0518746410) IMM GRAN x10^3 (test 0.07 10*3/uL 0-0.06 H code = 1898910716) LYMPH x10^3 (test code 2.13 10*3/uL 0.7-7.4 = 731-0) MONO x10^3 (test code 1.41 10*3/uL 0-0.5 H = 742-7) EOS x10^3 (test code = 0.04 10*3/uL 0-0.4 711-2) BASO x10^3 (test code <0.03 0-0.1 = 704-7) Lab Interpretation Abnormal (test code = 51772-9) [facility] CenterRHO (D) IMMUNE [id number] 00:31:13 Test Item Value Reference Range Interpretation Comments RHIG CANDIDATE? No- see comment Patient i s not a (test code = candidate for R hIg- 5055) Patient is Rh Positive.Perfor med at [facility] Laboratory Services - [facility] Blood [address] [place] [address]Xoyj Free: [phone] A No. [id number] [facility] CenterVENOUS CORD [id number] 00:18:00 Test Item Value Reference Range Interpretation Comments VENOUS BASE EXCESS, mEq/L CORD (test code = 7612144208) VENOUS PH, CORD (test 7.25-7.45 code = 1225937482) VENOUS PC02, CORD See_Comment [Automate d message] The (test code = system which ge nerated 0966393525) this result tra nsmitted reference range : 27 - 49 mmHg. The refer ence range was not used to interpret this result as normal/abnormal . VENOUS PO2, CORD (test See_Comment [Aut omated message] The code = 3665101209) system [facility] generated this result tra nsmitted reference range : 17 - 41 mmHg. The refer ence range was not used to interpret this result as normal/abnormal . VENOUS BICARBONATE, See_Comment [Automa phyllis message] The CORD (test code = system whi ch generated 4086871814) this result tra nsmitted reference range : 12 - 29 mEq/L. The refe rence range was not used to interpret this result as normal/abnormal . [facility] CenterARTERIAL CORD [id number] 00:11:00 Test Item Value Reference Range Interpretation Comments BASE EXCESS, CORD mEq/L (test code = 2767922906) AC PH, CORD (BEAKER) 7.18-7.38 (test code = 7655902619) PC02, CORD (test code See_Comment [Auto mated message] The = 5946117544) system which g enerated this result transmit phyllis reference range : 32 - 66 mmHg. The refer ence range was not used to interpret this result as normal/abnormal . PO2, CORD (test code See_Comment [Autom ated message] The = 5815624039) system which g enerated this result transmit phyllis reference range : 10 - 30 mmHg. The refer ence range was not used to interpret this result as normal/abnormal . BICARBONATE, CORD See_Comment [Automate d message] The (test code = system which ge nerated this 2824837735) result transmit phyllis reference range : 17 - 27 mEq/L. The refe rence range was not used to interpret this result as normal/abnormal . [facility] CenterUric Acid [id number] 18:12:00 Test Item Value Reference Range Interpretation Comments URIC ACID (test code = 9557574338) 3.9 mg/dL 2.9-6 Lab Interpretation (test code = Normal 36213-7) [facility] Lllrshzjft9320-65-30 18:12:00 Test Item Value Reference Range Interpretation Comments CREATININE (test code 0.61 mg/dL 0.5-1.04 = 2871743705) eGFR Calculation mL/min/1.73m2 (Non-) (test code = 2033299447) eGFR Calculation mL/min/1.73m2 () (test code = 9405217778) SHADI (test code = SHADI) Association of Glomerular Filtration Rate (GFR) and Staging of Kidney Disease* + -+ + ---+| GFR (mL/min/1.73 m2) ?| With Kidney Damage ?| ?Without Kidney Damage+ -------+ ------+ ---------+| ?>90 ?| ?Stage one ?| ? Normal ?+ --+ -+ ----+| ?60-89 ?| ?Stage two ?| ? Decreased GFR ? + -+ + ---+| ?30-59 ?| ?Stage three ?| ? Stage three ? + -+ + ---+| ?15-29 ?| ?Stage four ? | ? Stage four ?+ --+ -+ ----+| ?<15 (or dialysis) ? ?| ?Stage five ? | ? Stage five ?+ --+ -+ ----+ *Each stage assumes the associated GFR level has been in effect for at least three months. ?Stages 1 to 5, with or without kidney disease, indicate chronic kidney disease. Notes: Determination of stages one and two (with eGFR >59mL/min/1.73 m2) requires estimation of kidney damage for at least three months as defined by structural or functional abnormalities of the kidney, manifested by either:Pathological abnormalities or Markers of kidney damage (including abnormalities in the composition of the blood or urine or abnormalities in imaging tests). [facility] CenterSGOT (Asparate Amino Transfer)2019-12-25 18:12:00 Test Item Value Reference Range Interpretation Comments AST(SGOT) (test code = 4383181409) 28 U/L 13-40 Lab Interpretation (test code = Normal 84401-3) [facility] CenterAlanine Amino Transferase (SGPT)2019-12-25 18:12:00 Test Item Value Reference Range Interpretation Comments ALTv (test code = 1742-6) 25 U/L 5-35 Lab Interpretation (test code = Normal 82432-6) [facility] CenterLactate Fzvdvwzmzqobh5759-85-09 18:11:00 Test Item Value Reference Range Interpretation Comments LDH (test code = 9915557145) 760 U/L 300-600 H Lab Interpretation (test code = Abnormal 79143-0) [facility] CenterCB WITH [id number] 18:03:00 Test Item Value Reference Range Interpretation Comments WBC (test code = See_Comment [Automated 9290-2) message] The sy stem which generated this result transmitted reference range : 4.50 - 13.50 10*3/?L. The reference range was not used to interpret this result as normal/abnormal . RBC (test code = See_Comment [Automated 797-8) message] The sy stem which generated this result transmitted reference range : 4.10 - 5.10 10*6/?L. The reference range was not used to interpret this result as normal/abnormal . HGB (test code = 10.1 g/dL 12-16 L 718-7) HCT (test code = 34.7 % 36-45 L 4544-3) MCV (test code = 76.9 fL 78-95 L 787-2) MCH (test code = 22.4 pg 26-32 L 785-6) MCHC (test code = 29.1 g/dL 32-36 L 786-4) RDW-SD (test code = 42.8 fL 38.5-49 37196-1) RDW-CV (test code = 15.7 % 11.5-14 H 788-0) PLT (test code = See_Comment [Automated 777-3) message] The sy stem which generated this result transmitted reference range : 135 - 361 10*3/ ?L. The reference r bladimir was not used to interpret this result as normal/abnormal . MPV (test code = 11.4 fL 9.4-13.3 68312-4) NRBC/100 WBC (test See_Comment [Automat ed code = 8283216050) message] The system which generated this result transmitted reference range : 0.0 - 10.0 /100 WBCs. The refer ence range was not u sed to interpret th is result as normal/abnormal . NRBC x10^3 (test code <0.01 See_Comment [Auto mated = 9978480187) message] The s ystem which generated this result transmitted reference range : 10*3/?L. The reference range was not used to interpret this result as normal/abnormal . GRAN MAT (NEUT) % 76.4 % (test code = 770-8) IMM GRAN % (test code 0.30 % = 1909507130) LYMPH % (test code = 15.3 % 736-9) MONO % (test code = 7.6 % 5905-5) EOS % (test code = 0.3 % 713-8) BASO % (test code = 0.1 % 706-2) GRAN MAT x10^3(ANC) 6.65 10*3/uL 1.5-10.3 (test code = 3059400471) IMM GRAN x10^3 (test 0.03 10*3/uL 0-0.06 code = 4432035970) LYMPH x10^3 (test code 1.33 10*3/uL 0.7-7.4 = 731-0) MONO x10^3 (test code 0.66 10*3/uL 0-0.5 H = 742-7) EOS x10^3 (test code = 0.03 10*3/uL 0-0.4 711-2) BASO x10^3 (test code <0.03 0-0.1 = 704-7) Lab Interpretation Abnormal (test code = 26285-0) [facility] CenterUrinalysis2020-02-08 17:52:00 Test Item Value Reference Range Interpretation Comments APPEARANCE (test code = Hazy Clear A 9636238461) COLOR (test code = Yellow Yellow 6881183749) PH (test code = 4.8-8.0 3583834265) SP GRAVITY (test code = 1.003-1.030 3002393034) GLU U QUAL (test code = Normal Normal 9328242841) BLOOD (test code = Negative Negative 3336284725) KETONES (test code = Negative Negative 0945428826) PROTEIN (test code = 30 mg/dL Negative A 2887-8) UROBILIN (test code = 2.0 mg/dL Normal A 7560379581) BILIRUBIN (test code = Negative Negative 1150761704) NITRITE (test code = Negative Negative 2666472312) LEUK ABELARDO (test code = Negative Negative 2722981064) RBC/HPF (test code = See_Comment [Autom ated message] 3741466505) The system 9You generated this result transmit phyllis reference range : 0 - 3 HPF. The refe rence range was not u sed to interpret th is result as normal/abnormal . WBC/HPF (test code = See_Comment [Autom ated message] 3278621022) The system 9You generated this result transmit phyllis reference range : 0 - 5 HPF. The refe rence range was not u sed to interpret th is result as normal/abnormal . BACTERIA (test code = Few Negative A 6891737817) MUCOUS (test code = Moderate Negative LPF A 3206057096) SQ EPITH (test code = See_Comment H [Auto mated message] 8963564470) The system 9You generated this result transmit phyllis reference range : <=2 HPF. The refere nce range was not u sed to interpret th is result as normal/abnormal . Lab Interpretation (test Abnormal code = 99029-7) [facility] CenterProtein CREAT Ratio Urine [id number] 17:41:00 Test Item Value Reference Range Interpretation Comments T. PROT U (test code = 2888-6) 21 mg/dL CREAT U (test code = 7219989071) 204.0 mg/dL Protein/Creatinine Ratio Urine 0.0-2.0 (test code = 7822842072) [facility] CenterGALV ONLY - SYPHILIS IGG/[id number] 15:04:00 Test Item Value Reference Range Interpretation Comments Syphilis IgG/IgM (test Non-reactive Non-reactive code = 31476-0) SHADI (test code = SHADI) Non-reactive - No serologic evidence of T. pallidum infection. Cannot exclude incubating or early syphilis. Submit a second specimen in 2-4 weeks if syphilis is clinically suspected. Equivocal - Further testing to follow. Reactive - Further testing to follow. Lab Interpretation (test Normal code = 59427-1) [facility] CenterHI 1/2 AG-AB WITH [id number] 00:44:00 Test Item Value Reference Range Interpretation Comments HIV Negative Negative Semi-quantitative (test code = 84298-3) SHADI (test code = Non-reactive for HIV-1 SHADI) antigen and HIV-1/HIV-2 antibodies. ?No laboratory evidence of HIV infection. ?Repeat in 2-4 weeks if acute HIV infection is suspected. [facility] CenterHepatitis B Surface Elvedct6095-42-52 00:31:00 Test Item Value Reference Range Interpretation Comments HBsAg Semi-Quantitative (test code = Negative Negative 5195-3) [facility] CenterType and Screen - ONCE [id number] 23:47:58 Test Item Value Reference Range Interpretation Comments ABO & RH (test code B POSITIVE Performe d at [facility] = 20) [facility] Blood [facility] [address] [facility] s [address]Ibmd Free: [phone] A No. [id number] IAT (test code = Negative Performed a t [facility] 1185) [facility] Blood [facility]3 [address] [facility] s [address]Sokn Free: [phone] A No. [id number] [facility] CenterCBC WITH [id number] 23:24:00 Test Item Value Reference Range Interpretation Comments WBC (test code = See_Comment [Automated 6690-2) message] The sy stem which generated this result transmitted reference range : 4.50 - 13.50 10*3/?L. The reference range was not used to interpret this result as normal/abnormal . RBC (test code = See_Comment L [Automated 789-8) message] The sy stem which generated this result transmitted reference range : 4.10 - 5.10 10*6/?L. The reference range was not used to interpret this result as normal/abnormal . HGB (test code = 8.5 g/dL 12-16 L 718-7) HCT (test code = 29.7 % 36-45 L 4544-3) MCV (test code = 76.7 fL 78-95 L 787-2) MCH (test code = 22.0 pg 26-32 L 785-6) MCHC (test code = 28.6 g/dL 32-36 L 786-4) RDW-SD (test code = 42.7 fL 38.5-49 62995-2) RDW-CV (test code = 15.6 % 11.5-14 H 788-0) PLT (test code = See_Comment [Automated 777-3) message] The sy stem which generated this result transmitted reference range : 135 - 361 10*3/ ?L. The reference r bladimir was not used to interpret this result as normal/abnormal . MPV (test code = 12.6 fL 9.4-13.3 22370-7) NRBC/100 WBC (test See_Comment [Automat ed code = [id number]) message] The system which generated this result transmitted reference range : 0.0 - 10.0 /100 WBCs. The refer ence range was not u sed to interpret th is result as normal/abnormal . NRBC x10^3 (test code <0.01 See_Comment [Auto mated = [id number]) message] The s ystem which generated this result transmitted reference range : 10*3/?L. The reference range was not used to interpret this result as normal/abnormal . GRAN MAT (NEUT) % 64.3 % (test code = 770-8) IMM GRAN % (test code 0.40 % = 3065670772) LYMPH % (test code = 23.9 % 736-9) MONO % (test code = 10.4 % 5905-5) EOS % (test code = 0.9 % 713-8) BASO % (test code = 0.1 % 706-2) GRAN MAT x10^3(ANC) 4.42 10*3/uL 1.5-10.3 (test code = 8720646764) IMM GRAN x10^3 (test 0.03 10*3/uL 0-0.06 code = 6649015846) LYMPH x10^3 (test code 1.65 10*3/uL 0.7-7.4 = 731-0) MONO x10^3 (test code 0.72 10*3/uL 0-0.5 H = 742-7) EOS x10^3 (test code = 0.06 10*3/uL 0-0.4 711-2) BASO x10^3 (test code <0.03 0-0.1 = 704-7) Lab Interpretation Abnormal (test code = 00518-6) [facility] URINALYSIS W SPECIFIC [id number] 17:49:00 Test Item Value Reference Range Interpretation Comments POCT U SP GRAV (test code = 1.020 mg/dl 1.005-1.025 3255) POCT PH U (test code = 3254) 6 mg/dl 5-8 POCT U LEUK EST (test code = ++ Negative - Negative 3263) POCT U NIT (test code = 3262) neg Negative - Negative POCT U PROT (test code = trace Negative - Negative 3259) POCT U GLU (test code = 3256) neg Negative - Negative POCT U KETONE (test code = neg Negative - Negative 3258) POCT U UROBILI (test code = normal 0.2-1 3260) POCT U BILI (test code = neg Negative - Negative 3261) POCT U BLD (test code = 3257) neg Negative - Negative POCT U COLOR (test code = emerita 3266) POCT U APPEAR (test code = cloudy 3267) [facility] URINALYSIS W SPECIFIC [id number] 17:49:00 Test Item Value Reference Range Interpretation Comments POCT U SP GRAV (test code = 1.020 mg/dl 1.005-1.025 3255) POCT PH U (test code = 3254) 6 mg/dl 5-8 POCT U LEUK EST (test code = ++ Negative - Negative 3263) POCT U NIT (test code = 3262) neg Negative - Negative POCT U PROT (test code = trace Negative - Negative 3259) POCT U GLU (test code = 3256) neg Negative - Negative POCT U KETONE (test code = neg Negative - Negative 3258) POCT U UROBILI (test code = normal 0.2-1 3260) POCT U BILI (test code = neg Negative - Negative 3261) POCT U BLD (test code = 3257) neg Negative - Negative POCT U COLOR (test code = emerita 3266) POCT U APPEAR (test code = cloudy 3267) [facility] [id number] 17:49:00 Test Item Value Reference Range Interpretation Comments POCT U SP GRAV (test code = 1.020 mg/dl 1.005-1.025 3255) POCT PH U (test code = 3254) 6 mg/dl 5-8 POCT U LEUK EST (test code = ++ Negative - Negative 3263) POCT U NIT (test code = 3262) neg Negative - Negative POCT U PROT (test code = trace Negative - Negative 3259) POCT U GLU (test code = 3256) neg Negative - Negative POCT U KETONE (test code = neg Negative - Negative 3258) POCT U UROBILI (test code = normal 0.2-1 3260) POCT U BILI (test code = neg Negative - Negative 3261) POCT U BLD (test code = 3257) neg Negative - Negative POCT U COLOR (test code = emerita 3266) POCT U APPEAR (test code = cloudy 3267) [facility] [id number] 11:46:00 Name: ARBEN KUNZ [facility] : 2000 Age/S: 19 / F [address] [place] [address] Unit #: [id number] Loc: Иван [id number] Phys: Alton Morales MD Acct: [id number] Dis Date: Status: REG ER PHONE #: [phone] Exam Date: 10/29/2019 1135 FAX #: [phone] Reason: fall onto abdomen, eval for placental abruption EXAMS: CPTCODE: [id number] [place] LTD [id number] Exam: Limite d ultrasound. Exam date: October 29, 2019. CLINICAL HISTORY: Status post fall on abdomen. Gestational age is 31 weeks 5 days with an estimated due date of December 26, 2019 Imaging of the demonstrates a osullivan in vertex presentation. heart rate is 154 bpm. The placenta is posterior fundal grade 2 with no evidence of abruption. The amniotic fluid measures 17.5 cm. The uterine artery SD ratios are 2.8, 3.1 and 2.6 with good end-diastolic flow. Image in the region of the lower uterine segment/ cervix region demonstrates no evidence of placenta previa. The cervix itself was not visualized therefore cervical measurement is not given. IMPRESSION: A osullivan living in vertex presentation. Posterior placenta with no evidence of abruption. at 1146 Reported and signed by: Lakia Mendez M.D. CC: Alton Morales MD Technologist: Louise Lipscomb RDMS(Kailey)(BR) Trnscb Date/Time: 10/29/2019 (1146) t.CER Orig Print D/T: S: 10/29/2019 (1143) Probe: PAGE 1 Signed ReportCBC W/AUTO [id number] 10:39:00 Test Item Value Reference Range Interpretation Comments WHITE BLOOD CELL (test code = 7.30 x10 3/uL 4.5-11.0 N WBC) RED BLOOD CELL (test code = 3.78 x10 6/uL 3.54-5.02 N RBC) HEMOGLOBIN (test code = HGB) 9.1 g/dL 11.0-15.0 L HEMATOCRIT (test code = HCT) 30.4 % 33.0-45.0 L MEAN CELL VOLUME (test code = 80.4 fL 81.0-99.0 L MCV) MEAN CELL HGB (test code = MCH) 24.1 pg 27.0-33.0 L MEAN CELL HGB CONCETRATION 29.9 g/dL 33.0-37.0 L (test code = MCHC) RED CELL DISTRIBUTION WIDTH CV 13.7 % 11.5-14.5 N (test code = RDW) RED CELL DISTRIBUTION WIDTH SD 40.3 fL 37.0-54.0 N (test code = RDW-SD) PLATELET COUNT (test code = 243 x10 3/uL 150-400 N PLT) MEAN PLATELET VOLUME (test code 11.2 fL 7.0-9.0 H = MPV) NEUTROPHIL % (test code = NT%) 69.9 % 56.0-77.0 N IMMATURE GRANULOCYTE % (test 0.4 % 0.0-2.0 N code = IG%) LYMPHOCYTE % (test code = LY%) 20.8 % 14.0-32.0 N MONOCYTE % (test code = MO%) 8.1 % 4.8-9.0 N EOSINOPHIL % (test code = EO%) 0.7 % 0.3-3.7 N BASOPHIL % (test code = BA%) 0.1 % 0.0-2.0 N NUCLEATED RBC % (test code = 0.0 % 0-0 N NRBC%) NEUTROPHIL # (test code = NT#) 5.10 x10 3/uL 2.0-7.6 N IMMATURE GRANULOCYTE # (test 0.03 x10 3/uL 0.00-0.03 N code = IG#) LYMPHOCYTE # (test code = LY#) 1.52 x10 3/uL 1.0-3.8 N MONOCYTE # (test code = MO#) 0.59 x10 3/uL 0.1-0.8 N EOSINOPHIL # (test code = EO#) 0.05 x10 3/uL 0.0-0.2 N BASOPHIL # (test code = BA#) 0.01 x10 3/uL 0.0-0.2 N NUCLEATED RBC # (test code = 0.00 x10 3/uL 0.0-0.1 N NRBC#) MANUAL DIFF REQUIRED (test code NO = MDIFF) CHEMISTRY 8 [id number] 10:32:00 Test Item Value Reference Range Interpretation Comments ISTAT-SODIUM (test code = NAP) MMOL/L 134-147 ISTAT-POTASSIUM (test code = KP) MMOL/L 3.4-5.0 ISTAT-CHLORIDE (test code = CLP) MMOL/L 100-108 ISTAT CARBON DIOXIDE (test code = mmol/L 21-33 N ISTAT-CO2) ISTAT CALCIUM IONIZED (test code = MG/DL 1.12-1.32 ISTAT-PARAMJIT) ISTAT-GLUCOSE (test code = GLUP) MG/DL 70-110 N ISTAT-BUN (test code = BUNP) MG/DL 7-18 N BEDSIDE CREATININE (test code = MG/DL 0.6-1.3 L CREATBED) GLOMERULAR FILTRATION RATE POC 171 ML/MIN (test code = GFRBED) CHEMISTRY 8 [id number] 10:32:00 Test Item Value Reference Range Interpretation Comments ISTAT-SODIUM (test 140 MMOL/L 134-147 N code = NAP) ISTAT-POTASSIUM (test 3.7 MMOL/L 3.4-5.0 N code = KP) ISTAT-CHLORIDE (test 108 MMOL/L 100-108 N Perform ed by code = CLP) 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 at [facility] ISTAT CARBON DIOXIDE 23.0 mmol/L 21-33 N (test code = ISTAT-CO2) ISTAT CALCIUM IONIZED 1.20 MG/DL 1.12-1.32 N (test code = ISTAT-PARAMJIT) ISTAT-GLUCOSE (test 84 MG/DL 70-110 N code = GLUP) ISTAT-BUN (test code = 7 MG/DL 7-18 N BUNP) BEDSIDE CREATININE 0.5 MG/DL 0.6-1.3 L (test code = CREATBED) GLOMERULAR FILTRATION 171 ML/MIN RATE POC (test code = GFRBED) GC & CHLAMYDIA AMPLIFIED [id number] 19:21:00 Test Item Value Reference Range Interpretation Comments Lab Interpretation (test code = Abnormal 33071-5) [facility] [id number] 19:21:00 Test Item Value Reference Range Interpretation Comments Lab Interpretation (test code = Abnormal 46421-3) [facility] CHLAMYDIA AMPLIFIED [id number] 19:21:00 Test Item Value Reference Range Interpretation Comments Lab Interpretation (test code = Abnormal 34025-7) [facility] BY DNA PROBE 2019-07-15 19:40:00 Test Item Value Reference Range Interpretation Comments Trichomonas vaginalis Negative Negative (test code = 6749230922) Gardnerella vaginalis Positive Negative A The pr esence of (test code = 1181376912) Gar dnerella vaginalis although sugges tive, is not diagnost ic of Bacterial Vagin osis. Keesha species (test Negative Negative code = 4978945549) Lab Interpretation (test Abnormal code = 07833-9) [facility] ONLY - VAGINAL PATHOGENS BY DNA PROBE 2019-07-15 19:40:00 Test Item Value Reference Range Interpretation Comments Trichomonas vaginalis Negative Negative (test code = 3234417846) Gardnerella vaginalis Positive Negative A The pr esence of (test code = 4950849863) Gar dnerella vaginalis although sugges tive, is not diagnost ic of Bacterial Vagin osis. Keesha species (test Negative Negative code = 0381887200) Lab Interpretation (test Abnormal code = 81511-1) [facility] ONLY - VAGINAL PATHOGENS BY DNA PROBE 2019-07-15 19:40:00 Test Item Value Reference Range Interpretation Comments Trichomonas vaginalis Negative Negative (test code = 2209612845) Gardnerella vaginalis Positive Negative A The pr esence of (test code = 4165641267) Gar dnerella vaginalis although sugges tive, is not diagnost ic of Bacterial Vagin osis. Keesha species (test Negative Negative code = 7477852327) Lab Interpretation (test Abnormal code = 42985-3) [facility] ONLY - VAGINAL PATHOGENS BY DNA PROBE 2019-07-15 19:40:00 Test Item Value Reference Range Interpretation Comments Trichomonas vaginalis Negative Negative (test code = 4891499721) Gardnerella vaginalis Positive Negative A The pr esence of (test code = 7916841492) Gar dnerella vaginalis although sugges tive, is not diagnost ic of Bacterial Vagin osis. Keesha species (test Negative Negative code = 6360933751) Lab Interpretation (test Abnormal code = 46033-2) [facility] SCREEN (TONY) [id number] 16:03:00 Test Item Value Reference Range Interpretation Comments Rubella screen IgG Positive Negative (test code = 4978582417) SHADI (test code = SHADI) Positive - Indicates the patient was exposed to Rubella through infection or vaccination.Negative - Indicates the patient could be susceptible to Rubella infection.Equivocal - A second specimen should be sent. [facility] ANTIBODY [id number] 16:03:00 Test Item Value Reference Range Interpretation Comments VZV IgG antibody Negative Negative (test code = 52283-5) SHADI (test code = SHADI) Positive - Indicates the patient was exposed to VZV through infection or vaccination.Negative - Indicates the patient could be susceptible to VZV infection.Equivocal - A second specimen should be sent for testing. [facility] S[facility]EN (TONY) [id number] 16:03:00 Test Item Value Reference Range Interpretation Comments Rubella screen IgG Positive Negative (test code = 7605900979) SHADI (test code = SHADI) Positive - Indicates the patient was exposed to Rubella through infection or vaccination.Negative - Indicates the patient could be susceptible to Rubella infection.Equivocal - A second specimen should be sent. [facility] ANTIBODY [id number] 16:03:00 Test Item Value Reference Range Interpretation Comments VZV IgG antibody Negative Negative (test code = 72827-0) SHADI (test code = SHADI) Positive - Indicates the patient was exposed to VZV through infection or vaccination.Negative - Indicates the patient could be susceptible to VZV infection.Equivocal - A second specimen should be sent for testing. [facility] S[facility] (TONY) [id number] 16:03:00 Test Item Value Reference Range Interpretation Comments Rubella screen IgG Positive Negative (test code = 2586287164) SHADI (test code = SHADI) Positive - Indicates the patient was exposed to Rubella through infection or vaccination.Negative - Indicates the patient could be susceptible to Rubella infection.Equivocal - A second specimen should be sent. [facility]TIB[facility] [id number] 16:03:00 Test Item Value Reference Range Interpretation Comments VZV IgG antibody Negative Negative (test code = 81028-4) SHADI (test code = SHADI) Positive - Indicates the patient was exposed to VZV through infection or vaccination.Negative - Indicates the patient could be susceptible to VZV infection.Equivocal - A second specimen should be sent for testing. [facility] S[facility] (TONY) [id number] 16:03:00 Test Item Value Reference Range Interpretation Comments Rubella screen IgG Positive Negative (test code = 6156002429) SHADI (test code = SHADI) Positive - Indicates the patient was exposed to Rubella through infection or vaccination.Negative - Indicates the patient could be susceptible to Rubella infection.Equivocal - A second specimen should be sent. [facility] ANTIBODY [id number] 16:03:00 Test Item Value Reference Range Interpretation Comments VZV IgG antibody Negative Negative (test code = 74540-6) SHADI (test code = SHADI) Positive - Indicates the patient was exposed to VZV through infection or vaccination.Negative - Indicates the patient could be susceptible to VZV infection.Equivocal - A second specimen should be sent for testing. [facility] ONLY - SYPHILIS [id number] 15:09:00 Test Item Value Reference Range Interpretation Comments Syphilis IgG/IgM (test Non-reactive Non-reactive code = 46033-3) SHADI (test code = SHADI) Non-reactive - No serologic evidence of T. pallidum infection. Cannot exclude incubating or early syphilis. Submit a second specimen in 2-4 weeks if syphilis is clinically suspected.Equivocal - Further testing to follow.Reactive - Further testing to follow. Lab Interpretation (test Normal code = 22137-9) [facility] ONLY - SYPHILIS [id number] 15:09:00 Test Item Value Reference Range Interpretation Comments Syphilis IgG/IgM (test Non-reactive Non-reactive code = 53425-2) SHADI (test code = SHADI) Non-reactive - No serologic evidence of T. pallidum infection. Cannot exclude incubating or early syphilis. Submit a second specimen in 2-4 weeks if syphilis is clinically suspected.Equivocal - Further testing to follow.Reactive - Further testing to follow. Lab Interpretation (test Normal code = 06271-0) [facility] ONLY - SYPHILIS [id number] 15:09:00 Test Item Value Reference Range Interpretation Comments Syphilis IgG/IgM (test Non-reactive Non-reactive code = 49012-4) SHADI (test code = SHADI) Non-reactive - No serologic evidence of T. pallidum infection. Cannot exclude incubating or early syphilis. Submit a second specimen in 2-4 weeks if syphilis is clinically suspected.Equivocal - Further testing to follow.Reactive - Further testing to follow. Lab Interpretation (test Normal code = 99046-3) [facility] ONLY - SYPHILIS [id number] 15:09:00 Test Item Value Reference Range Interpretation Comments Syphilis IgG/IgM (test Non-reactive Non-reactive code = 77830-7) SHADI (test code = SHADI) Non-reactive - No serologic evidence of T. pallidum infection. Cannot exclude incubating or early syphilis. Submit a second specimen in 2-4 weeks if syphilis is clinically suspected.Equivocal - Further testing to follow.Reactive - Further testing to follow. Lab Interpretation (test Normal code = 15460-5) [facility], BLOOD [id number] 03:21:36 Test Item Value Reference Range Interpretation Comments ABO & RH (test code B POSITIVE Performe d at [facility] = 20) Laboratory [facility] Blood [address] [address]Vttq Free: [phone] A No. [id number] IAT (test code = Negative Performed a t [facility] 1185) Laboratory [facility] Blood [address] [address]Vsza Free: [phone] A No. [id number] [facility], BLOOD [id number] 03:21:36 Test Item Value Reference Range Interpretation Comments ABO & RH (test code B POSITIVE Performe d at [facility] = 20) Laboratory [facility] Blood [address] [place] [address] s [address]Ygpv Free: [phone] A No. [id number] IAT (test code = Negative Performed a t [facility] 1185) Laboratory [facility] [address] [place] [address] s [address]Kclo Free: [phone] A No. [id number] [facility], BLOOD [id number] 03:21:36 Test Item Value Reference Range Interpretation Comments ABO & RH (test code B POSITIVE Performe d at [facility] = 20) Laboratory [facility] [address] [place] [address] s [address]Djrn Free: [phone] A No. [id number] IAT (test code = Negative Performed a t [facility] 1185) Laboratory [facility] Blood Bank3 [address] [facility] [address]Yujw Free: [phone] A No. [id number] [facility], BLOOD [id number] 03:21:36 Test Item Value Reference Range Interpretation Comments ABO & RH (test code B POSITIVE Performe d at [facility] = 20) Laboratory [facility] Blood Bank[address] [facility] [address]Sqtp Free: [phone] A No. [id number] IAT (test code = Negative Performed a t [facility] 1185) Laboratory [facility] Blood Bank[address] [facility] [address]Dxcz Free: [phone] A No. [id number] [facility] WITH [id number] 03:19:00 Test Item Value Reference Range Interpretation Comments HIV Negative Negative Semi-quantitative (test code = 53721-7) SHADI (test code = Non-reactive for HIV-1 SHADI) antigen and HIV-1/HIV-2 antibodies.?No laboratory evidence of HIV infection.?Repeat in 2-4 weeks if acute HIV infection is suspected. [facility] WITH [id number] 03:19:00 Test Item Value Reference Range Interpretation Comments HIV Negative Negative Semi-quantitative (test code = 52394-0) SHADI (test code = Non-reactive for HIV-1 SHADI) antigen and HIV-1/HIV-2 antibodies.?No laboratory evidence of HIV infection.?Repeat in 2-4 weeks if acute HIV infection is suspected. [facility] WITH [id number] 03:19:00 Test Item Value Reference Range Interpretation Comments HIV Negative Negative Semi-quantitative (test code = 32378-6) SHADI (test code = Non-reactive for HIV-1 SHADI) antigen and HIV-1/HIV-2 antibodies.?No laboratory evidence of HIV infection.?Repeat in 2-4 weeks if acute HIV infection is suspected. [facility] WITH [id number] 03:19:00 Test Item Value Reference Range Interpretation Comments HIV Negative Negative Semi-quantitative (test code = 92455-1) SHADI (test code = Non-reactive for HIV-1 SHADI) antigen and HIV-1/HIV-2 antibodies.?No laboratory evidence of HIV infection.?Repeat in 2-4 weeks if acute HIV infection is suspected. [facility] B SURFACE [id number] 02:57:00 Test Item Value Reference Range Interpretation Comments HBsAg Semi-Quantitative (test code = 5195-3) [facility] B SURFACE [id number] 02:57:00 Test Item Value Reference Range Interpretation Comments HBsAg Semi-Quantitative (test code = 5195-3) [facility] B SURFACE [id number] 02:57:00 Test Item Value Reference Range Interpretation Comments HBsAg Semi-Quantitative (test code = 5195-3) [facility] B SURFACE [id number] 02:57:00 Test Item Value Reference Range Interpretation Comments HBsAg Semi-Quantitative (test code = 5195-3) [facility] [id number] 02:16:00 Test Item Value Reference Range Interpretation Comments GLUC 1 HR (test code = 1280497657) 79 mg/dL 120-170 L Lab Interpretation (test code = Abnormal 55810-0) [facility] [id number] 02:16:00 Test Item Value Reference Range Interpretation Comments GLUC 1 HR (test code = 4387001255) 79 mg/dL 120-170 L Lab Interpretation (test code = Abnormal 02550-6) [facility] POST [id number] 02:16:00 Test Item Value Reference Range Interpretation Comments GLUC 1 HR (test code = 9596649264) 79 mg/dL 120-170 L Lab Interpretation (test code = Abnormal 99610-4) [facility] [id number] 02:16:00 Test Item Value Reference Range Interpretation Comments GLUC 1 HR (test code = 9300032374) 79 mg/dL 120-170 L Lab Interpretation (test code = Abnormal 81471-2) [facility] WITH [id number] 01:47:00 Test Item Value Reference Range Interpretation Comments WBC (test code = See_Comment [Automated 6690-2) message] The sy stem which generated this result transmitted reference range : 4.50 - 13.50 10*3/?L. The reference range was not used to interpret this result as normal/abnormal . RBC (test code = See_Comment [Automated 789-8) message] The sy stem which generated this result transmitted reference range : 4.10 - 5.10 10*6/?L. The reference range was not used to interpret this result as normal/abnormal . HGB (test code = 11.5 g/dL 12-16 L 718-7) HCT (test code = 36.3 % 36-45 4544-3) MCV (test code = 78.1 fL 78-95 787-2) MCH (test code = 24.7 pg 26-32 L 785-6) MCHC (test code = 31.7 g/dL 32-36 L 786-4) RDW-SD (test code = 45.3 fL 38.5-49 16020-1) RDW-CV (test code = 15.9 % 11.5-14 H 788-0) PLT (test code = See_Comment [Automated 777-3) message] The sy stem which generated this result transmitted reference range : 135 - 361 10*3/ ?L. The reference r bladimir was not used to interpret this result as normal/abnormal . MPV (test code = 11.0 fL 9.4-13.3 45186-5) NRBC/100 WBC (test See_Comment [Automat ed code = 6665255092) message] The system which generated this result transmitted reference range : 0.0 - 10.0 /100 WBCs. The refer ence range was not u sed to interpret th is result as normal/abnormal . NRBC x10^3 (test code <0.01 See_Comment [Auto mated = 6033093009) message] The s ystem which generated this result transmitted reference range : 10*3/?L. The reference range was not used to interpret this result as normal/abnormal . GRAN MAT (NEUT) % 66.8 % (test code = 770-8) IMM GRAN % (test code 0.10 % = 0770554425) LYMPH % (test code = 27.8 % 736-9) MONO % (test code = 4.8 % 5905-5) EOS % (test code = 0.4 % 713-8) BASO % (test code = 0.1 % 706-2) GRAN MAT x10^3(ANC) 4.54 10*3/uL 1.5-10.3 (test code = 7619070761) IMM GRAN x10^3 (test <0.03 0-0.06 code = 2847203129) LYMPH x10^3 (test code 1.89 10*3/uL 0.7-7.4 = 731-0) MONO x10^3 (test code 0.33 10*3/uL 0-0.5 = 742-7) EOS x10^3 (test code = 0.03 10*3/uL 0-0.4 711-2) BASO x10^3 (test code <0.03 0-0.1 = 704-7) Lab Interpretation Abnormal (test code = 66834-4) [facility] WITH [id number] 01:47:00 Test Item Value Reference Range Interpretation Comments WBC (test code = See_Comment [Automated 6690-2) message] The sy stem which generated this result transmitted reference range : 4.50 - 13.50 10*3/?L. The reference range was not used to interpret this result as normal/abnormal . RBC (test code = See_Comment [Automated 379-8) message] The sy stem which generated this result transmitted reference range : 4.10 - 5.10 10*6/?L. The reference range was not used to interpret this result as normal/abnormal . HGB (test code = 11.5 g/dL 12-16 L 718-7) HCT (test code = 36.3 % 36-45 4544-3) MCV (test code = 78.1 fL 78-95 787-2) MCH (test code = 24.7 pg 26-32 L 785-6) MCHC (test code = 31.7 g/dL 32-36 L 786-4) RDW-SD (test code = 45.3 fL 38.5-49 05417-6) RDW-CV (test code = 15.9 % 11.5-14 H 788-0) PLT (test code = See_Comment [Automated 777-3) message] The sy stem which generated this result transmitted reference range : 135 - 361 10*3/ ?L. The reference r bladimir was not used to interpret this result as normal/abnormal . MPV (test code = 11.0 fL 9.4-13.3 05920-4) NRBC/100 WBC (test See_Comment [Automat ed code = 6149777703) message] The system which generated this result transmitted reference range : 0.0 - 10.0 /100 WBCs. The refer ence range was not u sed to interpret th is result as normal/abnormal . NRBC x10^3 (test code <0.01 See_Comment [Auto mated = [id number]) message] The s ystem which generated this result transmitted reference range : 10*3/?L. The reference range was not used to interpret this result as normal/abnormal . GRAN MAT (NEUT) % 66.8 % (test code = 770-8) IMM GRAN % (test code 0.10 % = 3850977194) LYMPH % (test code = 27.8 % 736-9) MONO % (test code = 4.8 % 5905-5) EOS % (test code = 0.4 % 713-8) BASO % (test code = 0.1 % 706-2) GRAN MAT x10^3(ANC) 4.54 10*3/uL 1.5-10.3 (test code = 5600283143) IMM GRAN x10^3 (test <0.03 0-0.06 code = 2521643425) LYMPH x10^3 (test code 1.89 10*3/uL 0.7-7.4 = 731-0) MONO x10^3 (test code 0.33 10*3/uL 0-0.5 = 742-7) EOS x10^3 (test code = 0.03 10*3/uL 0-0.4 711-2) BASO x10^3 (test code <0.03 0-0.1 = 704-7) Lab Interpretation Abnormal (test code = 08265-1) [facility] WITH [id number] 01:47:00 Test Item Value Reference Range Interpretation Comments WBC (test code = See_Comment [Automated 6690-2) message] The sy stem which generated this result transmitted reference range : 4.50 - 13.50 10*3/?L. The reference range was not used to interpret this result as normal/abnormal . RBC (test code = See_Comment [Automated 789-8) message] The sy stem which generated this result transmitted reference range : 4.10 - 5.10 10*6/?L. The reference range was not used to interpret this result as normal/abnormal . HGB (test code = 11.5 g/dL 12-16 L 718-7) HCT (test code = 36.3 % 36-45 4544-3) MCV (test code = 78.1 fL 78-95 787-2) MCH (test code = 24.7 pg 26-32 L 785-6) MCHC (test code = 31.7 g/dL 32-36 L 786-4) RDW-SD (test code = 45.3 fL 38.5-49 50380-8) RDW-CV (test code = 15.9 % 11.5-14 H 788-0) PLT (test code = See_Comment [Automated 777-3) message] The sy stem which generated this result transmitted reference range : 135 - 361 10*3/ ?L. The reference r bladimir was not used to interpret this result as normal/abnormal . MPV (test code = 11.0 fL 9.4-13.3 48928-7) NRBC/100 WBC (test See_Comment [Automat ed code = 8714765925) message] The system which generated this result transmitted reference range : 0.0 - 10.0 /100 WBCs. The refer ence range was not u sed to interpret th is result as normal/abnormal . NRBC x10^3 (test code <0.01 See_Comment [Auto mated = 1800234406) message] The s ystem which generated this result transmitted reference range : 10*3/?L. The reference range was not used to interpret this result as normal/abnormal . GRAN MAT (NEUT) % 66.8 % (test code = 770-8) IMM GRAN % (test code 0.10 % = 4074434176) LYMPH % (test code = 27.8 % 736-9) MONO % (test code = 4.8 % 5905-5) EOS % (test code = 0.4 % 713-8) BASO % (test code = 0.1 % 706-2) GRAN MAT x10^3(ANC) 4.54 10*3/uL 1.5-10.3 (test code = 7976113514) IMM GRAN x10^3 (test <0.03 0-0.06 code = 4092056942) LYMPH x10^3 (test code 1.89 10*3/uL 0.7-7.4 = 731-0) MONO x10^3 (test code 0.33 10*3/uL 0-0.5 = 742-7) EOS x10^3 (test code = 0.03 10*3/uL 0-0.4 711-2) BASO x10^3 (test code <0.03 0-0.1 = 704-7) Lab Interpretation Abnormal (test code = 36969-5) [facility] WITH [id number] 01:47:00 Test Item Value Reference Range Interpretation Comments WBC (test code = See_Comment [Automated 5990-2) message] The sy stem which generated this result transmitted reference range : 4.50 - 13.50 10*3/?L. The reference range was not used to interpret this result as normal/abnormal . RBC (test code = See_Comment [Automated 029-8) message] The sy stem which generated this result transmitted reference range : 4.10 - 5.10 10*6/?L. The reference range was not used to interpret this result as normal/abnormal . HGB (test code = 11.5 g/dL 12-16 L 718-7) HCT (test code = 36.3 % 36-45 4544-3) MCV (test code = 78.1 fL 78-95 787-2) MCH (test code = 24.7 pg 26-32 L 785-6) MCHC (test code = 31.7 g/dL 32-36 L 786-4) RDW-SD (test code = 45.3 fL 38.5-49 70059-7) RDW-CV (test code = 15.9 % 11.5-14 H 788-0) PLT (test code = See_Comment [Automated 777-3) message] The sy stem which generated this result transmitted reference range : 135 - 361 10*3/ ?L. The reference r bladimir was not used to interpret this result as normal/abnormal . MPV (test code = 11.0 fL 9.4-13.3 10532-2) NRBC/100 WBC (test See_Comment [Automat ed code = 7677576058) message] The system which generated this result transmitted reference range : 0.0 - 10.0 /100 WBCs. The refer ence range was not u sed to interpret th is result as normal/abnormal . NRBC x10^3 (test code <0.01 See_Comment [Auto mated = 4287778908) message] The s ystem which generated this result transmitted reference range : 10*3/?L. The reference range was not used to interpret this result as normal/abnormal . GRAN MAT (NEUT) % 66.8 % (test code = 770-8) IMM GRAN % (test code 0.10 % = 3951823760) LYMPH % (test code = 27.8 % 736-9) MONO % (test code = 4.8 % 5905-5) EOS % (test code = 0.4 % 713-8) BASO % (test code = 0.1 % 706-2) GRAN MAT x10^3(ANC) 4.54 10*3/uL 1.5-10.3 (test code = 9466746365) IMM GRAN x10^3 (test <0.03 0-0.06 code = 6833994983) LYMPH x10^3 (test code 1.89 10*3/uL 0.7-7.4 = 731-0) MONO x10^3 (test code 0.33 10*3/uL 0-0.5 = 742-7) EOS x10^3 (test code = 0.03 10*3/uL 0-0.4 711-2) BASO x10^3 (test code <0.03 0-0.1 = 704-7) Lab Interpretation Abnormal (test code = 55291-5) [facility] URINALYSIS W SPECIFIC [id number] 21:05:00 Test Item Value Reference Range Interpretation Comments POCT U SP GRAV (test code = 10.020 mg/dl 1.005-1.025 A 3255) POCT PH U (test code = 3254) 6 mg/dl 5-8 POCT U LEUK EST (test code = neg Negative - Negative 3263) POCT U NIT (test code = neg Negative - Negative 3262) POCT U PROT (test code = neg Negative - Negative 3259) POCT U GLU (test code = neg Negative - Negative 3256) POCT U KETONE (test code = ++ Negative - Negative 3258) POCT U UROBILI (test code = neg 0.2-1 3260) POCT U BILI (test code = neg Negative - Negative 3261) POCT U BLD (test code = neg Negative - Negative 3257) POCT U COLOR (test code = emerita 3266) POCT U APPEAR (test code = cloudy 3267) Lab Interpretation (test Abnormal code = 14056-4) [facility] URINALYSIS W SPECIFIC [id number] 21:05:00 Test Item Value Reference Range Interpretation Comments POCT U SP GRAV (test code = 10.020 mg/dl 1.005-1.025 A 3255) POCT PH U (test code = 3254) 6 mg/dl 5-8 POCT U LEUK EST (test code = neg Negative - Negative 3263) POCT U NIT (test code = neg Negative - Negative 3262) POCT U PROT (test code = neg Negative - Negative 3259) POCT U GLU (test code = neg Negative - Negative 3256) POCT U KETONE (test code = ++ Negative - Negative 3258) POCT U UROBILI (test code = neg 0.2-1 3260) POCT U BILI (test code = neg Negative - Negative 3261) POCT U BLD (test code = neg Negative - Negative 3257) POCT U COLOR (test code = emerita 3266) POCT U APPEAR (test code = cloudy 3267) Lab Interpretation (test Abnormal code = 62317-6) [facility] URINALYSIS W SPECIFIC [id number] 21:05:00 Test Item Value Reference Range Interpretation Comments POCT U SP GRAV (test code = 10.020 mg/dl 1.005-1.025 A 3255) POCT PH U (test code = 3254) 6 mg/dl 5-8 POCT U LEUK EST (test code = neg Negative - Negative 3263) POCT U NIT (test code = neg Negative - Negative 3262) POCT U PROT (test code = neg Negative - Negative 3259) POCT U GLU (test code = neg Negative - Negative 3256) POCT U KETONE (test code = ++ Negative - Negative 3258) POCT U UROBILI (test code = neg 0.2-1 3260) POCT U BILI (test code = neg Negative - Negative 3261) POCT U BLD (test code = neg Negative - Negative 3257) POCT U COLOR (test code = emerita 3266) POCT U APPEAR (test code = cloudy 3267) Lab Interpretation (test Abnormal code = 10651-2) [facility] URINALYSIS W SPECIFIC [id number] 21:05:00 Test Item Value Reference Range Interpretation Comments POCT U SP GRAV (test code = 10.020 mg/dl 1.005-1.025 A 3255) POCT PH U (test code = 3254) 6 mg/dl 5-8 POCT U LEUK EST (test code = neg Negative - Negative 3263) POCT U NIT (test code = neg Negative - Negative 3262) POCT U PROT (test code = neg Negative - Negative 3259) POCT U GLU (test code = neg Negative - Negative 3256) POCT U KETONE (test code = ++ Negative - Negative 3258) POCT U UROBILI (test code = neg 0.2-1 3260) POCT U BILI (test code = neg Negative - Negative 3261) POCT U BLD (test code = neg Negative - Negative 3257) POCT U COLOR (test code = emerita 3266) POCT U APPEAR (test code = cloudy 3267) Lab Interpretation (test Abnormal code = 00737-5) [facility]CG (QUANTITATIVE)2019-07-10 20:44:00 Test Item Value Reference Range Interpretation Comments BETA HCG (test See_Comment [Automated m essage] code = The system 9You [id number]) generated this result transmit phyllis reference range : Non- fe male and male patien ts: <5 mIU/mL. The reference range was not used to interpret this result as normal/abnormal . SHADI (test code Gestational = SHADI) Age?Range (mIU/mL)1-10?Weeks?4 1-61834388-19 Weeks?70465-17921330 -22 Weeks?7480-58791972- 40 Weeks?1531-300297Bfs tin has been reported to cause a negative bias, interpret results relative to patient's use of biotin. [facility] [id number] 20:29:00 Test Item Value Reference Range Interpretation Comments TSH (test code = See_Comment [Automated message] [id number]) The system 9You generated this result transmitted ref erence range: 0.45 - 4 .70 mIU/L. The refe rence range was not u sed to interpret this result as normal/abnor mal. Lab Interpretation (test Normal code = 04608-2) [facility] [id number] 20:10:00 Test Item Value Reference Range Interpretation Comments TROPONIN I (test 0.001 ng/mL See_Comment [Automated code = 2597071310) message] The system which generated this result transmitted reference range : <=0.034. The reference range was not used to interpret this result as normal/abnormal . SHADI (test code = Equal or Less than SHADI) 0.034 ng/ml---Normal?Not e: Cardiac troponin begins to rise 3-4 hours after the onset of ischemia. Repeat in 4-6 hours if the sample was drawn within 3-4 hours of the onset of the symptom and found normal. Between 0.035 and 0.120 ng/mL--- Borderline. Questionable myocardial injury or necrosis?Note: Serial measurement may be necessary to confirm or exclude the diagnosis of myocardial injury or necrosis; Clinical correlation (symptoms, EKGs, imaging studies, and others) required; Repeat in 4-6 hours if clinically indicated.? Equal or Higher than 0.121 ng/mL---Abnormal. Myocardial Injury or Necrosis Likely? Biotin has been reported to cause a negative bias, interpret results relative to patient's use of biotin.? ? Lab Interpretation Normal (test code = 94913-0) [facility] [id number] 20:10:00 Test Item Value Reference Range Interpretation Comments NT-proBNP (test code 52 pg/mL See_Comment [Autom ated = 3464352550) message] The system which generated this result transmitted reference range : <=125. The reference range was not used to interpret this result as normal/abnormal . SHADI (test code = SHADI) Biotin has been reported to cause a negative bias, interpret results relative to patient's use of biotin. Lab Interpretation Normal (test code = 25412-6) [facility] (NA, K, CL, CO2, GLUCOSE, BUN, CREATININE, CA)2019-07-10 19:58:00 Test Item Value Reference Range Interpretation Comments NA (test code = 137 mmol/L 135-145 1526969885) K (test code = 4.0 mmol/L 3.5-5 2645756346) CL (test code = 108 mmol/L 98-108 3221095133) CO2 TOTAL (test code = 25 mmol/L 23-31 2381153540) AGAP (test code = 2-16 0422546472) BUN (test code = 8 mg/dL 7-23 9095747521) GLUCOSE (test code = 90 mg/dL 70-110 7970938617) CREATININE (test code 0.51 mg/dL 0.5-1.04 = 9366226097) CALCIUM (test code = 9.2 mg/dL 8.6-10.6 0958566780) eGFR Calculation mL/min/1.73m2 (Non-) (test code = 5027749499) eGFR Calculation mL/min/1.73m2 () (test code = 5959745923) SHADI (test code = SHADI) Association of Glomerular Filtration Rate (GFR) and Staging of Kidney Disease*+ ---------+ --------+ +| GFR (mL/min/1.73 m2)?| With Kidney Damage?|?Without Kidney Damage+ -------+ ------+ ---------+|?>90?|?Stage one?|? Normal?+ --------+ -------+ +|?60-89?|?St age two?|? Decreased GFR? + -+ + ---+|?30-59?|?Stage three?|? Stage three? + -+ + ---+|?15-29?|?Stage four? |? Stage four?+ ------+ -----+ --------+|?<15 (or dialysis)?|?Stage five? |? Stage five?+ ------+ -----+ --------+*Each stage assumes the associated GFR level has been in effect for at least three months.?Stages 1 to 5, with or without kidney disease, indicate chronic kidney disease.Notes: Determination of stages one and two (with eGFR >59mL/min/1.73 m2) requires estimation of kidney damage for at least three months as defined by structural or functional abnormalities of the kidney, manifested by either:Pathological abnormalities or Markers of kidney damage (including abnormalities in the composition of the blood or urine or abnormalities in imaging tests). [facility] WITH [id number] 19:44:00 Test Item Value Reference Range Interpretation Comments WBC (test code = See_Comment [Automated 5790-2) message] The sy stem which generated this result transmitted reference range : 4.50 - 13.50 10*3/?L. The reference range was not used to interpret this result as normal/abnormal . RBC (test code = See_Comment [Automated 469-8) message] The sy stem which generated this result transmitted reference range : 4.10 - 5.10 10*6/?L. The reference range was not used to interpret this result as normal/abnormal . HGB (test code = 10.8 g/dL 12-16 L 718-7) HCT (test code = 33.9 % 36-45 L 4544-3) MCV (test code = 77.4 fL 78-95 L 787-2) MCH (test code = 24.7 pg 26-32 L 785-6) MCHC (test code = 31.9 g/dL 32-36 L 786-4) RDW-SD (test code = 45.7 fL 38.5-49 59261-4) RDW-CV (test code = 16.1 % 11.5-14 H 788-0) PLT (test code = See_Comment [Automated 777-3) message] The sy stem which generated this result transmitted reference range : 135 - 361 10*3/ ?L. The reference r bladimir was not used to interpret this result as normal/abnormal . MPV (test code = 11.1 fL 9.4-13.3 19484-8) NRBC/100 WBC (test See_Comment [Automat ed code = 5355098606) message] The system which generated this result transmitted reference range : 0.0 - 10.0 /100 WBCs. The refer ence range was not u sed to interpret th is result as normal/abnormal . NRBC x10^3 (test code <0.01 See_Comment [Auto mated = 1290858202) message] The s ystem which generated this result transmitted reference range : 10*3/?L. The reference range was not used to interpret this result as normal/abnormal . GRAN MAT (NEUT) % 72.0 % (test code = 770-8) IMM GRAN % (test code 0.30 % = 7836065360) LYMPH % (test code = 20.1 % 736-9) MONO % (test code = 6.4 % 5905-5) EOS % (test code = 1.1 % 713-8) BASO % (test code = 0.1 % 706-2) GRAN MAT x10^3(ANC) 5.21 10*3/uL 1.5-10.3 (test code = 5529006550) IMM GRAN x10^3 (test <0.03 0-0.06 code = 4477098464) LYMPH x10^3 (test code 1.45 10*3/uL 0.7-7.4 = 731-0) MONO x10^3 (test code 0.46 10*3/uL 0-0.5 = 742-7) EOS x10^3 (test code = 0.08 10*3/uL 0-0.4 711-2) BASO x10^3 (test code <0.03 0-0.1 = 704-7) Lab Interpretation Abnormal (test code = 76672-3) [facility]"
[2022-02-01 09:14] LABS: Absolute Lymphocytes (CBC) 1.7 K/uL (0.7-4.9); Hematocrit 29.3 % (36.0-45.0); Lymphocytes % 26.3 % (15.3-44.8); RBC Red Blood Cell Count 4.97 M/uL (3.86-4.86)
[2022-02-01 09:15] LABS: ALT/SGPT 30 U/L (12-78); AST/SGOT 12 U/L (15-37); Albumin 3.1 g/dL (3.4-5.0); Alkaline Phosphatase 122 U/L (45-117); BUN Blood Urea Nitrogen 9 mg/dL (7-18); Bicarbonate 28 mmol/L (21-32); Bilirubin Total 0.3 mg/dL (0.2-1.0); Glucose Level 97 mg/dL (74-106); Lipase 44 U/L (73-393); Potassium 3.5 mmol/L (3.5-5.1); Protein, Total 7.3 g/dL (6.4-8.2); Sodium Level 142 mmol/L (136-145)
[2022-02-01 11:02] LABS: Urine Blood Negative (Negative); Urine Glucose Negative (Negative); Urine Protein Negative (Negative); Urine Specific Gravity 1.025 (1.005-1.030)
--- NOTE | 2022-02-01 11:32 | EDPHYS ---
Physician Documentation [facility] Name: Fransisca Pena Age: 21 yrs Sex: Female : 2000 Arrival Date: 02/01/2022 Time: 08:34 Bed 27 Private MD: ED Physician Jermaine Casas HPI: 02/01 11:27 This 21 yrs old Black Female presents to ER via EMS with complaints of Back Pain, ma2 Vaginal Bleeding. 11:27 The symptoms are located in the low back. Onset: The symptoms/episode began/occurred ma2 gradually, 2 day(s) ago. Associated signs and symptoms: Pertinent negatives: constipation, hematuria, incontinence, numbness, vomiting. Severity of symptoms: At their worst the symptoms were mild, in the emergency department the symptoms are unchanged. The patient has not experienced similar symptoms in the past. 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 - Social history:: Smoking status: Patient denies any tobacco usage or history of. Patient/guardian denies using alcohol, street drugs, The patient lives with family. - Family history:: not pertinent. ROS: 11:27 Constitutional: Negative for fever, chills, and weight loss. ma2 11:27 All other systems are negative. Exam: 11:27 Constitutional: This is a well developed, well nourished patient who is awake, alert, ma2 and in no acute distress. Head/Face: Normocephalic, atraumatic. Eyes: Pupils equal round and reactive to light, extra-ocular motions intact. Lids and lashes normal. Conjunctiva and sclera are non-icteric and not injected. Cornea within normal limits. Periorbital areas with no swelling, redness, or edema. ENT: Nares patent. No nasal discharge, no septal abnormalities noted. Tympanic membranes are normal and external auditory canals are clear. Oropharynx with no redness, swelling, or masses, exudates, or evidence of obstruction, uvula midline. Mucous membranes moist. Neck: Trachea midline, no thyromegaly or masses palpated, and no cervical lymphadenopathy. Supple, full range of motion without nuchal rigidity, or vertebral point tenderness. No Meningismus. Chest/axilla: Normal chest wall appearance and motion. Nontender with no deformity. No lesions are appreciated. Cardiovascular: Regular rate and rhythm with a normal S1 and S2. No gallops, murmurs, or rubs. Normal PMI, no JVD. No pulse deficits. Respiratory: Lungs have equal breath sounds bilaterally, clear to auscultation and percussion. No rales, rhonchi or wheezes noted. No increased work of breathing, no retractions or nasal flaring. Abdomen/GI: Soft, non-tender, with normal bowel sounds. No distension or tympany. No guarding or rebound. No evidence of tenderness throughout. Back: No spinal tenderness. No costovertebral tenderness. Full range of motion. Skin: Warm, dry with normal turgor. Normal color with no rashes, no lesions, and no evidence of cellulitis. MS/ Extremity: Pulses equal, no cyanosis. Neurovascular intact. Full, normal range of motion. Neuro: Awake and alert, GCS 15, oriented to person, place, time, and situation. Cranial nerves II-XII grossly intact. Motor strength 5/5 in all extremities. Sensory grossly intact. Cerebellar exam normal. Normal gait. Vital Signs: 08:34 BP 110 / 65; Pulse 91; Resp 14 S; Temp 98.6(O); Pulse Ox 100% on R/A; Weight 129.27 kg; jg9 Height 5 ft. 5 in. (165.10 cm) (R); Pain 7/10; 09:39 BP 100 / 64; Pulse 92; Resp 16 S; Pulse Ox 100% on R/A; jg9 10:30 BP 143 / 73; Pulse 80; Resp 17 S; Pulse Ox 100% on R/A; jg9 08:34 Body Mass Index 47.43 (129.27 kg, 165.10 cm) j9 MDM: 08:35 Patient medically screened. ma2 11:27 Differential diagnosis: sprain, UTI, versus vaginal bleeding, will rule out . ma2 11:31 Data reviewed: vital signs, nurses notes, EMS record. Counseling: I had a detailed ma2 discussion with the patient and/or guardian regarding: the historical points, exam findings, and any diagnostic results supporting the discharge/admit diagnosis, the presence of at least one elevated blood pressure reading (>120/80) during this emergency department visit, the need for outpatient follow up. Response to treatment: the patient's symptoms have markedly improved after treatment. 02/01 08:35 Order name: CBC with Diff ma2 02/01 08:35 Order name: CMP; Complete Time: 09:19 ma2 02/01 08:35 Order name: Lipase; Complete Time: 09:19 ma2 02/01 08:35 Order name: CBC with Automated Diff EDMS 02/01 09:28 Order name: CBC Smear Scan EDMS 02/01 10:47 Order name: Quantitative Hcg ma2 02/01 08:35 Order name: IV Saline Lock; Complete Time: 09:07 ma2 02/01 08:35 Order name: Labs collected and sent; Complete Time: 10:46 ma2 02/01 08:35 Order name: Urine Dipstick-Ancillary (obtain specimen); Complete Time: 11:29 ma2 02/01 08:35 Order name: Urine Test (obtain specimen); Complete Time: 11:29 ar2 02/01 10:47 Order name: HCG, Quantitative EDMS 02/01 11:02 Order name: Urine Dipstick-Ancillary; Complete Time: 11:23 EDMS 02/01 11:32 Order name: Urine --Ancillary (enter results) eb Administered Medications: No medications were administered Point of Care Testing: Urine : 11:29 hCG Reading: Negative; Control Reading: Positive; jg9 Disposition Summary: 02/01/22 11:32 Discharge Ordered Location: Home ma2 Condition: Stable ma2 Diagnosis - UTI/ Urinary tract infection, site not specified - with vaginal bleeding ma2 Followup: ma2 - With: Private Physician - When: Tomorrow - Reason: If symptoms return, Continuance of care Discharge Instructions: - Discharge Summary Sheet ma2 - Urinary Tract Infection, Adult ma2 Forms: - Medication Reconciliation Form ma2 - Thank You Letter ma2 - Antibiotic Education ma2 - Prescription Opioid Use ma2 Prescriptions: - Provera 2.5 mg Oral tablet - take 2 tablet by ORAL route once daily for 12 days; 30 tablet; Refills: 0, ma2 Product Selection Permitted - Bactrim DS 800-160 mg Oral Tablet - take 1 tablet by ORAL route every 12 hours for 5 days; 20 tablet; Refills: 0, ma2 Product Selection Permitted Signatures: Dispatcher [employer] EDJermaine Russell MD MD ma2 Jennifer Amato RN RN jg9 Corrections: (The following items were deleted from the chart) 08:37 08:36 Allergies: No Known Allergies; jg9 jg9 08:37 08:36 Home Meds: None; jg9 jg9 08:37 08:36 PMHx: None; jg9 jg9 08:37 08:36 PSHx: None; jg9 jg9 08:37 08:36 PSHx: None; jg9 jg9
--- NOTE | 2022-02-01 11:32 | ER ---
Nurse's Notes [facility] Name: Fransisca Pena Age: 21 yrs Sex: Female : 2000 Arrival Date: 02/01/2022 Time: 08:34 Bed 27 Private MD: Diagnosis: UTI/ Urinary tract infection, site not specified-with vaginal bleeding Presentation: 02/01 08:34 Chief complaint: EMS states: Patient here from [facility] with c/o back pain and jg9 heavy bleeding with clots x 2 days, patient seen by staff at facility an prescribed ibuprofen 2 days ago when symptoms started. Patient reports she is on control to control the bleeding but it is not working. Coronavirus screen: Vaccine status: Patient reports being unvaccinated. Ebola Screen: Patient negative for fever greater than or equal to 101.5 degrees Fahrenheit, and additional compatible Ebola Virus Disease symptoms Patient denies exposure to infectious person. Patient denies travel to an Ebola-affected area in the 21 days before illness onset. Initial Sepsis Screen: Does the patient meet any 2 criteria? No. Patient's initial sepsis screen is negative. Does the patient have a suspected source of infection? No. Patient's initial sepsis screen is negative. Risk Assessment: Do you want to hurt yourself or someone else? Patient reports no desire to harm self or others. Onset of symptoms was January 30, 2022. 08:34 Method Of Arrival: EMS: [facility] 08:34 Acuity: TYLER 3 jg9 Triage Assessment: 08:37 General: Appears in no apparent distress. Behavior is calm, cooperative. Pain: jg9 Complains of pain in back-lower back. Musculoskeletal: Circulation, motion, and sensation intact. 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 - Social history:: Smoking status: Patient denies any tobacco usage or history of. Patient/guardian denies using alcohol, street drugs, The patient lives with family. - Family history:: not pertinent. Screenin:38 Abuse screen: Denies threats or abuse. Denies injuries from another. Nutritional jg9 screening: No deficits noted. Tuberculosis screening: No symptoms or risk factors identified. Fall Risk None identified. Assessment: 09:13 Reassessment: No changes from previously documented assessment. Neuro: No deficits jg9 noted. 10:47 Reassessment: No changes from previously documented assessment. jg9 11:45 Neuro: Level of Consciousness is awake, alert, obeys commands, Oriented to person, aa5 place, time, situation. Respiratory: Airway is patent Respiratory effort is even, unlabored, Respiratory pattern is regular, symmetrical. Derm: Skin is dry, Skin is normal, Skin temperature is warm. Vital Signs: 08:34 BP 110 / 65; Pulse 91; Resp 14 S; Temp 98.6(O); Pulse Ox 100% on R/A; Weight 129.27 kg; jg9 Height 5 ft. 5 in. (165.10 cm) (R); Pain 7/10; 09:39 BP 100 / 64; Pulse 92; Resp 16 S; Pulse Ox 100% on R/A; jg9 10:30 BP 143 / 73; Pulse 80; Resp 17 S; Pulse Ox 100% on R/A; jg9 08:34 Body Mass Index 47.43 (129.27 kg, 165.10 cm) j9 ED Course: 08:34 Patient arrived in ED. jg9 08:34 Jennifer Amato, RN is Primary Nurse. j9 08:34 Jermaine Casas MD is Attending Physician. ma2 08:36 Triage completed. j9 08:38 Arm band placed on right wrist. jg9 08:38 Patient has correct armband on for positive identification. Bed in low position. CO at 9 bedside. 08:50 Inserted saline lock: 20 gauge in right antecubital area, using aseptic technique. jg9 Blood collected. 10:46 CBC with Diff Sent. jg9 10:47 No apparent distress. Resting quietly. jg9 11:29 Quantitative Hcg Sent. jg9 11:45 No provider procedures requiring assistance completed. IV discontinued, intact, aa5 bleeding controlled, No redness/swelling at site. Pressure dressing applied. Administered Medications: No medications were administered Point of Care Testing: Urine : 11:29 hCG Reading: Negative; Control Reading: Positive; jg9 Outcome: 11:32 Discharge ordered by . nikos 11:46 Discharged to Law Enforcement, [place] [employer] aa5 11:46 Condition: good 11:46 Discharge instructions given to patient, and law enforcement. Instructed on discharge instructions, follow up and referral plans. medication usage, Demonstrated understanding of instructions, follow-up care, medications. 11:53 Patient left the ED. aa5 Signatures: Cuca Nguyen RN RN aa5 Jermaine Casas MD MD ma2 Jennifer Amato RN RN jg9 Corrections: (The following items were deleted from the chart) 08:37 08:36 Allergies: No Known Allergies; jg9 jg9 08:37 08:36 Home Meds: None; jg9 jg9 08:37 08:36 PMHx: None; jg9 jg9 08:37 08:36 PSHx: None; jg9 jg9 08:37 08:36 PSHx: None; jg9 jg9
[2022-02-01 11:51] LABS: Platelet Estimate ADEQ; White Blood Cell Scan OK (OK)
[2022-02-01 11:52] LABS: Anisocytosis 1+; Blood Morphology Comment NOT SEEN (NOT SEEN); Hypochromasia 2+; Poikilocytosis SLIGHT; Target Cells FEW
[2022-02-01 11:59] VITALS: TEMP 98.6; O2SAT 100
[2022-02-01 12:01] VITALS: BP 143/73
[2022-02-01 12:15] LABS: Urine Specific Gravity/Preg 1.025 (1.005-1.030)
== END 2022-02-01 11:53 | disposition home or self-care (01) ==
LOC: ER 08:32
DX: N39.0 Urinary tract infection, site not specified (principal); N93.9 Abnormal uterine and vaginal bleeding, unspecified
CPT/HCPCS: 36415; 80053; 81003; 81025; 83690; 84702; 85025; 99284